=== PATIENT | female | born 1945 | race Caucasian/White ===

== ENCOUNTER → 2020-06-19 | Outpatient (CLI) | payer MEDICARE ==
[~2020-06-19] MED LIST: RT-ALBUTEROL SULF 2.5 MG/3 ML PRE-MIX VIAL INH ONE
--- NOTE | 2020-06-19 11:58 | Diagnostic Imaging Report ---
INDICATION: COPD. COMPARISON: None. FINDINGS: Frontal and lateral views of the chest demonstrate normal heart size and pulmonary vascularity. The lungs are clear. There are no signs of infiltrate, pleural effusions or pneumothoraces. The visualized osseous structures show no acute abnormalities. IMPRESSION: 1. No acute process. No signs of infiltrates, effusions or pneumothoraces. Dictated by: Dictated on workstation # [id number]
== END ==
LOC: RT 10:30
PROVIDERS: ATTEND Internal Medicine Critical Care Medicine
DX: J44.9 Chronic obstructive pulmonary disease, unspecified (principal)
CPT/HCPCS: 71046; 94060; 94726; 94729

== ENCOUNTER → 2020-08-01 | Outpatient (CLI) | payer MEDICARE ==
--- NOTE | 2020-08-01 11:02 | Diagnostic Imaging Report ---
INDICATION: 74-year-old postmenopausal female. COMPARISON: None. FINDINGS: AP Spine L1-L4: [BMD (g/cm2): 1.218] [T-Score: 0.1] [Z-Score: 1.7] [BMD Previous: na] [BMD % Change: na] LT Hip Neck: [BMD (g/cm2): 0.760] [T-Score: -2.0] [Z-Score: -0.2] LT Hip Total: [BMD (g/cm2):0.829] [T-Score:-1.4] [Z-Score: 0.2] [BMD Previous: na] [BMD % Change: na] RT Hip Neck: [BMD (g/cm2):na] [T-Score:na] [Z-Score:na] RT Hip Total: [BMD (g/cm2):na] [T-score:na] [Z-Score:na] [BMD Previous:na] [BMD % Change:na] World Health Organization criteria for BMD interpretation classify patients as Normal (T-score at or above -1.0), Osteopenic (T-score between -1.0 and -2.5) or Osteoporotic (T-score at or below -2.5). LIMITATIONS AND MODIFICATION: Right hip replacement. FRACTURE RISK (FRAX SCORE): The ten year probability of (%): Major Osteoporotic Fracture: [14.3] Hip Fracture: [3.9] IMPRESSION: 1. Osteopenia (Low bone mass). 2. Baseline examination. 3. See below National Osteoporosis Foundation guidelines on when to potentially initiate pharmacologic therapy. Based on the National Osteoporosis Foundation Guidelines, pharmacologic treatment should be initiated in any of the following, unless clinical conditions suggest otherwise: * Any patient with prior fragility fracture of the hip or vertebrae. A spine fracture indicates 5X risk for subsequent spine fracture and 2X risk for subsequent hip fracture. * Osteoporosis (T-score <-2.5). * Postmenopausal women and men age 50 and older with low bone mass/osteopenia (T-score between -1.0 and -2.5) by DXA and 10-year major osteoporotic fracture greater than 20% or a 10-year probability of hip fracture greater than 3%. These fracture risks are supplied above in the FRAX score, if applicable. * Clinician judgement and/or patient preferences may indicate treatment for people with 10-year fracture probabilities above or below these levels. Dictated by: Dictated on workstation # [id number]
== END ==
LOC: RAD 08:43
PROVIDERS: ATTEND Nurse Practitioner Family
DX: M85.80 Other specified disorders of bone density and structure, unspecified site (principal); Z78.0 Asymptomatic menopausal state; Z79.51 Long term (current) use of inhaled steroids
CPT/HCPCS: 77080

== ENCOUNTER → 2021-01-10 | Outpatient (CLI) | payer MEDICARE | LOC: RAD 11:00 | PROVIDERS: ATTEND Nurse Practitioner Family | DX: Z12.31 Encounter for screening mammogram for malignant neoplasm of breast (principal) | CPT/HCPCS: 77063; 77067 ==

== ENCOUNTER → 2021-01-24 | Outpatient (CLI) | payer MEDICARE, OTHER ==
--- NOTE | 2021-01-24 14:14 | Diagnostic Imaging Report ---
INDICATION: Right breast density. Correlation is made with the screening mammogram from 01/10/2021 and diagnostic mammogram from 01/24/2021. Sonographic interrogation of the upper and outer aspect right breast. There is an irregular area of hypoechogenicity approximately 4 cm from the nipple, 10:00 location corresponding to architectural distortion noted mammographically. This likely represents scar tissue. Patient does have a history of biopsy at this location. No definite abnormalities identified 6 cm from the nipple in the upper outer right breast to correspond to the mammographic density. This may have represented superimposed tissue. IMPRESSION: BI-RADS Category 3 There appears to be some scarring at the 10:00 location 4 cm from the nipple correlating with an area of architectural distortion mammographically. This area has been present for multiple years. No suspicious abnormality is seen 6 cm from the nipple in the upper outer right breast to account for the mammographic density. This may represent superimposed tissue. Even so, follow-up right mammogram and right breast ultrasound in 6 months is recommended to show continued stability. Dictated by: Dictated on workstation # [id number]
--- NOTE | 2021-01-24 15:43 | Diagnostic Imaging Report ---
Indication: Right breast density. Patient presents for additional views. Correlation is made with screening study from 01/10/2021. Unilateral right 2-D and 3-D diagnostic mammography was performed with CAD. This includes spot compression CC and MLO views as well as conventional 90 degree lateral views. No definite suspicious densities identified on the MLO view. There is some residual density superior and outer right breast on spot compression MLO and cc views. Further evaluation with ultrasound of this area is recommended. No suspicious microcalcifications are seen. IMPRESSION: BI-RADS 0 Residual density in the upper outer right breast approximately 6 cm from the nipple. Further evaluation with ultrasound of this area is recommended and will be performed today. ACR BI-RADS Category 0: Incomplete. (Needs additional imaging evaluation). Result letter will be mailed to the patient. Note: At least 10% of breast cancer is not imaged by mammography. Dictated by: Dictated on workstation # [id number]
== END ==
LOC: RAD 12:45
PROVIDERS: ATTEND Nurse Practitioner Family
DX: R92.2 Inconclusive mammogram (principal); Z98.890 Other specified postprocedural states
CPT/HCPCS: 76642; 77065; G0279

== ENCOUNTER → 2021-06-11 | Outpatient (CLI) | payer MEDICARE, OTHER ==
--- NOTE | 2021-06-11 12:55 | Diagnostic Imaging Report ---
INDICATION: Severe COPD. PA and lateral views of chest are obtained with comparison made study of 06/19/2020 FINDINGS: Heart size and pulmonary vascularity remain within normal limits. There is air trapping in the upper lobes. There is also focal asymmetric density in the apex of the right lung which could represent area of focal infiltrate or possible mass. No significant pleural or pericardial fluid is seen. IMPRESSION: Right apical density should be further assessed with either short-term CT follow-up or CT imaging of the chest to exclude possible mass. Dictated by: Dictated on workstation # [id number]
== END ==
LOC: RT 10:38
PROVIDERS: ATTEND Internal Medicine Critical Care Medicine
DX: J44.9 Chronic obstructive pulmonary disease, unspecified (principal); J98.4 Other disorders of lung
CPT/HCPCS: 71046; 94060; 94621; 94726; 94729

== ENCOUNTER → 2021-06-22 | Outpatient (CLI) | payer MEDICARE, OTHER ==
--- NOTE | 2021-06-22 14:53 | Diagnostic Imaging Report ---
PROCEDURE: CT chest without contrast. TECHNIQUE: Multiple contiguous axial images were obtained through the chest without the use of intravenous contrast. Auto Exposure Controls were utilized during the CT exam to meet ALARA standards for radiation dose reduction. INDICATION: Abnormal chest x-ray with question of right apical mass. COMPARISON: 06/11/2021. FINDINGS: There is increased density scattered in the apical region of the right lung. This does appear to be predominantly pleural based likely representing scarring. A discrete mass is not seen. The left lung apex is clear. There is noted some thickening along the superior margin of the major fissure as well. There is subpleural septal wall thickening noted bilaterally. There is rather severe obstructive lung disease with flattening of the diaphragm. The heart is not enlarged. There are no large cystic bullae. No evidence of bronchiectasis. The adrenal glands are not enlarged. No free air or free fluid. No pleural effusion or pericardial effusion. There is mild atherosclerotic change of the aorta without evidence of aneurysm. No blastic or lytic bony changes. No evidence of compression fracture. IMPRESSION: Obstructive interstitial lung disease. There is considerable thickening of the pleura in the right lung apex, which is asymmetrical. This is likely scarring in nature; would recommend the short-term follow-up, however, to confirm stability. Consider three-month repeat CT without contrast. Dictated by: Dictated on workstation # [id number]
== END ==
LOC: RAD 13:00
PROVIDERS: ATTEND Internal Medicine Critical Care Medicine
DX: R91.8 Other nonspecific abnormal finding of lung field (principal); J44.9 Chronic obstructive pulmonary disease, unspecified; Z87.891 Personal history of nicotine dependence
CPT/HCPCS: 71250

== ENCOUNTER → 2021-08-20 | Outpatient (CLI) | payer MEDICARE, OTHER ==
--- NOTE | 2021-08-20 15:57 | Diagnostic Imaging Report ---
INDICATION: Six-month followup right breast architectural distortion. Correlation is made with diagnostic mammogram earlier same day and prior right breast ultrasound 01/24/2021. Sonographic interrogation at the 10 o'clock location right breast, 4 cm from the nipple again demonstrates an area of hypoechogenicity, similar to prior study measuring 5 mm x 6 mm x 5 mm. This again most likely represents an area of scarring from prior biopsy. No new mass or fluid collection is seen. IMPRESSION: Stable area of hypoechogenicity at the 10 o'clock location right breast, 4 cm from the nipple when compared with 6 months earlier. Additional six-month followup mammogram and ultrasound is recommended to show continued stability. ACR BI-RADS Category 3: Probably benign findings. Result letter will be mailed to the patient. Note: At least 10% of breast cancer is not imaged by mammography. BI-RADS Category 3 Dictated by: Dictated on workstation # [id number]
--- NOTE | 2021-08-21 13:07 | Diagnostic Imaging Report ---
Indication: Six-month follow-up right breast architectural distortion. Correlation is made with prior mammograms 01/10/2021 02/23/2019. Unilateral right 2-D and 3-D diagnostic mammography was performed with CAD. CAD is utilized. The current study was also evaluated with a Computer Aided Detection (CAD) system. Right breast is heterogeneously dense, limiting the sensitivity of mammography. Area of architectural distortion in the upper outer right breast appears stable. No new mass or malignant-appearing microcalcifications are seen. Right axilla is unremarkable. IMPRESSION: BI-RADS 0 Stable right mammogram and stable area of architectural distortion. Even so, right breast ultrasound is recommended and will be performed today. ACR BI-RADS Category 0: Incomplete. (Needs additional imaging evaluation). Result letter will be mailed to the patient. Note: At least 10% of breast cancer is not imaged by mammography. Dictated by: Dictated on workstation # [id number]
== END ==
LOC: RAD 13:30
PROVIDERS: ATTEND Family Medicine
DX: R92.2 Inconclusive mammogram (principal)
CPT/HCPCS: 76642; 77065; G0279

== ENCOUNTER 2022-04-11 11:20 | Inpatient (IN) | payer MEDICARE, OTHER ==
[~2022-04-11] VITALS: Ht 167 cm; Wt 77.9 kg
[2022-04-14] MEDS ORDERED: guaiFENesin/CODEINE (ROBITUSSIN AC) 10ML UDC PO PRN (09:15)
[2022-04-14] MEDS ORDERED: ACETAMINOPHEN 325 MG TABLET PO PRN (09:15)
[2022-04-14] MEDS ORDERED: BISACODYL 10 MG SUPP (DULCOLAX) PR PRN (09:15)
[2022-04-14] MEDS ORDERED: CALCIUM CARBONATE 500 MG (TUMS) TAB.CHEW PO PRN (09:15)
[2022-04-14] MEDS ORDERED: ALPRAZolam 0.25 MG (XANAX) TAB PO PRN (09:15)
[2022-04-14] MEDS ORDERED: ONDANSETRON 4 MG (ZOFRAN) ORAL DISSOLVE TAB PO PRN (09:15)
[2022-04-14] MEDS ORDERED: LOPERAMIDE 2 MG (IMODIUM) TABLET PO PRN (09:15)
[2022-04-14] MEDS ORDERED: LACTULOSE SYRUP 10GM/15ML (ENULOSE) 30ML UDC PO PRN (09:15)
[2022-04-14] MEDS ORDERED: MELATONIN 3 MG TABLET PO PRN (09:15)
[2022-04-14] MEDS ORDERED: FLEET ENEMA ADULT 1 EA BTL PR PRN (09:15)
[2022-04-14] MEDS ORDERED: diphenhydrAMINE 25 MG TAB (BENADRYL) PO PRN (09:15)
[2022-04-14] MEDS ORDERED: DOCUSATE SODIUM 100 MG (COLACE) CAP PO PRN (09:15)
--- NOTE | 2022-04-14 13:03 | PM&R Post Admission Assessment ---
PM&R HP Date of Visit: Apr 14, 2022 Time of Visit: 13:15 History of Present Illness Chief complaint: COPD myopathy HPI: This is a 76-year-old female clinic patient of Dr. Alcala and pulmonology Dr. Lucas who presents from [facility] after a long stay following at [facility] 5-day hospital course but required higher level of care due to encephalopathy and severe pulmonary disease. I served as Dr. BARDALES's consult at [facility] so I am familiar with her case. She underwent a colonoscopy due to suspicion of colitis and it was a complication of a perforation and required a diverting colostomy. Currently her colostomy output is good. She does wear oxygen at home. She does use specialty inhalers. Her pain is much improved. She has been using a pure wick at [facility]. I reviewed her discharge meds. Multiple conversations with the hospitalist ensued in order for her to be transferred here today. To note I managed her acute issues following the perforation at [facility] for 5 days and she does not recall meeting me. Past Cjryfsh-Iwegdv-Cihzja Hx Past Med/Social Hx: Reviewed Nursing Past Med/Soc Hx, Reviewed and Corrections made Patient Social History Marrital Status: single Employed/Student: retired Alcohol Use: Regular Use Smoking Status: Former Smoker Past Medical History Surgeries: Abdominal Respiratory: COPD, Pneumonia, Pulmonary Fibrosis Cardiac: Chronic Edema/Swelling, High Cholesterol, Hypertension Gastrointestinal: Colitis, Gastroesophageal Reflux Musculoskeletal: Arthritis PM&R Allergy/Meds/Data Review Allergies Coded Allergies: acetaminophen (Unverified Allergy, Severe, Anaphylaxis, 06/19/20) furosemide (Unverified Allergy, Severe, 06/19/20) LETHAERGY Penicillins (Unverified Allergy, Intermediate, Itching, 06/19/20) Current Medications Current Medications Reviewed Review of Systems Constitutional: see HPI, malaise, weakness EENTM: no symptoms reported Respiratory: dyspnea on exertion, short of breath Cardiovascular: edema Gastrointestinal: abdominal pain, nausea Genitourinary: no symptoms reported Musculoskeletal: back pain, joint pain Skin: other (Thin skin) Psychiatric/Neurological: Anxiety, Depressed All Other Systems Reviewed Negative Unless Noted: Yes Physical Exam Physical Exam Vital Signs Capillary Refill : Height, Weight, BMI Height: '" Weight: lbs. oz. kg; BMI Method: General Appearance: No Apparent Distress, WD/WN, Chronically ill Eyes: Bilateral Eye Normal Inspection, Bilateral Eye PERRL HEENT: PERRL/EOMI, Normal ENT Inspection, Pharynx Normal Neck: Full Range of Motion, Normal Inspection, Non Tender, Supple, Carotid Bruit Respiratory: Chest Non Tender, Lungs Clear, Normal Breath Sounds, No Accessory Muscle Use, No Respiratory Distress, Decreased Breath Sounds Cardiovascular: Regular Rate, Rhythm, No Edema, No Gallop, No JVD, No Murmur, Normal Peripheral Pulses Gastrointestinal: Normal Bowel Sounds, No Organomegaly, No Pulsatile Mass, Non Tender, Soft, Other (Colostomy) Back: Normal Inspection, No CVA Tenderness, No Vertebral Tenderness Extremity: Normal Capillary Refill, Normal Inspection, Normal Range of Motion, Non Tender, No Calf Tenderness, No Pedal Edema Neurologic/Psychiatric: Alert, Oriented x3, Normal Mood/Affect, Motor Weakness (Generalized 3/5) Skin: Normal Color, Warm/Dry Lymphatic: No Adenopathy PM&R Medical Assessment & Plan REHAB/MEDICAL ASSESSMENT AND PLAN: REHAB IMPAIRMENT GROUP: COPD myopathy ETIOLOGIC DIAGNOSIS: COPD myopathy The comorbidities that impact the patients function and/or functional outcome by: Advanced age, severe COPD, anasarca REHAB PLAN: The patient is being admitted to our comprehensive inpatient rehabilitation facility and can tolerate the intensity of service consisting of at least: 180 minutes of therapy a day, 5 out of 7 days a week Rehab treatment will consist of: PT and OT will focus on regaining function with use of assistive devices in order to regain function stamina and ADLs in order to return home to live alone The patient/family has a good understanding of our discharge process and will benefit from an interdisciplinary inpatient rehabilitation program. The patient has potential to make improvement and is in need of at least two of the following multidisciplinary therapies including but not limited to physical, occupational, speech, and prosthetics and orthotics. Additionally the patient will need services from respiratory, nutritional services, wound care, psychology, etc. (Customize this to each patient). Given the patients complex condition and risk of further medical complications, rehabilitation services cannot be safely or effectively provided at a lower level of care such as a retirement facility. BARRIERS TO DISCHARGE: Severe COPD and weakness ESTIMATED LOS: 10 days DISPOSITION: Home with home health RELEVANT CHANGES SINCE PREADMISSION SCREENING: I have compared the patients medical and functional status at the time of the preadmission screening and there are: No changes PROGNOSIS: Good REHABILITATION GOALS: 1. PT and OT will focus on regaining function with use of assistive devices in order to regain function stamina and ADLs in order to return home to live alone All the above goals were reviewed with the patient and he/she is in agreement. By signing this document, I acknowledge that I have personally performed a full physical examination on this patient within 24 hours of admission to this inpatient rehabilitation facility and have determined the patient to be able to tolerate the above course of treatment at an intensive level for a reasonable pe riod of time. I will be completing a detailed individualized Plan of Care for this patient by day #4 of the patients stay based upon the Preadmission Screen, the Post-Admission Evaluation, and the therapy evaluations. Admission Dx/Comorbidities: (1) Respiratory failure ICD Codes: J96.90 - Respiratory failure, unspecified, unspecified whether with hypoxia or hypercapnia Assessment/Plan Assessment and Plan Assess & Plan/Chief Complaint Assessment: COPD myopathy Status post colon perforation during colonoscopy at [facility] received diverting colostomy Abdominal wound requiring wound VAC Encephalopathy Volume overload Diastolic CHF Severe COPD oxygen dependent Anasarca Protein malnutrition Plan: Continue diuresis Wound VAC PT and OT Pain control JERAMIE KENT DO Apr 14, 2022 13:03
--- OUTSIDE RECORDS SUMMARY | 2022-04-14 13:09 | XMS REPORT | CCD ---
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 Name Role Phone [facility] Unavailable CCM Unavailable Summary Purpose Interface Exchange Insurance Providers Payer name Policy type / Coverage type Covered republican ID Effective Begin Date Effective End Date WPS Medicare Part B Medicare Part B [id number] Unknown Unkno wn [employer] Medicare Part B [id number] Unknown Unknown Family history Mother Diagnosis Age At Onset Cancer Unknown Social History Social History Element Codes Description Effective Dates Marital status Unknown Single 04/21/2019 Number of children Unknown 3 04/21/2019 Employment Unknown Retired 04/21/[address]: 4688049 Former smoker 200904/21/[address]: 922271 Currently drinks alcohol 04/21 Frequency of drinks SNOMED CT: 675437959 1-4 drinks per week 5 04/21/2019 Allergies, Adverse Reactions, Alerts Substance Reaction Codes Entered Date Inactivated Date Status FUROSEMIDE Unknown 04/21/2019 No Inactive Date Active ACETAMINOPHEN Unknown 04/21/2019 No Inactive Date Activ e Penicillin rash, pruritis Unknown 04/21/2019 No Inactive Date Acti ve Problems Condition Codes Effective Dates Condition Status Hyperlipidemia Unknown 03/14/2022 Active Hypertension Unknown 03/14/2022 Active Elevated glucose ICD-10: R73.09 ICD-9: 790.29 03/14/2022 Active Essential (primary) hypertension ICD-10: I10 ICD-9: 401.9 03/14/2022 Active Mixed hyperlipidemia ICD-10: E78.2 ICD-9: 272.4 03/14/2022 Active Vitamin D deficiency ICD-10: E55.9 ICD-9: 268.9 03/14/2022 Active Dysuria ICD-10: R30.0 ICD-9: 788.1 06/16/2020 Active Depression screen ICD-10: Z13.31 ICD-9: V79.0 01/03/2022 Active Encounter for general adult medical examination with a bnormal findings ICD-10: Z00.01 ICD-9: V70.0 12/29/2020 Active 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) with screen room operator maria esther bronchitis ICD-10: J44.9 ICD-9: 491.20 04/22/2019 Active Dyspnea on exertion ICD-10: R06.09 ICD-9: 786.09 12/11/2021 Active Elevated TSH ICD-10: R79.89 ICD-9: 794.5 06/14/2021 Active Asymptomatic menopausal state ICD-10: Z78.0 06/12/2021 Ac tive Dyspnea on exertion ICD-10: R06.00 ICD-9: 786.09 12/07/2020 Active Osteopenia after menopause ICD-10: M85.80 ICD-9: 733.90 06/12/2021 Active Other fatigue ICD-10: R53.83 ICD-9: 780.79 12/07/2020 Active COPD exacerbation ICD-10: J44.1 ICD-9: 491.21 08/22/2020 Active Cough ICD-10: R05 ICD-9: 786.2 08/22/2020 Active Elevated blood pressure reading ICD-10: R03.0 ICD-9: 796.2 06/07/2020 Active Actinic keratosis ICD-10: L57.0 ICD-9: 702.0 08/30/2019 Active Venous insufficiency of both lower extremities ICD-10: I87.2 ICD-9: 459.81 08/30/2019 Active 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 ICD-9: 327.01 04/22/2019 Active Medications Medication Codes Instructions Start Date Stop Date Status Fill Instructions zolpidem ER 6.25 mg tablet,extended release,multiphase RxNor m: 400754 Take 1 Tablet(s) Oral at bed time 03/13/2022 07/10/2022 Active cefuroxime axetil 500 mg tablet RxNorm: 391260 1 Tablet(s) Oral two times a day 03/07/2022 03/07/2022 Inactive cefuroxime axetil 500 mg tablet RxNorm: 405910 Take 1 T ablet(s) Oral two times a day 03/07/2022 03/13/2022 Inactive Dulera 200 mcg-5 mcg/actuation HFA aerosol inhaler RxNorm: 1 754851 Inhale 2 Puff(s) Oral two times a day 01/22/2022 07/20/2022 Active zolpidem ER 6.25 mg tablet,extended release,multiphase RxNor m: 652771 Take 1 Tablet(s) Oral at bed time 01/10/2022 01/10/2022 Inactive azithromycin 250 mg tablet RxNorm: 737323 Take 1 Tablet (s) Oral as directed take two tabs on day #1 then 1 pill daily x 4 more days 01/08/2022 No Stop D ate Active prednisone 20 mg tablet RxNorm: 610102 Take 3 Tablet(s) Oral ev jose ramon day 01/08/2022 01/14/2022 Inactive Tudorza Pressair 400 mcg/actuation breath activated RxNorm: 5545330 Inhale 1 Puff(s) two times a day 11/21/2021 03/20/2022 Active zolpidem ER 6.25 mg tablet,extended release,multiphase RxNor m: 097906 Take 1 Tablet(s) Oral at bed time 11/14/2021 11/14/2021 Inactive Dulera 100 mcg-5 mcg/actuation HFA aerosol inhaler RxNorm: 1 030504 Inhale 1 Puff(s) Oral every day 10/14/2021 05/11/2022 Active fluticasone propionate 50 mcg/actuation nasal spray,suspensi on RxNorm: 1122950 instill one SPRAY IN EACH NOSTRIL EVERY DAY 10/14/2021 05/11/2022 Acti ve Dulera 200 mcg-5 mcg/actuation HFA aerosol inhaler RxNorm: 1 688557 Inhale 2 Puff(s) Oral two times a day 10/01/2021 10/01/2021 Inactive zolpidem ER 6.25 mg tablet,extended release,multiphase RxNor m: 025226 Take 1 Tablet(s) Oral at bed time 09/14/2021 09/14/2021 Inactive Tudorza Pressair 400 mcg/actuation breath activated RxNorm: 2205968 Inhale 1 Puff(s) two times a day 08/03/2021 08/03/2021 Inactive This pre scription was filled on 07/10/2021. Any refills authorized will be placed on file. cephalexin 500 mg tablet RxNorm: 376906 Take 1 Tablet(s) Oral t hree times a day 07/30/2021 08/05/2021 Inactive zolpidem ER 6.25 mg tablet,extended release,multiphase RxNor m: 549979 Take 1 Tablet(s) Oral at bed time 07/17/2021 07/17/2021 Inactive cephalexin 500 mg capsule RxNorm: 674453 1 Capsule(s) O ral three times a day with probiotics BID 06/20/2021 06/26/2021 Inactive hold doxycyc line while taking keflex Vitamin D3 125 mcg (5,000 unit) tablet RxNorm: 028778 1 Tablet(s) Oral every day 06/19/2021 No Stop Date Active zolpidem ER 6.25 mg tablet,extended release,multiphase RxNor m: 713771 Take 1 Tablet(s) Oral at bed time 05/21/2021 05/21/2021 Inactive Dulera 200 mcg-5 mcg/actuation HFA aerosol inhaler RxNorm: 1 169095 INHALE 2 PUFFS BY MOUTH TWO TIMES A DAY 05/02/2021 05/02/2021 Inactive T his prescription was filled on 12/02/2020. Any refills authorized will be placed on file. zolpidem ER 6.25 mg tablet,extended release,multiphase RxNor m: 782202 Take 1 Tablet(s) Oral at bed time 04/18/2021 04/18/2021 Inactive zolpidem ER 6.25 mg tablet,extended release,multiphase RxNor m: 124747 Take 1 Tablet(s) Oral at bed time 03/21/2021 03/21/2021 Inactive cephalexin 500 mg capsule RxNorm: 848424 1 Capsule(s) O ral three times a day with probiotics BID 03/13/2021 03/19/2021 Inactive hold doxycyc line while taking keflex zolpidem ER 6.25 mg tablet,extended release,multiphase RxNor m: 304887 Take 1 Tablet(s) Oral at bed time 02/19/2021 02/19/2021 Inactive prednisone 10 mg tablet RxNorm: 316292 Tablet(s) Oral 6 0mg x 1 then 50,40,30,20,10, 02/05/2021 02/05/2021 Inactive Zithromax 250 mg tablet RxNorm: 614818 1 Tablet(s) Oral as directed 2 tabs on day #1, then 1 tab daily x 4 more days 02/05/2021 02/14/2021 Inactive lizz Tudorza Pressair 400 mcg/actuation breath activated RxNorm: 2441032 Inhale 1 Puff(s) two times a day 01/31/2021 01/31/2021 Inactive This pre scription was filled on 01/08/2021. Any refills authorized will be placed on file. zolpidem ER 6.25 mg tablet,extended release,multiphase RxNor m: 838062 Take 1 Tablet(s) Oral at bed time 01/13/2021 01/13/2021 Inactive This prescription was filled on 12/21/2020. Any refills authorized will be placed on file. Dulera 200 mcg-5 mcg/actuation HFA aerosol inhaler RxNorm: 1 300452 INHALE 2 PUFFS BY MOUTH TWO TIMES A DAY 12/26/2020 12/26/2020 Inactive T his prescription was filled on 12/02/2020. Any refills authorized will be placed on file. zolpidem ER 6.25 mg tablet,extended release,multiphase RxNor m: 100955 Take 1 Tablet(s) Oral at bed time 10/23/2020 10/23/2020 Inactive Tudorza Pressair 400 mcg/actuation breath activated RxNorm: 7839998 INHALE 1 PUFF TWICE DAILY 09/27/2020 09/27/2020 Inactive [place] approved zolpidem ER 6.25 mg tablet,extended release,multiphase RxNor m: 622555 Take 1 Tablet(s) Oral at bed time 09/21/2020 09/21/2020 Inactive fluticasone propionate 50 mcg/actuation nasal spray,suspensi on RxNorm: 2286164 instill one SPRAY IN EACH NOSTRIL EVERY DAY 09/20/2020 09/20/2020 Inac tive This prescription was filled on 08/23/2020. Any refills authorized will be placed on file. zolpidem ER 6.25 mg tablet,extended release,multiphase RxNor m: 226859 Take 1 Tablet(s) Oral at bed time 08/24/2020 08/24/2020 Inactive albuterol sulfate 2.5 mg/3 mL (0.083 %) solution for n ebulization RxNorm: 224497 3 Milliliter(s) Inhalation four times a day as needed dyspne a 08/22/2020 No Stop Date Active prednisone 10 mg tablet RxNorm: 801923 Tablet(s) Oral 6 0mg x 1 then 50,40,30,20,10, 08/22/2020 02/04/2021 Inactive Kenalog 40 mg/mL suspension for injection RxNorm: 2639969 1 Milliliter(s) Injection 08/22/2020 08/22/2020 Inactive Zithromax 250 mg tablet RxNorm: 894609 1 Tablet(s) Oral as directed 08/22/2020 08/26/2020 Inactive zpack x 1 Fosamax 70 mg tablet RxNorm: 741614 1 Tablet(s) Oral once a week 08/13/2021 Inactive Fosamax 70 mg tablet RxNorm: 991391 1 Tablet(s) Oral once a week 08/17/2020 Inactive Zithromax 250 mg tablet RxNorm: 005088 1 Tablet(s) Oral as directed 08/14/2020 08/19/2020 Inactive zpack x 1 prednisone 20 mg tablet RxNorm: 303426 2 Tablet(s) Oral every day 0 08/14/2020 08/19/2020 Inactive prednisone 20 mg tablet RxNorm: 383101 2 Tablet(s) Oral every day 0 08/14/2020 08/13/2020 Inactive Zithromax 250 mg tablet RxNorm: 625297 1 Tablet(s) Oral as directed 08/14/2020 08/13/2020 Inactive zpack x 1 Dulera 200 mcg-5 mcg/actuation HFA aerosol inhaler RxNorm: 1 584338 INHALE 2 PUFFS BY MOUTH TWO TIMES A DAY 08/10/2020 08/10/2020 Inactive T his prescription was filled on 07/18/2020. Any refills authorized will be placed on file. Ambien CR 6.25 mg tablet,extended release RxNorm: 109796 TAKE ONE TABLET BY MOUTH DAILY AT BEDTIME 07/21/2020 07/21/2020 Inactive Ambien CR 6.25 mg tablet,extended release RxNorm: 702306 TAKE ONE TABLET BY MOUTH DAILY AT BEDTIME 06/26/2020 07/20/2020 Inactive doxycycline hyclate 20 mg tablet RxNorm: 910242 TAKE 1 TABLET(S) ORAL ONETIME A DAY 06/19/2020 09/17/2020 Inactive cephalexin 500 mg capsule RxNorm: 047883 1 Capsule(s) O ral three times a day with probiotics BID 06/16/2020 06/23/2020 Inactive hold doxycyc line while taking keflex Dulera 100 mcg-5 mcg/actuation HFA aerosol inhaler RxNorm: 1 192480 INHALE 1 PUFF(S) INHALATION EVERY DAY 05/25/2020 05/24/2020 Inactive Dulera 100 mcg-5 mcg/actuation HFA aerosol inhaler RxNorm: 1 149348 INHALE 1 PUFF(S) INHALATION EVERY DAY as needed rescue inhaler 05/25/20202020 Inactive doxycycline hyclate 20 mg tablet RxNorm: 512646 TAKE 1 TABLET(S) ORAL TWO TIMES A DAY 05/25/2020 06/18/2020 Inactive Tudorza Pressair 400 mcg/actuation breath activated RxNorm: 5418668 INHALE 1 PUFF TWICE DAILY 05/24/2020 05/24/2020 Inactive This prescripti on was filled on 05/01/2020. Any refills authorized will be placed on file. Dulera 200 mcg-5 mcg/actuation HFA aerosol inhaler RxNorm: 1 256426 INHALE 2 PUFFS BY MOUTH TWO TIMES A DAY 05/24/2020 08/09/2020 Inactive T his prescription was filled on 05/01/2020. Any refills authorized will be placed on file. Ambien CR 6.25 mg tablet,extended release RxNorm: 712023 TAKE ONE TABLET BY MOUTH DAILY AT BEDTIME 05/19/2020 06/17/2020 Inactive Ambien CR 6.25 mg tablet,extended release RxNorm: 984415 1 Tablet(s) Oral every night at bedtime 03/29/2020 05/18/2020 Inactive Dulera 200 mcg-5 mcg/actuation HFA aerosol inhaler RxNorm: 1 865891 INHALE 2 PUFFS BY MOUTH TWO TIMES A DAY 02/21/2020 05/20/2020 Inactive Tudorza Pressair 400 mcg/actuation breath activated RxNorm: 0268781 INHALE 1 PUFF TWICE DAILY 02/01/2020 05/23/2020 Inactive Ambien CR 6.25 mg tablet,extended release RxNorm: 471090 1 Tablet(s) Oral every night at bedtime 01/29/2020 03/27/2020 Inactive fluticasone propionate 50 mcg/actuation nasal spray,suspensi on RxNorm: 5093951 1 [place] Nasal every day 1 spray each nostril 12/24/2019 12/23/2019 Inact andrade replaces zetonna fluticasone propionate 50 mcg/actuation nasal spray,suspensi on RxNorm: 6681473 1 [place] Nasal every day 1 spray each nostril 12/24/2019 12/24/2019 Inact andrade replaces zetonna Ambien CR 6.25 mg tablet,extended release RxNorm: 014140 Tablet(s) Oral every night at bedtime 11/30/2019 01/28/2020 Inactive Zetonna 37 mcg/actuation nasal HFA inhaler RxNorm: 7059520 1 [place] Nasal every day 11/02/2019 12/23/2019 Inactive Dulera 200 mcg-5 mcg/actuation HFA aerosol inhaler RxNorm: 1 930274 2 Puff(s) Inhalation two times a day 11/02/2019 02/20/2020 Inactive Zetonna 37 mcg/actuation nasal HFA inhaler RxNorm: 1968561 1 [place] Nasal every day 11/02/2019 11/01/2019 Inactive Ambien CR 6.25 mg tablet,extended release RxNorm: 006471 Tablet(s) Oral every night at bedtime 10/01/2019 11/29/2019 Inactive Tudorza Pressair 400 mcg/actuation breath activated RxNorm: 8977195 INHALE ONE INHALATION PO BID 08/04/2019 12/01/2019 Inactive Ambien CR 6.25 mg tablet,extended release RxNorm: 833779 1 Tablet(s) Oral every night at bedtime 08/04/2019 09/30/2019 Inactive Ambien CR 6.25 mg tablet,extended release RxNorm: 647237 1 Tablet(s) Oral every night at bedtime 06/02/2019 07/31/2019 Inactive Tudorza Pressair 400 mcg/actuation breath activated RxNorm: 6354053 INHALE ONE INHALATION PO BID 06/01/2019 07/30/2019 Inactive doxycycline hyclate 20 mg tablet RxNorm: 285614 1 Table t(s) Oral two times a day 04/22/2019 04/16/2020 Inactive pt will call whe n she needs refills Ambien CR 6.25 mg tablet,extended release RxNorm: 568326 1 Tablet(s) Oral every night at bedtime 04/22/2019 04/20/2019 Inactive Tudorza Pressair 400 mcg/actuation breath activated RxNorm: 3159517 1 Inhalation two times a day 04/22/2019 04/22/2019 Inactive Ambien CR 6.25 mg tablet,extended release RxNorm: 670216 1 Tablet(s) Oral every night at bedtime 04/22/2019 05/19/2019 Inactive doxycycline hyclate 100 mg tablet RxNorm: 4602858 1 [place] et(s) Oral two times a day 04/22/2019 04/21/2019 Inactive Dulera 100 mcg-5 mcg/actuation HFA aerosol inhaler RxNorm: 1 539805 1 Puff(s) Inhalation every day 04/22/2019 11/18/2019 Inactive Vitamin C 500 mg tablet RxNorm: 228295 1 Tablet(s) Oral two adriana es a day 04/21/2019 No Stop Date Active Dulera 100 mcg-5 mcg/actuation HFA aerosol inhaler RxNorm: 1 182302 Inhalation as needed 04/21/2019 08/21/2020 Inactive Dulera 200 mcg-5 mcg/actuation HFA aerosol inhaler RxNorm: 1 173440 2 Inhalation two times a day 04/21/2019 11/01/2019 Inactive Tudorza Pressair 400 mcg/actuation breath activated RxNorm: 5923464 1 Inhalation two times a day 04/21/2019 04/21/2019 Inactive omega 3,6,9 combination no.7 oral RxNorm: oral 04/21/2019 Active Calcium 600 + D(3) oral RxNorm: 717043 oral 08/22/2020 Active Alive Once Daily Women 50 Plus oral RxNorm: oral 04/21/2019 Active Zetonna nasal RxNorm: 6580241 nasal 11/02/2019 11/02/2019 Inactive Medication Administered Medication Codes Instructions Start Date Status Kenalog 40 mg/mL suspension for injection RxNorm: 2889576 1Milli liter 08/22/2020 No longer Active Immunizations Vaccine Codes Dose Date Status Influenza CVX: 197 12/11/2021 Pneumococcal (Adult) CVX: 133 08/17/2021 SHINGARIX CVX: 121 08/17/2021 Covid-19 CVX: 207 05/12/2020 Covid-19 CVX: 207 04/10/2020 Influenza CVX: 197 12/16/2019 Pneumococcal CVX: 133 12/16/2019 Influenza CVX: 197 12/08/2018 Tetanus, Diptheria, Pertussis CVX: 09 03/10/2018 Results Observation Observation Code Item Item Code Result Date [facility] Location CULTURE, URINE M100 URINE CULTURE See Note 03/12/2022 Unknown Urinalysis Ord28 U-Color Yellow 03/07/2022 Unknown Urinalysis Ord28 U-Clarity Cloudy 03/07/2022 Unknown Urinalysis Ord28 U-Gluc Negative 03/07/2022 Unknown Urinalysis Ord28 U-Bili Negative 03/07/2022 Unknown Urinalysis Ord28 U-Ketone Negative 03/07/2022 Unknown Urinalysis Ord28 U-SG 1.015 03/07/2022 Unknown Urinalysis Ord28 U-Blood Negative 03/07/2022 Unknown Urinalysis Ord28 U-pH 7.0 03/07/2022 Unknown Urinalysis Ord28 U-Protein Negative 03/07/2022 Unknown Urinalysis Ord28 U-Urobilin 0.2 E.U./dL E.U./dL 03/07/20 22 Unknown Urinalysis Ord28 U-Nitrites Negative 03/07/2022 Unknown Urinalysis Ord28 U-Leuk Large 03/07/2022 Unknown Urinalysis Ord28 U-Bact 4+ 03/07/2022 Unknown Urinalysis Ord28 U-Squamous Epi None per/HPF 03/07/2022 Unknown Urinalysis Ord28 U-Crystal None per/HPF 03/07/2022 Unkno wn Urinalysis Ord28 U-Mucus None 03/07/2022 Unknown Urinalysis Ord28 U-Renal tubular epi None Unknown Urinalysis Ord28 U-RBC None per/HPF 03/07/2022 Unkno wn Urinalysis Ord28 U-Transitional epi None per/HPF 022 Unknown Urinalysis Ord28 U-WBC 75-100 per/HPF 03/07/2022 Unk nown Urinalysis Ord28 U-Cast None per/lpf 03/07/2022 Unkno wn Urinalysis Ord28 U-VOL VOLUME SUFFICIENT (10mL) Unknown Urinalysis Ord28 U-Com Culture to follow 03/07/2022 Unknown Urinalysis Ord28 U-Yeast NEGATIVE 03/07/2022 Unknown CULTURE, URINE M100 URINE CULTURE See Note 08/04/2021 Unknown CULTURE, URINE M100 URINE CULTURE See Note 06/24/2021 Unknown Free T4 [id number] FREE T4 0.75 ng/dL 06/14/2021 Unknown Cbc With Differential Ord2 WBC 9.67 K/ul 06/13/19 22 Unknown Cbc With Differential Ord2 RBC 5.23 M/ul 06/13/19 22 Unknown Cbc With Differential Ord2 HGB 16.4 g/dl 06/13/19 22 Unknown Cbc With Differential Ord2 HCT 51.3 % 06/13/19 22 Unknown Cbc With Differential Ord2 Neut% 71.1 % 06/13/19 22 Unknown Cbc With Differential Ord2 MCV 98.1 fl 06/13/19 22 Unknown Cbc With Differential Ord2 Lymph% 17.5 % 06/13/19 22 Unknown Cbc With Differential Ord2 MCH 31.4 pg 06/13/19 22 Unknown Cbc With Differential Ord2 [place]% 9.2 % 06/13/19 22 Unknown Cbc With Differential Ord2 MCHC 32.0 pg 06/13/19 22 Unknown Cbc With Differential Ord2 Eos% 1.8 % 06/13/19 22 Unknown Cbc With Differential Ord2 PLT 312 K/ul 06/13/19 22 Unknown Cbc With Differential Ord2 Baso% 0.4 % 06/13/19 22 Unknown Cbc With Differential Ord2 RDW 13.3 % 06/13/19 22 Unknown Cbc With Differential Ord2 Neut ABS# 6.88 K/ul 06/13/19 22 Unknown Cbc With Differential Ord2 Lymph ABS# 1.69 K/ul 022 Unknown Cbc With Differential Ord2 [place] ABS# 0.9 K/ul 06/13/19 22 Unknown Cbc With Differential Ord2 Eos ABS# 0.2 K/ul 06/13/19 22 Unknown Cbc With Differential Ord2 Baso ABS# 0.0 K/ul 06/13/19 22 Unknown Tsh Ord6 TSH (3rd IS) 5.79 uIU/mL 06/12/2021 Unkn own Vitamin D 25 Oh [id number] VITAMIN D, 25 HYDROXY 34.58 ng/mL 06/12/2021 Unknown Comp Metabolic Ljt736 NA 137 mEq/L 06/12/2021 Unkn own Comp Metabolic Udf214 K 4.0 mEq/L 06/12/2021 Unkn own Comp Metabolic Mmy643 CL 99 mEq/L 06/12/2021 Unkn own Comp Metabolic Itr425 CO2 28.0 mEq/L 06/12/2021 Unk nown Comp Metabolic Zfs506 ANION GAP 14 06/12/2021 Unkn own Comp Metabolic Rvq751 GLUCOSE 108 mg/dL 06/12/2021 Unkn own Comp Metabolic Vpm355 Creat 0.6 mg/dL 06/12/2021 Unkn own Comp Metabolic Fxn273 eGFR 107 ml/min/1.73m2 022 Unknown Comp Metabolic Oke006 BUN 5 mg/dL 06/12/2021 Unkn own Comp Metabolic Tjd146 B/C Ratio 8.6 Ratio 06/12/2021 Unkn own Comp Metabolic Zdj243 CALCIUM 9.0 mg/dL 06/12/2021 Unkn own Comp Metabolic Xoi342 ALK PHOS 112 U/L 06/12/2021 Unkn own Comp Metabolic Shx851 AST(SGOT) 28 U/L 06/12/2021 Unkn own Comp Metabolic Kfx469 ALT(SGPT) 23 U/L 06/12/2021 Unkn own Comp Metabolic Lpe156 BILI T 1.2 mg/dL 06/12/2021 Unkn own Comp Metabolic Mvt794 ALBUMIN 3.8 g/dL 06/12/2021 Unkn own Comp Metabolic Wna451 TPRO 6.4 g/dL 06/12/2021 Unkn own Comp Metabolic Gqs916 GLOB 2.6 g/dL 06/12/2021 Unkn own Comp Metabolic Qab123 A/G Ratio 1.5 Ratio 06/12/2021 Unkn own Comp Metabolic Fwf600 Osmo 272 mOsmo 06/12/2021 Unkn own Lipid Ord30 CHOL 207 mg/dL 06/12/2021 Unknown Lipid Ord30 HDL 60.0 mg/dl 06/12/2021 Unknown Lipid Ord30 TRIG 120 mg/dL 06/12/2021 Unknown Lipid Ord30 LDL 123 mg/dL 06/12/2021 Unknown Lipid Ord30 C/HDL 3.5 Ratio 06/12/2021 Unknown CULTURE, URINE M100 URINE CULTURE See Note 03/18/2021 Unknown CULTURE, URINE M100 URINE CULTURE See Note 06/19/2020 Unknown Comp Metabolic Jfh770 NA 136 mEq/L 06/07/2020 Unkn own Comp Metabolic Rdm302 K 4.1 mEq/L 06/07/2020 Unkn own Comp Metabolic Jhc600 CL 98 mEq/L 06/07/2020 Unkn own Comp Metabolic Jto663 CO2 27.0 mEq/L 06/07/2020 Unk nown Comp Metabolic Hdf009 ANION GAP 15 06/07/2020 Unkn own Comp Metabolic Mbo931 GLUCOSE 86 mg/dL 06/07/2020 Unkn own Comp Metabolic Ydp774 Creat 0.6 mg/dL 06/07/2020 Unkn own Comp Metabolic Sea638 eGFR 101 ml/min/1.73m2 021 Unknown Comp Metabolic Cgt448 BUN 6 mg/dL 06/07/2020 Unkn own Comp Metabolic Xcs883 B/C Ratio 9.8 Ratio 06/07/2020 Unkn own Comp Metabolic Dsk440 CALCIUM 8.9 mg/dL 06/07/2020 Unkn own Comp Metabolic Brq197 ALK PHOS 95 U/L 06/07/2020 Unkn own Comp Metabolic Xfj243 AST(SGOT) 54 U/L 06/07/2020 Unkn own Comp Metabolic Ttx437 ALT(SGPT) 48 U/L 06/07/2020 Unkn own Comp Metabolic Wrw358 BILI T 0.9 mg/dL 06/07/2020 Unkn own Comp Metabolic Bha060 ALBUMIN 3.8 g/dL 06/07/2020 Unkn own Comp Metabolic Itp197 TPRO 6.2 g/dL 06/07/2020 Unkn own Comp Metabolic Sks820 GLOB 2.4 g/dL 06/07/2020 Unkn own Comp Metabolic Job733 A/G Ratio 1.5 Ratio 06/07/2020 Unkn own Comp Metabolic Tty476 Osmo 269 mOsmo 06/07/2020 Unkn own Cbc With Differential Ord2 WBC 8.81 K/ul 06/08/19 21 Unknown Cbc With Differential Ord2 RBC 4.79 M/ul 06/08/19 21 Unknown Cbc With Differential Ord2 HGB 15.5 g/dl 06/08/19 21 Unknown Cbc With Differential Ord2 HCT 47.9 % 06/08/19 21 Unknown Cbc With Differential Ord2 Neut% 71.1 % 06/08/19 21 Unknown Cbc With Differential Ord2 MCV 100.0 fl 06/08/19 21 Unknown Cbc With Differential Ord2 Lymph% 17.3 % 06/08/19 21 Unknown Cbc With Differential Ord2 MCH 32.4 pg 06/08/19 21 Unknown Cbc With Differential Ord2 [place]% 10.0 % 06/08/19 21 Unknown Cbc With Differential Ord2 MCHC 32.4 pg 06/08/19 21 Unknown Cbc With Differential Ord2 Eos% 1.4 % 06/08/19 21 Unknown Cbc With Differential Ord2 Baso% 0.2 % 06/08/19 21 Unknown Cbc With Differential Ord2 PLT 294 K/ul 06/08/19 21 Unknown Cbc With Differential Ord2 RDW 13.8 % 06/08/19 21 Unknown Cbc With Differential Ord2 Neut ABS# 6.27 K/ul 06/08/19 21 Unknown Cbc With Differential Ord2 Lymph ABS# 1.52 K/ul 021 Unknown Cbc With Differential Ord2 [place] ABS# 0.9 K/ul 06/08/19 21 Unknown Cbc With Differential Ord2 Eos ABS# 0.1 K/ul 06/08/19 21 Unknown Cbc With Differential Ord2 Baso ABS# 0.0 K/ul 06/08/19 21 Unknown Tsh Ord6 TSH (3rd IS) 4.35 uIU/mL 06/07/2020 Unkn own Lipid Ord30 CHOL 218 mg/dL 06/07/2020 Unknown Lipid Ord30 HDL 78.0 mg/dl 06/07/2020 Unknown Lipid Ord30 TRIG 139 mg/dL 06/07/2020 Unknown Lipid Ord30 LDL 112 mg/dL 06/07/2020 Unknown Lipid Ord30 C/HDL 2.8 Ratio 06/07/2020 Unknown Procedures Procedure Codes Date PPPS, SUBSEQ VISIT CPT-4: G0439 01/03/2022 DEPRESSION SCREEN ANNUAL CPT-4: G0444 01/03/2022 URINALYSIS NONAUTO W/O SCOPE CPT-4: 88402 03/13/2021 PPPS, SUBSEQ VISIT CPT-4: G0439 12/29/2020 DEPRESSION SCREEN ANNUAL CPT-4: G0444 12/29/2020 TRIAMCINOLONE ACET INJ NOS 10 mg CPT-4: J3301 021 THER/PROPH/DIAG INJ SC/IM CPT-4: 93961 08/22/2020 URINALYSIS NONAUTO W/O SCOPE CPT-4: 04347 06/16/2020 DESTRUCT PREMALG LESION CPT-4: 09605 08/30/2019 Vital Signs Date Vital 01/03/2022 Blood Pressure 1: 122/64 Code: 8480-6 BMI: 25.5 Code: 95291-5 Heart Rate 1: 87 bpm Height: 5'6" Code: 8302-2 SpO2: 94% Temperature: 3 6.2 (C) / 97.2 (F) Weight: 158 lbs Code: 11932-4 12/11/2021 Blood Pressure 1: 130/70 Code: 8480-6 Heart Rate 1: 88 bpm Height: 5'6" Code: 8302-2 Respiratory Rate: 17 bpm SpO2: 82% Temperature: 35 .6 (C) / 96.0 (F) Weight: Code: 01049-1 06/12/2021 Blood Pressure 1: 130/76 Code: 8480-6 Heart Rate 1: 84 bpm Height: Code: 8302-2 Respiratory Rate: 17 bpm SpO2: 94% Temperature: 35 .7 (C) / 96.3 (F) Weight: 156 lbs Code: 47066-0 12/29/2020 Blood Pressure 1: 128/74 Code: 8480-6 BMI: 25.8 Code: 01031-0 Heart Rate 1: 92 bpm Height: 5'6" Code: 8302-2 SpO2: 90% Temperature: 3 6.0 (C) / 96.8 (F) Weight: 160 lbs Code: 38461-7 12/07/2020 Blood Pressure 1: 130/78 Code: 8480-6 BMI: 25.8 Code: 71271-1 Heart Rate 1: 88 bpm Height: 5'6" Code: 8302-2 Respiratory Rate: 18 bpm SpO2: 93% Temperature: 35.6 (C) / 96.1 (F) Weight: 160 lbs Code: 33324-6 08/22/2020 Blood Pressure 1: 138/80 Code: 8480-6 BMI: 25.3 Code: 23531-6 Heart Rate 1: 72 bpm Height: 5'6" Code: 8302-2 SpO2: 92% Temperature: 3 6.6 (C) / 97.8 (F) Weight: 157 lbs Code: 71798-8 06/07/2020 Blood Pressure 1: 144/86 Code: 8480-6 BMI: 26.0 Code: 07491-9 Heart Rate 1: 84 bpm Height: 5'6" Code: 8302-2 SpO2: 96% Temperature: 3 6.3 (C) / 97.3 (F) Weight: 161 lbs Code: 04408-6 08/30/2019 Blood Pressure 1: 168/98 Code: 8480-6 Bl ood Pressure 1: 148/74 Code: 8480-6 BMI: 26.0 Code: 18063-5 Heart Rate 1: 83 bpm Height: 5'6" Code: 8302-2 Respiratory Rate: 15 bpm SpO2: 88% Temperature: 36.8 (C) / 98.2 (F) We ight: 161 lbs Code: 50489-6 04/22/2019 Blood Pressure 1: 124/80 Code: 8480-6 BMI: 25.3 Code: 05901-9 Heart Rate 1: 71 bpm Height: 5'6" Code: 8302-2 SpO2: 91% Weight: 157 lb s Code: 10483-6 Functional Status No Functional Status data Reason For Visit Reason For Visit Effective Dates Notes Annual Medicare Wellness Exam 01/03/2022 shortness of breath 12/11/2021 shortness of breath 06/12/2021 Annual Medicare Wellness Exam 12/29/2020 shortness of breath 12/07/2020 fatigue 12/07/2020 cough 08/22/2020 dysuria 06/16/2020 edema 06/07/2020 edema 08/30/2019 chest tightness 04/22/2019 Encounters Encounter Performer Location Location Address Codes Date ([id number]) 65614 EST. PATIENT, LEVEL IV Diagnosis: Dyspnea on exertion[ICD10: R06.09] Diagnosis: 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) with chronic bronchitis[ICD10: J44.9] Diagnosis: Dysuria[ICD10: R30.0] Sunita Alcala MD, [facility] [address] [place] [address] CPT-4: 74479 12/11/2021 ([id number]) 97853 EST. PATIENT, LEVEL I Diagnosis: Dysuria[ICD10: R30.0] Sunita Alcala MD, [facility] [address] [place] [address] CPT-4: 18130 07/30/2021 ([id number]) 28676 EST. PATIENT, LEVEL I Diagnosis: Dysuria[ICD10: R30.0] Sunita Alcala MD, [facility] [address] [place] [address] CPT-4: 60990 06/20/2021 ([id number]) 23358 EST. 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] Diagnosis: Other fatigue[ICD10: R53.83] Diagnosis: Asymptomatic menopausal state[ICD10: Z78.0] Diagnosis: Osteopenia after menopause[ICD10: M85.80] Diagnosis: Dyspnea on exertion[ICD10: R06.00] Sunita eubanks MD, [facility] [address] [place] [address] CPT-4: 9921 4 06/12/2021 ([id number]) 40664 EST. 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] Diagnosis: Dyspnea on exertion[ICD10: R06.00] Diagnosis: Other fatigue[ICD10: R53.83] Sunita Alcala MD, [facility] [address] [place] [address] CPT-4: 63708 12/07 22170 EST. PATIENT, LEVEL III Diagnosis: COPD exacerbation[ICD10: J44.1] Diagnosis: Cough[ICD10: R05] Zaynab Alcala MD, [facility] [address] [place] [address] CPT-4: 90687 08/22/2020 ([id number]) 76264 EST. 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] Diagnosis: Elevated blood pressure reading[ICD10: R03.0] Sunita Alcala MD, [facility] [address] [place] [address] CPT-4: 9921 4 06/07/2020 ([id number]) 05757 EST. 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] Diagnosis: Venous insufficiency of both lower extremities[ICD10: I87.2] Diagnosis: Actinic keratosis[ICD10: L57.0] Sunita scott MD, [facility] [address] [place] [address] CPT-4: 9921 4 08/30/2019 ([id number]) OFFICE VISIT, NEW - LEVEL 4 Diagnosis: 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) with chronic bronchitis[ICD10: J44.9] Diagnosis: Insomnia due to medical condition[ICD10: G47.01] Sunita Alcala MD, [facility] [address] [place] [address] CPT-4: 9920 4 04/22/2019 Plan of Care Planned Activity Notes Codes Status Date Patient Education: Patient Medication Summary Completed 03/14/2022 Care Plan: Cbc With Differential Pending 03/14/2022 Care Plan: Comp Metabolic Pending Care Plan: Tsh Pending 03/14/2022 Care Plan: Lipid Pending 03/14/2022 Care Plan: %Hba1C LOINC : 48821-7 Pending 03/14/2022 Care Plan: Vitamin D 25 Oh Pending 03/14/2022 Patient Education: Patient Medication Summary Completed 03/07/2022 Patient Education: Patient Medication Summary Completed 01/08/2022 Visit Plan: Medicare Exam - today we dis cussed the patients past history, immunizations, preventative exams/evaluations - colonoscopy, fecal occult blood testing, routine labs for renal function, glucose, cholesterol, osteoporosis evaluations, cardiovascular testing and cancer screenings. We have also discussed mental health and the signs/symptoms of depression. The patient was advised of home safety evaluations and the need to make sure that as the aging process continues, we need to be aware of different ways to make the home a safer place to reside. The patient has also been counseled that exercise is nece ssary - and of utmost importance as we age to help decrease fall risk and to maintain independence in the home. Today we discussed the need for the patient to create paperwork for Advanced directives as well as for the patient to provide this office with a copy of her DOPA paperwork for health care surrogate. 01/03/2022 Appointment: Jennifer Dawkins WPtel: [phone] [facility] - Annual Wellness Visit 12/09 Patient Education: Patient Medication Summary Completed 01/03/2022 Visit Plan: Dysuria - check urine. 2+ le ukocytes with no blood and no nitrites - no antibiotics needed COPD - chronic problem for this patient. She is still not interested in wearing oxygen. She sees a sounding device operator in [place]. I have recommended that she makes sure she has follow up appointments with him. We have reviewed chronic treatment strategy, symptom control, and plans for acute exacerbations. No changes today to the current treatment plan as the patient is stable, monitor for acute changes. 12/11/2021 Appointment: Sunita Alcala WPtel: [phone] [facility] schedule wellness at checkout (15 min) M oderate 12/11/2021 Patient Education: Patient Medication Summary Completed 12/11/2021 Visit Plan: Dysuria- pt with positive ur inalysis - culture sent if appropriate. Antibiotic electronically prescribed to pt's pharmacy of choice. Pt to call if symptoms do not improve. 07/30/2021 Appointment: Nurse Visit 07/30/2021 Patient Education: Patient Medication Summary Completed 07/30/2021 Care Plan: Urine Culture Pending Visit Plan: 06/20/2021 Appointment: Nurse Visit 06/20/2021 Patient Education: Patient Medication Summary Completed 06/20/2021 Care Plan: Urine Culture Pending Patient Education: Patient Medication Summary Completed 06/14/2021 Visit Plan: Hypertension - well controll ed - continue with current medications, continue with no added salt diet. Pt has been encouraged to exercise daily. The pt has been advised to call the office if there are any acute concerns about change in blood pressure readings at home. COPD - chronic problem for this patient. She is still not interested in wearing oxygen. She sees a sounding device operator in [place]. I have recommended that she makes sure she has follow up appointments with him. We have reviewed chronic treatment strategy, symptom control, and plans for acute exacerbations. No changes today to the current treatment plan as the patient is stable, monitor for acute changes. Pt is in need to reschedule her colonoscope and EGD at [facility] with Dr. Rey. 06/12/2021 Appointment: Sunita Alcala WPtel: [address] [place], [place] [phone] (15 min) Moderate 06/12/2021 Patient Education: Patient Medication Summary Completed 06/12/2021 Appointment: Nurse Visit 03/13/2021 Patient Education: Patient Medication Summary Completed 03/13/2021 Care Plan: Urine Culture Pending 06/2021 Patient Education: Patient Medication Summary Completed 02/05/2021 Visit Plan: Medicare Exam - today we dis cussed the patients past history, immunizations, preventative exams/evaluations - colonoscopy, fecal occult blood testing, routine labs for renal function, glucose, cholesterol, osteoporosis evaluations, cardiovascular testing and cancer screenings. We have also discussed mental health and the signs/symptoms of depression. The patient was advised of home safety evaluations and the need to make sure that as the aging process continues, we need to be aware of different ways to make the home a safer place to reside. The patient has also been counseled that exercise is nece ssary - and of utmost importance as we age to help decrease fall risk and to maintain independence in the home. Today we discussed the need for the patient to create paperwork for Advanced directives as well as for the patient to provide this office with a copy of her DOPA paperwork for health care surrogate. 12/29/2020 Patient Education: Patient Medication Summary Completed 12/29/2020 Visit Plan: Hypertension - well controll ed - continue with current medications, continue with no added salt diet. Pt has been encouraged to exercise daily. The pt has been advised to call the office if there are any acute concerns about change in blood pressure readings at home. COPD - chronic problem for this patient. She is not interested in wearing oxygen. She sees a sounding device operator in [place]. I have recommended that she makes sure she has follow up appointments with him. We have reviewed chronic treatment strategy, symptom control, and plans for acute exacerbations. No changes today to the current treatment plan as the patient is stable, monitor for acute changes. Weakness and fatigue - pt to start exercise program with [employer] - I have recommended having her oxygen available, she states that she will instead sit down when feeling short of breath. Gas and bloating - take gas-ex three times a day for the next week and see if it helps with your gas in your stomach 12/07/2020 Appointment: Sun[facility]cal[facility]el[phone] [phone] (15 min) Moderate 12/07/2020 Patient Education: Patient Medication Summary Completed 12/07/2020 Visit Plan: COPD EXACERBATION - COPD is a chronic problem for this patient, however, the pt is experiencing an acute exacerbation of the COPD. Pt is to receive appropriate treatment as an out patient, but the pt is aware that if symptoms worsen or do not improve, to call [facility]THA for instructions, or go to the EMERGENCY ROOM if the symptoms are beyond acute control with rescue medications. We have reviewed chronic treatment strategy, symptom control, and plans for acute exacerbations. No changes today to the current treatment plan as the patient is stable, monitor for acute changes. 08/22/2020 Appointment: [id number] (30 min) Complex 08/22/2020 Patient Education: Patient Medication Summary Completed 08/22/2020 Appointment: Lab Draw 06/16/2020 Patient Education: Patient Medication Summary Completed 06/16/2020 Care Plan: Urine Culture Pending 11/2020 Visit Plan: COPD - chronic problem for t his patient. We have reviewed chronic treatment strategy, symptom control, and plans for acute exacerbations. No changes today to the current treatment plan as the patient is stable, monitor for acute changes. referral to Dr. Lucas - sounding device operator in [place] 06/07/2020 Patient Education: Patient Medication Summary Completed 06/07/2020 Appointment: Sun[facility]cala [facility]el[phone] [phone] (15 min) Moderate 02/14/2020 Visit Plan: Actinic Keratosis - lesion t reated with cryotherapy on skin lesion right posterior calf COPD - chronic problem for this patient. We have reviewed chronic treatment strategy, symptom control, and plans for acute exacerbations. No changes today to the current treatment plan as the patient is stable, monitor for acute changes. Pt reports that her sounding device operator is retiring and she would like to become established with a local sounding device operator - referral as follows: referral to Dr. Donovan - sounding device operator - needs appt in Nov/dec time frame - see if can get appt in [place] office - DX COPD Venous insufficiency - advised elevation of legs when seated and compression when legs are down or patient is going to travel. 08/30/2019 Appointment: Sunita Alcala WPtel: [address] [phone] (15 min) Moderate 08/30/2019 Patient Education: Patient Medication Summary Completed 08/30/2019 Appointment: Sunita Alcala WPtel[phone] [phone] (15 min) Moderate 05/26/2019 Visit Plan: COPD - chronic problem for t his patient. We have reviewed chronic treatment strategy, symptom control, and plans for acute exacerbations. No changes today to the current treatment plan as the patient is stable, monitor for acute changes. Insomnia - chronic - refill ambien for PRN use. 04/22/2019 Patient Education: Patient Medication Summary Completed 04/22/2019 Referral: [facility] Referral Initiated Referral: [facility] Referral Completed Instructions Comment Date cologuard . Medicare Exam - today we discussed the patients past history, immunizations, preventative exams/evaluations - colonoscopy, fecal occult blood testing, routine labs for renal function, glucose, cholesterol, osteoporosis evaluations, cardiovascular testing and cancer screenings. We have also discussed mental health and the signs/symptoms of depression. The patient was advised of home safety evaluations and the need to make sure that as the aging process continues, we need to be aware of different ways to make the home a safer place to reside. The patient has also been counseled that exercise is necessary - and of utmost importance as we age to help decrease fall risk and to maintain independence in the home. Today we discussed the need for the patient to create paperwork for Advanced directives as well as for the patient to provide this office with a copy of her DOPA paperwork for health care surrogate. 01/03/2022 wait two weeks after the Covid vaccine p rior to getting the flu shot . Dysuria - check urine. 2+ leukocytes w ith no blood and no nitrites - no antibiotics needed COPD - chronic problem for this patient. She is still not interested in wearing oxygen. She sees a sounding device operator in [place]. I have recommended that she makes sure she has follow up appointments with him. We have reviewed chronic treatment strategy, symptom control, and plans for acute exacerbations. No changes today to the current treatment plan as the patient is stable, monitor for acute changes. 12/11/2021 . Dysuria- pt with positive urinalysis - culture sent if appropriate. Antibiotic electronically prescribed to pt's pharmacy of choice. Pt to call if symptoms do not improve. 07/30/2021 Dr. Rey at [facility] - reschedule your colonoscope and egd. . Hypertension - well controlled - kenneth nue with current medications, continue with no added salt diet. Pt has been encouraged to exercise daily. The pt has been advised to call the office if there are any acute concerns about change in blood pressure readings at home. COPD - chronic problem for this patient. She is still not interested in wearing oxygen. She sees a sounding device operator in [place]. I have recommended that she makes sure she has follow up appointments with him. We have reviewed chronic treatment strategy, symptom control, and plans for acute exacerbations. No changes today to the current treatment plan as the patient is stable, monitor for acute changes. Pt is in need to reschedule her colonoscope and EGD at [facility] with Dr. Rey. 06/12/2021 MAMMOGRAM FASTING LABS BEFORE NEXT APPOINTMENT LET US KNOW WHEN WE CAN REFER FOR COLONOSCOPY . Medicare Exam - today we discussed the patients past history, immunizations, preventative exams/evaluations - colonoscopy, fecal occult blood testing, routine labs for renal function, glucose, cholesterol, osteoporosis evaluations, cardiovascular testing and cancer screenings. We have also discussed mental health and the signs/symptoms of depression. The patient was advised of home safety evaluations and the need to make sure that as the aging process continues, we need to be aware of different ways to make the home a safer place to reside. The patient has also been counseled that exercise is necessary - and of utmost importance as we age to help decrease fall risk and to maintain independence in the home. Today we discussed the need for the patient to create paperwork for Advanced directives as well as for the patient to provide this office with a copy of her DOPA paperwork for health care surrogate. 12/29/2020 take gas-ex three times a day for the ne xt week and see if it helps with your gas in your stomach . Hypertension - well controlled - kenneth nue with current medications, continue with no added salt diet. Pt has been encouraged to exercise daily. The pt has been advised to call the office if there are any acute concerns about change in blood pressure readings at home. COPD - chronic problem for this patient. She is not interested in wearing oxygen. She sees a sounding device operator in [place]. I have recommended that she makes sure she has follow up appointments with him. We have reviewed chronic treatment strategy, symptom control, and plans for acute exacerbations. No changes today to the current treatment plan as the patient is stable, monitor for acute changes. Weakness and fatigue - pt to start exercise program with [place] - I have recommended having her oxygen available, she states that she will instead sit down when feeling short of breath. Gas and bloating - take gas-ex three times a day for the next week and see if it helps with your gas in your stomach 12/07/2020 . COPD EXACERBATION - COPD is a chronic problem for this patient, however, the pt is experiencing an acute exacerbation of the COPD. Pt is to receive appropriate treatment as an out patient, but the pt is aware that if symptoms worsen or do not improve, to call [facility]TH[facility] for instructions, or go to the EMERGENCY ROOM if the symptoms are beyond acute control with rescue medications. We have reviewed chronic treatment strategy, symptom control, and plans for acute exacerbations. No changes today to the current treatment plan as the patient is stable, monitor for acute changes. 08/22/2020 . COPD - chronic problem for this patient. We have reviewed chronic treatment strategy, symptom control, and plans for acute exacerbations. No changes today to the current treatment plan as the patient is stable, monitor for acute changes. referral to Dr. Lucas - sounding device operator in [place] 06/07/2020 . Actinic Keratosis - lesion treated with cryotherapy on skin lesion right posterior calf COPD - chronic problem for this patient. We have reviewed chronic treatment strategy, symptom control, and plans for acute exacerbations. No changes today to the current treatment plan as the patient is stable, monitor for acute changes. Pt reports that her sounding device operator is retiring and she would like to become established with a local sounding device operator - referral as follows: referral to Dr. Donovan - sounding device operator - needs appt in Nov/dec time frame - see if can get appt in [place] office - DX COPD Venous insufficiency - advised elevation of legs when seated and compression when legs are down or patient is going to travel. 08/30/2019 . COPD - chronic problem for this patien t. We have reviewed chronic treatment strategy, symptom control, and plans for acute exacerbations. No changes today to the current treatment plan as the patient is stable, monitor for acute changes. Insomnia - chronic - refill ambien for PRN use. 04/22/2019 Medical Equipment No Medical Equipment data Health Concerns Section Health Concerns data not found Goals Section Goals data not found Interventions Section Interventions data not found Health Status Evaluations/Outcomes Section Health Status Evaluations/Outcomes data not found Advance Directives No Advance Directive data
--- OUTSIDE RECORDS SUMMARY | 2022-04-14 13:09 | XMS REPORT | CCD ---
Author Author Nicolasa Alcala Organization [facility] Address [address] [place] [address] Phone Care Team Providers Care Studio Operations Engineer In Charge Name Role Phone [facility] Unavailable CCM Unavailable Summary Purpose Interface Exchange Insurance Providers Payer name Policy type / Coverage type Covered democrat ID Effective Begin Date Effective End Date WPS Medicare Part B Medicare Part B [id number] Unknown Unkno wn [employer] Medicare Part B [id number] Unknown Unknown Family history Mother Diagnosis Age At Onset Cancer Unknown Social History Social History Element Codes Description Effective Dates Marital status Unknown Single 04/21/2019 Number of children Unknown 3 04/21/2019 Employment Unknown Retired 04/21/[address]: 6476343 Former smoker 200904/21/[address]: 474880 Currently drinks alcohol 04/21 Frequency of drinks SNOMED CT: 347932337 1-4 drinks per week 5 04/21/2019 Allergies, [...] Active 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 ICD-10: J44.9 ICD-9: 491.20 [...] Start Date Stop Date Status Fill Instructions Tudorza Pressair 400 mcg/actuation breath activated RxNorm: 6729945 Inhale 1 Puff(s) two times a day 03/18/2022 07/15/2022 Active zolpidem ER 6.25 mg tablet,extended release,multiphase RxNor m: 898801 Take 1 Tablet(s) Oral at bed time 03/13/2022 07/10/2022 Active cefuroxime axetil 500 mg tablet RxNorm: 367999 1 Tablet(s) Oral two times a day 03/07/2022 03/07/2022 Inactive cefuroxime axetil 500 mg tablet RxNorm: 291057 Take 1 T ablet(s) Oral two times a day 03/07/2022 03/13/2022 Inactive Dulera 200 mcg-5 mcg/actuation HFA aerosol inhaler RxNorm: 1 645746 Inhale 2 Puff(s) Oral two times a day 01/22/2022 07/20/2022 Active zolpidem ER 6.25 mg tablet,extended release,multiphase RxNor m: 376276 Take 1 Tablet(s) Oral at bed time 01/10/2022 01/10/2022 Inactive azithromycin 250 mg tablet RxNorm: 506569 Take 1 Tablet (s) Oral as directed take two tabs on day #1 then 1 pill daily x 4 more days 01/08/2022 No Stop D ate Active prednisone 20 mg tablet RxNorm: 466508 Take 3 Tablet(s) Oral ev jose ramon day 01/08/2022 01/14/2022 Inactive Tudorza Pressair 400 mcg/actuation breath activated RxNorm: 0932247 Inhale 1 Puff(s) two times a day 11/21/2021 11/21/2021 Inactive zolpidem ER 6.25 mg tablet,extended release,multiphase RxNor m: 826888 Take 1 Tablet(s) Oral at bed time 11/14/2021 11/14/2021 Inactive Dulera 100 mcg-5 mcg/actuation HFA aerosol inhaler RxNorm: 1 636027 Inhale 1 Puff(s) Oral every day 10/14/2021 05/11/2022 Active fluticasone propionate 50 mcg/actuation nasal spray,suspensi on RxNorm: 0073298 instill one SPRAY IN EACH NOSTRIL EVERY DAY 10/14/2021 05/11/2022 Acti ve Dulera 200 mcg-5 mcg/actuation HFA aerosol inhaler RxNorm: 1 566360 Inhale 2 Puff(s) Oral two times a day 10/01/2021 10/01/2021 Inactive zolpidem ER 6.25 mg tablet,extended release,multiphase RxNor m: 928920 Take 1 Tablet(s) Oral at bed time 09/14/2021 09/14/2021 Inactive Tudorza Pressair 400 mcg/actuation breath activated RxNorm: 5538961 Inhale 1 Puff(s) two times a day 08/03/2021 08/03/2021 Inactive This pre scription was filled on 07/10/2021. Any refills authorized will be placed on file. cephalexin 500 mg tablet RxNorm: 328610 Take 1 Tablet(s) Oral t hree times a day 07/30/2021 08/05/2021 Inactive zolpidem ER 6.25 mg tablet,extended release,multiphase RxNor m: 585759 Take 1 Tablet(s) Oral at bed time 07/17/2021 07/17/2021 Inactive cephalexin 500 mg capsule RxNorm: 015133 1 Capsule(s) O ral three times a day with probiotics BID 06/20/2021 06/26/2021 Inactive hold doxycyc line while taking keflex Vitamin D3 125 mcg (5,000 unit) tablet RxNorm: 727654 1 Tablet(s) Oral every day 06/19/2021 No Stop Date Active zolpidem ER 6.25 mg tablet,extended release,multiphase RxNor m: 609529 Take 1 Tablet(s) Oral at bed time 05/21/2021 05/21/2021 Inactive Dulera 200 mcg-5 mcg/actuation HFA aerosol inhaler RxNorm: 1 376128 INHALE 2 PUFFS BY MOUTH TWO TIMES A DAY 05/02/2021 05/02/2021 Inactive T his prescription was filled on 12/02/2020. Any refills authorized will be placed on file. zolpidem ER 6.25 mg tablet,extended release,multiphase RxNor m: 448875 Take 1 Tablet(s) Oral at bed time 04/18/2021 04/18/2021 Inactive zolpidem ER 6.25 mg tablet,extended release,multiphase RxNor m: 335113 Take 1 Tablet(s) Oral at bed time 03/21/2021 03/21/2021 Inactive cephalexin 500 mg capsule RxNorm: 793473 1 Capsule(s) O ral three times a day with probiotics BID 03/13/2021 03/19/2021 Inactive hold doxycyc line while taking keflex zolpidem ER 6.25 mg tablet,extended release,multiphase RxNor m: 384798 Take 1 Tablet(s) Oral at bed time 02/19/2021 02/19/2021 Inactive prednisone 10 mg tablet RxNorm: 925148 Tablet(s) Oral 6 0mg x 1 then 50,40,30,20,10, 02/05/2021 02/05/2021 Inactive Zithromax 250 mg tablet RxNorm: 860011 1 Tablet(s) Oral as directed 2 tabs on day #1, then 1 tab daily x 4 more days 02/05/2021 02/14/2021 Inactive lizz Tudorza Pressair 400 mcg/actuation breath activated RxNorm: 6554498 Inhale 1 Puff(s) two times a day 01/31/2021 01/31/2021 Inactive This pre scription was filled on 01/08/2021. Any refills authorized will be placed on file. zolpidem ER 6.25 mg tablet,extended release,multiphase RxNor m: 087346 Take 1 Tablet(s) Oral at bed time 01/13/2021 01/13/2021 Inactive This prescription was filled on 12/21/2020. Any refills authorized will be placed on file. Dulera 200 mcg-5 mcg/actuation HFA aerosol inhaler RxNorm: 1 596176 INHALE 2 PUFFS BY MOUTH TWO TIMES A DAY 12/26/2020 12/26/2020 Inactive T his prescription was filled on 12/02/2020. Any refills authorized will be placed on file. zolpidem ER 6.25 mg tablet,extended release,multiphase RxNor m: 834317 Take 1 Tablet(s) Oral at bed time 10/23/2020 10/23/2020 Inactive Tudorza Pressair 400 mcg/actuation breath activated RxNorm: 5282352 INHALE 1 PUFF TWICE DAILY 09/27/2020 09/27/2020 Inactive PA approved zolpidem ER 6.25 mg tablet,extended release,multiphase RxNor m: 058012 Take 1 Tablet(s) Oral at bed time 09/21/2020 09/21/2020 Inactive fluticasone propionate 50 mcg/actuation nasal spray,suspensi on RxNorm: 9991332 instill one SPRAY IN EACH NOSTRIL EVERY DAY 09/20/2020 09/20/2020 Inac tive This prescription was filled on 08/23/2020. Any refills authorized will be placed on file. zolpidem ER 6.25 mg tablet,extended release,multiphase RxNor m: 916106 Take 1 Tablet(s) Oral at bed time 08/24/2020 08/24/2020 Inactive albuterol sulfate 2.5 mg/3 mL (0.083 %) solution for n ebulization RxNorm: 009468 3 Milliliter(s) Inhalation four times a day as needed dyspne a 08/22/2020 No Stop Date Active prednisone 10 mg tablet RxNorm: 563277 Tablet(s) Oral 6 0mg x 1 then 50,40,30,20,10, 08/22/2020 02/04/2021 Inactive Kenalog 40 mg/mL suspension for injection RxNorm: 0601084 1 Milliliter(s) Injection 08/22/2020 08/22/2020 Inactive Zithromax 250 mg tablet RxNorm: 680010 1 Tablet(s) Oral as directed 08/22/2020 08/26/2020 Inactive zpack x 1 Fosamax 70 mg tablet RxNorm: 035643 1 Tablet(s) Oral once a week 08/13/2021 Inactive Fosamax 70 mg tablet RxNorm: 282161 1 Tablet(s) Oral once a week 08/17/2020 Inactive Zithromax 250 mg tablet RxNorm: 405070 1 Tablet(s) Oral as directed 08/14/2020 08/19/2020 Inactive zpack x 1 prednisone 20 mg tablet RxNorm: 740286 2 Tablet(s) Oral every day 0 08/14/2020 08/19/2020 Inactive prednisone 20 mg tablet RxNorm: 425425 2 Tablet(s) Oral every day 0 08/14/2020 08/13/2020 Inactive Zithromax 250 mg tablet RxNorm: 012365 1 Tablet(s) Oral as directed 08/14/2020 08/13/2020 Inactive zpack x 1 Dulera 200 mcg-5 mcg/actuation HFA aerosol inhaler RxNorm: 1 976221 INHALE 2 PUFFS BY MOUTH TWO TIMES A DAY 08/10/2020 08/10/2020 Inactive T his prescription was filled on 07/18/2020. Any refills authorized will be placed on file. Ambien CR 6.25 mg tablet,extended release RxNorm: 506988 TAKE ONE TABLET BY MOUTH DAILY AT BEDTIME 07/21/2020 07/21/2020 Inactive Ambien CR 6.25 mg tablet,extended release RxNorm: 898397 TAKE ONE TABLET BY MOUTH DAILY AT BEDTIME 06/26/2020 07/20/2020 Inactive doxycycline hyclate 20 mg tablet RxNorm: 780460 TAKE 1 TABLET(S) ORAL ONETIME A DAY 06/19/2020 09/17/2020 Inactive cephalexin 500 mg capsule RxNorm: 553377 1 Capsule(s) O ral three times a day with probiotics BID 06/16/2020 06/23/2020 Inactive hold doxycyc line while taking keflex Dulera 100 mcg-5 mcg/actuation HFA aerosol inhaler RxNorm: 1 321654 INHALE 1 PUFF(S) INHALATION EVERY DAY 05/25/2020 05/24/2020 Inactive Dulera 100 mcg-5 mcg/actuation HFA aerosol inhaler RxNorm: 1 591392 INHALE 1 PUFF(S) INHALATION EVERY DAY as needed rescue inhaler 05/25/20202020 Inactive doxycycline hyclate 20 mg tablet RxNorm: 718155 TAKE 1 TABLET(S) ORAL TWO TIMES A DAY 05/25/2020 06/18/2020 Inactive Tudorza Pressair 400 mcg/actuation breath activated RxNorm: 0324363 INHALE 1 PUFF TWICE DAILY 05/24/2020 05/24/2020 Inactive This prescripti on was filled on 05/01/2020. Any refills authorized will be placed on file. Dulera 200 mcg-5 mcg/actuation HFA aerosol inhaler RxNorm: 1 109537 INHALE 2 PUFFS BY MOUTH TWO TIMES A DAY 05/24/2020 08/09/2020 Inactive T his prescription was filled on 05/01/2020. Any refills authorized will be placed on file. Ambien CR 6.25 mg tablet,extended release RxNorm: 224012 TAKE ONE TABLET BY MOUTH DAILY AT BEDTIME 05/19/2020 06/17/2020 Inactive Ambien CR 6.25 mg tablet,extended release RxNorm: 104572 1 Tablet(s) Oral every night at bedtime 03/29/2020 05/18/2020 Inactive Dulera 200 mcg-5 mcg/actuation HFA aerosol inhaler RxNorm: 1 810500 INHALE 2 PUFFS BY MOUTH TWO TIMES A DAY 02/21/2020 05/20/2020 Inactive Tudorza Pressair 400 mcg/actuation breath activated RxNorm: 9350890 INHALE 1 PUFF TWICE DAILY 02/01/2020 05/23/2020 Inactive Ambien CR 6.25 mg tablet,extended release RxNorm: 541862 1 Tablet(s) Oral every night at bedtime 01/29/2020 03/27/2020 Inactive fluticasone propionate 50 mcg/actuation nasal spray,suspensi on RxNorm: 7144541 1 [place] Nasal every day 1 spray each nostril 12/24/2019 12/23/2019 Inact andrade replaces zetonna fluticasone propionate 50 mcg/actuation nasal spray,suspensi on RxNorm: 0067086 1 [place] Nasal every day 1 spray each nostril 12/24/2019 12/24/2019 Inact andrade replaces zetonna Ambien CR 6.25 mg tablet,extended release RxNorm: 474606 Tablet(s) Oral every night at bedtime 11/30/2019 01/28/2020 Inactive Zetonna 37 mcg/actuation nasal HFA inhaler RxNorm: 0854181 1 [place] Nasal every day 11/02/2019 12/23/2019 Inactive Dulera 200 mcg-5 mcg/actuation HFA aerosol inhaler RxNorm: 1 293734 2 Puff(s) Inhalation two times a day 11/02/2019 02/20/2020 Inactive Zetonna 37 mcg/actuation nasal HFA inhaler RxNorm: 1007131 1 [place] Nasal every day 11/02/2019 11/01/2019 Inactive Ambien CR 6.25 mg tablet,extended release RxNorm: 769338 Tablet(s) Oral every night at bedtime 10/01/2019 11/29/2019 Inactive Tudorza Pressair 400 mcg/actuation breath activated RxNorm: 8487193 INHALE ONE INHALATION PO BID 08/04/2019 12/01/2019 Inactive Ambien CR 6.25 mg tablet,extended release RxNorm: 577774 1 Tablet(s) Oral every night at bedtime 08/04/2019 09/30/2019 Inactive Ambien CR 6.25 mg tablet,extended release RxNorm: 687647 1 Tablet(s) Oral every night at bedtime 06/02/2019 07/31/2019 Inactive Tudorza Pressair 400 mcg/actuation breath activated RxNorm: 1648142 INHALE ONE INHALATION PO BID 06/01/2019 07/30/2019 Inactive doxycycline hyclate 20 mg tablet RxNorm: 296267 1 Table t(s) Oral two times a day 04/22/2019 04/16/2020 Inactive pt will call whe n she needs refills Ambien CR 6.25 mg tablet,extended release RxNorm: 557681 1 Tablet(s) Oral every night at bedtime 04/22/2019 04/20/2019 Inactive Tudorza Pressair 400 mcg/actuation breath activated RxNorm: 6087318 1 Inhalation two times a day 04/22/2019 04/22/2019 Inactive Ambien CR 6.25 mg tablet,extended release RxNorm: 616029 1 Tablet(s) Oral every night at bedtime 04/22/2019 05/19/2019 Inactive doxycycline hyclate 100 mg tablet RxNorm: 7378065 1 Tabl et(s) Oral two times a day 04/22/2019 04/21/2019 Inactive Dulera 100 mcg-5 mcg/actuation HFA aerosol inhaler RxNorm: 1 620454 1 Puff(s) Inhalation every day 04/22/2019 11/18/2019 Inactive Vitamin C 500 mg tablet RxNorm: 083627 1 Tablet(s) Oral two adriana es a day 04/21/2019 No Stop Date Active Dulera 100 mcg-5 mcg/actuation HFA aerosol inhaler RxNorm: 1 443171 Inhalation as needed 04/21/2019 08/21/2020 Inactive Dulera 200 mcg-5 mcg/actuation HFA aerosol inhaler RxNorm: 1 077107 2 Inhalation two times a day 04/21/2019 11/01/2019 Inactive Tudorza Pressair 400 mcg/actuation breath activated RxNorm: 4633846 1 Inhalation two times a day 04/21/2019 04/21/2019 Inactive omega 3,6,9 combination no.7 oral RxNorm: oral 04/21/2019 Active Calcium 600 + D(3) oral RxNorm: 312884 oral 08/22/2020 Active Alive Once Daily Women 50 Plus oral RxNorm: oral 04/21/2019 Active Zetonna nasal RxNorm: 9557558 nasal 11/02/2019 11/02/2019 Inactive Medication Administered Medication Codes Instructions Start Date Status Kenalog 40 mg/mL suspension for injection RxNorm: 7420671 1Milli liter 08/22/2020 No longer Active Immunizations Vaccine Codes Dose Date Status Influenza CVX: 197 12/11/2021 Pneumococcal (Adult) CVX: 133 08/17/2021 SHINGARIX CVX: 121 08/17/2021 Covid-19 CVX: 207 05/12/2020 Covid-19 CVX: 207 04/10/2020 Influenza CVX: 197 12/16/2019 Pneumococcal CVX: 133 12/16/2019 Influenza CVX: 197 12/08/2018 Tetanus, Diptheria, Pertussis CVX: 09 03/10/2018 Results Observation Observation Code Item Item Code Result Date S [facility] Location CULTURE, URINE M100 URINE CULTURE See [...] CULTURE See Note 06/24/2021 Unknown Free T4 Jep327 FREE T4 0.75 ng/dL 06/14/2021 Unknown Cbc [...] 06/13/19 22 Unknown Cbc With Differential Ord2 Baxter% 9.2 % 06/13/19 22 Unknown Cbc With [...] K/ul 022 Unknown Cbc With Differential Ord2 Baxter ABS# 0.9 K/ul 06/13/19 22 Unknown Cbc With Differential Ord2 Eos ABS# 0.2 K/ul 06/13/19 22 Unknown Cbc With Differential Ord2 Baso ABS# 0.0 K/ul 06/13/19 22 Unknown Tsh Ord6 TSH (3rd IS) 5.79 uIU/mL 06/12/2021 Unkn own Vitamin D 25 Oh Kpf9706 VITAMIN D, 25 HYDROXY 34.58 ng/mL 06/12/2021 Unknown Comp Metabolic Axz798 NA 137 mEq/L 06/12/2021 Unkn own Comp Metabolic Oqm490 K 4.0 mEq/L 06/12/2021 Unkn own Comp Metabolic Znd462 CL 99 mEq/L 06/12/2021 Unkn own Comp Metabolic Rcg937 CO2 28.0 mEq/L 06/12/2021 Unk nown Comp Metabolic Irg487 ANION GAP 14 06/12/2021 Unkn own Comp Metabolic Muy684 GLUCOSE 108 mg/dL 06/12/2021 Unkn own Comp Metabolic Qjv066 Creat 0.6 mg/dL 06/12/2021 Unkn own Comp Metabolic Jtf506 eGFR 107 ml/min/1.73m2 022 Unknown Comp Metabolic Mut093 BUN 5 mg/dL 06/12/2021 Unkn own Comp Metabolic Ztx451 B/C Ratio 8.6 Ratio 06/12/2021 Unkn own Comp Metabolic Ztj818 CALCIUM 9.0 mg/dL 06/12/2021 Unkn own Comp Metabolic Wwx231 ALK PHOS 112 U/L 06/12/2021 Unkn own Comp Metabolic Kiy924 AST(SGOT) 28 U/L 06/12/2021 Unkn own Comp Metabolic Bwj502 ALT(SGPT) 23 U/L 06/12/2021 Unkn own Comp Metabolic Ivu875 BILI T 1.2 mg/dL 06/12/2021 Unkn own Comp Metabolic Fvk624 ALBUMIN 3.8 g/dL 06/12/2021 Unkn own Comp Metabolic Aqi444 TPRO 6.4 g/dL 06/12/2021 Unkn own Comp Metabolic Tlm952 GLOB 2.6 g/dL 06/12/2021 Unkn own Comp Metabolic Qay860 A/G Ratio 1.5 Ratio 06/12/2021 Unkn own Comp Metabolic Eeb196 Osmo 272 mOsmo 06/12/2021 Unkn own Lipid Ord30 CHOL 207 mg/dL 06/12/2021 Unknown Lipid Ord30 HDL 60.0 mg/dl 06/12/2021 Unknown Lipid Ord30 TRIG 120 mg/dL 06/12/2021 Unknown Lipid Ord30 LDL 123 mg/dL 06/12/2021 Unknown Lipid Ord30 C/HDL 3.5 Ratio 06/12/2021 Unknown CULTURE, URINE M100 URINE CULTURE See Note 03/18/2021 Unknown CULTURE, URINE M100 URINE CULTURE See Note 06/19/2020 Unknown Comp Metabolic Nzf998 NA 136 mEq/L 06/07/2020 Unkn own Comp Metabolic Agn236 K 4.1 mEq/L 06/07/2020 Unkn own Comp Metabolic Orf959 CL 98 mEq/L 06/07/2020 Unkn own Comp Metabolic Mva743 CO2 27.0 mEq/L 06/07/2020 Unk nown Comp Metabolic Exp456 ANION GAP 15 06/07/2020 Unkn own Comp Metabolic Thl802 GLUCOSE 86 mg/dL 06/07/2020 Unkn own Comp Metabolic Aqm606 Creat 0.6 mg/dL 06/07/2020 Unkn own Comp Metabolic Gst204 eGFR 101 ml/min/1.73m2 021 Unknown Comp Metabolic Tvt286 BUN 6 mg/dL 06/07/2020 Unkn own Comp Metabolic Owb468 B/C Ratio 9.8 Ratio 06/07/2020 Unkn own Comp Metabolic Ppj550 CALCIUM 8.9 mg/dL 06/07/2020 Unkn own Comp Metabolic Fvp170 ALK PHOS 95 U/L 06/07/2020 Unkn own Comp Metabolic Udw893 AST(SGOT) 54 U/L 06/07/2020 Unkn own Comp Metabolic Nkv667 ALT(SGPT) 48 U/L 06/07/2020 Unkn own Comp Metabolic Pdd742 BILI T 0.9 mg/dL 06/07/2020 Unkn own Comp Metabolic Ssc064 ALBUMIN 3.8 g/dL 06/07/2020 Unkn own Comp Metabolic Rxh987 TPRO 6.2 g/dL 06/07/2020 Unkn own Comp Metabolic Mim209 GLOB 2.4 g/dL 06/07/2020 Unkn own Comp Metabolic Ivf924 A/G Ratio 1.5 Ratio 06/07/2020 Unkn own Comp Metabolic Inj354 Osmo 269 mOsmo 06/07/2020 Unkn own Cbc [...] 06/08/19 21 Unknown Cbc With Differential Ord2 Baxter% 10.0 % 06/08/19 21 Unknown Cbc With [...] K/ul 021 Unknown Cbc With Differential Ord2 Baxter ABS# 0.9 K/ul 06/08/19 21 Unknown Cbc [...] G0444 01/03/2022 URINALYSIS NONAUTO W/O SCOPE CPT-4: 13208 03/13/2021 PPPS, SUBSEQ VISIT CPT-4: G0439 12/29/2020 DEPRESSION SCREEN ANNUAL CPT-4: G0444 12/29/2020 TRIAMCINOLONE ACET INJ NOS 10 mg CPT-4: J3301 021 THER/PROPH/DIAG INJ SC/IM CPT-4: 63295 08/22/2020 URINALYSIS NONAUTO W/O SCOPE CPT-4: 90030 06/16/2020 DESTRUCT PREMALG LESION CPT-4: 26576 08/30/2019 Vital Signs Date Vital 01/03/2022 Blood Pressure 1: 122/64 Code: 8480-6 BMI: 25.5 Code: 72209-7 Heart Rate 1: 87 bpm Height: 5'6" Code: 8302-2 SpO2: 94% Temperature: 3 6.2 (C) / 97.2 (F) Weight: 158 lbs Code: 69131-9 12/11/2021 Blood Pressure 1: 130/70 Code: 8480-6 Heart Rate 1: 88 bpm Height: 5'6" Code: 8302-2 Respiratory Rate: 17 bpm SpO2: 82% Temperature: 35 .6 (C) / 96.0 (F) Weight: Code: 17858-4 06/12/2021 Blood Pressure 1: 130/76 Code: 8480-6 Heart Rate 1: 84 bpm Height: Code: 8302-2 Respiratory Rate: 17 bpm SpO2: 94% Temperature: 35 .7 (C) / 96.3 (F) Weight: 156 lbs Code: 40665-5 12/29/2020 Blood Pressure 1: 128/74 Code: 8480-6 BMI: 25.8 Code: 96982-3 Heart Rate 1: 92 bpm Height: 5'6" Code: 8302-2 SpO2: 90% Temperature: 3 6.0 (C) / 96.8 (F) Weight: 160 lbs Code: 90170-4 12/07/2020 Blood Pressure 1: 130/78 Code: 8480-6 BMI: 25.8 Code: 18739-6 Heart Rate 1: 88 bpm Height: 5'6" Code: 8302-2 Respiratory Rate: 18 bpm SpO2: 93% Temperature: 35.6 (C) / 96.1 (F) Weight: 160 lbs Code: 18031-6 08/22/2020 Blood Pressure 1: 138/80 Code: 8480-6 BMI: 25.3 Code: 34725-4 Heart Rate 1: 72 bpm Height: 5'6" Code: 8302-2 SpO2: 92% Temperature: 3 6.6 (C) / 97.8 (F) Weight: 157 lbs Code: 41830-4 06/07/2020 Blood Pressure 1: 144/86 Code: 8480-6 BMI: 26.0 Code: 77754-8 Heart Rate 1: 84 bpm Height: 5'6" Code: 8302-2 SpO2: 96% Temperature: 3 6.3 (C) / 97.3 (F) Weight: 161 lbs Code: 98553-9 08/30/2019 Blood Pressure 1: 168/98 Code: 8480-6 Bl ood Pressure 1: 148/74 Code: 8480-6 BMI: 26.0 Code: 28769-9 Heart Rate 1: 83 bpm Height: 5'6" Code: 8302-2 Respiratory Rate: 15 bpm SpO2: 88% Temperature: 36.8 (C) / 98.2 (F) We ight: 161 lbs Code: 35483-1 04/22/2019 Blood Pressure 1: 124/80 Code: 8480-6 BMI: 25.3 Code: 67518-7 Heart Rate 1: 71 bpm Height: 5'6" Code: 8302-2 SpO2: 91% Weight: 157 lb s Code: 43455-7 Functional Status No Functional Status data Reason For Visit Reason For Visit Effective Dates Notes Annual Medicare Wellness Exam 01/03/2022 shortness of breath 12/11/2021 shortness of breath 06/12/2021 Annual Medicare Wellness Exam 12/29/2020 shortness of breath 12/07/2020 fatigue 12/07/2020 cough 08/22/2020 dysuria 06/16/2020 edema 06/07/2020 edema 08/30/2019 chest tightness 04/22/2019 Encounters Encounter Performer Location Location Address Codes ([id number]) [id number] EST. 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 PATIENT, LEVEL I Diagnosis: Dysuria[ICD10: R30.0] Sunita Alcala MD, [facility] [address] [place] [address] CPT-4: 80773 07/30/2021 ([id number]) 28500 EST. PATIENT, LEVEL I Diagnosis: Dysuria[ICD10: R30.0] Sunita Alcala MD, [facility] [address] [place] [address] CPT-4: 73905 06/20/2021 ([id number]) 26612 EST. 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 PATIENT, LEVEL III Diagnosis: COPD exacerbation[ICD10: J44.1] Diagnosis: Cough[ICD10: R05] Zaynab Alcala MD, [facility] [address] [place] [address] CPT-4: 65899 08/22/2020 ([id number]) 94775 EST. 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 01/03/2022 Appointment: Jennifer Dawkins WPtel: [facility] [place] [phone] [facility] - Annual Wellness Visit 12/09 Patient Education: Patient Medication Summary Completed 01/03/2022 Visit Plan: Dysuria - check urine. 2+ le ukocytes with no blood and no nitrites - no antibiotics needed COPD - chronic problem for this patient. She is still not interested in wearing oxygen. She sees a inventory planner in [place]. I have recommended that she makes sure she has follow up appointments with him. We have reviewed chronic treatment strategy, symptom control, and plans for acute exacerbations. No changes today to the current treatment plan as the patient is stable, monitor for acute changes. 12/11/2021 Appointment: Sunita Alcala WPtel: [facility] [place] will schedule wellness at checkout (15 min) M [...] interested in wearing oxygen. She sees a inventory planner in [place]. I have recommended that she makes sure she has follow up appointments with him. We have reviewed chronic treatment strategy, symptom control, and plans for acute exacerbations. No changes today to the current treatment plan as the patient is stable, monitor for acute changes. Pt is in need to reschedule her colonoscope and EGD at [place] with Dr. Rey. 06/12/2021 Appointment: Sunita [place] WPtel: [address] [place], [place] [id number] (15 min) Moderate 06/12/2021 Patient Education: Patient [...] interested in wearing oxygen. She sees a inventory planner in [place]. I have recommended that she makes sure she has follow up appointments with him. We have reviewed chronic treatment strategy, symptom control, and plans for acute exacerbations. No changes today to the current treatment plan as the patient is stable, monitor for acute changes. Weakness and fatigue - pt to start exercise program with Román - I have recommended having her oxygen available, she states that she will instead sit down when feeling short of breath. Gas and bloating - take gas-ex three times a day for the next week and see if it helps with your gas in your stomach 12/07/2020 Appointment: Sunita [place] [phone] (15 min) Moderate 12/07/2020 Patient Education: Patient [...] monitor for acute changes. 08/22/2020 App[facility]ment: [phone] [id number] [place] (30 min) Complex 08/22/2020 Patient Education: Patient [...] acute changes. referral to Dr. Lucas - inventory planner in [place] 06/07/2020 Patient Education: Patient Medication Summary Completed 06/07/2020 Appointment: Sunita [place] [facility]Ptel[facility] [phone] [phone] [place] (15 min) Moderate 02/14/2020 Visit Plan: Actinic Keratosis - lesion t reated with cryotherapy on skin lesion right posterior calf COPD - chronic problem for this patient. We have reviewed chronic treatment strategy, symptom control, and plans for acute exacerbations. No changes today to the current treatment plan as the patient is stable, monitor for acute changes. Pt reports that her inventory planner is retiring and she would like to become established with a local inventory planner - referral as follows: referral to Dr. Donovan - inventory planner - needs appt in Nov/dec time frame - see if can get appt in [place] office - DX COPD Venous insufficiency - advised elevation of legs when seated and compression when legs are down or patient is going to travel. 08/30/2019 Appointment: Sunita [place] WPtel: [phone] [phone] [place] (15 min) Moderate 08/30/2019 Patient Education: Patient Medication Summary Completed 08/30/2019 Appointment: Sunita [place] WPtel: [phone] [phone] [place] (15 min) Moderate 05/26/2019 Visit Plan: COPD - chronic problem for t his patient. We have reviewed chronic treatment strategy, symptom control, and plans for acute exacerbations. No changes today to the current treatment plan as the patient is stable, monitor for acute changes. Insomnia - chronic - refill ambien for PRN use. 04/22/2019 Patient Education: Patient Medication Summary Completed 04/22/2019 Referral: [facility] Referral Initiated Referral: [facility] Referral Completed Instructions Comment Date cologuard . [...] interested in wearing oxygen. She sees a inventory planner in [place]. I have recommended that she makes sure [...] do not improve. 07/30/2021 Dr. Rey at [place] - reschedule your colonoscope and egd. . [...] interested in wearing oxygen. She sees a inventory planner in [place]. I have recommended that she makes sure she has follow up appointments with him. We have reviewed chronic treatment strategy, symptom control, and plans for acute exacerbations. No changes today to the current treatment plan as the patient is stable, monitor for acute changes. Pt is in need to reschedule her colonoscope and EGD at [place] with Dr. Rey. 06/12/2021 [facility] [...] interested in wearing oxygen. She sees a inventory planner in [place]. I have recommended that she makes sure [...] acute changes. referral to Dr. Lucas - inventory planner in [place] 06/07/2020 . Actinic Keratosis - lesion treated with cryotherapy on skin lesion right posterior calf COPD - chronic problem for this patient. We have reviewed chronic treatment strategy, symptom control, and plans for acute exacerbations. No changes today to the current treatment plan as the patient is stable, monitor for acute changes. Pt reports that her inventory planner is retiring and she would like to become established with a local inventory planner - referral as follows: referral to Dr. Donovan - inventory planner - needs appt in Nov/dec time frame - see if can get appt in [place] office - DX COPD Venous insufficiency - [...]
--- OUTSIDE RECORDS SUMMARY | 2022-04-14 13:09 | XMS REPORT | CCD ---
Author Author Nicolasa Alcala Organization [facility] Address [address] [place] [address] Phone Care Team Providers Care Clam Sorter Name Role Phone [facility] Unavailable CCM Unavailable Summary Purpose Interface Exchange Insurance Providers Payer name Policy type / Coverage type Covered libertarian ID Effective Begin Date Effective End Date WPS Medicare Part B Medicare Part B [id number] Unknown Unkno wn [employer] Medicare Part B [id number] Unknown Unknown Family history Mother Diagnosis Age At Onset Cancer Unknown Social History Social History Element Codes Description Effective Dates Marital status Unknown Single 04/21/2019 Number of children Unknown 3 04/21/2019 Employment Unknown Retired 04/21/[address]: 0628466 Former smoker 200904/21/[address]: 704979 Currently drinks alcohol 04/21 Frequency of drinks SNOMED CT: 139453932 1-4 drinks per week 5 04/21/2019 Allergies, [...] Active 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) with 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 maria 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 bronchitis ICD-10: J44.9 ICD-9: 491.20 [...] ER 6.25 mg tablet,extended release,multiphase RxNor m: 448041 Take 1 Tablet(s) Oral at bed time 03/13/2022 07/10/2022 Active cefuroxime axetil 500 mg tablet RxNorm: 569827 1 Tablet(s) Oral two times a day 03/07/2022 03/07/2022 Inactive cefuroxime axetil 500 mg tablet RxNorm: 100141 Take 1 T ablet(s) Oral two times a day 03/07/2022 03/13/2022 Inactive Dulera 200 mcg-5 mcg/actuation HFA aerosol inhaler RxNorm: 1 851767 Inhale 2 Puff(s) Oral two times a day 01/22/2022 07/20/2022 Active zolpidem ER 6.25 mg tablet,extended release,multiphase RxNor m: 078699 Take 1 Tablet(s) Oral at bed time 01/10/2022 01/10/2022 Inactive azithromycin 250 mg tablet RxNorm: 688994 Take 1 Tablet (s) Oral as directed take two tabs on day #1 then 1 pill daily x 4 more days 01/08/2022 No Stop D ate Active prednisone 20 mg tablet RxNorm: 070682 Take 3 Tablet(s) Oral ev jose ramon day 01/08/2022 01/14/2022 Inactive Tudorza Pressair 400 mcg/actuation breath activated RxNorm: 5904638 Inhale 1 Puff(s) two times a day 11/21/2021 03/20/2022 Active zolpidem ER 6.25 mg tablet,extended release,multiphase RxNor m: 966597 Take 1 Tablet(s) Oral at bed time 11/14/2021 11/14/2021 Inactive Dulera 100 mcg-5 mcg/actuation HFA aerosol inhaler RxNorm: 1 954628 Inhale 1 Puff(s) Oral every day 10/14/2021 05/11/2022 Active fluticasone propionate 50 mcg/actuation nasal spray,suspensi on RxNorm: 2811070 instill one SPRAY IN EACH NOSTRIL EVERY DAY 10/14/2021 05/11/2022 Acti ve Dulera 200 mcg-5 mcg/actuation HFA aerosol inhaler RxNorm: 1 902673 Inhale 2 Puff(s) Oral two times a day 10/01/2021 10/01/2021 Inactive zolpidem ER 6.25 mg tablet,extended release,multiphase RxNor m: 820313 Take 1 Tablet(s) Oral at bed time 09/14/2021 09/14/2021 Inactive Tudorza Pressair 400 mcg/actuation breath activated RxNorm: 7297399 Inhale 1 Puff(s) two times a day 08/03/2021 08/03/2021 Inactive This pre scription was filled on 07/10/2021. Any refills authorized will be placed on file. cephalexin 500 mg tablet RxNorm: 231345 Take 1 Tablet(s) Oral t hree times a day 07/30/2021 08/05/2021 Inactive zolpidem ER 6.25 mg tablet,extended release,multiphase RxNor m: 694774 Take 1 Tablet(s) Oral at bed time 07/17/2021 07/17/2021 Inactive cephalexin 500 mg capsule RxNorm: 079281 1 Capsule(s) O ral three times a day with probiotics BID 06/20/2021 06/26/2021 Inactive hold doxycyc line while taking keflex Vitamin D3 125 mcg (5,000 unit) tablet RxNorm: 421939 1 Tablet(s) Oral every day 06/19/2021 No Stop Date Active zolpidem ER 6.25 mg tablet,extended release,multiphase RxNor m: 242033 Take 1 Tablet(s) Oral at bed time 05/21/2021 05/21/2021 Inactive Dulera 200 mcg-5 mcg/actuation HFA aerosol inhaler RxNorm: 1 553278 INHALE 2 PUFFS BY MOUTH TWO TIMES A DAY 05/02/2021 05/02/2021 Inactive T his prescription was filled on 12/02/2020. Any refills authorized will be placed on file. zolpidem ER 6.25 mg tablet,extended release,multiphase RxNor m: 788591 Take 1 Tablet(s) Oral at bed time 04/18/2021 04/18/2021 Inactive zolpidem ER 6.25 mg tablet,extended release,multiphase RxNor m: 796346 Take 1 Tablet(s) Oral at bed time 03/21/2021 03/21/2021 Inactive cephalexin 500 mg capsule RxNorm: 859605 1 Capsule(s) O ral three times a day with probiotics BID 03/13/2021 03/19/2021 Inactive hold doxycyc line while taking keflex zolpidem ER 6.25 mg tablet,extended release,multiphase RxNor m: 387474 Take 1 Tablet(s) Oral at bed time 02/19/2021 02/19/2021 Inactive prednisone 10 mg tablet RxNorm: 862969 Tablet(s) Oral 6 0mg x 1 then 50,40,30,20,10, 02/05/2021 02/05/2021 Inactive Zithromax 250 mg tablet RxNorm: 797727 1 Tablet(s) Oral as directed 2 tabs on day #1, then 1 tab daily x 4 more days 02/05/2021 02/14/2021 Inactive lizz Tudorza Pressair 400 mcg/actuation breath activated RxNorm: 0590329 Inhale 1 Puff(s) two times a day 01/31/2021 01/31/2021 Inactive This pre scription was filled on 01/08/2021. Any refills authorized will be placed on file. zolpidem ER 6.25 mg tablet,extended release,multiphase RxNor m: 142267 Take 1 Tablet(s) Oral at bed time 01/13/2021 01/13/2021 Inactive This prescription was filled on 12/21/2020. Any refills authorized will be placed on file. Dulera 200 mcg-5 mcg/actuation HFA aerosol inhaler RxNorm: 1 862204 INHALE 2 PUFFS BY MOUTH TWO TIMES A DAY 12/26/2020 12/26/2020 Inactive T his prescription was filled on 12/02/2020. Any refills authorized will be placed on file. zolpidem ER 6.25 mg tablet,extended release,multiphase RxNor m: 090166 Take 1 Tablet(s) Oral at bed time 10/23/2020 10/23/2020 Inactive Tudorza Pressair 400 mcg/actuation breath activated RxNorm: 4579648 INHALE 1 PUFF TWICE DAILY 09/27/2020 09/27/2020 Inactive [place] approved zolpidem ER 6.25 mg tablet,extended release,multiphase RxNor m: 151931 Take 1 Tablet(s) Oral at bed time 09/21/2020 09/21/2020 Inactive fluticasone propionate 50 mcg/actuation nasal spray,suspensi on RxNorm: 4476333 instill one SPRAY IN EACH NOSTRIL EVERY DAY 09/20/2020 09/20/2020 Inac tive This prescription was filled on 08/23/2020. Any refills authorized will be placed on file. zolpidem ER 6.25 mg tablet,extended release,multiphase RxNor m: 607809 Take 1 Tablet(s) Oral at bed time 08/24/2020 08/24/2020 Inactive albuterol sulfate 2.5 mg/3 mL (0.083 %) solution for n ebulization RxNorm: 221453 3 Milliliter(s) Inhalation four times a day as needed dyspne a 08/22/2020 No Stop Date Active prednisone 10 mg tablet RxNorm: 399156 Tablet(s) Oral 6 0mg x 1 then 50,40,30,20,10, 08/22/2020 02/04/2021 Inactive Kenalog 40 mg/mL suspension for injection RxNorm: 6780264 1 Milliliter(s) Injection 08/22/2020 08/22/2020 Inactive Zithromax 250 mg tablet RxNorm: 401780 1 Tablet(s) Oral as directed 08/22/2020 08/26/2020 Inactive zpack x 1 Fosamax 70 mg tablet RxNorm: 466704 1 Tablet(s) Oral once a week 08/13/2021 Inactive Fosamax 70 mg tablet RxNorm: 520690 1 Tablet(s) Oral once a week 08/17/2020 Inactive Zithromax 250 mg tablet RxNorm: 342358 1 Tablet(s) Oral as directed 08/14/2020 08/19/2020 Inactive zpack x 1 prednisone 20 mg tablet RxNorm: 220352 2 Tablet(s) Oral every day 0 08/14/2020 08/19/2020 Inactive prednisone 20 mg tablet RxNorm: 445787 2 Tablet(s) Oral every day 0 08/14/2020 08/13/2020 Inactive Zithromax 250 mg tablet RxNorm: 702521 1 Tablet(s) Oral as directed 08/14/2020 08/13/2020 Inactive zpack x 1 Dulera 200 mcg-5 mcg/actuation HFA aerosol inhaler RxNorm: 1 068720 INHALE 2 PUFFS BY MOUTH TWO TIMES A DAY 08/10/2020 08/10/2020 Inactive T his prescription was filled on 07/18/2020. Any refills authorized will be placed on file. Ambien CR 6.25 mg tablet,extended release RxNorm: 658535 TAKE ONE TABLET BY MOUTH DAILY AT BEDTIME 07/21/2020 07/21/2020 Inactive Ambien CR 6.25 mg tablet,extended release RxNorm: 058450 TAKE ONE TABLET BY MOUTH DAILY AT BEDTIME 06/26/2020 07/20/2020 Inactive doxycycline hyclate 20 mg tablet RxNorm: 445315 TAKE 1 TABLET(S) ORAL ONETIME A DAY 06/19/2020 09/17/2020 Inactive cephalexin 500 mg capsule RxNorm: 386785 1 Capsule(s) O ral three times a day with probiotics BID 06/16/2020 06/23/2020 Inactive hold doxycyc line while taking keflex Dulera 100 mcg-5 mcg/actuation HFA aerosol inhaler RxNorm: 1 562570 INHALE 1 PUFF(S) INHALATION EVERY DAY 05/25/2020 05/24/2020 Inactive Dulera 100 mcg-5 mcg/actuation HFA aerosol inhaler RxNorm: 1 207362 INHALE 1 PUFF(S) INHALATION EVERY DAY as needed rescue inhaler 05/25/20202020 Inactive doxycycline hyclate 20 mg tablet RxNorm: 223268 TAKE 1 TABLET(S) ORAL TWO TIMES A DAY 05/25/2020 06/18/2020 Inactive Tudorza Pressair 400 mcg/actuation breath activated RxNorm: 0043308 INHALE 1 PUFF TWICE DAILY 05/24/2020 05/24/2020 Inactive This prescripti on was filled on 05/01/2020. Any refills authorized will be placed on file. Dulera 200 mcg-5 mcg/actuation HFA aerosol inhaler RxNorm: 1 328784 INHALE 2 PUFFS BY MOUTH TWO TIMES A DAY 05/24/2020 08/09/2020 Inactive T his prescription was filled on 05/01/2020. Any refills authorized will be placed on file. Ambien CR 6.25 mg tablet,extended release RxNorm: 043971 TAKE ONE TABLET BY MOUTH DAILY AT BEDTIME 05/19/2020 06/17/2020 Inactive Ambien CR 6.25 mg tablet,extended release RxNorm: 410597 1 Tablet(s) Oral every night at bedtime 03/29/2020 05/18/2020 Inactive Dulera 200 mcg-5 mcg/actuation HFA aerosol inhaler RxNorm: 1 848374 INHALE 2 PUFFS BY MOUTH TWO TIMES A DAY 02/21/2020 05/20/2020 Inactive Tudorza Pressair 400 mcg/actuation breath activated RxNorm: 6843089 INHALE 1 PUFF TWICE DAILY 02/01/2020 05/23/2020 Inactive Ambien CR 6.25 mg tablet,extended release RxNorm: 368916 1 Tablet(s) Oral every night at bedtime 01/29/2020 03/27/2020 Inactive fluticasone propionate 50 mcg/actuation nasal spray,suspensi on RxNorm: 6631035 1 [employer] Nasal every day 1 spray each nostril 12/24/2019 12/23/2019 Inact andrade replaces zetonna fluticasone propionate 50 mcg/actuation nasal spray,suspensi on RxNorm: 0393839 1 [employer] Nasal every day 1 spray each nostril 12/24/2019 12/24/2019 Inact andrade replaces zetonna Ambien CR 6.25 mg tablet,extended release RxNorm: 522339 Tablet(s) Oral every night at bedtime 11/30/2019 01/28/2020 Inactive Zetonna 37 mcg/actuation nasal HFA inhaler RxNorm: 6718955 1 [employer] Nasal every day 11/02/2019 12/23/2019 Inactive Dulera 200 mcg-5 mcg/actuation HFA aerosol inhaler RxNorm: 1 524412 2 Puff(s) Inhalation two times a day 11/02/2019 02/20/2020 Inactive Zetonna 37 mcg/actuation nasal HFA inhaler RxNorm: 8659042 1 [employer] Nasal every day 11/02/2019 11/01/2019 Inactive Ambien CR 6.25 mg tablet,extended release RxNorm: 384407 Tablet(s) Oral every night at bedtime 10/01/2019 11/29/2019 Inactive Tudorza Pressair 400 mcg/actuation breath activated RxNorm: 4323773 INHALE ONE INHALATION PO BID 08/04/2019 12/01/2019 Inactive Ambien CR 6.25 mg tablet,extended release RxNorm: 690014 1 Tablet(s) Oral every night at bedtime 08/04/2019 09/30/2019 Inactive Ambien CR 6.25 mg tablet,extended release RxNorm: 547347 1 Tablet(s) Oral every night at bedtime 06/02/2019 07/31/2019 Inactive Tudorza Pressair 400 mcg/actuation breath activated RxNorm: 0983483 INHALE ONE INHALATION PO BID 06/01/2019 07/30/2019 Inactive doxycycline hyclate 20 mg tablet RxNorm: 370183 1 Table t(s) Oral two times a day 04/22/2019 04/16/2020 Inactive pt will call whe n she needs refills Ambien CR 6.25 mg tablet,extended release RxNorm: 428654 1 Tablet(s) Oral every night at bedtime 04/22/2019 04/20/2019 Inactive Tudorza Pressair 400 mcg/actuation breath activated RxNorm: 0718405 1 Inhalation two times a day 04/22/2019 04/22/2019 Inactive Ambien CR 6.25 mg tablet,extended release RxNorm: 695331 1 Tablet(s) Oral every night at bedtime 04/22/2019 05/19/2019 Inactive doxycycline hyclate 100 mg tablet RxNorm: 9976703 1 Tabl et(s) Oral two times a day 04/22/2019 04/21/2019 Inactive Dulera 100 mcg-5 mcg/actuation HFA aerosol inhaler RxNorm: 1 932458 1 Puff(s) Inhalation every day 04/22/2019 11/18/2019 Inactive Vitamin C 500 mg tablet RxNorm: 533583 1 Tablet(s) Oral two adriana es a day 04/21/2019 No Stop Date Active Dulera 100 mcg-5 mcg/actuation HFA aerosol inhaler RxNorm: 1 060776 Inhalation as needed 04/21/2019 08/21/2020 Inactive Dulera 200 mcg-5 mcg/actuation HFA aerosol inhaler RxNorm: 1 219510 2 Inhalation two times a day 04/21/2019 11/01/2019 Inactive Tudorza Pressair 400 mcg/actuation breath activated RxNorm: 9054338 1 Inhalation two times a day 04/21/2019 04/21/2019 Inactive omega 3,6,9 combination no.7 oral RxNorm: oral 04/21/2019 Active Calcium 600 + D(3) oral RxNorm: 667569 oral 08/22/2020 Active Alive Once Daily Women 50 Plus oral RxNorm: oral 04/21/2019 Active Zetonna nasal RxNorm: 4990734 nasal 11/02/2019 11/02/2019 Inactive Medication Administered Medication Codes Instructions Start Date Status Kenalog 40 mg/mL suspension for injection RxNorm: 2139565 1Milli liter 08/22/2020 No longer Active Immunizations Vaccine Codes Dose Date Status Influenza CVX: 197 12/11/2021 Pneumococcal (Adult) CVX: 133 08/17/2021 SHINGARIX CVX: 121 08/17/2021 Covid-19 CVX: 207 05/12/2020 Covid-19 CVX: 207 04/10/2020 Influenza CVX: 197 12/16/2019 Pneumococcal CVX: 133 12/16/2019 Influenza CVX: 197 12/08/2018 Tetanus, Diptheria, Pertussis CVX: 09 03/10/2018 Results Observation Observation Code Item Item Code Result Date S [facility] Location CULTURE, URINE M100 URINE CULTURE See [...] CULTURE See Note 06/24/2021 Unknown Free T4 Stn767 FREE T4 0.75 ng/dL 06/14/2021 Unknown Cbc [...] 06/13/19 22 Unknown Cbc With Differential Ord2 Dane% 9.2 % 06/13/19 22 Unknown Cbc With [...] K/ul 022 Unknown Cbc With Differential Ord2 Dane ABS# 0.9 K/ul 06/13/19 22 Unknown Cbc With Differential Ord2 Eos ABS# 0.2 K/ul 06/13/19 22 Unknown Cbc With Differential Ord2 Baso ABS# 0.0 K/ul 06/13/19 22 Unknown Tsh Ord6 TSH (3rd IS) 5.79 uIU/mL 06/12/2021 Unkn own Vitamin D 25 Oh Ite4104 VITAMIN D, 25 HYDROXY 34.58 ng/mL 06/12/2021 Unknown Comp Metabolic Ocq117 NA 137 mEq/L 06/12/2021 Unkn own Comp Metabolic Lae781 K 4.0 mEq/L 06/12/2021 Unkn own Comp Metabolic Xxc015 CL 99 mEq/L 06/12/2021 Unkn own Comp Metabolic Wqz394 CO2 28.0 mEq/L 06/12/2021 Unk nown Comp Metabolic Ebg924 ANION GAP 14 06/12/2021 Unkn own Comp Metabolic Vnv187 GLUCOSE 108 mg/dL 06/12/2021 Unkn own Comp Metabolic Ote043 Creat 0.6 mg/dL 06/12/2021 Unkn own Comp Metabolic Rvv739 eGFR 107 ml/min/1.73m2 022 Unknown Comp Metabolic Yvj742 BUN 5 mg/dL 06/12/2021 Unkn own Comp Metabolic Hju766 B/C Ratio 8.6 Ratio 06/12/2021 Unkn own Comp Metabolic Abj468 CALCIUM 9.0 mg/dL 06/12/2021 Unkn own Comp Metabolic Xoj855 ALK PHOS 112 U/L 06/12/2021 Unkn own Comp Metabolic Dqz361 AST(SGOT) 28 U/L 06/12/2021 Unkn own Comp Metabolic Acx740 ALT(SGPT) 23 U/L 06/12/2021 Unkn own Comp Metabolic Jan323 BILI T 1.2 mg/dL 06/12/2021 Unkn own Comp Metabolic Psa222 ALBUMIN 3.8 g/dL 06/12/2021 Unkn own Comp Metabolic Jfj600 TPRO 6.4 g/dL 06/12/2021 Unkn own Comp Metabolic Kpn311 GLOB 2.6 g/dL 06/12/2021 Unkn own Comp Metabolic Tyk988 A/G Ratio 1.5 Ratio 06/12/2021 Unkn own Comp Metabolic Nqo688 Osmo 272 mOsmo 06/12/2021 Unkn own Lipid Ord30 CHOL 207 mg/dL 06/12/2021 Unknown Lipid Ord30 HDL 60.0 mg/dl 06/12/2021 Unknown Lipid Ord30 TRIG 120 mg/dL 06/12/2021 Unknown Lipid Ord30 LDL 123 mg/dL 06/12/2021 Unknown Lipid Ord30 C/HDL 3.5 Ratio 06/12/2021 Unknown CULTURE, URINE M100 URINE CULTURE See Note 03/18/2021 Unknown CULTURE, URINE M100 URINE CULTURE See Note 06/19/2020 Unknown Comp Metabolic Zgi381 NA 136 mEq/L 06/07/2020 Unkn own Comp Metabolic Nmq160 K 4.1 mEq/L 06/07/2020 Unkn own Comp Metabolic Dhz666 CL 98 mEq/L 06/07/2020 Unkn own Comp Metabolic Pmk776 CO2 27.0 mEq/L 06/07/2020 Unk nown Comp Metabolic Coh977 ANION GAP 15 06/07/2020 Unkn own Comp Metabolic Vud609 GLUCOSE 86 mg/dL 06/07/2020 Unkn own Comp Metabolic Aar383 Creat 0.6 mg/dL 06/07/2020 Unkn own Comp Metabolic Mgs847 eGFR 101 ml/min/1.73m2 021 Unknown Comp Metabolic Yot930 BUN 6 mg/dL 06/07/2020 Unkn own Comp Metabolic Dvd888 B/C Ratio 9.8 Ratio 06/07/2020 Unkn own Comp Metabolic Fok869 CALCIUM 8.9 mg/dL 06/07/2020 Unkn own Comp Metabolic Gzo865 ALK PHOS 95 U/L 06/07/2020 Unkn own Comp Metabolic Ywu322 AST(SGOT) 54 U/L 06/07/2020 Unkn own Comp Metabolic Lzr966 ALT(SGPT) 48 U/L 06/07/2020 Unkn own Comp Metabolic Gta592 BILI T 0.9 mg/dL 06/07/2020 Unkn own Comp Metabolic Xmb298 ALBUMIN 3.8 g/dL 06/07/2020 Unkn own Comp Metabolic Mgy988 TPRO 6.2 g/dL 06/07/2020 Unkn own Comp Metabolic Fll819 GLOB 2.4 g/dL 06/07/2020 Unkn own Comp Metabolic Lii263 A/G Ratio 1.5 Ratio 06/07/2020 Unkn own Comp Metabolic Bic659 Osmo 269 mOsmo 06/07/2020 Unkn own Cbc [...] 06/08/19 21 Unknown Cbc With Differential Ord2 Dane% 10.0 % 06/08/19 21 Unknown Cbc With [...] K/ul 021 Unknown Cbc With Differential Ord2 Dane ABS# 0.9 K/ul 06/08/19 21 Unknown Cbc [...] G0444 01/03/2022 URINALYSIS NONAUTO W/O SCOPE CPT-4: 15554 03/13/2021 PPPS, SUBSEQ VISIT CPT-4: G0439 12/29/2020 DEPRESSION SCREEN ANNUAL CPT-4: G0444 12/29/2020 TRIAMCINOLONE ACET INJ NOS 10 mg CPT-4: J3301 021 THER/PROPH/DIAG INJ SC/IM CPT-4: 42255 08/22/2020 URINALYSIS NONAUTO W/O SCOPE CPT-4: 64843 06/16/2020 DESTRUCT PREMALG LESION CPT-4: 85832 08/30/2019 Vital Signs Date Vital 01/03/2022 Blood Pressure 1: 122/64 Code: 8480-6 BMI: 25.5 Code: 64512-8 Heart Rate 1: 87 bpm Height: 5'6" Code: 8302-2 SpO2: 94% Temperature: 3 6.2 (C) / 97.2 (F) Weight: 158 lbs Code: 57963-9 12/11/2021 Blood Pressure 1: 130/70 Code: 8480-6 Heart Rate 1: 88 bpm Height: 5'6" Code: 8302-2 Respiratory Rate: 17 bpm SpO2: 82% Temperature: 35 .6 (C) / 96.0 (F) Weight: Code: 77014-3 06/12/2021 Blood Pressure 1: 130/76 Code: 8480-6 Heart Rate 1: 84 bpm Height: Code: 8302-2 Respiratory Rate: 17 bpm SpO2: 94% Temperature: 35 .7 (C) / 96.3 (F) Weight: 156 lbs Code: 57434-9 12/29/2020 Blood Pressure 1: 128/74 Code: 8480-6 BMI: 25.8 Code: 52812-3 Heart Rate 1: 92 bpm Height: 5'6" Code: 8302-2 SpO2: 90% Temperature: 3 6.0 (C) / 96.8 (F) Weight: 160 lbs Code: 07366-8 12/07/2020 Blood Pressure 1: 130/78 Code: 8480-6 BMI: 25.8 Code: 91032-4 Heart Rate 1: 88 bpm Height: 5'6" Code: 8302-2 Respiratory Rate: 18 bpm SpO2: 93% Temperature: 35.6 (C) / 96.1 (F) Weight: 160 lbs Code: 83550-9 08/22/2020 Blood Pressure 1: 138/80 Code: 8480-6 BMI: 25.3 Code: 96954-5 Heart Rate 1: 72 bpm Height: 5'6" Code: 8302-2 SpO2: 92% Temperature: 3 6.6 (C) / 97.8 (F) Weight: 157 lbs Code: 51187-6 06/07/2020 Blood Pressure 1: 144/86 Code: 8480-6 BMI: 26.0 Code: 15718-3 Heart Rate 1: 84 bpm Height: 5'6" Code: 8302-2 SpO2: 96% Temperature: 3 6.3 (C) / 97.3 (F) Weight: 161 lbs Code: 78732-7 08/30/2019 Blood Pressure 1: 168/98 Code: 8480-6 Bl ood Pressure 1: 148/74 Code: 8480-6 BMI: 26.0 Code: 68209-9 Heart Rate 1: 83 bpm Height: 5'6" Code: 8302-2 Respiratory Rate: 15 bpm SpO2: 88% Temperature: 36.8 (C) / 98.2 (F) We ight: 161 lbs Code: 93899-9 04/22/2019 Blood Pressure 1: 124/80 Code: 8480-6 BMI: 25.3 Code: 92518-7 Heart Rate 1: 71 bpm Height: 5'6" Code: 8302-2 SpO2: 91% Weight: 157 lb s Code: 65877-5 Functional Status No Functional Status data Reason For Visit Reason For Visit Effective Dates Notes Annual Medicare Wellness Exam 01/03/2022 shortness of breath 12/11/2021 shortness of breath 06/12/2021 Annual Medicare Wellness Exam 12/29/2020 shortness of breath 12/07/2020 fatigue 12/07/2020 cough 08/22/2020 dysuria 06/16/2020 edema 06/07/2020 edema 08/30/2019 chest tightness 04/22/2019 Encounters Encounter Performer Location Location Address Codes Date ([id number]) [id number] EST. 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 PATIENT, LEVEL I Diagnosis: Dysuria[ICD10: R30.0] Sunita Alcala MD, [facility] [address] [place] [address] CPT-4: 59090 07/30/2021 ([id number]) 00549 EST. PATIENT, LEVEL I Diagnosis: Dysuria[ICD10: R30.0] Sunita Alcala MD, [facility] [address] [place] [address] CPT-4: 30598 06/20/2021 ([id number]) 27873 EST. 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 [address] [place] [address] CPT-4: 84461 12/07 16447 EST. PATIENT, LEVEL III Diagnosis: COPD exacerbation[ICD10: J44.1] Diagnosis: Cough[ICD10: R05] Zaynab Alcala MD, [facility] [address] [place] [address] CPT-4: 57621 08/22/2020 ([id number]) 63640 EST. 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] Diagnosis: Elevated blood pressure reading[ICD10: R03.0] Sunita Alcala MD, [facility] [address] [place] [address] CPT-4: 9921 4 06/07/2020 ([id number]) 22994 EST. 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 01/03/2022 Appointment: Jennifer Dawkins WPtel: [phone] [facility] - Annual Wellness Visit 12/09 Patient Education: Patient Medication Summary Completed 01/03/2022 Visit Plan: Dysuria - check urine. 2+ le ukocytes with no blood and no nitrites - no antibiotics needed COPD - chronic problem for this patient. She is still not interested in wearing oxygen. She sees a merchandise presentation manager in [place]. I have recommended that she makes sure she has follow up appointments with him. We have reviewed chronic treatment strategy, symptom control, and plans for acute exacerbations. No changes today to the current treatment plan as the patient is stable, monitor for acute changes. 12/11/2021 Appointment: Sunita Alcala WPtel: [phone] [facility] schedule wellness at checkout (15 min) M [...] interested in wearing oxygen. She sees a merchandise presentation manager in [place]. I have recommended that she makes sure she has follow up appointments with him. We have reviewed chronic treatment strategy, symptom control, and plans for acute exacerbations. No changes today to the current treatment plan as the patient is stable, monitor for acute changes. Pt is in need to reschedule her colonoscope and EGD at [place] with Dr. Rey. 06/12/2021 Appointment: Sunita Alcala WPtel: [address] [place], [place] [phone] (15 min) Moderate 06/12/2021 Patient Education: Patient [...] interested in wearing oxygen. She sees a merchandise presentation manager in [place]. I have recommended that she makes sure [...] your stomach 12/07/2020 Appointment: [facility]cal[phone] [phone] (15 min) Moderate 12/07/2020 Patient Education: Patient [...] changes. 08/22/2020 Appointment[facility]ab [id number] (30 min) Complex 08/22/2020 Patient Education: Patient [...] acute changes. referral to Dr. Lucas - merchandise presentation manager in [place] 06/07/2020 Patient Education: Patient Medication Summary Completed 06/07/2020 Appointment: Sunita Alcala [facility]Ptel[facility] [phone] [phone] (15 min) Moderate 02/14/2020 Visit Plan: Actinic Keratosis - lesion t reated with cryotherapy on skin lesion right posterior calf COPD - chronic problem for this patient. We have reviewed chronic treatment strategy, symptom control, and plans for acute exacerbations. No changes today to the current treatment plan as the patient is stable, monitor for acute changes. 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 Donovan - merchandise presentation manager - needs appt in Nov/dec time frame - see if can get appt in [place] office - DX COPD Venous insufficiency - advised elevation of legs when seated and compression when legs are down or patient is going to travel. 08/30/2019 Appointment: Sunita Alcala WPtel: [phone] [id number] (15 min) Moderate 08/30/2019 Patient Education: Patient Medication Summary Completed 08/30/2019 Appointment: Sunita Alcala [facility]el[facility] [phone] [id number] (15 min) Moderate 05/26/2019 Visit Plan: COPD - chronic problem for t his patient. We have reviewed chronic treatment strategy, symptom control, and plans for acute exacerbations. No changes today to the current treatment plan as the patient is stable, monitor for acute changes. Insomnia - chronic - refill ambien for PRN use. 04/22/2019 Patient Education: Patient Medication Summary Completed 04/22/2019 Referral: [facility] Referral Initiated Referral: [facility] Referral Completed Instructions Comment Date [...] interested in wearing oxygen. She sees a merchandise presentation manager in [place]. I have recommended that she makes sure [...] do not improve. 07/30/2021 Dr. Rey at [facility] - reschedule your colonoscope and egd. . [...] interested in wearing oxygen. She sees a merchandise presentation manager in [place]. I have recommended that she makes sure she has follow up appointments with him. We have reviewed chronic treatment strategy, symptom control, and plans for acute exacerbations. No changes today to the current treatment plan as the patient is stable, monitor for acute changes. Pt is in need to reschedule her colonoscope and EGD at [facility] with Dr. Rey. 06/12/2021 [facility] [...] interested in wearing oxygen. She sees a merchandise presentation manager in [place]. I have recommended that she makes sure [...] acute changes. referral to Dr. Lucas - merchandise presentation manager in [place] 06/07/2020 . Actinic Keratosis - lesion treated with cryotherapy on skin lesion right posterior calf COPD - chronic problem for this patient. We have reviewed chronic treatment strategy, symptom control, and plans for acute exacerbations. No changes today to the current treatment plan as the patient is stable, monitor for acute changes. 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 Donovan - merchandise presentation manager - needs appt in Nov/dec time frame - see if can get appt in [place] office - DX COPD Venous insufficiency - [...]
--- OUTSIDE RECORDS SUMMARY | 2022-04-14 13:09 | XMS REPORT | CCD ---
Author Author Nicolasa Alcala Organization [facility] Address [address] [place] [address] Phone Care Team Providers Care Creative Resource Manager Name Role Phone [facility] Unavailable CCM Unavailable Summary Purpose Interface Exchange Insurance Providers Payer name Policy type / Coverage type Covered green party ID Effective Begin Date Effective End Date WPS Medicare Part B Medicare Part B [id number] Unknown Unkno wn [employer] Medicare Part B [id number] Unknown Unknown Family history Mother Diagnosis Age At Onset Cancer Unknown Social History Social History Element Codes Description Effective Dates Marital status Unknown Single 04/21/2019 Number of children Unknown 3 04/21/2019 Employment Unknown Retired 04/21/[address]: 3875722 Former smoker 200904/21/[address]: 061815 Currently drinks alcohol 04/21 Frequency of drinks SNOMED CT: 485421412 1-4 drinks per week 5 04/21/2019 Allergies, Adverse Reactions, Alerts Substance Reaction Codes Entered Date Inactivated Date Status FUROSEMIDE Unknown 04/21/2019 No Inactive Date Active ACETAMINOPHEN Unknown 04/21/2019 No Inactive Date Activ e Penicillin rash, pruritis Unknown 04/21/2019 No Inactive Date Acti ve Problems Condition Codes Effective Dates Condition Status Elevated TSH ICD-10: R79.89 ICD-9: 794.5 06/14/2021 Active Hyperlipidemia Unknown 03/14/2022 Active Hypertension Unknown 03/14/2022 [...] Active 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) with 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 bronchitis ICD-10: J44.9 ICD-9: 491.20 04/22/2019 Active Dyspnea on exertion ICD-10: R06.09 ICD-9: 786.09 12/11/2021 Active Asymptomatic menopausal state ICD-10: Z78.0 06/12/2021 [...] Start Date Stop Date Status Fill Instructions Incruse Ellipta 62.5 mcg/actuation powder for inhalation RxN orm: 9031319 Inhale 1 Puff(s) Inhalation every day 03/21/2022 04/19/2022 Active Tudorza Pressair 400 mcg/actuation breath activated RxNorm: 0063999 Inhale 1 Puff(s) two times a day 03/18/2022 03/20/2022 Inactive zolpidem ER 6.25 mg tablet,extended release,multiphase RxNor m: 972144 Take 1 Tablet(s) Oral at bed time 03/13/2022 07/10/2022 Active cefuroxime axetil 500 mg tablet RxNorm: 229373 1 Tablet(s) Oral two times a day 03/07/2022 03/07/2022 Inactive cefuroxime axetil 500 mg tablet RxNorm: 449843 Take 1 T ablet(s) Oral two times a day 03/07/2022 03/13/2022 Inactive Dulera 200 mcg-5 mcg/actuation HFA aerosol inhaler RxNorm: 1 251517 Inhale 2 Puff(s) Oral two times a day 01/22/2022 07/20/2022 Active zolpidem ER 6.25 mg tablet,extended release,multiphase RxNor m: 462002 Take 1 Tablet(s) Oral at bed time 01/10/2022 01/10/2022 Inactive azithromycin 250 mg tablet RxNorm: 450796 Take 1 Tablet (s) Oral as directed take two tabs on day #1 then 1 pill daily x 4 more days 01/08/2022 No Stop D ate Active prednisone 20 mg tablet RxNorm: 096993 Take 3 Tablet(s) Oral ev jose ramon01/08/2022 01/14/2022 Inactive Tudorza Pressair 400 mcg/actuation breath activated RxNorm: 7933255 Inhale 1 Puff(s) two times a day 11/21/2021 11/21/2021 Inactive zolpidem ER 6.25 mg tablet,extended release,multiphase RxNor m: 451320 Take 1 Tablet(s) Oral at bed time 11/14/2021 11/14/2021 Inactive Dulera 100 mcg-5 mcg/actuation HFA aerosol inhaler RxNorm: 1 089899 Inhale 1 Puff(s) Oral every day 10/14/2021 05/11/2022 Active fluticasone propionate 50 mcg/actuation nasal spray,suspensi on RxNorm: 5264950 instill one SPRAY IN EACH NOSTRIL EVERY DAY 10/14/2021 05/11/2022 Acti ve Dulera 200 mcg-5 mcg/actuation HFA aerosol inhaler RxNorm: 1 188715 Inhale 2 Puff(s) Oral two times a day 10/01/2021 10/01/2021 Inactive zolpidem ER 6.25 mg tablet,extended release,multiphase RxNor m: 139051 Take 1 Tablet(s) Oral at bed time 09/14/2021 09/14/2021 Inactive Tudorza Pressair 400 mcg/actuation breath activated RxNorm: 1533876 Inhale 1 Puff(s) two times a day 08/03/2021 08/03/2021 Inactive This pre scription was filled on 07/10/2021. Any refills authorized will be placed on file. cephalexin 500 mg tablet RxNorm: 904449 Take 1 Tablet(s) Oral t hree times a day 07/30/2021 08/05/2021 Inactive zolpidem ER 6.25 mg tablet,extended release,multiphase RxNor m: 427844 Take 1 Tablet(s) Oral at bed time 07/17/2021 07/17/2021 Inactive cephalexin 500 mg capsule RxNorm: 629065 1 Capsule(s) O ral three times a day with probiotics BID 06/20/2021 06/26/2021 Inactive hold doxycyc line while taking keflex Vitamin D3 125 mcg (5,000 unit) tablet RxNorm: 217311 1 Tablet(s) Oral every day 06/19/2021 No Stop Date Active zolpidem ER 6.25 mg tablet,extended release,multiphase RxNor m: 256043 Take 1 Tablet(s) Oral at bed time 05/21/2021 05/21/2021 Inactive Dulera 200 mcg-5 mcg/actuation HFA aerosol inhaler RxNorm: 1 448321 INHALE 2 PUFFS BY MOUTH TWO TIMES A DAY 05/02/2021 05/02/2021 Inactive T his prescription was filled on 12/02/2020. Any refills authorized will be placed on file. zolpidem ER 6.25 mg tablet,extended release,multiphase RxNor m: 516879 Take 1 Tablet(s) Oral at bed time 04/18/2021 04/18/2021 Inactive zolpidem ER 6.25 mg tablet,extended release,multiphase RxNor m: 267162 Take 1 Tablet(s) Oral at bed time 03/21/2021 03/21/2021 Inactive cephalexin 500 mg capsule RxNorm: 296521 1 Capsule(s) O ral three times a day with probiotics BID 03/13/2021 03/19/2021 Inactive hold doxycyc line while taking keflex zolpidem ER 6.25 mg tablet,extended release,multiphase RxNor m: 500314 Take 1 Tablet(s) Oral at bed time 02/19/2021 02/19/2021 Inactive prednisone 10 mg tablet RxNorm: 375088 Tablet(s) Oral 6 0mg x 1 then 50,40,30,20,10, 02/05/2021 02/05/2021 Inactive Zithromax 250 mg tablet RxNorm: 665732 1 Tablet(s) Oral as directed 2 tabs on day #1, then 1 tab daily x 4 more days 02/05/2021 02/14/2021 Inactive lizz Tudorza Pressair 400 mcg/actuation breath activated RxNorm: 9107618 Inhale 1 Puff(s) two times a day 01/31/2021 01/31/2021 Inactive This pre scription was filled on 01/08/2021. Any refills authorized will be placed on file. zolpidem ER 6.25 mg tablet,extended release,multiphase RxNor m: 030404 Take 1 Tablet(s) Oral at bed time 01/13/2021 01/13/2021 Inactive This prescription was filled on 12/21/2020. Any refills authorized will be placed on file. Dulera 200 mcg-5 mcg/actuation HFA aerosol inhaler RxNorm: 1 707773 INHALE 2 PUFFS BY MOUTH TWO TIMES A DAY 12/26/2020 12/26/2020 Inactive T his prescription was filled on 12/02/2020. Any refills authorized will be placed on file. zolpidem ER 6.25 mg tablet,extended release,multiphase RxNor m: 017403 Take 1 Tablet(s) Oral at bed time 10/23/2020 10/23/2020 Inactive Tudorza Pressair 400 mcg/actuation breath activated RxNorm: 7662983 INHALE 1 PUFF TWICE DAILY 09/27/2020 09/27/2020 Inactive [place] approved zolpidem ER 6.25 mg tablet,extended release,multiphase RxNor m: 314315 Take 1 Tablet(s) Oral at bed time 09/21/2020 09/21/2020 Inactive fluticasone propionate 50 mcg/actuation nasal spray,suspensi on RxNorm: 4146333 instill one SPRAY IN EACH NOSTRIL EVERY DAY 09/20/2020 09/20/2020 Inac tive This prescription was filled on 08/23/2020. Any refills authorized will be placed on file. zolpidem ER 6.25 mg tablet,extended release,multiphase RxNor m: 195342 Take 1 Tablet(s) Oral at bed time 08/24/2020 08/24/2020 Inactive albuterol sulfate 2.5 mg/3 mL (0.083 %) solution for n ebulization RxNorm: 388346 3 Milliliter(s) Inhalation four times a day as needed dyspne a 08/22/2020 No Stop Date Active prednisone 10 mg tablet RxNorm: 040129 Tablet(s) Oral 6 0mg x 1 then 50,40,30,20,10, 08/22/2020 02/04/2021 Inactive Kenalog 40 mg/mL suspension for injection RxNorm: 0959139 1 Milliliter(s) Injection 08/22/2020 08/22/2020 Inactive Zithromax 250 mg tablet RxNorm: 996650 1 Tablet(s) Oral as directed 08/22/2020 08/26/2020 Inactive zpack x 1 Fosamax 70 mg tablet RxNorm: 389328 1 Tablet(s) Oral once a week 08/13/2021 Inactive Fosamax 70 mg tablet RxNorm: 140079 1 Tablet(s) Oral once a week 08/17/2020 Inactive Zithromax 250 mg tablet RxNorm: 379932 1 Tablet(s) Oral as directed 08/14/2020 08/19/2020 Inactive zpack x 1 prednisone 20 mg tablet RxNorm: 347022 2 Tablet(s) Oral every day 0 08/14/2020 08/19/2020 Inactive prednisone 20 mg tablet RxNorm: 679859 2 Tablet(s) Oral every day 0 08/14/2020 08/13/2020 Inactive Zithromax 250 mg tablet RxNorm: 170287 1 Tablet(s) Oral as directed 08/14/2020 08/13/2020 Inactive zpack x 1 Dulera 200 mcg-5 mcg/actuation HFA aerosol inhaler RxNorm: 1 417167 INHALE 2 PUFFS BY MOUTH TWO TIMES A DAY 08/10/2020 08/10/2020 Inactive T his prescription was filled on 07/18/2020. Any refills authorized will be placed on file. Ambien CR 6.25 mg tablet,extended release RxNorm: 031350 TAKE ONE TABLET BY MOUTH DAILY AT BEDTIME 07/21/2020 07/21/2020 Inactive Ambien CR 6.25 mg tablet,extended release RxNorm: 190949 TAKE ONE TABLET BY MOUTH DAILY AT BEDTIME 06/26/2020 07/20/2020 Inactive doxycycline hyclate 20 mg tablet RxNorm: 447773 TAKE 1 TABLET(S) ORAL ONETIME A DAY 06/19/2020 09/17/2020 Inactive cephalexin 500 mg capsule RxNorm: 295698 1 Capsule(s) O ral three times a day with probiotics BID 06/16/2020 06/23/2020 Inactive hold doxycyc line while taking keflex Dulera 100 mcg-5 mcg/actuation HFA aerosol inhaler RxNorm: 1 539010 INHALE 1 PUFF(S) INHALATION EVERY DAY 05/25/2020 05/24/2020 Inactive Dulera 100 mcg-5 mcg/actuation HFA aerosol inhaler RxNorm: 1 776167 INHALE 1 PUFF(S) INHALATION EVERY DAY as needed rescue inhaler 05/25/20202020 Inactive doxycycline hyclate 20 mg tablet RxNorm: 827635 TAKE 1 TABLET(S) ORAL TWO TIMES A DAY 05/25/2020 06/18/2020 Inactive Tudorza Pressair 400 mcg/actuation breath activated RxNorm: 4148781 INHALE 1 PUFF TWICE DAILY 05/24/2020 05/24/2020 Inactive This prescripti on was filled on 05/01/2020. Any refills authorized will be placed on file. Dulera 200 mcg-5 mcg/actuation HFA aerosol inhaler RxNorm: 1 516448 INHALE 2 PUFFS BY MOUTH TWO TIMES A DAY 05/24/2020 08/09/2020 Inactive T his prescription was filled on 05/01/2020. Any refills authorized will be placed on file. Ambien CR 6.25 mg tablet,extended release RxNorm: 196074 TAKE ONE TABLET BY MOUTH DAILY AT BEDTIME 05/19/2020 06/17/2020 Inactive Ambien CR 6.25 mg tablet,extended release RxNorm: 088886 1 Tablet(s) Oral every night at bedtime 03/29/2020 05/18/2020 Inactive Dulera 200 mcg-5 mcg/actuation HFA aerosol inhaler RxNorm: 1 126251 INHALE 2 PUFFS BY MOUTH TWO TIMES A DAY 02/21/2020 05/20/2020 Inactive Tudorza Pressair 400 mcg/actuation breath activated RxNorm: 4302245 INHALE 1 PUFF TWICE DAILY 02/01/2020 05/23/2020 Inactive Ambien CR 6.25 mg tablet,extended release RxNorm: 323559 1 Tablet(s) Oral every night at bedtime 01/29/2020 03/27/2020 Inactive fluticasone propionate 50 mcg/actuation nasal spray,suspensi on RxNorm: 0851935 1 [place] Nasal every day 1 spray each nostril 12/24/2019 12/23/2019 Inact andrade replaces zetonna fluticasone propionate 50 mcg/actuation nasal spray,suspensi on RxNorm: 8874242 1 [place] Nasal every day 1 spray each nostril 12/24/2019 12/24/2019 Inact andrade replaces zetonna Ambien CR 6.25 mg tablet,extended release RxNorm: 378356 Tablet(s) Oral every night at bedtime 11/30/2019 01/28/2020 Inactive Zetonna 37 mcg/actuation nasal HFA inhaler RxNorm: 4496159 1 [place] Nasal every day 11/02/2019 12/23/2019 Inactive Dulera 200 mcg-5 mcg/actuation HFA aerosol inhaler RxNorm: 1 768956 2 Puff(s) Inhalation two times a day 11/02/2019 02/20/2020 Inactive Zetonna 37 mcg/actuation nasal HFA inhaler RxNorm: 0655376 1 [place] Nasal every day 11/02/2019 11/01/2019 Inactive Ambien CR 6.25 mg tablet,extended release RxNorm: 725971 Tablet(s) Oral every night at bedtime 10/01/2019 11/29/2019 Inactive Tudorza Pressair 400 mcg/actuation breath activated RxNorm: 0647004 INHALE ONE INHALATION PO BID 08/04/2019 12/01/2019 Inactive Ambien CR 6.25 mg tablet,extended release RxNorm: 001702 1 Tablet(s) Oral every night at bedtime 08/04/2019 09/30/2019 Inactive Ambien CR 6.25 mg tablet,extended release RxNorm: 122346 1 Tablet(s) Oral every night at bedtime 06/02/2019 07/31/2019 Inactive Tudorza Pressair 400 mcg/actuation breath activated RxNorm: 1846807 INHALE ONE INHALATION PO BID 06/01/2019 07/30/2019 Inactive doxycycline hyclate 20 mg tablet RxNorm: 822948 1 Table t(s) Oral two times a day 04/22/2019 04/16/2020 Inactive pt will call whe n she needs refills Ambien CR 6.25 mg tablet,extended release RxNorm: 650508 1 Tablet(s) Oral every night at bedtime 04/22/2019 04/20/2019 Inactive Tudorza Pressair 400 mcg/actuation breath activated RxNorm: 9484389 1 Inhalation two times a day 04/22/2019 04/22/2019 Inactive Ambien CR 6.25 mg tablet,extended release RxNorm: 498693 1 Tablet(s) Oral every night at bedtime 04/22/2019 05/19/2019 Inactive doxycycline hyclate 100 mg tablet RxNorm: 9859195 1 [place] et(s) Oral two times a day 04/22/2019 04/21/2019 Inactive Dulera 100 mcg-5 mcg/actuation HFA aerosol inhaler RxNorm: 1 362950 1 Puff(s) Inhalation every day 04/22/2019 11/18/2019 Inactive Vitamin C 500 mg tablet RxNorm: 477018 1 Tablet(s) Oral two adriana es a day 04/21/2019 No Stop Date Active Dulera 100 mcg-5 mcg/actuation HFA aerosol inhaler RxNorm: 1 725129 Inhalation as needed 04/21/2019 08/21/2020 Inactive Dulera 200 mcg-5 mcg/actuation HFA aerosol inhaler RxNorm: 1 354932 2 Inhalation two times a day 04/21/2019 11/01/2019 Inactive Tudorza Pressair 400 mcg/actuation breath activated RxNorm: 3009900 1 Inhalation two times a day 04/21/2019 04/21/2019 Inactive omega 3,6,9 combination no.7 oral RxNorm: oral 04/21/2019 Active Calcium 600 + D(3) oral RxNorm: 438246 oral 08/22/2020 Active Alive Once Daily Women 50 Plus oral RxNorm: oral 04/21/2019 Active Zetonna nasal RxNorm: 0603442 nasal 11/02/2019 11/02/2019 Inactive Medication Administered Medication Codes Instructions Start Date Status Kenalog 40 mg/mL suspension for injection RxNorm: 7827464 1Milli liter 08/22/2020 No longer Active Immunizations Vaccine Codes Dose Date Status Influenza CVX: 197 12/11/2021 Pneumococcal (Adult) CVX: 133 08/17/2021 SHINGARIX CVX: 121 08/17/2021 Covid-19 CVX: 207 05/12/2020 Covid-19 CVX: 207 04/10/2020 Influenza CVX: 197 12/16/2019 Pneumococcal CVX: 133 12/16/2019 Influenza CVX: 197 12/08/2018 Tetanus, Diptheria, Pertussis CVX: 09 03/10/2018 Results Observation Observation Code Item Item Code Result Date [facility] Location Vitamin D 25 Oh [id number] VITAMIN D, 25 HYDROXY 62.67 ng/mL 03/19/2022 Unknown Cbc With Differential Ord2 WBC 8.80 K/ul 03/19/19 23 Unknown Cbc With Differential Ord2 RBC 5.09 M/ul 03/19/19 23 Unknown Cbc With Differential Ord2 HGB 16.4 g/dl 03/19/19 23 Unknown Cbc With Differential Ord2 HCT 50.9 % 03/19/19 23 Unknown Cbc With Differential Ord2 Neut% 68.8 % 03/19/19 23 Unknown Cbc With Differential Ord2 MCV 100.0 fl 03/19/19 23 Unknown Cbc With Differential Ord2 Lymph% 20.5 % 03/19/19 23 Unknown Cbc With Differential Ord2 MCH 32.2 pg 03/19/19 23 Unknown Cbc With Differential Ord2 [place]% 8.4 % 03/19/19 23 Unknown Cbc With Differential Ord2 MCHC 32.2 pg 03/19/19 23 Unknown Cbc With Differential Ord2 Eos% 1.7 % 03/19/19 23 Unknown Cbc With Differential Ord2 PLT 310 K/ul 03/19/19 23 Unknown Cbc With Differential Ord2 Baso% 0.6 % 03/19/19 23 Unknown Cbc With Differential Ord2 RDW 14.1 % 03/19/19 23 Unknown Cbc With Differential Ord2 Neut ABS# 6.06 K/ul 03/19/19 23 Unknown Cbc With Differential Ord2 Lymph ABS# 1.80 K/ul 023 Unknown Cbc With Differential Ord2 [place] ABS# 0.7 K/ul 03/19/19 23 Unknown Cbc With Differential Ord2 Eos ABS# 0.2 K/ul 03/19/19 23 Unknown Cbc With Differential Ord2 Baso ABS# 0.1 K/ul 03/19/19 23 Unknown Comp Metabolic Uzs786 NA 139 mEq/L 03/19/2022 Unkn own Comp Metabolic Ivg148 K 4.2 mEq/L 03/19/2022 Unkn own Comp Metabolic Rpj056 CL 101 mEq/L 03/19/2022 Unkn own Comp Metabolic Trm601 CO2 27.0 mEq/L 03/19/2022 Unk nown Comp Metabolic Zas280 ANION GAP 15 03/19/2022 Unkn own Comp Metabolic Mkc935 GLUCOSE 86 mg/dL 03/19/2022 Unkn own Comp Metabolic Nqw221 Creat 0.5 mg/dL 03/19/2022 Unkn own Comp Metabolic Fec925 eGFR 127 ml/min/1.73m2 023 Unknown Comp Metabolic Klb879 BUN 6 mg/dL 03/19/2022 Unkn own Comp Metabolic Dsu018 B/C Ratio 12.0 Ratio 03/19/2022 Unk nown Comp Metabolic Luh303 CALCIUM 9.2 mg/dL 03/19/2022 Unkn own Comp Metabolic Ctn921 ALK PHOS 100 U/L 03/19/2022 Unkn own Comp Metabolic Vnw498 AST(SGOT) 21 U/L 03/19/2022 Unkn own Comp Metabolic Mqx834 ALT(SGPT) 17 U/L 03/19/2022 Unkn own Comp Metabolic Pcw292 BILI T 0.9 mg/dL 03/19/2022 Unkn own Comp Metabolic Zxk571 ALBUMIN 4.0 g/dL 03/19/2022 Unkn own Comp Metabolic Awj578 TPRO 6.8 g/dL 03/19/2022 Unkn own Comp Metabolic Ljp874 GLOB 2.8 g/dL 03/19/2022 Unkn own Comp Metabolic Dlv784 A/G Ratio 1.4 Ratio 03/19/2022 Unkn own Comp Metabolic Usp427 Osmo 274 mOsmo 03/19/2022 Unkn own Lipid Ord30 CHOL 225 mg/dL 03/19/2022 Unknown Lipid Ord30 HDL 68.0 mg/dl 03/19/2022 Unknown Lipid Ord30 TRIG 136 mg/dL 03/19/2022 Unknown Lipid Ord30 LDL 130 mg/dL 03/19/2022 Unknown Lipid Ord30 C/HDL 3.3 Ratio 03/19/2022 Unknown Tsh Ord6 TSH (3rd IS) 14.54 uIU/mL 03/19/2022 Unk nown %Hba1C Hfg469 % HbA1c 61603-0 5.3 % 03/19/2022 Unknown %Hba1C Pbs627 Gluc Ave 105 mg/dL 03/19/2022 Unknown CULTURE, URINE M100 URINE CULTURE See [...] CULTURE See Note 06/24/2021 Unknown Free T4 Idw434 FREE T4 0.75 ng/dL 06/14/2021 Unknown Cbc [...] 06/13/19 22 Unknown Cbc With Differential Ord2 [place]% 9.2 % 06/13/19 22 Unknown Cbc With [...] K/ul 022 Unknown Cbc With Differential Ord2 [place] ABS# 0.9 K/ul 06/13/19 22 Unknown Cbc With Differential Ord2 Eos ABS# 0.2 K/ul 06/13/19 22 Unknown Cbc With Differential Ord2 Baso ABS# 0.0 K/ul 06/13/19 22 Unknown Vitamin D 25 Oh Xma0012 VITAMIN D, 25 HYDROXY 34.58 ng/mL 06/12/2021 Unknown Comp Metabolic Qab636 NA 137 mEq/L 06/12/2021 Unkn own Comp Metabolic Uvd222 K 4.0 mEq/L 06/12/2021 Unkn own Comp Metabolic Huq617 CL 99 mEq/L 06/12/2021 Unkn own Comp Metabolic Ani250 CO2 28.0 mEq/L 06/12/2021 Unk nown Comp Metabolic Qqc084 ANION GAP 14 06/12/2021 Unkn own Comp Metabolic Wxp055 GLUCOSE 108 mg/dL 06/12/2021 Unkn own Comp Metabolic Wva808 Creat 0.6 mg/dL 06/12/2021 Unkn own Comp Metabolic Yhr407 eGFR 107 ml/min/1.73m2 022 Unknown Comp Metabolic Hnn147 BUN 5 mg/dL 06/12/2021 Unkn own Comp Metabolic Qqi597 B/C Ratio 8.6 Ratio 06/12/2021 Unkn own Comp Metabolic Lbf227 CALCIUM 9.0 mg/dL 06/12/2021 Unkn own Comp Metabolic Osg592 ALK PHOS 112 U/L 06/12/2021 Unkn own Comp Metabolic Efy258 AST(SGOT) 28 U/L 06/12/2021 Unkn own Comp Metabolic Dqd717 ALT(SGPT) 23 U/L 06/12/2021 Unkn own Comp Metabolic Ujx737 BILI T 1.2 mg/dL 06/12/2021 Unkn own Comp Metabolic Cfi515 ALBUMIN 3.8 g/dL 06/12/2021 Unkn own Comp Metabolic Ucy427 TPRO 6.4 g/dL 06/12/2021 Unkn own Comp Metabolic Svq448 GLOB 2.6 g/dL 06/12/2021 Unkn own Comp Metabolic Hph411 A/G Ratio 1.5 Ratio 06/12/2021 Unkn own Comp Metabolic Pgd097 Osmo 272 mOsmo 06/12/2021 Unkn own Lipid Ord30 CHOL 207 mg/dL 06/12/2021 Unknown Lipid Ord30 HDL 60.0 mg/dl 06/12/2021 Unknown Lipid Ord30 TRIG 120 mg/dL 06/12/2021 Unknown Lipid Ord30 LDL 123 mg/dL 06/12/2021 Unknown Lipid Ord30 C/HDL 3.5 Ratio 06/12/2021 Unknown Tsh Ord6 TSH (3rd IS) 5.79 uIU/mL 06/12/2021 Unkn own CULTURE, URINE M100 URINE CULTURE See Note 03/18/2021 Unknown CULTURE, URINE M100 URINE CULTURE See Note 06/19/2020 Unknown Comp Metabolic Plo476 NA 136 mEq/L 06/07/2020 Unkn own Comp Metabolic Dlf777 K 4.1 mEq/L 06/07/2020 Unkn own Comp Metabolic Jri891 CL 98 mEq/L 06/07/2020 Unkn own Comp Metabolic Cub839 CO2 27.0 mEq/L 06/07/2020 Unk nown Comp Metabolic Yst643 ANION GAP 15 06/07/2020 Unkn own Comp Metabolic Jzl934 GLUCOSE 86 mg/dL 06/07/2020 Unkn own Comp Metabolic Nxe944 Creat 0.6 mg/dL 06/07/2020 Unkn own Comp Metabolic Ibp053 eGFR 101 ml/min/1.73m2 021 Unknown Comp Metabolic Kby341 BUN 6 mg/dL 06/07/2020 Unkn own Comp Metabolic Rzg246 B/C Ratio 9.8 Ratio 06/07/2020 Unkn own Comp Metabolic Eic502 CALCIUM 8.9 mg/dL 06/07/2020 Unkn own Comp Metabolic Bvn522 ALK PHOS 95 U/L 06/07/2020 Unkn own Comp Metabolic Ucb614 AST(SGOT) 54 U/L 06/07/2020 Unkn own Comp Metabolic Nmu829 ALT(SGPT) 48 U/L 06/07/2020 Unkn own Comp Metabolic Mvm841 BILI T 0.9 mg/dL 06/07/2020 Unkn own Comp Metabolic Uai786 ALBUMIN 3.8 g/dL 06/07/2020 Unkn own Comp Metabolic Cdk061 TPRO 6.2 g/dL 06/07/2020 Unkn own Comp Metabolic Qld168 GLOB 2.4 g/dL 06/07/2020 Unkn own Comp Metabolic Jzv298 A/G Ratio 1.5 Ratio 06/07/2020 Unkn own Comp Metabolic Dlz482 Osmo 269 mOsmo 06/07/2020 Unkn own Cbc [...] 06/08/19 21 Unknown Cbc With Differential Ord2 [place]% 10.0 % 06/08/19 21 Unknown Cbc With [...] K/ul 021 Unknown Cbc With Differential Ord2 [place] ABS# 0.9 K/ul 06/08/19 21 Unknown Cbc [...] G0444 01/03/2022 URINALYSIS NONAUTO W/O SCOPE CPT-4: 19576 03/13/2021 PPPS, SUBSEQ VISIT CPT-4: G0439 12/29/2020 DEPRESSION SCREEN ANNUAL CPT-4: G0444 12/29/2020 TRIAMCINOLONE ACET INJ NOS 10 mg CPT-4: J3301 021 THER/PROPH/DIAG INJ SC/IM CPT-4: 80674 08/22/2020 URINALYSIS NONAUTO W/O SCOPE CPT-4: 58672 06/16/2020 DESTRUCT PREMALG LESION CPT-4: 44937 08/30/2019 Vital Signs Date Vital 01/03/2022 Blood Pressure 1: 122/64 Code: 8480-6 BMI: 25.5 Code: 83394-4 Heart Rate 1: 87 bpm Height: 5'6" Code: 8302-2 SpO2: 94% Temperature: 3 6.2 (C) / 97.2 (F) Weight: 158 lbs Code: 47200-1 12/11/2021 Blood Pressure 1: 130/70 Code: 8480-6 Heart Rate 1: 88 bpm Height: 5'6" Code: 8302-2 Respiratory Rate: 17 bpm SpO2: 82% Temperature: 35 .6 (C) / 96.0 (F) Weight: Code: 02398-4 06/12/2021 Blood Pressure 1: 130/76 Code: 8480-6 Heart Rate 1: 84 bpm Height: Code: 8302-2 Respiratory Rate: 17 bpm SpO2: 94% Temperature: 35 .7 (C) / 96.3 (F) Weight: 156 lbs Code: 27515-6 12/29/2020 Blood Pressure 1: 128/74 Code: 8480-6 BMI: 25.8 Code: 92831-5 Heart Rate 1: 92 bpm Height: 5'6" Code: 8302-2 SpO2: 90% Temperature: 3 6.0 (C) / 96.8 (F) Weight: 160 lbs Code: 97907-9 12/07/2020 Blood Pressure 1: 130/78 Code: 8480-6 BMI: 25.8 Code: 30909-8 Heart Rate 1: 88 bpm Height: 5'6" Code: 8302-2 Respiratory Rate: 18 bpm SpO2: 93% Temperature: 35.6 (C) / 96.1 (F) Weight: 160 lbs Code: 78532-4 08/22/2020 Blood Pressure 1: 138/80 Code: 8480-6 BMI: 25.3 Code: 03963-3 Heart Rate 1: 72 bpm Height: 5'6" Code: 8302-2 SpO2: 92% Temperature: 3 6.6 (C) / 97.8 (F) Weight: 157 lbs Code: 64441-4 06/07/2020 Blood Pressure 1: 144/86 Code: 8480-6 BMI: 26.0 Code: 82731-6 Heart Rate 1: 84 bpm Height: 5'6" Code: 8302-2 SpO2: 96% Temperature: 3 6.3 (C) / 97.3 (F) Weight: 161 lbs Code: 92889-2 08/30/2019 Blood Pressure 1: 168/98 Code: 8480-6 Bl ood Pressure 1: 148/74 Code: 8480-6 BMI: 26.0 Code: 73577-3 Heart Rate 1: 83 bpm Height: 5'6" Code: 8302-2 Respiratory Rate: 15 bpm SpO2: 88% Temperature: 36.8 (C) / 98.2 (F) We ight: 161 lbs Code: 24436-3 04/22/2019 Blood Pressure 1: 124/80 Code: 8480-6 BMI: 25.3 Code: 96945-9 Heart Rate 1: 71 bpm Height: 5'6" Code: 8302-2 SpO2: 91% Weight: 157 lb s Code: 89596-0 Functional Status No Functional Status data Reason For Visit Reason For Visit Effective Dates Notes Annual Medicare Wellness Exam 01/03/2022 shortness of breath 12/11/2021 shortness of breath 06/12/2021 Annual Medicare Wellness Exam 12/29/2020 shortness of breath 12/07/2020 fatigue 12/07/2020 cough 08/22/2020 dysuria 06/16/2020 edema 06/07/2020 edema 08/30/2019 chest tightness 04/22/2019 Encounters Encounter Performer Location Location Address Codes Date ([id number]) [id number] EST. 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 PATIENT, LEVEL I Diagnosis: Dysuria[ICD10: R30.0] Sunita Alcala MD, [facility] [address] [place] [address] CPT-4: 84448 07/30/2021 ([id number]) 00300 EST. PATIENT, LEVEL I Diagnosis: Dysuria[ICD10: R30.0] Sunita Alcala MD, [facility] [address] [place] [address] CPT-4: 08394 06/20/2021 ([id number]) [id number] EST. 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] Diagnosis: Other fatigue[ICD10: R53.83] Diagnosis: Asymptomatic menopausal state[ICD10: Z78.0] Diagnosis: Osteopenia after menopause[ICD10: M85.80] Diagnosis: Dyspnea on exertion[ICD10: R06.00] Sunita eubanks MD, [facility] [address] [place] [address] CPT-4: 9921 4 06/12/2021 ([id number]) [id number] EST. 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 PATIENT, LEVEL III Diagnosis: COPD exacerbation[ICD10: J44.1] Diagnosis: Cough[ICD10: R05] Zaynab Alcala MD, [facility] [address] [place] [address] CPT-4: 84630 08/22/2020 ([id number]) [id number] EST. 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] Diagnosis: Elevated blood pressure reading[ICD10: R03.0] Sunita Alcala MD, [facility] [address] [place] [address] CPT-4: 9921 4 06/07/2020 ([id number]) 39774 EST. 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] Diagnosis: Venous insufficiency of both lower extremities[ICD10: I87.2] Diagnosis: Actinic keratosis[ICD10: L57.0] Sunita scott MD, [facility] [address] [place] [address] CPT-4: 9921 4 08/30/2019 ([id number]) OFFICE VISIT, NEW - LEVEL 4 Diagnosis: 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) with chronic bronchitis[ICD10: J44.9] Diagnosis: Insomnia due to medical condition[ICD10: G47.01] Sunita Alcala MD, [facility] [address] [place] [address] CPT-4: 9920 4 04/22/2019 Plan of Care Planned Activity Notes Codes Status Date Patient Education: Patient Medication Summary Completed 03/25/2022 Care Plan: Free T4 Pending Patient Education: Patient Medication Summary Completed 03/14/2022 Patient Education: Patient Medication Summary Completed [...] care surrogate. 01/03/2022 Appointment: Jennifer Dawkins WPtel: [phone] [phone] [facility] - Annual Wellness Visit 12/09 Patient Education: Patient Medication Summary Completed 01/03/2022 Visit Plan: Dysuria - check urine. 2+ le ukocytes with no blood and no nitrites - no antibiotics needed COPD - chronic problem for this patient. She is still not interested in wearing oxygen. She sees a digital publishing specialist in [place]. I have recommended that she makes sure she has follow up appointments with him. We have reviewed chronic treatment strategy, symptom control, and plans for acute exacerbations. No changes today to the current treatment plan as the patient is stable, monitor for acute changes. 12/11/2021 Appointment: [phone] [facility] schedule wellness at checkout (15 min) [...] interested in wearing oxygen. She sees a digital publishing specialist in [place]. I have recommended that she makes sure she has follow up appointments with him. We have reviewed chronic treatment strategy, symptom control, and plans for acute exacerbations. No changes today to the current treatment plan as the patient is stable, monitor for acute changes. Pt is in need to reschedule her colonoscope and EGD at [place] with Dr. Rey. 06/12/2021 Appointment: Sunita Alcala WPtel: [address] [place], [place] [phone] (15 min) Moderate 06/12/2021 Patient Education: Patient [...] interested in wearing oxygen. She sees a digital publishing specialist in [place]. I have recommended that she makes sure [...] your stomach 12/07/2020 Appointment: [phone] [phone] (15 min) Moderate 12/07/2020 Patient Education: Patient [...] acute changes. 08/22/2020 Appointment: [facility] Agu[phone] (30 min) Complex 08/22/2020 Patient Education: Patient [...] acute changes. referral to Dr. Lucas - digital publishing specialist in [place] 06/07/2020 Patient Education: Patient Medication Summary Completed 06/07/2020 Appointment: Sunita Alcala WPtel: [facility] [place] [address] (15 min) Moderate 02/14/2020 Visit Plan: Actinic Keratosis - lesion t reated with cryotherapy on skin lesion right posterior calf COPD - chronic problem for this patient. We have reviewed chronic treatment strategy, symptom control, and plans for acute exacerbations. No changes today to the current treatment plan as the patient is stable, monitor for acute changes. Pt reports that her digital publishing specialist is retiring and she would like to become established with a local digital publishing specialist - referral as follows: referral to Dr. Donovan - digital publishing specialist - needs appt in Nov/dec time frame - see if can get appt in [place] office - DX COPD Venous insufficiency - advised elevation of legs when seated and compression when legs are down or patient is going to travel. 08/30/2019 Appointment: Sunita Alcala WPtel: [address] [place], [place] [id number] [place] [address] (15 min) Moderate 08/30/2019 Patient Education: Patient Medication Summary Completed 08/30/2019 Appointment: Sunita Alcala WPtel: [address] [place], [place] [id number] [place] [address] (15 min) Moderate 05/26/2019 Visit Plan: COPD - chronic problem for t his patient. We have reviewed chronic treatment strategy, symptom control, and plans for acute exacerbations. No changes today to the current treatment plan as the patient is stable, monitor for acute changes. Insomnia - chronic - refill ambien for PRN use. 04/22/2019 Patient Education: Patient Medication Summary Completed 04/22/2019 Referral: [facility] Referral Initiated Referral: [facility] Referral Completed Instructions Comment Date cologuard . [...] interested in wearing oxygen. She sees a digital publishing specialist in [place]. I have recommended that she makes sure [...] do not improve. 07/30/2021 Dr. Rey at [place] - reschedule your colonoscope and egd. . [...] interested in wearing oxygen. She sees a digital publishing specialist in [place]. I have recommended that she makes sure she has follow up appointments with him. We have reviewed chronic treatment strategy, symptom control, and plans for acute exacerbations. No changes today to the current treatment plan as the patient is stable, monitor for acute changes. Pt is in need to reschedule her colonoscope and EGD at [place] with Dr. Rey. 06/12/2021 [facility] [...] interested in wearing oxygen. She sees a digital publishing specialist in [place]. I have recommended that she makes sure she has follow up appointments with him. We have reviewed chronic treatment strategy, symptom control, and plans for acute exacerbations. No changes today to the current treatment plan as the patient is stable, monitor for acute changes. Weakness and fatigue - pt to start exercise program with [employer] - I have recommended having her oxygen [...] acute changes. referral to Dr. Lucas - digital publishing specialist in [place] 06/07/2020 . Actinic Keratosis - lesion treated with cryotherapy on skin lesion right posterior calf COPD - chronic problem for this patient. We have reviewed chronic treatment strategy, symptom control, and plans for acute exacerbations. No changes today to the current treatment plan as the patient is stable, monitor for acute changes. Pt reports that her digital publishing specialist is retiring and she would like to become established with a local digital publishing specialist - referral as follows: referral to Dr. Donovan - digital publishing specialist - needs appt in Nov/dec time frame - see if can get appt in [place] office - DX COPD Venous insufficiency - [...]
--- OUTSIDE RECORDS SUMMARY | 2022-04-14 13:09 | XMS REPORT | CCD ---
Author Author Nicolasa Alcala Organization [facility] Address [address] [place] [address] Phone Care Team Providers Care Senior C Developer Name Role Phone [facility] Unavailable CCM Unavailable Summary Purpose Interface Exchange Insurance Providers Payer name Policy type / Coverage type Covered green party ID Effective Begin Date Effective End Date WPS Medicare Part B Medicare Part B [id number] Unknown Unkno wn [employer] Medicare Part B [id number] Unknown Unknown Family history Mother Diagnosis Age At Onset Cancer Unknown Social History Social History Element Codes Description Effective Dates Marital status Unknown Single 04/21/2019 Number of children Unknown 3 04/21/2019 Employment Unknown Retired 04/21/[address]: 3464760 Former smoker 200904/21/[address]: 307911 Currently drinks alcohol 04/21 Frequency of drinks SNOMED CT: 928741495 1-4 drinks per week 5 04/21/2019 Allergies, Adverse Reactions, Alerts Substance Reaction Codes Entered Date Inactivated Date Status FUROSEMIDE Unknown 04/21/2019 No Inactive Date Active ACETAMINOPHEN Unknown 04/21/2019 No Inactive Date Activ e Penicillin rash, pruritis Unknown 04/21/2019 No Inactive Date Acti ve Problems Condition Codes Effective Dates Condition Status Dysuria ICD-10: R30.0 ICD-9: 788.1 06/16/2020 Active Depression screen ICD-10: Z13.31 ICD-9: V79.0 01/03/2022 Active Encounter for general adult medical examination with a bnormal findings ICD-10: Z00.01 ICD-9: V70.0 12/29/2020 Active 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) with breakfast supervisor maria 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 bronchitis ICD-10: J44.9 ICD-9: 491.20 [...] Start Date Stop Date Status Fill Instructions cefuroxime axetil 500 mg tablet RxNorm: 626940 Take 1 T ablet(s) Oral two times a day 03/07/2022 03/13/2022 Active cefuroxime axetil 500 mg tablet RxNorm: 760119 1 Tablet(s) Oral two times a day 03/07/2022 03/07/2022 Inactive Dulera 200 mcg-5 mcg/actuation HFA aerosol inhaler RxNorm: 1 678467 Inhale 2 Puff(s) Oral two times a day 01/22/2022 07/20/2022 Active zolpidem ER 6.25 mg tablet,extended release,multiphase RxNor m: 213806 Take 1 Tablet(s) Oral at bed time 01/10/2022 03/10/2022 Inactive azithromycin 250 mg tablet RxNorm: 739539 Take 1 Tablet (s) Oral as directed take two tabs on day #1 then 1 pill daily x 4 more days 01/08/2022 No Stop D ate Active prednisone 20 mg tablet RxNorm: 935215 Take 3 Tablet(s) Oral ev jose ramon day 01/08/2022 01/14/2022 Inactive Tudorza Pressair 400 mcg/actuation breath activated RxNorm: 5174070 Inhale 1 Puff(s) two times a day 11/21/2021 03/20/2022 Active zolpidem ER 6.25 mg tablet,extended release,multiphase RxNor m: 210374 Take 1 Tablet(s) Oral at bed time 11/14/2021 11/14/2021 Inactive Dulera 100 mcg-5 mcg/actuation HFA aerosol inhaler RxNorm: 1 792929 Inhale 1 Puff(s) Oral every day 10/14/2021 05/11/2022 Active fluticasone propionate 50 mcg/actuation nasal spray,suspensi on RxNorm: 6966938 instill one SPRAY IN EACH NOSTRIL EVERY DAY 10/14/2021 05/11/2022 Acti ve Dulera 200 mcg-5 mcg/actuation HFA aerosol inhaler RxNorm: 1 433376 Inhale 2 Puff(s) Oral two times a day 10/01/2021 10/01/2021 Inactive zolpidem ER 6.25 mg tablet,extended release,multiphase RxNor m: 285661 Take 1 Tablet(s) Oral at bed time 09/14/2021 09/14/2021 Inactive Tudorza Pressair 400 mcg/actuation breath activated RxNorm: 8418070 Inhale 1 Puff(s) two times a day 08/03/2021 08/03/2021 Inactive This pre scription was filled on 07/10/2021. Any refills authorized will be placed on file. cephalexin 500 mg tablet RxNorm: 103801 Take 1 Tablet(s) Oral t hree times a day 07/30/2021 08/05/2021 Inactive zolpidem ER 6.25 mg tablet,extended release,multiphase RxNor m: 029828 Take 1 Tablet(s) Oral at bed time 07/17/2021 07/17/2021 Inactive cephalexin 500 mg capsule RxNorm: 060793 1 Capsule(s) O ral three times a day with probiotics BID 06/20/2021 06/26/2021 Inactive hold doxycyc line while taking keflex Vitamin D3 125 mcg (5,000 unit) tablet RxNorm: 913231 1 Tablet(s) Oral every day 06/19/2021 No Stop Date Active zolpidem ER 6.25 mg tablet,extended release,multiphase RxNor m: 447293 Take 1 Tablet(s) Oral at bed time 05/21/2021 05/21/2021 Inactive Dulera 200 mcg-5 mcg/actuation HFA aerosol inhaler RxNorm: 1 402547 INHALE 2 PUFFS BY MOUTH TWO TIMES A DAY 05/02/2021 05/02/2021 Inactive T his prescription was filled on 12/02/2020. Any refills authorized will be placed on file. zolpidem ER 6.25 mg tablet,extended release,multiphase RxNor m: 948867 Take 1 Tablet(s) Oral at bed time 04/18/2021 04/18/2021 Inactive zolpidem ER 6.25 mg tablet,extended release,multiphase RxNor m: 184222 Take 1 Tablet(s) Oral at bed time 03/21/2021 03/21/2021 Inactive cephalexin 500 mg capsule RxNorm: 687788 1 Capsule(s) O ral three times a day with probiotics BID 03/13/2021 03/19/2021 Inactive hold doxycyc line while taking keflex zolpidem ER 6.25 mg tablet,extended release,multiphase RxNor m: 888872 Take 1 Tablet(s) Oral at bed time 02/19/2021 02/19/2021 Inactive prednisone 10 mg tablet RxNorm: 245910 Tablet(s) Oral 6 0mg x 1 then 50,40,30,20,10, 02/05/2021 02/05/2021 Inactive Zithromax 250 mg tablet RxNorm: 597337 1 Tablet(s) Oral as directed 2 tabs on day #1, then 1 tab daily x 4 more days 02/05/2021 02/14/2021 Inactive lizz Solorio Pressair 400 mcg/actuation breath activated RxNorm: 7157363 Inhale 1 Puff(s) two times a day 01/31/2021 01/31/2021 Inactive This pre scription was filled on 01/08/2021. Any refills authorized will be placed on file. zolpidem ER 6.25 mg tablet,extended release,multiphase RxNor m: 049834 Take 1 Tablet(s) Oral at bed time 01/13/2021 01/13/2021 Inactive This prescription was filled on 12/21/2020. Any refills authorized will be placed on file. Dulera 200 mcg-5 mcg/actuation HFA aerosol inhaler RxNorm: 1 419034 INHALE 2 PUFFS BY MOUTH TWO TIMES A DAY 12/26/2020 12/26/2020 Inactive T his prescription was filled on 12/02/2020. Any refills authorized will be placed on file. zolpidem ER 6.25 mg tablet,extended release,multiphase RxNor m: 196503 Take 1 Tablet(s) Oral at bed time 10/23/2020 10/23/2020 Inactive Tudorza Pressair 400 mcg/actuation breath activated RxNorm: 0482960 INHALE 1 PUFF TWICE DAILY 09/27/2020 09/27/2020 Inactive PA approved zolpidem ER 6.25 mg tablet,extended release,multiphase RxNor m: 475044 Take 1 Tablet(s) Oral at bed time 09/21/2020 09/21/2020 Inactive fluticasone propionate 50 mcg/actuation nasal spray,suspensi on RxNorm: 4282043 instill one SPRAY IN EACH NOSTRIL EVERY DAY 09/20/2020 09/20/2020 Inac tive This prescription was filled on 08/23/2020. Any refills authorized will be placed on file. zolpidem ER 6.25 mg tablet,extended release,multiphase RxNor m: 469211 Take 1 Tablet(s) Oral at bed time 08/24/2020 08/24/2020 Inactive albuterol sulfate 2.5 mg/3 mL (0.083 %) solution for n ebulization RxNorm: 831736 3 Milliliter(s) Inhalation four times a day as needed dyspne a 08/22/2020 No Stop Date Active prednisone 10 mg tablet RxNorm: 532084 Tablet(s) Oral 6 0mg x 1 then 50,40,30,20,10, 08/22/2020 02/04/2021 Inactive Kenalog 40 mg/mL suspension for injection RxNorm: 3089156 1 Milliliter(s) Injection 08/22/2020 08/22/2020 Inactive Zithromax 250 mg tablet RxNorm: 577925 1 Tablet(s) Oral as directed 08/22/2020 08/26/2020 Inactive zpack x 1 Fosamax 70 mg tablet RxNorm: 655810 1 Tablet(s) Oral once a week 08/13/2021 Inactive Fosamax 70 mg tablet RxNorm: 066646 1 Tablet(s) Oral once a week 08/17/2020 Inactive Zithromax 250 mg tablet RxNorm: 825097 1 Tablet(s) Oral as directed 08/14/2020 08/19/2020 Inactive zpack x 1 prednisone 20 mg tablet RxNorm: 086964 2 Tablet(s) Oral every day 0 08/14/2020 08/19/2020 Inactive prednisone 20 mg tablet RxNorm: 008979 2 Tablet(s) Oral every day 0 08/14/2020 08/13/2020 Inactive Zithromax 250 mg tablet RxNorm: 341087 1 Tablet(s) Oral as directed 08/14/2020 08/13/2020 Inactive zpack x 1 Dulera 200 mcg-5 mcg/actuation HFA aerosol inhaler RxNorm: 1 948411 INHALE 2 PUFFS BY MOUTH TWO TIMES A DAY 08/10/2020 08/10/2020 Inactive T his prescription was filled on 07/18/2020. Any refills authorized will be placed on file. Ambien CR 6.25 mg tablet,extended release RxNorm: 597959 TAKE ONE TABLET BY MOUTH DAILY AT BEDTIME 07/21/2020 07/21/2020 Inactive Ambien CR 6.25 mg tablet,extended release RxNorm: 977078 TAKE ONE TABLET BY MOUTH DAILY AT BEDTIME 06/26/2020 07/20/2020 Inactive doxycycline hyclate 20 mg tablet RxNorm: 862056 TAKE 1 TABLET(S) ORAL ONETIME A DAY 06/19/2020 09/17/2020 Inactive cephalexin 500 mg capsule RxNorm: 504001 1 Capsule(s) O ral three times a day with probiotics BID 06/16/2020 06/23/2020 Inactive hold doxycyc line while taking keflex Dulera 100 mcg-5 mcg/actuation HFA aerosol inhaler RxNorm: 1 423173 INHALE 1 PUFF(S) INHALATION EVERY DAY 05/25/2020 05/24/2020 Inactive Dulera 100 mcg-5 mcg/actuation HFA aerosol inhaler RxNorm: 1 886496 INHALE 1 PUFF(S) INHALATION EVERY DAY as needed rescue inhaler 05/25/20202020 Inactive doxycycline hyclate 20 mg tablet RxNorm: 102034 TAKE 1 TABLET(S) ORAL TWO TIMES A DAY 05/25/2020 06/18/2020 Inactive Tudorza Pressair 400 mcg/actuation breath activated RxNorm: 4114262 INHALE 1 PUFF TWICE DAILY 05/24/2020 05/24/2020 Inactive This prescripti on was filled on 05/01/2020. Any refills authorized will be placed on file. Dulera 200 mcg-5 mcg/actuation HFA aerosol inhaler RxNorm: 1 528423 INHALE 2 PUFFS BY MOUTH TWO TIMES A DAY 05/24/2020 08/09/2020 Inactive T his prescription was filled on 05/01/2020. Any refills authorized will be placed on file. Ambien CR 6.25 mg tablet,extended release RxNorm: 389021 TAKE ONE TABLET BY MOUTH DAILY AT BEDTIME 05/19/2020 06/17/2020 Inactive Ambien CR 6.25 mg tablet,extended release RxNorm: 915978 1 Tablet(s) Oral every night at bedtime 03/29/2020 05/18/2020 Inactive Dulera 200 mcg-5 mcg/actuation HFA aerosol inhaler RxNorm: 1 842204 INHALE 2 PUFFS BY MOUTH TWO TIMES A DAY 02/21/2020 05/20/2020 Inactive Tudorza Pressair 400 mcg/actuation breath activated RxNorm: 3779353 INHALE 1 PUFF TWICE DAILY 02/01/2020 05/23/2020 Inactive Ambien CR 6.25 mg tablet,extended release RxNorm: 024474 1 Tablet(s) Oral every night at bedtime 01/29/2020 03/27/2020 Inactive fluticasone propionate 50 mcg/actuation nasal spray,suspensi on RxNorm: 8902734 1 [place] Nasal every day 1 spray each nostril 12/24/2019 12/23/2019 Inact andrade replaces zetonna fluticasone propionate 50 mcg/actuation nasal spray,suspensi on RxNorm: 6793700 1 [place] Nasal every day 1 spray each nostril 12/24/2019 12/24/2019 Inact andrade replaces zetonna Ambien CR 6.25 mg tablet,extended release RxNorm: 572528 Tablet(s) Oral every night at bedtime 11/30/2019 01/28/2020 Inactive Zetonna 37 mcg/actuation nasal HFA inhaler RxNorm: 4390925 1 [place] Nasal every day 11/02/2019 12/23/2019 Inactive Dulera 200 mcg-5 mcg/actuation HFA aerosol inhaler RxNorm: 1 248093 2 Puff(s) Inhalation two times a day 11/02/2019 02/20/2020 Inactive Zetonna 37 mcg/actuation nasal HFA inhaler RxNorm: 9034791 1 [place] Nasal every day 11/02/2019 11/01/2019 Inactive Ambien CR 6.25 mg tablet,extended release RxNorm: 844858 Tablet(s) Oral every night at bedtime 10/01/2019 11/29/2019 Inactive Tudorza Pressair 400 mcg/actuation breath activated RxNorm: 1082516 INHALE ONE INHALATION PO BID 08/04/2019 12/01/2019 Inactive Ambien CR 6.25 mg tablet,extended release RxNorm: 952916 1 Tablet(s) Oral every night at bedtime 08/04/2019 09/30/2019 Inactive Ambien CR 6.25 mg tablet,extended release RxNorm: 257145 1 Tablet(s) Oral every night at bedtime 06/02/2019 07/31/2019 Inactive Tudorza Pressair 400 mcg/actuation breath activated RxNorm: 7005201 INHALE ONE INHALATION PO BID 06/01/2019 07/30/2019 Inactive doxycycline hyclate 20 mg tablet RxNorm: 292739 1 Table t(s) Oral two times a day 04/22/2019 04/16/2020 Inactive pt will call whe n she needs refills Ambien CR 6.25 mg tablet,extended release RxNorm: 611079 1 Tablet(s) Oral every night at bedtime 04/22/2019 04/20/2019 Inactive Tudorza Pressair 400 mcg/actuation breath activated RxNorm: 9056379 1 Inhalation two times a day 04/22/2019 04/22/2019 Inactive Ambien CR 6.25 mg tablet,extended release RxNorm: 406005 1 Tablet(s) Oral every night at bedtime 04/22/2019 05/19/2019 Inactive doxycycline hyclate 100 mg tablet RxNorm: 9501687 1 Tabl et(s) Oral two times a day 04/22/2019 04/21/2019 Inactive Dulera 100 mcg-5 mcg/actuation HFA aerosol inhaler RxNorm: 1 529654 1 Puff(s) Inhalation every day 04/22/2019 11/18/2019 Inactive Vitamin C 500 mg tablet RxNorm: 223040 1 Tablet(s) Oral two adriana es a day 04/21/2019 No Stop Date Active Dulera 100 mcg-5 mcg/actuation HFA aerosol inhaler RxNorm: 1 866321 Inhalation as needed 04/21/2019 08/21/2020 Inactive Dulera 200 mcg-5 mcg/actuation HFA aerosol inhaler RxNorm: 1 177060 2 Inhalation two times a day 04/21/2019 11/01/2019 Inactive Tudorza Pressair 400 mcg/actuation breath activated RxNorm: 3491340 1 Inhalation two times a day 04/21/2019 04/21/2019 Inactive omega 3,6,9 combination no.7 oral RxNorm: oral 04/21/2019 Active Calcium 600 + D(3) oral RxNorm: 359759 oral 08/22/2020 Active Alive Once Daily Women 50 Plus oral RxNorm: oral 04/21/2019 Active Zetonna nasal RxNorm: 7957110 nasal 11/02/2019 11/02/2019 Inactive Medication Administered Medication Codes Instructions Start Date Status Kenalog 40 mg/mL suspension for injection RxNorm: 6604661 1Milli liter 08/22/2020 No longer Active Immunizations Vaccine Codes Dose Date Status Influenza CVX: 197 12/11/2021 Pneumococcal (Adult) CVX: 133 08/17/2021 SHINGARIX CVX: 121 08/17/2021 Covid-19 CVX: 207 05/12/2020 Covid-19 CVX: 207 04/10/2020 Influenza CVX: 197 12/16/2019 Pneumococcal CVX: 133 12/16/2019 Influenza CVX: 197 12/08/2018 Tetanus, Diptheria, Pertussis CVX: 09 03/10/2018 Results Observation Observation Code Item Item Code Result Date S ervice Location CULTURE, URINE M100 URINE CULTURE See [...] CULTURE See Note 06/24/2021 Unknown Free T4 Dxj711 FREE T4 0.75 ng/dL 06/14/2021 Unknown Cbc [...] 06/13/19 22 Unknown Cbc With Differential Ord2 [place]% 9.2 % 06/13/19 22 Unknown Cbc With [...] K/ul 022 Unknown Cbc With Differential Ord2 [place] ABS# 0.9 K/ul 06/13/19 22 Unknown Cbc With Differential Ord2 Eos ABS# 0.2 K/ul 06/13/19 22 Unknown Cbc With Differential Ord2 Baso ABS# 0.0 K/ul 06/13/19 22 Unknown Tsh Ord6 TSH (3rd IS) 5.79 uIU/mL 06/12/2021 Unkn own Vitamin D 25 Oh [id number] VITAMIN D, 25 HYDROXY 34.58 ng/mL 06/12/2021 Unknown Comp Metabolic Svr120 NA 137 mEq/L 06/12/2021 Unkn own Comp Metabolic Zdq519 K 4.0 mEq/L 06/12/2021 Unkn own Comp Metabolic Dgc910 CL 99 mEq/L 06/12/2021 Unkn own Comp Metabolic Hob352 CO2 28.0 mEq/L 06/12/2021 Unk nown Comp Metabolic Arj435 ANION GAP 14 06/12/2021 Unkn own Comp Metabolic Aeg491 GLUCOSE 108 mg/dL 06/12/2021 Unkn own Comp Metabolic Asx880 Creat 0.6 mg/dL 06/12/2021 Unkn own Comp Metabolic Kcz475 eGFR 107 ml/min/1.73m2 022 Unknown Comp Metabolic Dbm211 BUN 5 mg/dL 06/12/2021 Unkn own Comp Metabolic Nmm742 B/C Ratio 8.6 Ratio 06/12/2021 Unkn own Comp Metabolic Xkb692 CALCIUM 9.0 mg/dL 06/12/2021 Unkn own Comp Metabolic Yzy243 ALK PHOS 112 U/L 06/12/2021 Unkn own Comp Metabolic Ejh752 AST(SGOT) 28 U/L 06/12/2021 Unkn own Comp Metabolic Vtv314 ALT(SGPT) 23 U/L 06/12/2021 Unkn own Comp Metabolic Cbx217 BILI T 1.2 mg/dL 06/12/2021 Unkn own Comp Metabolic Zhk291 ALBUMIN 3.8 g/dL 06/12/2021 Unkn own Comp Metabolic Krc004 TPRO 6.4 g/dL 06/12/2021 Unkn own Comp Metabolic Ctf673 GLOB 2.6 g/dL 06/12/2021 Unkn own Comp Metabolic Uwl226 A/G Ratio 1.5 Ratio 06/12/2021 Unkn own Comp Metabolic Ugy078 Osmo 272 mOsmo 06/12/2021 Unkn own Lipid Ord30 CHOL 207 mg/dL 06/12/2021 Unknown Lipid Ord30 HDL 60.0 mg/dl 06/12/2021 Unknown Lipid Ord30 TRIG 120 mg/dL 06/12/2021 Unknown Lipid Ord30 LDL 123 mg/dL 06/12/2021 Unknown Lipid Ord30 C/HDL 3.5 Ratio 06/12/2021 Unknown CULTURE, URINE M100 URINE CULTURE See Note 03/18/2021 Unknown CULTURE, URINE M100 URINE CULTURE See Note 06/19/2020 Unknown Comp Metabolic Oxe150 NA 136 mEq/L 06/07/2020 Unkn own Comp Metabolic Aee844 K 4.1 mEq/L 06/07/2020 Unkn own Comp Metabolic Miw671 CL 98 mEq/L 06/07/2020 Unkn own Comp Metabolic Izc709 CO2 27.0 mEq/L 06/07/2020 Unk nown Comp Metabolic Bds628 ANION GAP 15 06/07/2020 Unkn own Comp Metabolic Wpp668 GLUCOSE 86 mg/dL 06/07/2020 Unkn own Comp Metabolic Wsb661 Creat 0.6 mg/dL 06/07/2020 Unkn own Comp Metabolic Yfq468 eGFR 101 ml/min/1.73m2 021 Unknown Comp Metabolic Odf660 BUN 6 mg/dL 06/07/2020 Unkn own Comp Metabolic Ods718 B/C Ratio 9.8 Ratio 06/07/2020 Unkn own Comp Metabolic Vul124 CALCIUM 8.9 mg/dL 06/07/2020 Unkn own Comp Metabolic Atb812 ALK PHOS 95 U/L 06/07/2020 Unkn own Comp Metabolic Cdd819 AST(SGOT) 54 U/L 06/07/2020 Unkn own Comp Metabolic Aop037 ALT(SGPT) 48 U/L 06/07/2020 Unkn own Comp Metabolic Xiw986 BILI T 0.9 mg/dL 06/07/2020 Unkn own Comp Metabolic Hkb312 ALBUMIN 3.8 g/dL 06/07/2020 Unkn own Comp Metabolic Qaw469 TPRO 6.2 g/dL 06/07/2020 Unkn own Comp Metabolic Ybs927 GLOB 2.4 g/dL 06/07/2020 Unkn own Comp Metabolic Ngu397 A/G Ratio 1.5 Ratio 06/07/2020 Unkn own Comp Metabolic Uhp026 Osmo 269 mOsmo 06/07/2020 Unkn own Cbc [...] 06/08/19 21 Unknown Cbc With Differential Ord2 [place]% 10.0 % 06/08/19 21 Unknown Cbc With [...] K/ul 021 Unknown Cbc With Differential Ord2 [place] ABS# 0.9 K/ul 06/08/19 21 Unknown Cbc [...] G0444 01/03/2022 URINALYSIS NONAUTO W/O SCOPE CPT-4: 75576 03/13/2021 PPPS, SUBSEQ VISIT CPT-4: G0439 12/29/2020 DEPRESSION SCREEN ANNUAL CPT-4: G0444 12/29/2020 TRIAMCINOLONE ACET INJ NOS 10 mg CPT-4: J3301 021 THER/PROPH/DIAG INJ SC/IM CPT-4: 37671 08/22/2020 URINALYSIS NONAUTO W/O SCOPE CPT-4: 27338 06/16/2020 DESTRUCT PREMALG LESION CPT-4: 18531 08/30/2019 Vital Signs Date Vital 01/03/2022 Blood Pressure 1: 122/64 Code: 8480-6 BMI: 25.5 Code: 12239-1 Heart Rate 1: 87 bpm Height: 5'6" Code: 8302-2 SpO2: 94% Temperature: 3 6.2 (C) / 97.2 (F) Weight: 158 lbs Code: 52376-3 12/11/2021 Blood Pressure 1: 130/70 Code: 8480-6 Heart Rate 1: 88 bpm Height: 5'6" Code: 8302-2 Respiratory Rate: 17 bpm SpO2: 82% Temperature: 35 .6 (C) / 96.0 (F) Weight: Code: 12207-3 06/12/2021 Blood Pressure 1: 130/76 Code: 8480-6 Heart Rate 1: 84 bpm Height: Code: 8302-2 Respiratory Rate: 17 bpm SpO2: 94% Temperature: 35 .7 (C) / 96.3 (F) Weight: 156 lbs Code: 89391-6 12/29/2020 Blood Pressure 1: 128/74 Code: 8480-6 BMI: 25.8 Code: 73714-7 Heart Rate 1: 92 bpm Height: 5'6" Code: 8302-2 SpO2: 90% Temperature: 3 6.0 (C) / 96.8 (F) Weight: 160 lbs Code: 60143-8 12/07/2020 Blood Pressure 1: 130/78 Code: 8480-6 BMI: 25.8 Code: 19430-4 Heart Rate 1: 88 bpm Height: 5'6" Code: 8302-2 Respiratory Rate: 18 bpm SpO2: 93% Temperature: 35.6 (C) / 96.1 (F) Weight: 160 lbs Code: 51250-5 08/22/2020 Blood Pressure 1: 138/80 Code: 8480-6 BMI: 25.3 Code: 47208-5 Heart Rate 1: 72 bpm Height: 5'6" Code: 8302-2 SpO2: 92% Temperature: 3 6.6 (C) / 97.8 (F) Weight: 157 lbs Code: 65234-7 06/07/2020 Blood Pressure 1: 144/86 Code: 8480-6 BMI: 26.0 Code: 60793-4 Heart Rate 1: 84 bpm Height: 5'6" Code: 8302-2 SpO2: 96% Temperature: 3 6.3 (C) / 97.3 (F) Weight: 161 lbs Code: 40500-6 08/30/2019 Blood Pressure 1: 168/98 Code: 8480-6 Bl ood Pressure 1: 148/74 Code: 8480-6 BMI: 26.0 Code: 33537-6 Heart Rate 1: 83 bpm Height: 5'6" Code: 8302-2 Respiratory Rate: 15 bpm SpO2: 88% Temperature: 36.8 (C) / 98.2 (F) We ight: 161 lbs Code: 89794-3 04/22/2019 Blood Pressure 1: 124/80 Code: 8480-6 BMI: 25.3 Code: 55939-6 Heart Rate 1: 71 bpm Height: 5'6" Code: 8302-2 SpO2: 91% Weight: 157 lb s Code: 30608-8 Functional Status No Functional Status data Reason For Visit Reason For Visit Effective Dates Notes Annual Medicare Wellness Exam 01/03/2022 shortness of breath 12/11/2021 shortness of breath 06/12/2021 Annual Medicare Wellness Exam 12/29/2020 shortness of breath 12/07/2020 fatigue 12/07/2020 cough 08/22/2020 dysuria 06/16/2020 edema 06/07/2020 edema 08/30/2019 chest tightness 04/22/2019 Encounters Encounter Performer Location Location Address Codes Date ([id number]) 23713 EST. 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 PATIENT, LEVEL I Diagnosis: Dysuria[ICD10: R30.0] Sunita Alcala MD, [facility] [address] [place] [address] CPT-4: 76982 07/30/2021 ([id number]) 55164 EST. PATIENT, LEVEL I Diagnosis: Dysuria[ICD10: R30.0] Sunita Alcala MD, [facility] [address] [place] [address] CPT-4: 55996 06/20/2021 ([id number]) 89675 EST. 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 PATIENT, LEVEL III Diagnosis: COPD exacerbation[ICD10: J44.1] Diagnosis: Cough[ICD10: R05] Zaynab Alcala MD, [facility] [address] [place] [address] CPT-4: 23777 08/22/2020 ([id number]) 44720 EST. 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 01/03/2022 Appointment: Jennifer Dawkins WPtel: [address] [place], [place] [phone] [facility] - Annual Wellness Visit 12/09 Patient Education: Patient Medication Summary Completed 01/03/2022 Visit Plan: Dysuria - check urine. 2+ le ukocytes with no blood and no nitrites - no antibiotics needed COPD - chronic problem for this patient. She is still not interested in wearing oxygen. She sees a aircraft life support fitter in [place]. I have recommended that she makes sure she has follow up appointments with him. We have reviewed chronic treatment strategy, symptom control, and plans for acute exacerbations. No changes today to the current treatment plan as the patient is stable, monitor for acute changes. 12/11/2021 Appointment: Sunita Alcala WPtel: [facility] [place] will schedule wellness at checkout (15 min) [...] interested in wearing oxygen. She sees a aircraft life support fitter in [place]. I have recommended that she makes sure she has follow up appointments with him. We have reviewed chronic treatment strategy, symptom control, and plans for acute exacerbations. No changes today to the current treatment plan as the patient is stable, monitor for acute changes. Pt is in need to reschedule her colonoscope and EGD at [place] with Dr. Rey. 06/12/2021 Appointment: Cam Alcalay WPtel: [phone] [facility] [place] [id number] [place] (15 min) Moderate 06/12/2021 Patient Education: Patient [...] interested in wearing oxygen. She sees a aircraft life support fitter in [place]. I have recommended that she makes sure [...] your stomach 12/07/2020 Appointment: Sunita Alcala WPtel: [phone] [facility] [id number] (15 min) Moderate 12/07/2020 Patient Education: Patient [...] acute changes. 08/22/2020 Appointment: Zaynab Aguillon [facility]el[id number] (30 min) Complex 08/22/2020 Patient Education: Patient [...] acute changes. referral to Dr. Lucas - aircraft life support fitter in [place] 06/07/2020 Patient Education: Patient Medication Summary Completed 06/07/2020 Appointment: Sunita Alcala WPtel: [phone] [facility] [phone] [place] (15 min) Moderate 02/14/2020 Visit Plan: Actinic Keratosis - lesion t reated with cryotherapy on skin lesion right posterior calf COPD - chronic problem for this patient. We have reviewed chronic treatment strategy, symptom control, and plans for acute exacerbations. No changes today to the current treatment plan as the patient is stable, monitor for acute changes. 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 Zadi - aircraft life support fitter - needs appt in Nov/dec time frame - see if can get appt in [place] office - DX COPD Venous insufficiency - advised elevation of legs when seated and compression when legs are down or patient is going to travel. 08/30/2019 Appointment: Sunita Alcala WPtel: [phone] [phone] [place] (15 min) Moderate 08/30/2019 Patient Education: Patient Medication Summary Completed 08/30/2019 Appointment: Sunita Alcala WPtel: [phone] [facility] [phone] [place] (15 min) Moderate 05/26/2019 Visit Plan: COPD - chronic problem for t his patient. We have reviewed chronic treatment strategy, symptom control, and plans for acute exacerbations. No changes today to the current treatment plan as the patient is stable, monitor for acute changes. Insomnia - chronic - refill ambien for PRN use. 04/22/2019 Patient Education: Patient Medication Summary Completed 04/22/2019 Referral: [facility] Referral Initiated Referral: [facility] Referral Completed Instructions Comment Date cologuard [...] interested in wearing oxygen. She sees a aircraft life support fitter in [place]. I have recommended that she makes sure [...] do not improve. 07/30/2021 Dr. Rey at [facility] - reschedule your colonoscope and egd. . [...] interested in wearing oxygen. She sees a aircraft life support fitter in [place]. I have recommended that she makes sure she has follow up appointments with him. We have reviewed chronic treatment strategy, symptom control, and plans for acute exacerbations. No changes today to the current treatment plan as the patient is stable, monitor for acute changes. Pt is in need to reschedule her colonoscope and EGD at [facility] with Dr. Rey. 06/12/2021 [facility] [...] interested in wearing oxygen. She sees a aircraft life support fitter in [place]. I have recommended that she makes sure [...] acute changes. referral to Dr. Lucas - aircraft life support fitter in [place] 06/07/2020 . Actinic Keratosis - lesion treated with cryotherapy on skin lesion right posterior calf COPD - chronic problem for this patient. We have reviewed chronic treatment strategy, symptom control, and plans for acute exacerbations. No changes today to the current treatment plan as the patient is stable, monitor for acute changes. 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 Donovan - aircraft life support fitter - needs appt in Nov/dec time frame - see if can get appt in [place] office - DX COPD Venous insufficiency - advised elevation of legs when seated and compression when legs are down or patient is going to travel. 08/30/2019 . COPD - chronic problem for this gisela t. We have reviewed chronic treatment strategy, [...]
--- OUTSIDE RECORDS SUMMARY | 2022-04-14 13:09 | XMS REPORT | CCD ---
Author Author Nicolasa Alcala Organization [facility] Address [address] [place] [address] Phone Care Team Providers Care Pulp Beater Name Role Phone [facility] Unavailable CCM Unavailable Summary Purpose Interface Exchange Insurance Providers Payer name Policy type / Coverage type Covered green party ID Effective Begin Date Effective End Date WPS Medicare Part B Medicare Part B [id number] Unknown Unkno wn [employer] Medicare Part B [id number] Unknown Unknown Family history Mother Diagnosis Age At Onset Cancer Unknown Social History Social History Element Codes Description Effective Dates Marital status Unknown Single 04/21/2019 Number of children Unknown 3 04/21/2019 Employment Unknown Retired 04/21/[address]: 5196999 Former smoker 200904/21/[address]: 552861 Currently drinks alcohol 04/21 Frequency of drinks SNOMED CT: 178131318 1-4 drinks per week 5 04/21/2019 Allergies, [...] Active 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) with rattan worker maria esther bronchitis ICD-10: J44.9 ICD-9: [...] ER 6.25 mg tablet,extended release,multiphase RxNor m: 932623 Take 1 Tablet(s) Oral at bed time 03/13/2022 07/10/2022 Active cefuroxime axetil 500 mg tablet RxNorm: 271051 Take 1 T ablet(s) Oral two times a day 03/07/2022 03/13/2022 Inactive cefuroxime axetil 500 mg tablet RxNorm: 915129 1 Tablet(s) Oral two times a day 03/07/2022 03/07/2022 Inactive Dulera 200 mcg-5 mcg/actuation HFA aerosol inhaler RxNorm: 1 441215 Inhale 2 Puff(s) Oral two times a day 01/22/2022 07/20/2022 Active zolpidem ER 6.25 mg tablet,extended release,multiphase RxNor m: 553599 Take 1 Tablet(s) Oral at bed time 01/10/2022 01/10/2022 Inactive azithromycin 250 mg tablet RxNorm: 312157 Take 1 Tablet (s) Oral as directed take two tabs on day #1 then 1 pill daily x 4 more days 01/08/2022 No Stop D ate Active prednisone 20 mg tablet RxNorm: 157425 Take 3 Tablet(s) Oral ev jose ramon day 01/08/2022 01/14/2022 Inactive Tudorza Pressair 400 mcg/actuation breath activated RxNorm: 7525774 Inhale 1 Puff(s) two times a day 11/21/2021 03/20/2022 Active zolpidem ER 6.25 mg tablet,extended release,multiphase RxNor m: 236619 Take 1 Tablet(s) Oral at bed time 11/14/2021 11/14/2021 Inactive Dulera 100 mcg-5 mcg/actuation HFA aerosol inhaler RxNorm: 1 648153 Inhale 1 Puff(s) Oral every day 10/14/2021 05/11/2022 Active fluticasone propionate 50 mcg/actuation nasal spray,suspensi on RxNorm: 9196340 instill one SPRAY IN EACH NOSTRIL EVERY DAY 10/14/2021 05/11/2022 Acti ve Dulera 200 mcg-5 mcg/actuation HFA aerosol inhaler RxNorm: 1 493024 Inhale 2 Puff(s) Oral two times a day 10/01/2021 10/01/2021 Inactive zolpidem ER 6.25 mg tablet,extended release,multiphase RxNor m: 874158 Take 1 Tablet(s) Oral at bed time 09/14/2021 09/14/2021 Inactive Tudorza Pressair 400 mcg/actuation breath activated RxNorm: 7217448 Inhale 1 Puff(s) two times a day 08/03/2021 08/03/2021 Inactive This pre scription was filled on 07/10/2021. Any refills authorized will be placed on file. cephalexin 500 mg tablet RxNorm: 124165 Take 1 Tablet(s) Oral t hree times a day 07/30/2021 08/05/2021 Inactive zolpidem ER 6.25 mg tablet,extended release,multiphase RxNor m: 934609 Take 1 Tablet(s) Oral at bed time 07/17/2021 07/17/2021 Inactive cephalexin 500 mg capsule RxNorm: 352226 1 Capsule(s) O ral three times a day with probiotics BID 06/20/2021 06/26/2021 Inactive hold doxycyc line while taking keflex Vitamin D3 125 mcg (5,000 unit) tablet RxNorm: 231905 1 Tablet(s) Oral every day 06/19/2021 No Stop Date Active zolpidem ER 6.25 mg tablet,extended release,multiphase RxNor m: 879578 Take 1 Tablet(s) Oral at bed time 05/21/2021 05/21/2021 Inactive Dulera 200 mcg-5 mcg/actuation HFA aerosol inhaler RxNorm: 1 653703 INHALE 2 PUFFS BY MOUTH TWO TIMES A DAY 05/02/2021 05/02/2021 Inactive T his prescription was filled on 12/02/2020. Any refills authorized will be placed on file. zolpidem ER 6.25 mg tablet,extended release,multiphase RxNor m: 455392 Take 1 Tablet(s) Oral at bed time 04/18/2021 04/18/2021 Inactive zolpidem ER 6.25 mg tablet,extended release,multiphase RxNor m: 986250 Take 1 Tablet(s) Oral at bed time 03/21/2021 03/21/2021 Inactive cephalexin 500 mg capsule RxNorm: 436468 1 Capsule(s) O ral three times a day with probiotics BID 03/13/2021 03/19/2021 Inactive hold doxycyc line while taking keflex zolpidem ER 6.25 mg tablet,extended release,multiphase RxNor m: 442762 Take 1 Tablet(s) Oral at bed time 02/19/2021 02/19/2021 Inactive prednisone 10 mg tablet RxNorm: 885432 Tablet(s) Oral 6 0mg x 1 then 50,40,30,20,10, 02/05/2021 02/05/2021 Inactive Zithromax 250 mg tablet RxNorm: 165823 1 Tablet(s) Oral as directed 2 tabs on day #1, then 1 tab daily x 4 more days 02/05/2021 02/14/2021 Inactive lizz Tudorza Pressair 400 mcg/actuation breath activated RxNorm: 6619441 Inhale 1 Puff(s) two times a day 01/31/2021 01/31/2021 Inactive This pre scription was filled on 01/08/2021. Any refills authorized will be placed on file. zolpidem ER 6.25 mg tablet,extended release,multiphase RxNor m: 976123 Take 1 Tablet(s) Oral at bed time 01/13/2021 01/13/2021 Inactive This prescription was filled on 12/21/2020. Any refills authorized will be placed on file. Dulera 200 mcg-5 mcg/actuation HFA aerosol inhaler RxNorm: 1 865351 INHALE 2 PUFFS BY MOUTH TWO TIMES A DAY 12/26/2020 12/26/2020 Inactive T his prescription was filled on 12/02/2020. Any refills authorized will be placed on file. zolpidem ER 6.25 mg tablet,extended release,multiphase RxNor m: 402228 Take 1 Tablet(s) Oral at bed time 10/23/2020 10/23/2020 Inactive Tudorza Pressair 400 mcg/actuation breath activated RxNorm: 5943511 INHALE 1 PUFF TWICE DAILY 09/27/2020 09/27/2020 Inactive [place] approved zolpidem ER 6.25 mg tablet,extended release,multiphase RxNor m: 299996 Take 1 Tablet(s) Oral at bed time 09/21/2020 09/21/2020 Inactive fluticasone propionate 50 mcg/actuation nasal spray,suspensi on RxNorm: 7735696 instill one SPRAY IN EACH NOSTRIL EVERY DAY 09/20/2020 09/20/2020 Inac tive This prescription was filled on 08/23/2020. Any refills authorized will be placed on file. zolpidem ER 6.25 mg tablet,extended release,multiphase RxNor m: 250051 Take 1 Tablet(s) Oral at bed time 08/24/2020 08/24/2020 Inactive albuterol sulfate 2.5 mg/3 mL (0.083 %) solution for n ebulization RxNorm: 982191 3 Milliliter(s) Inhalation four times a day as needed dyspne a 08/22/2020 No Stop Date Active prednisone 10 mg tablet RxNorm: 753256 Tablet(s) Oral 6 0mg x 1 then 50,40,30,20,10, 08/22/2020 02/04/2021 Inactive Kenalog 40 mg/mL suspension for injection RxNorm: 3568692 1 Milliliter(s) Injection 08/22/2020 08/22/2020 Inactive Zithromax 250 mg tablet RxNorm: 359627 1 Tablet(s) Oral as directed 08/22/2020 08/26/2020 Inactive zpack x 1 Fosamax 70 mg tablet RxNorm: 755885 1 Tablet(s) Oral once a week 08/13/2021 Inactive Fosamax 70 mg tablet RxNorm: 847549 1 Tablet(s) Oral once a week 08/17/2020 Inactive Zithromax 250 mg tablet RxNorm: 164294 1 Tablet(s) Oral as directed 08/14/2020 08/19/2020 Inactive zpack x 1 prednisone 20 mg tablet RxNorm: 235689 2 Tablet(s) Oral every day 0 08/14/2020 08/19/2020 Inactive prednisone 20 mg tablet RxNorm: 260668 2 Tablet(s) Oral every day 0 08/14/2020 08/13/2020 Inactive Zithromax 250 mg tablet RxNorm: 308034 1 Tablet(s) Oral as directed 08/14/2020 08/13/2020 Inactive zpack x 1 Dulera 200 mcg-5 mcg/actuation HFA aerosol inhaler RxNorm: 1 207328 INHALE 2 PUFFS BY MOUTH TWO TIMES A DAY 08/10/2020 08/10/2020 Inactive T his prescription was filled on 07/18/2020. Any refills authorized will be placed on file. Ambien CR 6.25 mg tablet,extended release RxNorm: 676352 TAKE ONE TABLET BY MOUTH DAILY AT BEDTIME 07/21/2020 07/21/2020 Inactive Ambien CR 6.25 mg tablet,extended release RxNorm: 645977 TAKE ONE TABLET BY MOUTH DAILY AT BEDTIME 06/26/2020 07/20/2020 Inactive doxycycline hyclate 20 mg tablet RxNorm: 455614 TAKE 1 TABLET(S) ORAL ONETIME A DAY 06/19/2020 09/17/2020 Inactive cephalexin 500 mg capsule RxNorm: 937498 1 Capsule(s) O ral three times a day with probiotics BID 06/16/2020 06/23/2020 Inactive hold doxycyc line while taking keflex Dulera 100 mcg-5 mcg/actuation HFA aerosol inhaler RxNorm: 1 587891 INHALE 1 PUFF(S) INHALATION EVERY DAY 05/25/2020 05/24/2020 Inactive Dulera 100 mcg-5 mcg/actuation HFA aerosol inhaler RxNorm: 1 296283 INHALE 1 PUFF(S) INHALATION EVERY DAY as needed rescue inhaler 05/25/20202020 Inactive doxycycline hyclate 20 mg tablet RxNorm: 402564 TAKE 1 TABLET(S) ORAL TWO TIMES A DAY 05/25/2020 06/18/2020 Inactive Tudorza Pressair 400 mcg/actuation breath activated RxNorm: 0730810 INHALE 1 PUFF TWICE DAILY 05/24/2020 05/24/2020 Inactive This prescripti on was filled on 05/01/2020. Any refills authorized will be placed on file. Dulera 200 mcg-5 mcg/actuation HFA aerosol inhaler RxNorm: 1 364302 INHALE 2 PUFFS BY MOUTH TWO TIMES A DAY 05/24/2020 08/09/2020 Inactive T his prescription was filled on 05/01/2020. Any refills authorized will be placed on file. Ambien CR 6.25 mg tablet,extended release RxNorm: 501560 TAKE ONE TABLET BY MOUTH DAILY AT BEDTIME 05/19/2020 06/17/2020 Inactive Ambien CR 6.25 mg tablet,extended release RxNorm: 773132 1 Tablet(s) Oral every night at bedtime 03/29/2020 05/18/2020 Inactive Dulera 200 mcg-5 mcg/actuation HFA aerosol inhaler RxNorm: 1 416461 INHALE 2 PUFFS BY MOUTH TWO TIMES A DAY 02/21/2020 05/20/2020 Inactive Tudorza Pressair 400 mcg/actuation breath activated RxNorm: 5429543 INHALE 1 PUFF TWICE DAILY 02/01/2020 05/23/2020 Inactive Ambien CR 6.25 mg tablet,extended release RxNorm: 252182 1 Tablet(s) Oral every night at bedtime 01/29/2020 03/27/2020 Inactive fluticasone propionate 50 mcg/actuation nasal spray,suspensi on RxNorm: 1692575 1 [place] Nasal every day 1 spray each nostril 12/24/2019 12/23/2019 Inact andrade replaces zetonna fluticasone propionate 50 mcg/actuation nasal spray,suspensi on RxNorm: 2453137 1 [place] Nasal every day 1 spray each nostril 12/24/2019 12/24/2019 Inact andrade replaces zetonna Ambien CR 6.25 mg tablet,extended release RxNorm: 311128 Tablet(s) Oral every night at bedtime 11/30/2019 01/28/2020 Inactive Zetonna 37 mcg/actuation nasal HFA inhaler RxNorm: 9237878 1 [place] Nasal every day 11/02/2019 12/23/2019 Inactive Dulera 200 mcg-5 mcg/actuation HFA aerosol inhaler RxNorm: 1 871442 2 Puff(s) Inhalation two times a day 11/02/2019 02/20/2020 Inactive Zetonna 37 mcg/actuation nasal HFA inhaler RxNorm: 5791013 1 [place] Nasal every day 11/02/2019 11/01/2019 Inactive Ambien CR 6.25 mg tablet,extended release RxNorm: 820654 Tablet(s) Oral every night at bedtime 10/01/2019 11/29/2019 Inactive Tudorza Pressair 400 mcg/actuation breath activated RxNorm: 3412994 INHALE ONE INHALATION PO BID 08/04/2019 12/01/2019 Inactive Ambien CR 6.25 mg tablet,extended release RxNorm: 997926 1 Tablet(s) Oral every night at bedtime 08/04/2019 09/30/2019 Inactive Ambien CR 6.25 mg tablet,extended release RxNorm: 807778 1 Tablet(s) Oral every night at bedtime 06/02/2019 07/31/2019 Inactive Tudorza Pressair 400 mcg/actuation breath activated RxNorm: 9188326 INHALE ONE INHALATION PO BID 06/01/2019 07/30/2019 Inactive doxycycline hyclate 20 mg tablet RxNorm: 848460 1 Table t(s) Oral two times a day 04/22/2019 04/16/2020 Inactive pt will call whe n she needs refills Ambien CR 6.25 mg tablet,extended release RxNorm: 197587 1 Tablet(s) Oral every night at bedtime 04/22/2019 04/20/2019 Inactive Tudorza Pressair 400 mcg/actuation breath activated RxNorm: 9120929 1 Inhalation two times a day 04/22/2019 04/22/2019 Inactive Ambien CR 6.25 mg tablet,extended release RxNorm: 933680 1 Tablet(s) Oral every night at bedtime 04/22/2019 05/19/2019 Inactive doxycycline hyclate 100 mg tablet RxNorm: 6714297 1 Tabl et(s) Oral two times a day 04/22/2019 04/21/2019 Inactive Dulera 100 mcg-5 mcg/actuation HFA aerosol inhaler RxNorm: 1 093601 1 Puff(s) Inhalation every day 04/22/2019 11/18/2019 Inactive Vitamin C 500 mg tablet RxNorm: 799162 1 Tablet(s) Oral two adriana es a day 04/21/2019 No Stop Date Active Dulera 100 mcg-5 mcg/actuation HFA aerosol inhaler RxNorm: 1 813914 Inhalation as needed 04/21/2019 08/21/2020 Inactive Dulera 200 mcg-5 mcg/actuation HFA aerosol inhaler RxNorm: 1 814172 2 Inhalation two times a day 04/21/2019 11/01/2019 Inactive Tudorza Pressair 400 mcg/actuation breath activated RxNorm: 3669175 1 Inhalation two times a day 04/21/2019 04/21/2019 Inactive omega 3,6,9 combination no.7 oral RxNorm: oral 04/21/2019 Active Calcium 600 + D(3) oral RxNorm: 540172 oral 08/22/2020 Active Alive Once Daily Women 50 Plus oral RxNorm: oral 04/21/2019 Active Zetonna nasal RxNorm: 6250529 nasal 11/02/2019 11/02/2019 Inactive Medication Administered Medication Codes Instructions Start Date Status Kenalog 40 mg/mL suspension for injection RxNorm: 4275632 1Milli liter 08/22/2020 No longer Active Immunizations Vaccine Codes Dose Date Status Influenza CVX: 197 12/11/2021 Pneumococcal (Adult) CVX: 133 08/17/2021 SHINGARIX CVX: 121 08/17/2021 Covid-19 CVX: 207 05/12/2020 Covid-19 CVX: 207 04/10/2020 Influenza CVX: 197 12/16/2019 Pneumococcal CVX: 133 12/16/2019 Influenza CVX: 197 12/08/2018 Tetanus, Diptheria, Pertussis CVX: 09 03/10/2018 Results Observation Observation Code Item Item Code Result Date S vice Location CULTURE, URINE M100 URINE CULTURE See [...] Unknown Urinalysis Ord28 U-Renal tubular epi None 2 Unknown Urinalysis Ord28 U-RBC None per/HPF 03/07/2022 [...] CULTURE See Note 06/24/2021 Unknown Free T4 Snc395 FREE T4 0.75 ng/dL 06/14/2021 Unknown Cbc [...] 06/13/19 22 Unknown Cbc With Differential Ord2 [place]% 9.2 % 06/13/19 22 Unknown Cbc With [...] K/ul 022 Unknown Cbc With Differential Ord2 [place] ABS# 0.9 K/ul 06/13/19 22 Unknown Cbc With Differential Ord2 Eos ABS# 0.2 K/ul 06/13/19 22 Unknown Cbc With Differential Ord2 Baso ABS# 0.0 K/ul 06/13/19 22 Unknown Tsh Ord6 TSH (3rd IS) 5.79 uIU/mL 06/12/2021 Unkn own Vitamin D 25 Oh Qat9153 VITAMIN D, 25 HYDROXY 34.58 ng/mL 06/12/2021 Unknown Comp Metabolic Qrn169 NA 137 mEq/L 06/12/2021 Unkn own Comp Metabolic Avz345 K 4.0 mEq/L 06/12/2021 Unkn own Comp Metabolic Lfh099 CL 99 mEq/L 06/12/2021 Unkn own Comp Metabolic Wax364 CO2 28.0 mEq/L 06/12/2021 Unk nown Comp Metabolic Efi669 ANION GAP 14 06/12/2021 Unkn own Comp Metabolic Ibf411 GLUCOSE 108 mg/dL 06/12/2021 Unkn own Comp Metabolic Ojx747 Creat 0.6 mg/dL 06/12/2021 Unkn own Comp Metabolic Vqa389 eGFR 107 ml/min/1.73m2 022 Unknown Comp Metabolic Tyx382 BUN 5 mg/dL 06/12/2021 Unkn own Comp Metabolic Sby887 B/C Ratio 8.6 Ratio 06/12/2021 Unkn own Comp Metabolic Dfh380 CALCIUM 9.0 mg/dL 06/12/2021 Unkn own Comp Metabolic Kav684 ALK PHOS 112 U/L 06/12/2021 Unkn own Comp Metabolic Tan782 AST(SGOT) 28 U/L 06/12/2021 Unkn own Comp Metabolic Qaw344 ALT(SGPT) 23 U/L 06/12/2021 Unkn own Comp Metabolic Qgd921 BILI T 1.2 mg/dL 06/12/2021 Unkn own Comp Metabolic Ibg881 ALBUMIN 3.8 g/dL 06/12/2021 Unkn own Comp Metabolic Kat717 TPRO 6.4 g/dL 06/12/2021 Unkn own Comp Metabolic Utq109 GLOB 2.6 g/dL 06/12/2021 Unkn own Comp Metabolic Hyd586 A/G Ratio 1.5 Ratio 06/12/2021 Unkn own Comp Metabolic Myv349 Osmo 272 mOsmo 06/12/2021 Unkn own Lipid Ord30 CHOL 207 mg/dL 06/12/2021 Unknown Lipid Ord30 HDL 60.0 mg/dl 06/12/2021 Unknown Lipid Ord30 TRIG 120 mg/dL 06/12/2021 Unknown Lipid Ord30 LDL 123 mg/dL 06/12/2021 Unknown Lipid Ord30 C/HDL 3.5 Ratio 06/12/2021 Unknown CULTURE, URINE M100 URINE CULTURE See Note 03/18/2021 Unknown CULTURE, URINE M100 URINE CULTURE See Note 06/19/2020 Unknown Comp Metabolic Mdi752 NA 136 mEq/L 06/07/2020 Unkn own Comp Metabolic Kjc818 K 4.1 mEq/L 06/07/2020 Unkn own Comp Metabolic Gdi145 CL 98 mEq/L 06/07/2020 Unkn own Comp Metabolic Pyj485 CO2 27.0 mEq/L 06/07/2020 Unk nown Comp Metabolic Utw407 ANION GAP 15 06/07/2020 Unkn own Comp Metabolic Uct390 GLUCOSE 86 mg/dL 06/07/2020 Unkn own Comp Metabolic Khf105 Creat 0.6 mg/dL 06/07/2020 Unkn own Comp Metabolic Hxw690 eGFR 101 ml/min/1.73m2 021 Unknown Comp Metabolic Yso119 BUN 6 mg/dL 06/07/2020 Unkn own Comp Metabolic Sbj168 B/C Ratio 9.8 Ratio 06/07/2020 Unkn own Comp Metabolic Hes223 CALCIUM 8.9 mg/dL 06/07/2020 Unkn own Comp Metabolic Bct663 ALK PHOS 95 U/L 06/07/2020 Unkn own Comp Metabolic Fxc368 AST(SGOT) 54 U/L 06/07/2020 Unkn own Comp Metabolic Gnz530 ALT(SGPT) 48 U/L 06/07/2020 Unkn own Comp Metabolic Dhk170 BILI T 0.9 mg/dL 06/07/2020 Unkn own Comp Metabolic Odm749 ALBUMIN 3.8 g/dL 06/07/2020 Unkn own Comp Metabolic Jgd803 TPRO 6.2 g/dL 06/07/2020 Unkn own Comp Metabolic Syf421 GLOB 2.4 g/dL 06/07/2020 Unkn own Comp Metabolic Ynn616 A/G Ratio 1.5 Ratio 06/07/2020 Unkn own Comp Metabolic Oav194 Osmo 269 mOsmo 06/07/2020 Unkn own Cbc [...] 06/08/19 21 Unknown Cbc With Differential Ord2 [place]% 10.0 % 06/08/19 21 Unknown Cbc With [...] K/ul 021 Unknown Cbc With Differential Ord2 [place] ABS# 0.9 K/ul 06/08/19 21 Unknown Cbc [...] G0444 01/03/2022 URINALYSIS NONAUTO W/O SCOPE CPT-4: 03163 03/13/2021 PPPS, SUBSEQ VISIT CPT-4: G0439 12/29/2020 DEPRESSION SCREEN ANNUAL CPT-4: G0444 12/29/2020 TRIAMCINOLONE ACET INJ NOS 10 mg CPT-4: J3301 021 THER/PROPH/DIAG INJ SC/IM CPT-4: 28484 08/22/2020 URINALYSIS NONAUTO W/O SCOPE CPT-4: 08754 06/16/2020 DESTRUCT PREMALG LESION CPT-4: 13237 08/30/2019 Vital Signs Date Vital 01/03/2022 Blood Pressure 1: 122/64 Code: 8480-6 BMI: 25.5 Code: 52091-5 Heart Rate 1: 87 bpm Height: 5'6" Code: 8302-2 SpO2: 94% Temperature: 3 6.2 (C) / 97.2 (F) Weight: 158 lbs Code: 09206-0 12/11/2021 Blood Pressure 1: 130/70 Code: 8480-6 Heart Rate 1: 88 bpm Height: 5'6" Code: 8302-2 Respiratory Rate: 17 bpm SpO2: 82% Temperature: 35 .6 (C) / 96.0 (F) Weight: Code: 25105-1 06/12/2021 Blood Pressure 1: 130/76 Code: 8480-6 Heart Rate 1: 84 bpm Height: Code: 8302-2 Respiratory Rate: 17 bpm SpO2: 94% Temperature: 35 .7 (C) / 96.3 (F) Weight: 156 lbs Code: 84185-7 12/29/2020 Blood Pressure 1: 128/74 Code: 8480-6 BMI: 25.8 Code: 51527-6 Heart Rate 1: 92 bpm Height: 5'6" Code: 8302-2 SpO2: 90% Temperature: 3 6.0 (C) / 96.8 (F) Weight: 160 lbs Code: 51779-7 12/07/2020 Blood Pressure 1: 130/78 Code: 8480-6 BMI: 25.8 Code: 52336-4 Heart Rate 1: 88 bpm Height: 5'6" Code: 8302-2 Respiratory Rate: 18 bpm SpO2: 93% Temperature: 35.6 (C) / 96.1 (F) Weight: 160 lbs Code: 63960-7 08/22/2020 Blood Pressure 1: 138/80 Code: 8480-6 BMI: 25.3 Code: 30030-7 Heart Rate 1: 72 bpm Height: 5'6" Code: 8302-2 SpO2: 92% Temperature: 3 6.6 (C) / 97.8 (F) Weight: 157 lbs Code: 68531-8 06/07/2020 Blood Pressure 1: 144/86 Code: 8480-6 BMI: 26.0 Code: 65153-3 Heart Rate 1: 84 bpm Height: 5'6" Code: 8302-2 SpO2: 96% Temperature: 3 6.3 (C) / 97.3 (F) Weight: 161 lbs Code: 55225-5 08/30/2019 Blood Pressure 1: 168/98 Code: 8480-6 Bl ood Pressure 1: 148/74 Code: 8480-6 BMI: 26.0 Code: 01715-0 Heart Rate 1: 83 bpm Height: 5'6" Code: 8302-2 Respiratory Rate: 15 bpm SpO2: 88% Temperature: 36.8 (C) / 98.2 (F) We ight: 161 lbs Code: 59831-8 04/22/2019 Blood Pressure 1: 124/80 Code: 8480-6 BMI: 25.3 Code: 71935-1 Heart Rate 1: 71 bpm Height: 5'6" Code: 8302-2 SpO2: 91% Weight: 157 lb s Code: 19640-2 Functional Status No Functional Status data Reason For Visit Reason For Visit Effective Dates Notes Annual Medicare Wellness Exam 01/03/2022 shortness of breath 12/11/2021 shortness of breath 06/12/2021 Annual Medicare Wellness Exam 12/29/2020 shortness of breath 12/07/2020 fatigue 12/07/2020 cough 08/22/2020 dysuria 06/16/2020 edema 06/07/2020 edema 08/30/2019 chest tightness 04/22/2019 Encounters Encounter Performer Location Location Address Codes Date ([id number]) 28208 EST. 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 PATIENT, LEVEL I Diagnosis: Dysuria[ICD10: R30.0] Sunita Alcala MD, [facility] [address] [place] [address] CPT-4: 99319 07/30/2021 ([id number]) 90840 EST. PATIENT, LEVEL I Diagnosis: Dysuria[ICD10: R30.0] Sunita Alcala MD, [facility] [address] [place] [address] CPT-4: 85101 06/20/2021 ([id number]) 49046 EST. 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 PATIENT, LEVEL III Diagnosis: COPD exacerbation[ICD10: J44.1] Diagnosis: Cough[ICD10: R05] Zaynab Alcala MD, [facility] [address] [place] [address] CPT-4: 89330 08/22/2020 ([id number]) 43263 EST. 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 01/03/2022 Appointment: DawkinsJesúsie [facility] [phone] [phone] [facility] - Annual Wellness Visit 12/09 Patient Education: Patient Medication Summary Completed 01/03/2022 Visit Plan: Dysuria - check urine. 2+ le ukocytes with no blood and no nitrites - no antibiotics needed COPD - chronic problem for this patient. She is still not interested in wearing oxygen. She sees a graining machine operator in [place]. I have recommended that she makes sure she has follow up appointments with him. We have reviewed chronic treatment strategy, symptom control, and plans for acute exacerbations. No changes today to the current treatment plan as the patient is stable, monitor for acute changes. 12/11/2021 Appointment: [facility] [phone] [phone] will schedule wellness at checkout (15 min) [...] interested in wearing oxygen. She sees a graining machine operator in [place]. I have recommended that she makes sure she has follow up appointments with him. We have reviewed chronic treatment strategy, symptom control, and plans for acute exacerbations. No changes today to the current treatment plan as the patient is stable, monitor for acute changes. Pt is in need to reschedule her colonoscope and EGD at [place] with Dr. Rey. 06/12/2021 Appointment: [facility]cal[facility]el[facility] [phone] [phone] [place] (15 min) Moderate 06/12/2021 Patient Education: [...] interested in wearing oxygen. She sees a graining machine operator in [place]. I have recommended that she makes sure [...] stomach 12/07/2020 Appointment: Sunita Alcala WPtel: [phone] [phone] (15 min) Moderate 12/07/2020 Patient Education: Patient [...] changes. 08/22/2020 Appointment: Zaynab Aguillon [facility]el[facility] [phone] [facility] [place] (30 min) Complex 08/22/2020 Patient [...] acute changes. referral to Dr. Lucas - graining machine operator in [place] 06/07/2020 Patient Education: Patient Medication Summary Completed 06/07/2020 Appointment: [facility] [phone] [phone] [place] (15 min) Moderate 02/14/2020 Visit Plan: Actinic Keratosis - lesion t reated with cryotherapy on skin lesion right posterior calf COPD - chronic problem for this patient. We have reviewed chronic treatment strategy, symptom control, and plans for acute exacerbations. No changes today to the current treatment plan as the patient is stable, monitor for acute changes. 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 Donovan - graining machine operator - needs appt in Nov/dec time frame - see if can get appt in [place] office - DX COPD Venous insufficiency - advised elevation of legs when seated and compression when legs are down or patient is going to travel. 08/30/2019 Appointment: Sun[facility] Alcala [facility] [phone] [phone] (15 min) Moderate 08/30/2019 Patient Education: Patient Medication Summary Completed 08/30/2019 Appointment: [facility] Alcal[facility] [phone] [phone] (15 min) Moderate 05/26/2019 Visit Plan: COPD - chronic problem for t his patient. We have reviewed chronic treatment strategy, symptom control, and plans for acute exacerbations. No changes today to the current treatment plan as the patient is stable, monitor for acute changes. Insomnia - chronic - refill ambien for PRN use. 04/22/2019 Patient Education: Patient Medication Summary Completed 04/22/2019 Referral: [facility] Referral Initiated Referral: [facility] Referral Completed Instructions Comment Date cologuard . [...] interested in wearing oxygen. She sees a graining machine operator in [place]. I have recommended that she makes sure [...] do not improve. 07/30/2021 Dr. Rey at [facility] - reschedule your colonoscope and egd. . [...] interested in wearing oxygen. She sees a graining machine operator in [place]. I have recommended that she makes sure she has follow up appointments with him. We have reviewed chronic treatment strategy, symptom control, and plans for acute exacerbations. No changes today to the current treatment plan as the patient is stable, monitor for acute changes. Pt is in need to reschedule her colonoscope and EGD at [facility] with Dr. Rey. 06/12/2021 [facility] [...] interested in wearing oxygen. She sees a graining machine operator in [place]. I have recommended that she makes sure [...] acute changes. referral to Dr. Lucas - graining machine operator in [place] 06/07/2020 . Actinic Keratosis - lesion treated with cryotherapy on skin lesion right posterior calf COPD - chronic problem for this patient. We have reviewed chronic treatment strategy, symptom control, and plans for acute exacerbations. No changes today to the current treatment plan as the patient is stable, monitor for acute changes. 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 Donovan - graining machine operator - needs appt in Nov/dec time frame - see if can get appt in [place] office - DX COPD Venous insufficiency - [...]
--- OUTSIDE RECORDS SUMMARY | 2022-04-14 13:10 | XMS REPORT | CCD ---
Author Author Nicolasa Alcala Organization [facility] Address [address] [place] [address] Phone Care Team Providers Care Licensing Coordinator Name Role Phone [facility] Unavailable CCM Unavailable Summary Purpose Interface Exchange Insurance Providers Payer name Policy type / Coverage type Covered alliance party ID Effective Begin Date Effective End Date WPS Medicare Part B Medicare Part B [id number] Unknown Unkno wn [employer] Medicare Part B [id number] Unknown Unknown Family history Mother Diagnosis Age At Onset Cancer Unknown Social History Social History Element Codes Description Effective Dates Marital status Unknown Single 04/21/2019 Number of children Unknown 3 04/21/2019 Employment Unknown Retired 04/21/[address]: 7426790 Former smoker 200904/21/[address]: 886900 Currently drinks alcohol 04/21 Frequency of drinks SNOMED CT: 006865107 1-4 drinks per week 5 04/21/2019 Allergies, [...] Active 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) with shot tube machine tender maria esther bronchitis ICD-10: J44.9 ICD-9: 491.20 [...] Start Date Stop Date Status Fill Instructions Dulera 200 mcg-5 mcg/actuation HFA aerosol inhaler RxNorm: 1 404137 Inhale 2 Puff(s) Oral two times a day 01/22/2022 07/20/2022 Active zolpidem ER 6.25 mg tablet,extended release,multiphase RxNor m: 901774 Take 1 Tablet(s) Oral at bed time 01/10/2022 03/10/2022 Active azithromycin 250 mg tablet RxNorm: 906243 Take 1 Tablet (s) Oral as directed take two tabs on day #1 then 1 pill daily x 4 more days 01/08/2022 No Stop D ate Active prednisone 20 mg tablet RxNorm: 564249 Take 3 Tablet(s) Oral ev jose ramon day 01/08/2022 01/14/2022 Inactive Tudorza Pressair 400 mcg/actuation breath activated RxNorm: 3387981 Inhale 1 Puff(s) two times a day 11/21/2021 03/20/2022 Active zolpidem ER 6.25 mg tablet,extended release,multiphase RxNor m: 499569 Take 1 Tablet(s) Oral at bed time 11/14/2021 11/14/2021 Inactive Dulera 100 mcg-5 mcg/actuation HFA aerosol inhaler RxNorm: 1 896174 Inhale 1 Puff(s) Oral every day 10/14/2021 05/11/2022 Active fluticasone propionate 50 mcg/actuation nasal spray,suspensi on RxNorm: 3611933 instill one SPRAY IN EACH NOSTRIL EVERY DAY 10/14/2021 05/11/2022 Acti ve Dulera 200 mcg-5 mcg/actuation HFA aerosol inhaler RxNorm: 1 079404 Inhale 2 Puff(s) Oral two times a day 10/01/2021 10/01/2021 Inactive zolpidem ER 6.25 mg tablet,extended release,multiphase RxNor m: 267386 Take 1 Tablet(s) Oral at bed time 09/14/2021 09/14/2021 Inactive Tudorza Pressair 400 mcg/actuation breath activated RxNorm: 3596404 Inhale 1 Puff(s) two times a day 08/03/2021 08/03/2021 Inactive This pre scription was filled on 07/10/2021. Any refills authorized will be placed on file. cephalexin 500 mg tablet RxNorm: 558194 Take 1 Tablet(s) Oral t hree times a day 07/30/2021 08/05/2021 Inactive zolpidem ER 6.25 mg tablet,extended release,multiphase RxNor m: 166885 Take 1 Tablet(s) Oral at bed time 07/17/2021 07/17/2021 Inactive cephalexin 500 mg capsule RxNorm: 693801 1 Capsule(s) O ral three times a day with probiotics BID 06/20/2021 06/26/2021 Inactive hold doxycyc line while taking keflex Vitamin D3 125 mcg (5,000 unit) tablet RxNorm: 882269 1 Tablet(s) Oral every day 06/19/2021 No Stop Date Active zolpidem ER 6.25 mg tablet,extended release,multiphase RxNor m: 432379 Take 1 Tablet(s) Oral at bed time 05/21/2021 05/21/2021 Inactive Dulera 200 mcg-5 mcg/actuation HFA aerosol inhaler RxNorm: 1 530071 INHALE 2 PUFFS BY MOUTH TWO TIMES A DAY 05/02/2021 05/02/2021 Inactive T his prescription was filled on 12/02/2020. Any refills authorized will be placed on file. zolpidem ER 6.25 mg tablet,extended release,multiphase RxNor m: 223004 Take 1 Tablet(s) Oral at bed time 04/18/2021 04/18/2021 Inactive zolpidem ER 6.25 mg tablet,extended release,multiphase RxNor m: 762344 Take 1 Tablet(s) Oral at bed time 03/21/2021 03/21/2021 Inactive cephalexin 500 mg capsule RxNorm: 445186 1 Capsule(s) O ral three times a day with probiotics BID 03/13/2021 03/19/2021 Inactive hold doxycyc line while taking keflex zolpidem ER 6.25 mg tablet,extended release,multiphase RxNor m: 060144 Take 1 Tablet(s) Oral at bed time 02/19/2021 02/19/2021 Inactive prednisone 10 mg tablet RxNorm: 172460 Tablet(s) Oral 6 0mg x 1 then 50,40,30,20,10, 02/05/2021 02/05/2021 Inactive Zithromax 250 mg tablet RxNorm: 351606 1 Tablet(s) Oral as directed 2 tabs on day #1, then 1 tab daily x 4 more days 02/05/2021 02/14/2021 Inactive zpack Tudorza Pressair 400 mcg/actuation breath activated RxNorm: 8113637 Inhale 1 Puff(s) two times a day 01/31/2021 01/31/2021 Inactive This pre scription was filled on 01/08/2021. Any refills authorized will be placed on file. zolpidem ER 6.25 mg tablet,extended release,multiphase RxNor m: 618527 Take 1 Tablet(s) Oral at bed time 01/13/2021 01/13/2021 Inactive This prescription was filled on 12/21/2020. Any refills authorized will be placed on file. Dulera 200 mcg-5 mcg/actuation HFA aerosol inhaler RxNorm: 1 902466 INHALE 2 PUFFS BY MOUTH TWO TIMES A DAY 12/26/2020 12/26/2020 Inactive T his prescription was filled on 12/02/2020. Any refills authorized will be placed on file. zolpidem ER 6.25 mg tablet,extended release,multiphase RxNor m: 893415 Take 1 Tablet(s) Oral at bed time 10/23/2020 10/23/2020 Inactive Tudorza Pressair 400 mcg/actuation breath activated RxNorm: 3890790 INHALE 1 PUFF TWICE DAILY 09/27/2020 09/27/2020 Inactive PA approved zolpidem ER 6.25 mg tablet,extended release,multiphase RxNor m: 616601 Take 1 Tablet(s) Oral at bed time 09/21/2020 09/21/2020 Inactive fluticasone propionate 50 mcg/actuation nasal spray,suspensi on RxNorm: 6656964 instill one SPRAY IN EACH NOSTRIL EVERY DAY 09/20/2020 09/20/2020 Inac tive This prescription was filled on 08/23/2020. Any refills authorized will be placed on file. zolpidem ER 6.25 mg tablet,extended release,multiphase RxNor m: 292412 Take 1 Tablet(s) Oral at bed time 08/24/2020 08/24/2020 Inactive albuterol sulfate 2.5 mg/3 mL (0.083 %) solution for n ebulization RxNorm: 186633 3 Milliliter(s) Inhalation four times a day as needed dyspne a 08/22/2020 No Stop Date Active prednisone 10 mg tablet RxNorm: 582092 Tablet(s) Oral 6 0mg x 1 then 50,40,30,20,10, 08/22/2020 02/04/2021 Inactive Kenalog 40 mg/mL suspension for injection RxNorm: 5563624 1 Milliliter(s) Injection 08/22/2020 08/22/2020 Inactive Zithromax 250 mg tablet RxNorm: 547958 1 Tablet(s) Oral as directed 08/22/2020 08/26/2020 Inactive zpack x 1 Fosamax 70 mg tablet RxNorm: 785996 1 Tablet(s) Oral once a week 08/13/2021 Inactive Fosamax 70 mg tablet RxNorm: 372424 1 Tablet(s) Oral once a week 08/17/2020 Inactive Zithromax 250 mg tablet RxNorm: 310653 1 Tablet(s) Oral as directed 08/14/2020 08/19/2020 Inactive zpack x 1 prednisone 20 mg tablet RxNorm: 276090 2 Tablet(s) Oral every day 0 08/14/2020 08/19/2020 Inactive prednisone 20 mg tablet RxNorm: 786216 2 Tablet(s) Oral every day 0 08/14/2020 08/13/2020 Inactive Zithromax 250 mg tablet RxNorm: 468326 1 Tablet(s) Oral as directed 08/14/2020 08/13/2020 Inactive zpack x 1 Dulera 200 mcg-5 mcg/actuation HFA aerosol inhaler RxNorm: 1 048383 INHALE 2 PUFFS BY MOUTH TWO TIMES A DAY 08/10/2020 08/10/2020 Inactive T his prescription was filled on 07/18/2020. Any refills authorized will be placed on file. Ambien CR 6.25 mg tablet,extended release RxNorm: 124483 TAKE ONE TABLET BY MOUTH DAILY AT BEDTIME 07/21/2020 07/21/2020 Inactive Ambien CR 6.25 mg tablet,extended release RxNorm: 311054 TAKE ONE TABLET BY MOUTH DAILY AT BEDTIME 06/26/2020 07/20/2020 Inactive doxycycline hyclate 20 mg tablet RxNorm: 044172 TAKE 1 TABLET(S) ORAL ONETIME A DAY 06/19/2020 09/17/2020 Inactive cephalexin 500 mg capsule RxNorm: 437205 1 Capsule(s) O ral three times a day with probiotics BID 06/16/2020 06/23/2020 Inactive hold doxycyc line while taking keflex Dulera 100 mcg-5 mcg/actuation HFA aerosol inhaler RxNorm: 1 443506 INHALE 1 PUFF(S) INHALATION EVERY DAY 05/25/2020 05/24/2020 Inactive Dulera 100 mcg-5 mcg/actuation HFA aerosol inhaler RxNorm: 1 941799 INHALE 1 PUFF(S) INHALATION EVERY DAY as needed rescue inhaler 05/25/20202020 Inactive doxycycline hyclate 20 mg tablet RxNorm: 362094 TAKE 1 TABLET(S) ORAL TWO TIMES A DAY 05/25/2020 06/18/2020 Inactive Tudorza Pressair 400 mcg/actuation breath activated RxNorm: 0649408 INHALE 1 PUFF TWICE DAILY 05/24/2020 05/24/2020 Inactive This prescripti on was filled on 05/01/2020. Any refills authorized will be placed on file. Dulera 200 mcg-5 mcg/actuation HFA aerosol inhaler RxNorm: 1 762214 INHALE 2 PUFFS BY MOUTH TWO TIMES A DAY 05/24/2020 08/09/2020 Inactive T his prescription was filled on 05/01/2020. Any refills authorized will be placed on file. Ambien CR 6.25 mg tablet,extended release RxNorm: 469645 TAKE ONE TABLET BY MOUTH DAILY AT BEDTIME 05/19/2020 06/17/2020 Inactive Ambien CR 6.25 mg tablet,extended release RxNorm: 669204 1 Tablet(s) Oral every night at bedtime 03/29/2020 05/18/2020 Inactive Dulera 200 mcg-5 mcg/actuation HFA aerosol inhaler RxNorm: 1 222074 INHALE 2 PUFFS BY MOUTH TWO TIMES A DAY 02/21/2020 05/20/2020 Inactive Tudorza Pressair 400 mcg/actuation breath activated RxNorm: 5194710 INHALE 1 PUFF TWICE DAILY 02/01/2020 05/23/2020 Inactive Ambien CR 6.25 mg tablet,extended release RxNorm: 343721 1 Tablet(s) Oral every night at bedtime 01/29/2020 03/27/2020 Inactive fluticasone propionate 50 mcg/actuation nasal spray,suspensi on RxNorm: 4208197 1 [place] Nasal every day 1 spray each nostril 12/24/2019 12/23/2019 Inact andrade replaces zetonna fluticasone propionate 50 mcg/actuation nasal spray,suspensi on RxNorm: 5790721 1 [place] Nasal every day 1 spray each nostril 12/24/2019 12/24/2019 Inact andrade replaces zetonna Ambien CR 6.25 mg tablet,extended release RxNorm: 130378 Tablet(s) Oral every night at bedtime 11/30/2019 01/28/2020 Inactive Zetonna 37 mcg/actuation nasal HFA inhaler RxNorm: 4013224 1 [place] Nasal every day 11/02/2019 12/23/2019 Inactive Dulera 200 mcg-5 mcg/actuation HFA aerosol inhaler RxNorm: 1 232881 2 Puff(s) Inhalation two times a day 11/02/2019 02/20/2020 Inactive Zetonna 37 mcg/actuation nasal HFA inhaler RxNorm: 7710378 1 [place] Nasal every day 11/02/2019 11/01/2019 Inactive Ambien CR 6.25 mg tablet,extended release RxNorm: 552559 Tablet(s) Oral every night at bedtime 10/01/2019 11/29/2019 Inactive Tudorza Pressair 400 mcg/actuation breath activated RxNorm: 9674194 INHALE ONE INHALATION PO BID 08/04/2019 12/01/2019 Inactive Ambien CR 6.25 mg tablet,extended release RxNorm: 709079 1 Tablet(s) Oral every night at bedtime 08/04/2019 09/30/2019 Inactive Ambien CR 6.25 mg tablet,extended release RxNorm: 968184 1 Tablet(s) Oral every night at bedtime 06/02/2019 07/31/2019 Inactive Tudorza Pressair 400 mcg/actuation breath activated RxNorm: 7208126 INHALE ONE INHALATION PO BID 06/01/2019 07/30/2019 Inactive doxycycline hyclate 20 mg tablet RxNorm: 154193 1 Table t(s) Oral two times a day 04/22/2019 04/16/2020 Inactive pt will call whe n she needs refills Ambien CR 6.25 mg tablet,extended release RxNorm: 362075 1 Tablet(s) Oral every night at bedtime 04/22/2019 04/20/2019 Inactive Tudorza Pressair 400 mcg/actuation breath activated RxNorm: 3157284 1 Inhalation two times a day 04/22/2019 04/22/2019 Inactive Ambien CR 6.25 mg tablet,extended release RxNorm: 613596 1 Tablet(s) Oral every night at bedtime 04/22/2019 05/19/2019 Inactive doxycycline hyclate 100 mg tablet RxNorm: 2139135 1 Tabl et(s) Oral two times a day 04/22/2019 04/21/2019 Inactive Dulera 100 mcg-5 mcg/actuation HFA aerosol inhaler RxNorm: 1 104082 1 Puff(s) Inhalation every day 04/22/2019 11/18/2019 Inactive Vitamin C 500 mg tablet RxNorm: 584853 1 Tablet(s) Oral two adriana es a day 04/21/2019 No Stop Date Active Dulera 100 mcg-5 mcg/actuation HFA aerosol inhaler RxNorm: 1 830460 Inhalation as needed 04/21/2019 08/21/2020 Inactive Dulera 200 mcg-5 mcg/actuation HFA aerosol inhaler RxNorm: 1 962061 2 Inhalation two times a day 04/21/2019 11/01/2019 Inactive Tudorza Pressair 400 mcg/actuation breath activated RxNorm: 5386815 1 Inhalation two times a day 04/21/2019 04/21/2019 Inactive omega 3,6,9 combination no.7 oral RxNorm: oral 04/21/2019 Active Calcium 600 + D(3) oral RxNorm: 484649 oral 08/22/2020 Active Alive Once Daily Women 50 Plus oral RxNorm: oral 04/21/2019 Active Zetonna nasal RxNorm: 6060663 nasal 11/02/2019 11/02/2019 Inactive Medication Administered Medication Codes Instructions Start Date Status Kenalog 40 mg/mL suspension for injection RxNorm: 8682109 1Milli liter 08/22/2020 No longer Active Immunizations [...] CULTURE See Note 06/24/2021 Unknown Free T4 Pmz328 FREE T4 0.75 ng/dL 06/14/2021 Unknown Cbc [...] 06/13/19 22 Unknown Cbc With Differential Ord2 Webb% 9.2 % 06/13/19 22 Unknown Cbc With [...] K/ul 022 Unknown Cbc With Differential Ord2 Webb ABS# 0.9 K/ul 06/13/19 22 Unknown Cbc With Differential Ord2 Eos ABS# 0.2 K/ul 06/13/19 22 Unknown Cbc With Differential Ord2 Baso ABS# 0.0 K/ul 06/13/19 22 Unknown Tsh Ord6 TSH (3rd IS) 5.79 uIU/mL 06/12/2021 Unkn own Vitamin D 25 Oh Fet8077 VITAMIN D, 25 HYDROXY 34.58 ng/mL 06/12/2021 Unknown Comp Metabolic Bay798 NA 137 mEq/L 06/12/2021 Unkn own Comp Metabolic Dkq700 K 4.0 mEq/L 06/12/2021 Unkn own Comp Metabolic Eay241 CL 99 mEq/L 06/12/2021 Unkn own Comp Metabolic Wwj091 CO2 28.0 mEq/L 06/12/2021 Unk nown Comp Metabolic Sev658 ANION GAP 14 06/12/2021 Unkn own Comp Metabolic Ngn196 GLUCOSE 108 mg/dL 06/12/2021 Unkn own Comp Metabolic Yqm864 Creat 0.6 mg/dL 06/12/2021 Unkn own Comp Metabolic Cbi324 eGFR 107 ml/min/1.73m2 022 Unknown Comp Metabolic Jyn337 BUN 5 mg/dL 06/12/2021 Unkn own Comp Metabolic Kzu231 B/C Ratio 8.6 Ratio 06/12/2021 Unkn own Comp Metabolic Zhj379 CALCIUM 9.0 mg/dL 06/12/2021 Unkn own Comp Metabolic Uif047 ALK PHOS 112 U/L 06/12/2021 Unkn own Comp Metabolic Rai295 AST(SGOT) 28 U/L 06/12/2021 Unkn own Comp Metabolic Dte420 ALT(SGPT) 23 U/L 06/12/2021 Unkn own Comp Metabolic Ypf027 BILI T 1.2 mg/dL 06/12/2021 Unkn own Comp Metabolic Vtl742 ALBUMIN 3.8 g/dL 06/12/2021 Unkn own Comp Metabolic Ruc579 TPRO 6.4 g/dL 06/12/2021 Unkn own Comp Metabolic Vpr695 GLOB 2.6 g/dL 06/12/2021 Unkn own Comp Metabolic Efg190 A/G Ratio 1.5 Ratio 06/12/2021 Unkn own Comp Metabolic Uwq764 Osmo 272 mOsmo 06/12/2021 Unkn own Lipid Ord30 CHOL 207 mg/dL 06/12/2021 Unknown Lipid Ord30 HDL 60.0 mg/dl 06/12/2021 Unknown Lipid Ord30 TRIG 120 mg/dL 06/12/2021 Unknown Lipid Ord30 LDL 123 mg/dL 06/12/2021 Unknown Lipid Ord30 C/HDL 3.5 Ratio 06/12/2021 Unknown CULTURE, URINE M100 URINE CULTURE See Note 03/18/2021 Unknown CULTURE, URINE M100 URINE CULTURE See Note 06/19/2020 Unknown Comp Metabolic Xvw081 NA 136 mEq/L 06/07/2020 Unkn own Comp Metabolic Iuc632 K 4.1 mEq/L 06/07/2020 Unkn own Comp Metabolic Bbt011 CL 98 mEq/L 06/07/2020 Unkn own Comp Metabolic Atl620 CO2 27.0 mEq/L 06/07/2020 Unk nown Comp Metabolic Rxv304 ANION GAP 15 06/07/2020 Unkn own Comp Metabolic Qmo871 GLUCOSE 86 mg/dL 06/07/2020 Unkn own Comp Metabolic Hho656 Creat 0.6 mg/dL 06/07/2020 Unkn own Comp Metabolic Qod890 eGFR 101 ml/min/1.73m2 021 Unknown Comp Metabolic Rkb288 BUN 6 mg/dL 06/07/2020 Unkn own Comp Metabolic Nle400 B/C Ratio 9.8 Ratio 06/07/2020 Unkn own Comp Metabolic Wib546 CALCIUM 8.9 mg/dL 06/07/2020 Unkn own Comp Metabolic Dnm984 ALK PHOS 95 U/L 06/07/2020 Unkn own Comp Metabolic Gup412 AST(SGOT) 54 U/L 06/07/2020 Unkn own Comp Metabolic Vrs725 ALT(SGPT) 48 U/L 06/07/2020 Unkn own Comp Metabolic Izd085 BILI T 0.9 mg/dL 06/07/2020 Unkn own Comp Metabolic Cpv241 ALBUMIN 3.8 g/dL 06/07/2020 Unkn own Comp Metabolic Pox466 TPRO 6.2 g/dL 06/07/2020 Unkn own Comp Metabolic Byb444 GLOB 2.4 g/dL 06/07/2020 Unkn own Comp Metabolic Mvf724 A/G Ratio 1.5 Ratio 06/07/2020 Unkn own Comp Metabolic Mwv402 Osmo 269 mOsmo 06/07/2020 Unkn own Cbc [...] 06/08/19 21 Unknown Cbc With Differential Ord2 Webb% 10.0 % 06/08/19 21 Unknown Cbc With [...] K/ul 021 Unknown Cbc With Differential Ord2 Webb ABS# 0.9 K/ul 06/08/19 21 Unknown Cbc [...] G0444 01/03/2022 URINALYSIS NONAUTO W/O SCOPE CPT-4: 65818 03/13/2021 PPPS, SUBSEQ VISIT CPT-4: G0439 12/29/2020 DEPRESSION SCREEN ANNUAL CPT-4: G0444 12/29/2020 TRIAMCINOLONE ACET INJ NOS 10 mg CPT-4: J3301 021 THER/PROPH/DIAG INJ SC/IM CPT-4: 62764 08/22/2020 URINALYSIS NONAUTO W/O SCOPE CPT-4: 83320 06/16/2020 DESTRUCT PREMALG LESION CPT-4: 10252 08/30/2019 Vital Signs Date Vital 01/03/2022 Blood Pressure 1: 122/64 Code: 8480-6 BMI: 25.5 Code: 14808-4 Heart Rate 1: 87 bpm Height: 5'6" Code: 8302-2 SpO2: 94% Temperature: 3 6.2 (C) / 97.2 (F) Weight: 158 lbs Code: 69368-5 12/11/2021 Blood Pressure 1: 130/70 Code: 8480-6 Heart Rate 1: 88 bpm Height: 5'6" Code: 8302-2 Respiratory Rate: 17 bpm SpO2: 82% Temperature: 35 .6 (C) / 96.0 (F) Weight: Code: 94587-3 06/12/2021 Blood Pressure 1: 130/76 Code: 8480-6 Heart Rate 1: 84 bpm Height: Code: 8302-2 Respiratory Rate: 17 bpm SpO2: 94% Temperature: 35 .7 (C) / 96.3 (F) Weight: 156 lbs Code: 64606-4 12/29/2020 Blood Pressure 1: 128/74 Code: 8480-6 BMI: 25.8 Code: 19149-0 Heart Rate 1: 92 bpm Height: 5'6" Code: 8302-2 SpO2: 90% Temperature: 3 6.0 (C) / 96.8 (F) Weight: 160 lbs Code: 41474-6 12/07/2020 Blood Pressure 1: 130/78 Code: 8480-6 BMI: 25.8 Code: 16681-4 Heart Rate 1: 88 bpm Height: 5'6" Code: 8302-2 Respiratory Rate: 18 bpm SpO2: 93% Temperature: 35.6 (C) / 96.1 (F) Weight: 160 lbs Code: 23619-6 08/22/2020 Blood Pressure 1: 138/80 Code: 8480-6 BMI: 25.3 Code: 64222-9 Heart Rate 1: 72 bpm Height: 5'6" Code: 8302-2 SpO2: 92% Temperature: 3 6.6 (C) / 97.8 (F) Weight: 157 lbs Code: 64688-8 06/07/2020 Blood Pressure 1: 144/86 Code: 8480-6 BMI: 26.0 Code: 04395-8 Heart Rate 1: 84 bpm Height: 5'6" Code: 8302-2 SpO2: 96% Temperature: 3 6.3 (C) / 97.3 (F) Weight: 161 lbs Code: 58910-0 08/30/2019 Blood Pressure 1: 168/98 Code: 8480-6 Bl ood Pressure 1: 148/74 Code: 8480-6 BMI: 26.0 Code: 60793-7 Heart Rate 1: 83 bpm Height: 5'6" Code: 8302-2 Respiratory Rate: 15 bpm SpO2: 88% Temperature: 36.8 (C) / 98.2 (F) We ight: 161 lbs Code: 41124-3 04/22/2019 Blood Pressure 1: 124/80 Code: 8480-6 BMI: 25.3 Code: 11974-4 Heart Rate 1: 71 bpm Height: 5'6" Code: 8302-2 SpO2: 91% Weight: 157 lb s Code: 18052-3 Functional Status No Functional Status data Reason For Visit Reason For Visit Effective Dates Notes Annual Medicare Wellness Exam 01/03/2022 shortness of breath 12/11/2021 shortness of breath 06/12/2021 Annual Medicare Wellness Exam 12/29/2020 shortness of breath 12/07/2020 fatigue 12/07/2020 cough 08/22/2020 dysuria 06/16/2020 edema 06/07/2020 edema 08/30/2019 chest tightness 04/22/2019 Encounters Encounter Performer Location Location Address Codes Date 214 EST. 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 PATIENT, LEVEL I Diagnosis: Dysuria[ICD10: R30.0] [facility] [address] [place] [address] CPT-4: 72083 07/30/2021 ([id number]) 09428 EST. PATIENT, LEVEL I Diagnosis: Dysuria[ICD10: R30.0] Sunita Alcala MD, [facility] [address] [place] [address] CPT-4: 13146 06/20/2021 ([id number]) 16521 EST. 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 PATIENT, LEVEL III Diagnosis: COPD exacerbation[ICD10: J44.1] Diagnosis: Cough[ICD10: R05] Zaynab Alcala MD, [facility] [address] [place] [address] CPT-4: 07653 08/22/2020 ([id number]) 04575 EST. 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 01/03/2022 [facility] [phone] [phone] [facility] - Annual Wellness Visit 12/09 Patient Education: Patient Medication Summary Completed 01/03/2022 Visit Plan: Dysuria - check urine. 2+ le ukocytes with no blood and no nitrites - no antibiotics needed COPD - chronic problem for this patient. She is still not interested in wearing oxygen. She sees a copy center operator in [place]. I have recommended that she makes sure she has follow up appointments with him. We have reviewed chronic treatment strategy, symptom control, and plans for acute exacerbations. No changes today to the current treatment plan as the patient is stable, monitor for acute changes. 12/11/2021 Appointment: Sunita Alcala WPtel: [phone] [phone] [place] will schedule wellness at checkout (15 [...] interested in wearing oxygen. She sees a copy center operator in [place]. I have recommended that she makes sure she has follow up appointments with him. We have reviewed chronic treatment strategy, symptom control, and plans for acute exacerbations. No changes today to the current treatment plan as the patient is stable, monitor for acute changes. Pt is in need to reschedule her colonoscope and EGD at [facility] with Dr. Rey. 06/12/2021 Appointment: [facility] [phone] [phone] [place] (15 min) Moderate 06/12/2021 Patient [...] interested in wearing oxygen. She sees a copy center operator in [place]. I have recommended that she makes sure she has follow up appointments with him. We have reviewed chronic treatment strategy, symptom control, and plans for acute exacerbations. No changes today to the current treatment plan as the patient is stable, monitor for acute changes. Weakness and fatigue - pt to start exercise program with [facility] - I have recommended having her oxygen available, she states that she will instead sit down when feeling short of breath. Gas and bloating - take gas-ex three times a day for the next week and see if it helps with your gas in your stomach 12/07/2020 Appointment: [facility] [phone] [phone] (15 min) Moderate 12/07/2020 Patient Education: [...] acute changes. 08/22/2020 Appointment: [facility] Aguillon [facility] [phone] [phone] (30 min) Complex 08/22/2020 Patient Education: Patient [...] acute changes. referral to Dr. Lucas - copy center operator in [place] 06/07/2020 Patient Education: Patient Medication Summary Completed 06/07/2020 Appointment: Sunita Alcala [facility]el: [phone] [phone] (15 min) Moderate 02/14/2020 Visit Plan: Actinic Keratosis - lesion t reated with cryotherapy on skin lesion right posterior calf COPD - chronic problem for this patient. We have reviewed chronic treatment strategy, symptom control, and plans for acute exacerbations. No changes today to the current treatment plan as the patient is stable, monitor for acute changes. Pt reports that her copy center operator is retiring and she would like to become established with a local copy center operator - referral as follows: referral to Dr. Donovan - copy center operator - needs appt in Nov/dec time frame - see if can get appt in [place] office - DX COPD Venous insufficiency - advised elevation of legs when seated and compression when legs are down or patient is going to travel. 08/30/2019 Appointment: Sunita Alcala [facility]Ptel[facility] [phone] [phone] (15 min) Moderate 08/30/2019 Patient Education: Patient Medication Summary Completed 08/30/2019 Appointment: Sun[facility] Alcala [facility]el[facility] [phone] [phone] (15 min) Moderate 05/26/2019 Visit Plan: COPD - chronic problem for t his patient. We have reviewed chronic treatment strategy, symptom control, and plans for acute exacerbations. No changes today to the current treatment plan as the patient is stable, monitor for acute changes. Insomnia - chronic - refill ambien for PRN use. 04/22/2019 Patient Education: Patient Medication Summary Completed 04/22/2019 Referral: [facility] Referral Initiated Referral: [facility] Referral Completed Instructions Comment Date [...] interested in wearing oxygen. She sees a copy center operator in [place]. I have recommended that she makes sure [...] do not improve. 07/30/2021 Dr. Rey at [facility] - reschedule your colonoscope and egd. . [...] interested in wearing oxygen. She sees a copy center operator in [place]. I have recommended that she makes sure she has follow up appointments with him. We have reviewed chronic treatment strategy, symptom control, and plans for acute exacerbations. No changes today to the current treatment plan as the patient is stable, monitor for acute changes. Pt is in need to reschedule her colonoscope and EGD at [facility] with Dr. Rey. 06/12/2021 [facility] [...] interested in wearing oxygen. She sees a copy center operator in [place]. I have recommended that she makes sure [...] acute changes. referral to Dr. Lucas - copy center operator in [place] 06/07/2020 . Actinic Keratosis - lesion treated with cryotherapy on skin lesion right posterior calf COPD - chronic problem for this patient. We have reviewed chronic treatment strategy, symptom control, and plans for acute exacerbations. No changes today to the current treatment plan as the patient is stable, monitor for acute changes. Pt reports that her copy center operator is retiring and she would like to become established with a local copy center operator - referral as follows: referral to Dr. Donovan - copy center operator - needs appt in Nov/dec time frame - see if can get appt in [place] office - DX COPD Venous insufficiency - [...]
--- OUTSIDE RECORDS SUMMARY | 2022-04-14 13:10 | XMS REPORT | CCD ---
Author Author Nicolasa Alcala Organization [facility] Address [address] [place] [address] Phone Care Team Providers Care Brass Finisher Name Role Phone [facility] Unavailable CCM Unavailable Summary Purpose Interface Exchange Insurance Providers Payer name Policy type / Coverage type Covered republican ID Effective Begin Date Effective End Date WPS Medicare Part B Medicare Part B [id number] Unknown Unkno wn [employer] Medicare Part B [id number] Unknown Unknown Family history Mother Diagnosis Age At Onset Cancer Unknown Social History Social History Element Codes Description Effective Dates Marital status Unknown Single 04/21/2019 Number of children Unknown 3 04/21/2019 Employment Unknown Retired 04/21/[address]: 0021587 Former smoker 200904/21/[address]: 579232 Currently drinks alcohol 04/21 Frequency of drinks SNOMED CT: 183718707 1-4 drinks per week 5 04/21/2019 Allergies, [...] Active 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) with tree faller maria esther bronchitis ICD-10: J44.9 ICD-9: 491.20 [...] Instructions cefuroxime axetil 500 mg tablet RxNorm: 580132 1 Tablet(s) Oral two times a day 03/07/2022 03/07/2022 Inactive cefuroxime axetil 500 mg tablet RxNorm: 882726 Take 1 T ablet(s) Oral two times a day 03/07/2022 03/13/2022 Active Dulera 200 mcg-5 mcg/actuation HFA aerosol inhaler RxNorm: 1 209403 Inhale 2 Puff(s) Oral two times a day 01/22/2022 07/20/2022 Active zolpidem ER 6.25 mg tablet,extended release,multiphase RxNor m: 736822 Take 1 Tablet(s) Oral at bed time 01/10/2022 03/10/2022 Active azithromycin 250 mg tablet RxNorm: 682470 Take 1 Tablet (s) Oral as directed take two tabs on day #1 then 1 pill daily x 4 more days 01/08/2022 No Stop D ate Active prednisone 20 mg tablet RxNorm: 929230 Take 3 Tablet(s) Oral ev jose ramon day 01/08/2022 01/14/2022 Inactive Tudorza Pressair 400 mcg/actuation breath activated RxNorm: 2637918 Inhale 1 Puff(s) two times a day 11/21/2021 03/20/2022 Active zolpidem ER 6.25 mg tablet,extended release,multiphase RxNor m: 081623 Take 1 Tablet(s) Oral at bed time 11/14/2021 11/14/2021 Inactive Dulera 100 mcg-5 mcg/actuation HFA aerosol inhaler RxNorm: 1 848758 Inhale 1 Puff(s) Oral every day 10/14/2021 05/11/2022 Active fluticasone propionate 50 mcg/actuation nasal spray,suspensi on RxNorm: 2859172 instill one SPRAY IN EACH NOSTRIL EVERY DAY 10/14/2021 05/11/2022 Acti ve Dulera 200 mcg-5 mcg/actuation HFA aerosol inhaler RxNorm: 1 827803 Inhale 2 Puff(s) Oral two times a day 10/01/2021 10/01/2021 Inactive zolpidem ER 6.25 mg tablet,extended release,multiphase RxNor m: 688079 Take 1 Tablet(s) Oral at bed time 09/14/2021 09/14/2021 Inactive Tudorza Pressair 400 mcg/actuation breath activated RxNorm: 6430735 Inhale 1 Puff(s) two times a day 08/03/2021 08/03/2021 Inactive This pre scription was filled on 07/10/2021. Any refills authorized will be placed on file. cephalexin 500 mg tablet RxNorm: 117657 Take 1 Tablet(s) Oral t hree times a day 07/30/2021 08/05/2021 Inactive zolpidem ER 6.25 mg tablet,extended release,multiphase RxNor m: 991271 Take 1 Tablet(s) Oral at bed time 07/17/2021 07/17/2021 Inactive cephalexin 500 mg capsule RxNorm: 255240 1 Capsule(s) O ral three times a day with probiotics BID 06/20/2021 06/26/2021 Inactive hold doxycyc line while taking keflex Vitamin D3 125 mcg (5,000 unit) tablet RxNorm: 628619 1 Tablet(s) Oral every day 06/19/2021 No Stop Date Active zolpidem ER 6.25 mg tablet,extended release,multiphase RxNor m: 748303 Take 1 Tablet(s) Oral at bed time 05/21/2021 05/21/2021 Inactive Dulera 200 mcg-5 mcg/actuation HFA aerosol inhaler RxNorm: 1 695597 INHALE 2 PUFFS BY MOUTH TWO TIMES A DAY 05/02/2021 05/02/2021 Inactive T his prescription was filled on 12/02/2020. Any refills authorized will be placed on file. zolpidem ER 6.25 mg tablet,extended release,multiphase RxNor m: 897769 Take 1 Tablet(s) Oral at bed time 04/18/2021 04/18/2021 Inactive zolpidem ER 6.25 mg tablet,extended release,multiphase RxNor m: 236990 Take 1 Tablet(s) Oral at bed time 03/21/2021 03/21/2021 Inactive cephalexin 500 mg capsule RxNorm: 956618 1 Capsule(s) O ral three times a day with probiotics BID 03/13/2021 03/19/2021 Inactive hold doxycyc line while taking keflex zolpidem ER 6.25 mg tablet,extended release,multiphase RxNor m: 620069 Take 1 Tablet(s) Oral at bed time 02/19/2021 02/19/2021 Inactive prednisone 10 mg tablet RxNorm: 220542 Tablet(s) Oral 6 0mg x 1 then 50,40,30,20,10, 02/05/2021 02/05/2021 Inactive Zithromax 250 mg tablet RxNorm: 826701 1 Tablet(s) Oral as directed 2 tabs on day #1, then 1 tab daily x 4 more days 02/05/2021 02/14/2021 Inactive lizz Solorio Pressair 400 mcg/actuation breath activated RxNorm: 1412974 Inhale 1 Puff(s) two times a day 01/31/2021 01/31/2021 Inactive This pre scription was filled on 01/08/2021. Any refills authorized will be placed on file. zolpidem ER 6.25 mg tablet,extended release,multiphase RxNor m: 616418 Take 1 Tablet(s) Oral at bed time 01/13/2021 01/13/2021 Inactive This prescription was filled on 12/21/2020. Any refills authorized will be placed on file. Dulera 200 mcg-5 mcg/actuation HFA aerosol inhaler RxNorm: 1 714468 INHALE 2 PUFFS BY MOUTH TWO TIMES A DAY 12/26/2020 12/26/2020 Inactive T his prescription was filled on 12/02/2020. Any refills authorized will be placed on file. zolpidem ER 6.25 mg tablet,extended release,multiphase RxNor m: 435073 Take 1 Tablet(s) Oral at bed time 10/23/2020 10/23/2020 Inactive Tudorza Pressair 400 mcg/actuation breath activated RxNorm: 7444797 INHALE 1 PUFF TWICE DAILY 09/27/2020 09/27/2020 Inactive PA approved zolpidem ER 6.25 mg tablet,extended release,multiphase RxNor m: 937375 Take 1 Tablet(s) Oral at bed time 09/21/2020 09/21/2020 Inactive fluticasone propionate 50 mcg/actuation nasal spray,suspensi on RxNorm: 9521120 instill one SPRAY IN EACH NOSTRIL EVERY DAY 09/20/2020 09/20/2020 Inac tive This prescription was filled on 08/23/2020. Any refills authorized will be placed on file. zolpidem ER 6.25 mg tablet,extended release,multiphase RxNor m: 126531 Take 1 Tablet(s) Oral at bed time 08/24/2020 08/24/2020 Inactive albuterol sulfate 2.5 mg/3 mL (0.083 %) solution for n ebulization RxNorm: 788787 3 Milliliter(s) Inhalation four times a day as needed dyspne a 08/22/2020 No Stop Date Active prednisone 10 mg tablet RxNorm: 102645 Tablet(s) Oral 6 0mg x 1 then 50,40,30,20,10, 08/22/2020 02/04/2021 Inactive Kenalog 40 mg/mL suspension for injection RxNorm: 5042557 1 Milliliter(s) Injection 08/22/2020 08/22/2020 Inactive Zithromax 250 mg tablet RxNorm: 574635 1 Tablet(s) Oral as directed 08/22/2020 08/26/2020 Inactive zpack x 1 Fosamax 70 mg tablet RxNorm: 580867 1 Tablet(s) Oral once a week 08/13/2021 Inactive Fosamax 70 mg tablet RxNorm: 124964 1 Tablet(s) Oral once a week 08/17/2020 Inactive Zithromax 250 mg tablet RxNorm: 751003 1 Tablet(s) Oral as directed 08/14/2020 08/19/2020 Inactive zpack x 1 prednisone 20 mg tablet RxNorm: 247109 2 Tablet(s) Oral every day 0 08/14/2020 08/19/2020 Inactive prednisone 20 mg tablet RxNorm: 109393 2 Tablet(s) Oral every day 0 08/14/2020 08/13/2020 Inactive Zithromax 250 mg tablet RxNorm: 536438 1 Tablet(s) Oral as directed 08/14/2020 08/13/2020 Inactive zpack x 1 Dulera 200 mcg-5 mcg/actuation HFA aerosol inhaler RxNorm: 1 325194 INHALE 2 PUFFS BY MOUTH TWO TIMES A DAY 08/10/2020 08/10/2020 Inactive T his prescription was filled on 07/18/2020. Any refills authorized will be placed on file. Ambien CR 6.25 mg tablet,extended release RxNorm: 739867 TAKE ONE TABLET BY MOUTH DAILY AT BEDTIME 07/21/2020 07/21/2020 Inactive Ambien CR 6.25 mg tablet,extended release RxNorm: 815811 TAKE ONE TABLET BY MOUTH DAILY AT BEDTIME 06/26/2020 07/20/2020 Inactive doxycycline hyclate 20 mg tablet RxNorm: 643015 TAKE 1 TABLET(S) ORAL ONETIME A DAY 06/19/2020 09/17/2020 Inactive cephalexin 500 mg capsule RxNorm: 074864 1 Capsule(s) O ral three times a day with probiotics BID 06/16/2020 06/23/2020 Inactive hold doxycyc line while taking keflex Dulera 100 mcg-5 mcg/actuation HFA aerosol inhaler RxNorm: 1 140618 INHALE 1 PUFF(S) INHALATION EVERY DAY 05/25/2020 05/24/2020 Inactive Dulera 100 mcg-5 mcg/actuation HFA aerosol inhaler RxNorm: 1 839712 INHALE 1 PUFF(S) INHALATION EVERY DAY as needed rescue inhaler 05/25/20202020 Inactive doxycycline hyclate 20 mg tablet RxNorm: 066968 TAKE 1 TABLET(S) ORAL TWO TIMES A DAY 05/25/2020 06/18/2020 Inactive Tudorza Pressair 400 mcg/actuation breath activated RxNorm: 3795527 INHALE 1 PUFF TWICE DAILY 05/24/2020 05/24/2020 Inactive This prescripti on was filled on 05/01/2020. Any refills authorized will be placed on file. Dulera 200 mcg-5 mcg/actuation HFA aerosol inhaler RxNorm: 1 863892 INHALE 2 PUFFS BY MOUTH TWO TIMES A DAY 05/24/2020 08/09/2020 Inactive T his prescription was filled on 05/01/2020. Any refills authorized will be placed on file. Ambien CR 6.25 mg tablet,extended release RxNorm: 839925 TAKE ONE TABLET BY MOUTH DAILY AT BEDTIME 05/19/2020 06/17/2020 Inactive Ambien CR 6.25 mg tablet,extended release RxNorm: 928071 1 Tablet(s) Oral every night at bedtime 03/29/2020 05/18/2020 Inactive Dulera 200 mcg-5 mcg/actuation HFA aerosol inhaler RxNorm: 1 456482 INHALE 2 PUFFS BY MOUTH TWO TIMES A DAY 02/21/2020 05/20/2020 Inactive Tudorza Pressair 400 mcg/actuation breath activated RxNorm: 3526179 INHALE 1 PUFF TWICE DAILY 02/01/2020 05/23/2020 Inactive Ambien CR 6.25 mg tablet,extended release RxNorm: 045446 1 Tablet(s) Oral every night at bedtime 01/29/2020 03/27/2020 Inactive fluticasone propionate 50 mcg/actuation nasal spray,suspensi on RxNorm: 4947258 1 [place] Nasal every day 1 spray each nostril 12/24/2019 12/23/2019 Inact andrade replaces zetonna fluticasone propionate 50 mcg/actuation nasal spray,suspensi on RxNorm: 3588653 1 [place] Nasal every day 1 spray each nostril 12/24/2019 12/24/2019 Inact andrade replaces zetonna Ambien CR 6.25 mg tablet,extended release RxNorm: 231577 Tablet(s) Oral every night at bedtime 11/30/2019 01/28/2020 Inactive Zetonna 37 mcg/actuation nasal HFA inhaler RxNorm: 5892393 1 [place] Nasal every day 11/02/2019 12/23/2019 Inactive Dulera 200 mcg-5 mcg/actuation HFA aerosol inhaler RxNorm: 1 026388 2 Puff(s) Inhalation two times a day 11/02/2019 02/20/2020 Inactive Zetonna 37 mcg/actuation nasal HFA inhaler RxNorm: 9888755 1 [place] Nasal every day 11/02/2019 11/01/2019 Inactive Ambien CR 6.25 mg tablet,extended release RxNorm: 764857 Tablet(s) Oral every night at bedtime 10/01/2019 11/29/2019 Inactive Tudorza Pressair 400 mcg/actuation breath activated RxNorm: 1550983 INHALE ONE INHALATION PO BID 08/04/2019 12/01/2019 Inactive Ambien CR 6.25 mg tablet,extended release RxNorm: 613369 1 Tablet(s) Oral every night at bedtime 08/04/2019 09/30/2019 Inactive Ambien CR 6.25 mg tablet,extended release RxNorm: 151393 1 Tablet(s) Oral every night at bedtime 06/02/2019 07/31/2019 Inactive Tudorza Pressair 400 mcg/actuation breath activated RxNorm: 4894155 INHALE ONE INHALATION PO BID 06/01/2019 07/30/2019 Inactive doxycycline hyclate 20 mg tablet RxNorm: 735669 1 Table t(s) Oral two times a day 04/22/2019 04/16/2020 Inactive pt will call whe n she needs refills Ambien CR 6.25 mg tablet,extended release RxNorm: 135542 1 Tablet(s) Oral every night at bedtime 04/22/2019 04/20/2019 Inactive Tudorza Pressair 400 mcg/actuation breath activated RxNorm: 0970005 1 Inhalation two times a day 04/22/2019 04/22/2019 Inactive Ambien CR 6.25 mg tablet,extended release RxNorm: 593543 1 Tablet(s) Oral every night at bedtime 04/22/2019 05/19/2019 Inactive doxycycline hyclate 100 mg tablet RxNorm: 5865118 1 Tabl et(s) Oral two times a day 04/22/2019 04/21/2019 Inactive Dulera 100 mcg-5 mcg/actuation HFA aerosol inhaler RxNorm: 1 542762 1 Puff(s) Inhalation every day 04/22/2019 11/18/2019 Inactive Vitamin C 500 mg tablet RxNorm: 678030 1 Tablet(s) Oral two adriana es a day 04/21/2019 No Stop Date Active Dulera 100 mcg-5 mcg/actuation HFA aerosol inhaler RxNorm: 1 559255 Inhalation as needed 04/21/2019 08/21/2020 Inactive Dulera 200 mcg-5 mcg/actuation HFA aerosol inhaler RxNorm: 1 214549 2 Inhalation two times a day 04/21/2019 11/01/2019 Inactive Tudorza Pressair 400 mcg/actuation breath activated RxNorm: 2003933 1 Inhalation two times a day 04/21/2019 04/21/2019 Inactive omega 3,6,9 combination no.7 oral RxNorm: oral 04/21/2019 Active Calcium 600 + D(3) oral RxNorm: 050109 oral 08/22/2020 Active Alive Once Daily Women 50 Plus oral RxNorm: oral 04/21/2019 Active Zetonna nasal RxNorm: 3329282 nasal 11/02/2019 11/02/2019 Inactive Medication Administered Medication Codes Instructions Start Date Status Kenalog 40 mg/mL suspension for injection RxNorm: 2958408 1Milli liter 08/22/2020 No longer Active Immunizations Vaccine Codes Dose Date Status Influenza CVX: 197 12/11/2021 Pneumococcal (Adult) CVX: 133 08/17/2021 SHINGARIX CVX: 121 08/17/2021 Covid-19 CVX: 207 05/12/2020 Covid-19 CVX: 207 04/10/2020 Influenza CVX: 197 12/16/2019 Pneumococcal CVX: 133 12/16/2019 Influenza CVX: 197 12/08/2018 Tetanus, Diptheria, Pertussis CVX: 09 03/10/2018 Results Observation Observation Code Item Item Code Result Date S ervice Location Urinalysis Ord28 U-Color Yellow 03/07/2022 Unknown Urinalysis [...] CULTURE See Note 06/24/2021 Unknown Free T4 Sze503 FREE T4 0.75 ng/dL 06/14/2021 Unknown Cbc [...] 06/13/19 22 Unknown Cbc With Differential Ord2 [place]% 9.2 % 06/13/19 22 Unknown Cbc With [...] K/ul 022 Unknown Cbc With Differential Ord2 [place] ABS# 0.9 K/ul 06/13/19 22 Unknown Cbc With Differential Ord2 Eos ABS# 0.2 K/ul 06/13/19 22 Unknown Cbc With Differential Ord2 Baso ABS# 0.0 K/ul 06/13/19 22 Unknown Tsh Ord6 TSH (3rd IS) 5.79 uIU/mL 06/12/2021 Unkn own Vitamin D 25 Oh Zof7152 VITAMIN D, 25 HYDROXY 34.58 ng/mL 06/12/2021 Unknown Comp Metabolic Xdi212 NA 137 mEq/L 06/12/2021 Unkn own Comp Metabolic Zkb748 K 4.0 mEq/L 06/12/2021 Unkn own Comp Metabolic Cfj243 CL 99 mEq/L 06/12/2021 Unkn own Comp Metabolic Gkc259 CO2 28.0 mEq/L 06/12/2021 Unk nown Comp Metabolic Une685 ANION GAP 14 06/12/2021 Unkn own Comp Metabolic Lga323 GLUCOSE 108 mg/dL 06/12/2021 Unkn own Comp Metabolic Nuy168 Creat 0.6 mg/dL 06/12/2021 Unkn own Comp Metabolic Qzr416 eGFR 107 ml/min/1.73m2 022 Unknown Comp Metabolic Hza176 BUN 5 mg/dL 06/12/2021 Unkn own Comp Metabolic Zgf860 B/C Ratio 8.6 Ratio 06/12/2021 Unkn own Comp Metabolic Oeg411 CALCIUM 9.0 mg/dL 06/12/2021 Unkn own Comp Metabolic Axe584 ALK PHOS 112 U/L 06/12/2021 Unkn own Comp Metabolic Spx060 AST(SGOT) 28 U/L 06/12/2021 Unkn own Comp Metabolic Yoq871 ALT(SGPT) 23 U/L 06/12/2021 Unkn own Comp Metabolic Nvy651 BILI T 1.2 mg/dL 06/12/2021 Unkn own Comp Metabolic Rsj782 ALBUMIN 3.8 g/dL 06/12/2021 Unkn own Comp Metabolic Pkh024 TPRO 6.4 g/dL 06/12/2021 Unkn own Comp Metabolic Egu570 GLOB 2.6 g/dL 06/12/2021 Unkn own Comp Metabolic Ydb616 A/G Ratio 1.5 Ratio 06/12/2021 Unkn own Comp Metabolic Tyz925 Osmo 272 mOsmo 06/12/2021 Unkn own Lipid Ord30 CHOL 207 mg/dL 06/12/2021 Unknown Lipid Ord30 HDL 60.0 mg/dl 06/12/2021 Unknown Lipid Ord30 TRIG 120 mg/dL 06/12/2021 Unknown Lipid Ord30 LDL 123 mg/dL 06/12/2021 Unknown Lipid Ord30 C/HDL 3.5 Ratio 06/12/2021 Unknown CULTURE, URINE M100 URINE CULTURE See Note 03/18/2021 Unknown CULTURE, URINE M100 URINE CULTURE See Note 06/19/2020 Unknown Comp Metabolic Nyq856 NA 136 mEq/L 06/07/2020 Unkn own Comp Metabolic Nob675 K 4.1 mEq/L 06/07/2020 Unkn own Comp Metabolic Cih520 CL 98 mEq/L 06/07/2020 Unkn own Comp Metabolic Vsa173 CO2 27.0 mEq/L 06/07/2020 Unk nown Comp Metabolic Esu315 ANION GAP 15 06/07/2020 Unkn own Comp Metabolic Tsg554 GLUCOSE 86 mg/dL 06/07/2020 Unkn own Comp Metabolic Kip173 Creat 0.6 mg/dL 06/07/2020 Unkn own Comp Metabolic Nqz032 eGFR 101 ml/min/1.73m2 021 Unknown Comp Metabolic Qxe723 BUN 6 mg/dL 06/07/2020 Unkn own Comp Metabolic Fya369 B/C Ratio 9.8 Ratio 06/07/2020 Unkn own Comp Metabolic Cvx881 CALCIUM 8.9 mg/dL 06/07/2020 Unkn own Comp Metabolic Ohq328 ALK PHOS 95 U/L 06/07/2020 Unkn own Comp Metabolic Tmk188 AST(SGOT) 54 U/L 06/07/2020 Unkn own Comp Metabolic Vsz067 ALT(SGPT) 48 U/L 06/07/2020 Unkn own Comp Metabolic Iwg059 BILI T 0.9 mg/dL 06/07/2020 Unkn own Comp Metabolic Wnn092 ALBUMIN 3.8 g/dL 06/07/2020 Unkn own Comp Metabolic Pmy409 TPRO 6.2 g/dL 06/07/2020 Unkn own Comp Metabolic Dnu097 GLOB 2.4 g/dL 06/07/2020 Unkn own Comp Metabolic Nvs395 A/G Ratio 1.5 Ratio 06/07/2020 Unkn own Comp Metabolic Srj381 Osmo 269 mOsmo 06/07/2020 Unkn own Cbc [...] 06/08/19 21 Unknown Cbc With Differential Ord2 [place]% 10.0 % 06/08/19 21 Unknown Cbc With [...] K/ul 021 Unknown Cbc With Differential Ord2 [place] ABS# 0.9 K/ul 06/08/19 21 Unknown Cbc [...] G0444 01/03/2022 URINALYSIS NONAUTO W/O SCOPE CPT-4: 51196 03/13/2021 PPPS, SUBSEQ VISIT CPT-4: G0439 12/29/2020 DEPRESSION SCREEN ANNUAL CPT-4: G0444 12/29/2020 TRIAMCINOLONE ACET INJ NOS 10 mg CPT-4: J3301 021 THER/PROPH/DIAG INJ SC/IM CPT-4: 88141 08/22/2020 URINALYSIS NONAUTO W/O SCOPE CPT-4: 21944 06/16/2020 DESTRUCT PREMALG LESION CPT-4: 37445 08/30/2019 Vital Signs Date Vital 01/03/2022 Blood Pressure 1: 122/64 Code: 8480-6 BMI: 25.5 Code: 97426-9 Heart Rate 1: 87 bpm Height: 5'6" Code: 8302-2 SpO2: 94% Temperature: 3 6.2 (C) / 97.2 (F) Weight: 158 lbs Code: 37742-6 12/11/2021 Blood Pressure 1: 130/70 Code: 8480-6 Heart Rate 1: 88 bpm Height: 5'6" Code: 8302-2 Respiratory Rate: 17 bpm SpO2: 82% Temperature: 35 .6 (C) / 96.0 (F) Weight: Code: 17911-8 06/12/2021 Blood Pressure 1: 130/76 Code: 8480-6 Heart Rate 1: 84 bpm Height: Code: 8302-2 Respiratory Rate: 17 bpm SpO2: 94% Temperature: 35 .7 (C) / 96.3 (F) Weight: 156 lbs Code: 30118-4 12/29/2020 Blood Pressure 1: 128/74 Code: 8480-6 BMI: 25.8 Code: 93431-4 Heart Rate 1: 92 bpm Height: 5'6" Code: 8302-2 SpO2: 90% Temperature: 3 6.0 (C) / 96.8 (F) Weight: 160 lbs Code: 71410-3 12/07/2020 Blood Pressure 1: 130/78 Code: 8480-6 BMI: 25.8 Code: 36842-9 Heart Rate 1: 88 bpm Height: 5'6" Code: 8302-2 Respiratory Rate: 18 bpm SpO2: 93% Temperature: 35.6 (C) / 96.1 (F) Weight: 160 lbs Code: 95655-1 08/22/2020 Blood Pressure 1: 138/80 Code: 8480-6 BMI: 25.3 Code: 43342-9 Heart Rate 1: 72 bpm Height: 5'6" Code: 8302-2 SpO2: 92% Temperature: 3 6.6 (C) / 97.8 (F) Weight: 157 lbs Code: 74612-6 06/07/2020 Blood Pressure 1: 144/86 Code: 8480-6 BMI: 26.0 Code: 07826-4 Heart Rate 1: 84 bpm Height: 5'6" Code: 8302-2 SpO2: 96% Temperature: 3 6.3 (C) / 97.3 (F) Weight: 161 lbs Code: 26229-5 08/30/2019 Blood Pressure 1: 168/98 Code: 8480-6 Bl ood Pressure 1: 148/74 Code: 8480-6 BMI: 26.0 Code: 65885-7 Heart Rate 1: 83 bpm Height: 5'6" Code: 8302-2 Respiratory Rate: 15 bpm SpO2: 88% Temperature: 36.8 (C) / 98.2 (F) We ight: 161 lbs Code: 05120-0 04/22/2019 Blood Pressure 1: 124/80 Code: 8480-6 BMI: 25.3 Code: 85800-9 Heart Rate 1: 71 bpm Height: 5'6" Code: 8302-2 SpO2: 91% Weight: 157 lb s Code: 75407-0 Functional Status No Functional Status data Reason For Visit Reason For Visit Effective Dates Notes Annual Medicare Wellness Exam 01/03/2022 shortness of breath 12/11/2021 shortness of breath 06/12/2021 Annual Medicare Wellness Exam 12/29/2020 shortness of breath 12/07/2020 fatigue 12/07/2020 cough 08/22/2020 dysuria 06/16/2020 edema 06/07/2020 edema 08/30/2019 chest tightness 04/22/2019 Encounters Encounter Performer Location Location Address Codes Date ([id number]) [id number] EST. 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 PATIENT, LEVEL I Diagnosis: Dysuria[ICD10: R30.0] Sunita Alcala MD, [facility] [address] [place] [address] CPT-4: 74678 07/30/2021 ([id number]) 52992 EST. PATIENT, LEVEL I Diagnosis: Dysuria[ICD10: R30.0] Sunita Alcala MD, [facility] [address] [place] [address] CPT-4: 49206 06/20/2021 ([id number]) 21630 EST. 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 PATIENT, LEVEL III Diagnosis: COPD exacerbation[ICD10: J44.1] Diagnosis: Cough[ICD10: R05] Zaynab Alcala MD, [facility] [address] [place] [address] CPT-4: 60301 08/22/2020 ([id number]) 10960 EST. 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 01/03/2022 Appointment: Jennifer Dawkins WPtel: [phone] [facility] - Annual Wellness Visit 12/09 Patient Education: Patient Medication Summary Completed 01/03/2022 Visit Plan: Dysuria - check urine. 2+ le ukocytes with no blood and no nitrites - no antibiotics needed COPD - chronic problem for this patient. She is still not interested in wearing oxygen. She sees a cigar packer and shader in [place]. I have recommended that she makes sure she has follow up appointments with him. We have reviewed chronic treatment strategy, symptom control, and plans for acute exacerbations. No changes today to the current treatment plan as the patient is stable, monitor for acute changes. 12/11/2021 Appointment: [facility] [phone] [phone] will schedule wellness at checkout (15 [...] interested in wearing oxygen. She sees a cigar packer and shader in [place]. I have recommended that she makes sure she has follow up appointments with him. We have reviewed chronic treatment strategy, symptom control, and plans for acute exacerbations. No changes today to the current treatment plan as the patient is stable, monitor for acute changes. Pt is in need to reschedule her colonoscope and EGD at [place] with Dr. Rey. 06/12/2021 Appointment: [facility] [phone] [phone] [place] (15 min) Moderate 06/12/2021 Patient [...] interested in wearing oxygen. She sees a cigar packer and shader in [place]. I have recommended that she makes sure [...] stomach 12/07/2020 App[facility]ment: [facility] [phone] [phone] (15 min) Moderate 12/07/2020 Patient Education: [...] acute changes. 08/22/2020 App[facility]ment[facility] [phone] [facility] (30 min) Complex 08/22/2020 Patient Education: [...] acute changes. referral to Dr. Lucas - cigar packer and shader in [place] 06/07/2020 Patient Education: Patient Medication Summary Completed 06/07/2020 App[facility]ment: [facility] [phone] [phone] (15 min) Moderate 02/14/2020 Visit Plan: [facility] Keratosis - lesion t reated with cryotherapy on skin lesion right posterior calf COPD - chronic problem for this patient. We have reviewed chronic treatment strategy, symptom control, and plans for acute exacerbations. No changes today to the current treatment plan as the patient is stable, monitor for acute changes. 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 Donovan - cigar packer and shader - needs appt in Nov/dec time frame - see if can get appt in [place] - DX COPD Venous insufficiency - advised elevation of legs when seated and compression when legs are down or patient is going to travel. 08/30/2019 [phone] [phone] (15 min) Moderate 08/30/2019 Patient Education: Patient Medication Summary Completed 08/30/2019 App[facility]ment: [phone] [phone] [place] (15 min) Moderate 05/26/2019 Visit Plan: COPD - chronic problem for t his patient. We have reviewed chronic treatment strategy, symptom control, and plans for acute exacerbations. No changes today to the current treatment plan as the patient is stable, monitor for acute changes. Insomnia - chronic - refill ambien for PRN use. 04/22/2019 Patient Education: Patient Medication Summary Completed 04/22/2019 Referral: [facility] Referral Initiated Referral: [facility] Referral Completed Instructions Comment Date cologuard . [...] interested in wearing oxygen. She sees a cigar packer and shader in [place]. I have recommended that she makes sure [...] do not improve. 07/30/2021 Dr. Rey at [place] - reschedule your colonoscope and egd. . [...] interested in wearing oxygen. She sees a cigar packer and shader in [place]. I have recommended that she makes sure she has follow up appointments with him. We have reviewed chronic treatment strategy, symptom control, and plans for acute exacerbations. No changes today to the current treatment plan as the patient is stable, monitor for acute changes. Pt is in need to reschedule her colonoscope and EGD at [place] with Dr. Rey. 06/12/2021 [facility] [...] interested in wearing oxygen. She sees a cigar packer and shader in [place]. I have recommended that she makes sure [...] acute changes. referral to Dr. Lucas - cigar packer and shader in [place] 06/07/2020 . Actinic Keratosis - lesion treated with cryotherapy on skin lesion right posterior calf COPD - chronic problem for this patient. We have reviewed chronic treatment strategy, symptom control, and plans for acute exacerbations. No changes today to the current treatment plan as the patient is stable, monitor for acute changes. 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 Donovan - cigar packer and shader - needs appt in Nov/dec time frame - see if can get appt in [place] - DX COPD Venous insufficiency - [...]
[2022-04-14 13:30] VITALS: BP 127/67
[2022-04-14] MEDS ORDERED: PATIENT MAY USE OWN MEDS, ALL MC SCH (15:45)
[2022-04-14] MEDS ORDERED: RT-ALBUTEROL/IPRATROPIUM 3 ML (DUONEB) VIAL INH PRN (16:00)
[2022-04-14] MEDS: ENOXAPARIN 40 MG/0.4 ML (LOVENOX) SYR SC SCH (16:59)
[2022-04-14 19:41] VITALS: BP 111/67
[2022-04-14] MEDS: IBUPROFEN TABLET 200 MG TAB PO PRN (20:11)
[2022-04-14] MEDS: SENNA W/DOCUSATE (SENOKOT S) TABLET PO SCH (20:11)
[2022-04-14] MEDS: DOCUSATE SODIUM 100 MG (COLACE) CAP PO SCH (20:11)
[2022-04-14] MEDS: polyethylene glycoL POWDER 17 GM (MIRALAX) PACK PO SCH (20:12)
[2022-04-14] MEDS: RT--FLUTICASONE/SALMETEROL 113-14 (AIRDUO RespiCLICK) IH SCH (20:27)
[2022-04-15] MEDS: IBUPROFEN TABLET 200 MG TAB PO PRN ×3 (02:17→20:38)
--- NOTE | 2022-04-15 05:14 | PM&R Progress Note ---
Subjective HPI/CC On Admission Date Seen by Provider: Apr 15, 2022 Time Seen by Provider: 08:30 Subjective/Events-last exam 04/15/2022: Doing very well No pain reported Output colostomy good Lungs clear Working with therapy Labs reviewed Review of Systems General: Fatigue, Malaise Pulmonary: Dyspnea Cardiovascular: Edema Objective Exam Vital Signs Vital Signs Date Time Temp Pulse Resp B/P (MAP) Pulse Ox O2 Delivery O2 Flow Rate FiO2 04/15/22 20:58 94 Nasal Cannula 4.00 04/15/22 19:34 36.6 83 16 120/73 (89) Capillary Refill : General Appearance: No Apparent Distress, WD/WN, Chronically ill HEENT: PERRL/EOMI, Normal ENT Inspection, Pharynx Normal Neck: Full Range of Motion, Normal Inspection, Non Tender, Supple, Carotid Bruit Respiratory: Chest Non Tender, Lungs Clear, Normal Breath Sounds, No Accessory Muscle Use, No Respiratory Distress, Decreased Breath Sounds Cardiovascular: Regular Rate, Rhythm, No Edema, No Gallop, No JVD, No Murmur, Normal Peripheral Pulses Gastrointestinal: Normal Bowel Sounds, No Organomegaly, No Pulsatile Mass, Non Tender, Soft, Other (Colostomy) Back: Normal Inspection, No CVA Tenderness, No Vertebral Tenderness Extremity: Normal Capillary Refill, Normal Inspection, Normal Range of Motion, Non Tender, No Calf Tenderness, No Pedal Edema Neurologic/Psychiatric: Alert, Oriented x3, Normal Mood/Affect, Motor Weakness (Generalized 3/5) Skin: Normal Color, Warm/Dry Lymphatic: No Adenopathy Results/Procedures Lab Laboratory Tests 04/15/22 05:00 Patient resulted labs reviewed. FIM Transfers Therapy Code Descriptions/Definitions Functional [place] Measure: 0=Not Assessed/NA 4=Minimal Assistance 1=Total Assistance 5=Supervision or Setup 2=Maximal Assistance 6=Modified [place] 3=Moderate Assistance 7=Complete IndependenceSCALE: Activities may be completed with or without assistive devices. 0-Qksmyedevk-ykqferq completes the activity by him/herself with no assistance from a helper. 5-Set-up or Clean-up Assistance-helper sets up or cleans up; patient completes activity. [place] assists only prior to or following the activity. 4-Supervision or Touching Assistance-helper provides verbal cues and/or touching/steadying and/or contact guard assistance as patient completes activity. Assistance may be provided throughout the activity or intermittently. 3-Partial/Moderate Assistance-helper does LESS THAN HALF the effort. [place] lifts, holds or supports trunk or limbs, but provides less than half the effort. 2-Substantial/Maximal Assistance-helper does MORE THAN HALF the effort. [place] lifts or holds trunk or limbs and provides more than half the effort. 0-Kojzlrzzk-rzwzbw does ALL the effort. Patient does none of the effort to complete the activity. Or, the assistance of 2 or more helpers is required for the patient to complete the activity. If activity was not attempted, code reason: 7-Patient Refused. 9-Not Applicable-not attempted and the patient did not perform the activity before the current illness, exacerbation or injury. 10-Not Attempted due to Environmental Limitations-(lack of equipment, weather restraints, etc.). 88-Not Attempted due to Medical Conditions or Safety Concerns. Assessment/Plan Assessment and Plan Assess & Plan/Chief Complaint Assessment: Debility following colon perforation during colonoscopy at [facility] received emergent diverting colostomy per Dr Hunt Recent hospital acquired PNA Abdominal wound requiring wound VAC Encephalopathy Volume overload Diastolic CHF Severe COPD oxygen dependent Anasarca Protein malnutrition Plan: Continue diuresis Wound VAC PT and OT Pain control 04/15/2022: Replace potassium Wound vac management (1) Respiratory failure JERAMIE KENT DO Apr 15, 2022 05:14
[2022-04-15 05:29] LABS: BASOPHILS % (AUTO) 0 % (0-10); EOSINOPHILS # (AUTO) 0.4 10^3/uL (0.0-0.3); EOSINOPHILS % (AUTO) 5 % (0-10); HEMATOCRIT 30 % (35-52); HEMOGLOBIN 9.6 g/dL (11.5-16.0); LYMPHOCYTES # (AUTO) 1.2 10^3/uL (1.0-4.0); LYMPHOCYTES % (AUTO) 16 % (12-44); MEAN CORPUSCULAR HEMOGLOBIN 31 pg (25-34); MEAN CORPUSCULAR HGB CONC 32 g/dL (32-36); MEAN CORPUSCULAR VOLUME 96 fL (80-99); MEAN PLATELET VOLUME 10.3 fL (9.0-12.2); MONOCYTES # (AUTO) 1.2 10^3/uL (0.0-1.0); MONOCYTES % (AUTO) 16 % (0-12); NEUTROPHILS # (AUTO) 4.8 10^3/uL (1.8-7.8); NEUTROPHILS % (AUTO) 63 % (42-75); PLATELET COUNT 413 10^3/uL (130-400); WHITE BLOOD COUNT 7.7 10^3/uL (4.3-11.0)
[2022-04-15 06:01] LABS: ALBUMIN 2.3 GM/DL (3.2-4.5); BILIRUBIN,TOTAL 0.7 MG/DL (0.1-1.0); CALCIUM 8.2 MG/DL (8.5-10.1); CREATININE SERUM 0.55 MG/DL (0.60-1.30); POTASSIUM 3.5 MMOL/L (3.6-5.0); TOTAL PROTEIN 5.3 GM/DL (6.4-8.2)
[2022-04-15] MEDS: RT--FLUTICASONE/SALMETEROL 113-14 (AIRDUO RespiCLICK) IH SCH ×2 (07:16→20:58)
[2022-04-15] MEDS: UMECLIDINIUM BROMIDE (INCRUSE ELLIPTA) 7'S IH SCH (07:16)
[2022-04-15 07:28] VITALS: BP 130/80
[2022-04-15] MEDS: KCL 10 MEQ TAB (MICRO K) PO SCH ×2 (07:58→17:20)
[2022-04-15] MEDS: polyethylene glycoL POWDER 17 GM (MIRALAX) PACK PO SCH ×2 (08:00→19:30)
[2022-04-15] MEDS: DOCUSATE SODIUM 100 MG (COLACE) CAP PO SCH ×2 (08:00→20:37)
[2022-04-15] MEDS: BUMETANIDE 1 MG (BUMEX) TAB PO SCH (08:00)
[2022-04-15] MEDS: SENNA W/DOCUSATE (SENOKOT S) TABLET PO SCH ×2 (08:00→20:39)
[2022-04-15] MEDS ORDERED: TIOTROPIUM BROMIDE (SPIRIVA) 5'S INHALER IH SCH (08:00)
--- NOTE | 2022-04-15 08:53 | Physical Therapy Evaluation ---
PT Evaluation-General Medical Diagnosis Admission Date Apr 14, 2022 at 12:58 Medical Diagnosis: COPD myopathy Onset Date: Apr 14, 2022 Therapy Diagnosis Therapy Diagnosis: impaired mobility, strength, endurance Precautions Precautions/Isolations: Standard Precautions Referral Physician: Johanne Rizzo DO Reason for Referral: Evaluation/Treatment Medical History Additional Medical History Past Medical History Surgeries: Abdominal Respiratory: COPD, Pneumonia, Pulmonary Fibrosis Cardiac: Chronic Edema/Swelling, High Cholesterol, Hypertension Gastrointestinal: Colitis, Gastroesophageal Reflux Musculoskeletal: Arthritis Current History colonoscopy due to suspicion of colitis and it was a complication of a perforation and required a diverting colostomy Reviewed History: Yes Social History Home: Single Level Current Living Status: Alone Entry Into Home: Stairs With Railing PT Steps Into Home: 2 Prior Prior Level of Function SCALE: Activities may be completed with or without assistive devices. 1-Hzzsskjikp-bcciuga completes the activity by him/herself with no assistance from a helper. 5-Set-up or Clean-up Assistance-helper sets up or cleans up; patient completes activity. [place] assists only prior to or following the activity. 4-Supervision or Touching Assistance-helper provides verbal cues and/or touching/steadying and/or contact guard assistance as patient completes activity. Assistance may be provided throughout the activity or intermittently. 3-Partial/Moderate Assistance-helper does LESS THAN HALF the effort. [place] lifts, holds or supports trunk or limbs, but provides less than half the effort. 2-Substantial/Maximal Assistance-helper does MORE THAN HALF the effort. [place] lifts or holds trunk or limbs and provides more than half the effort. 3-Lfwicufnp-odhjbf does ALL the effort. Patient does none of the effort to complete the activity. Or, the assistance of 2 or more helpers is required for the patient to complete the activity. If activity was not attempted, code reason: 7-Patient Refused. 9-Not Applicable-not attempted and the patient did not perform the activity before the current illness, exacerbation or injury. 10-Not Attempted due to Environmental Limitations-(lack of equipment, weather restraints, etc.). 88-Not Attempted due to Medical Conditions or Safety Concerns. Bed Mobility: 6 Transfers (B,C,W/C): 6 Gait: 6 Stairs: 6 Indoor Mobility (Ambulation): Independent Stairs: Independent PT Evaluation-Current Subjective Patient in bed pre tx, agrees to PT, states she has very little pain at rest. Pain Section J - Health Conditions 1. Rarely or not at all 2. Occasionally 3. Frequently 4. Almost constantly 8. Unable to answer Pain Effect on Sleep: 1 Pain Interference with Therapy: 1 Pain Interference w/Day-to-Day: 1 Pt/Family Goals to be independent at home Objective Patient Orientation: Person, Place, Situation Attachments: Colostomy/Ileostomy, Oxygen ROM/Strength ROM Lower Extremities WNL Strength Lower Extremities LLE (hip flexion 3+/5, knee flexion 4-/5, knee extension 4-/5, dorsiflexion 4- /5), RLE (hip flexion 3+/5, knee flexion 4-/5, knee extension 4-/5, dorsiflexion 4-/5) Sensory Vision: Functional Hearing: Functional Sensation Right Lower Extremit: Impaired Sensation Left Lower Extremity: Impaired Sensation Lower Extremities decreased light touch sensation in feet. Transfers Roll Left & Right (QC): 6 Sit to Lying (QC): 6 Lying to Sitting/Side of Bed(Q: 6 Sit to Stand (QC): 3 Chair/Iix-nk-Rwxzo Xfer(QC): 4 Toilet Transfer (QC): 4 Car Transfer (QC): 4 Patient performed rolling and supine <-> sit with independence, sit <-> stand min assist (from lower surfaces), transfers and car transfer CGA. Patient needs occasional cues for hand placement and positioning. Patient needed to use the restroom, her colostomy burst open, nurse aide helped clean and change. Patient was dressed too. Gait Does the Patient Walk?: Yes Mode of Locomotion: Walk Anticipated Mode of Locomotion: Walk Walk 10 feet (QC): 4 Walk 50 ft with 2 Turns(QC): 4 Walk 150 ft (QC): 88 Walking 10ft/uneven surface-QC: 4 Distance: 120', 60'x2 Gait Assistive Device: FWW Comments/Gait Description Patient can ambulate 120' with a rolling walker with CGA (including 50' with at least 2 turns of 90 degrees and 10' over an uneven surface), gait is slow but steady, needs occasional standing rest breaks, fatigues easily Wheelchair Training Wheel 50 ft with 2 turns (QC): 9 Wheel 150 ft (QC): 9 Stairs #of Steps: 1 1 Step (curb) (QC): 4 4 Steps (QC): 88 12 Steps (QC): 88 Walking Assistive Device: Walker Patient can go up and down 1 step using a rolling walker with CGA, cues for safety. Balance Sitting Static: Normal Sitting Dynamic: Normal Standing Static: Good Standing Dynamic: Good Picking up an Object (QC): 4 (CGA using a sign out clerk) Treatment NuStep level 4 for 10 min. Assessment/Needs Patient in bed post tx with nurse call, phone, tray, all needs met. Patient has impaired mobility, strength, endurance. She needs min assist to stand from lower surfaces. Rehab Potential: Fair PT Short Term Goals Short Term Goals Time Frame: Apr 22, 2022 Sit to stand: 4 Chair/onk-dy-oywqh transfer: 4 Walk 10 feet: 4 Walk 50 feet with two turns: 4 Walk 150 feet: 4 all SBA PT Fci Goals Fci Goals PT Fci Goals Time Frame: Apr 29, 2022 Roll Left to Right (QC): 6 Sit to Lying (QC): 6 Lying-Sitting on Side/Bed(QC): 6 Sit to Stand (QC): 6 Chair/Zjt-tr-Ntvvn Xfer(QC): 6 Toilet/Commode Transfer (QC): 6 Car Transfer (QC): 6 Does the Patient Walk: Yes Walk 10 feet (QC): 6 Walk 10ft-Uneven Surface(QC): 6 Walk 50ft with 2 Turns (QC): 6 Walk 150 ft (QC): 6 Wheel 50 feet with 2 turns (QC: 9 Wheel 150 feet: 9 1 Step (curb) (QC): 4 (SBA) 4 Steps (QC): 4 (SBA) 12 Steps (QC): 88 Picking up an Object (QC): 6 PT Plan Problem List Problem List: Activity Tolerance, Functional Strength, Safety, Balance, Gait, Transfer, Bed Mobility, ROM Treatment/Plan Treatment Plan: Continue Plan of Care Treatment Plan: Bed Mobility, Education, Functional Activity Vi, Functional Strength, Group Therapy, Gait, Safety, Therapeutic Exercise, Transfers Treatment Duration: Apr 29, 2022 Frequency: At least 5 of 7 days/Wk (IRF) Estimated Hrs Per Day: 1.5 hours per day Patient and/or Family Agrees t: Yes Safety Risks/Education Patient Education: Gait Training, Transfer Techniques, Steps, Correct Positioning, Safety Issues Teaching Recipient: Patient Teaching Methods: Demonstration, Discussion Response to Teaching: Reinforcement Needed Discharge Recommendations Plan Patient will perform bed mobility and transfer training, balance and endurance training, functional strengthening, stair training, gait training, and education, to improve functional mobility and independence at home. Therapy Discharge Recommendati: Home & Family, Post Acute PT Time Time In: 0800 Time Out: 0900 DATE: Apr 15, 2022 Total Billed Treatment Time: 60 Total Billed Treatment 1 visit EX 10' EVM 15' FA 35' JEFF BRIDGES PT Apr 15, 2022 08:53
[2022-04-15] MEDS ORDERED: HYPOCHLOROUS ACID/NaCl (VASHE) 250 ML IR PRN (09:45)
--- NOTE | 2022-04-15 10:01 | Occupational Therapy Eval ---
OT Evaluation-General/PLF Medical Diagnosis Admission Date Apr 14, 2022 at 12:58 Medical Diagnosis: COPD myopathy Onset Date: Apr 14, 2022 Therapy Diagnosis Therapy Diagnosis: decreased ADL status Precautions Precautions/Isolations: Standard Precautions Referral Physician: Johanne Rizzo DO Referral Reason: Evaluation/Treatment Medical History Additional Medical History COPD, Chronic HRF, HTN Current History s/p Colon resection and ileostomy. Transferred to [facility] 04/14/22 Social History Home: Single Level Current Living Status: Alone Entry Into Home: Stairs With Railing Steps Into Home: 2 ADL-Prior Level of Function SCALE: Activities may be completed with or without assistive devices. 9-Bhlgupteel-xscxuym completes the activity by him/herself with no assistance from a helper. 5-Set-up or Clean-up Assistance-helper sets up or cleans up; patient completes activity. [place] assists only prior to or following the activity. 4-Supervision or Touching Assistance-helper provides verbal cues and/or touc justine/steadying and/or contact guard assistance as patient completes activity. Assistance may be provided throughout the activity or intermittently. 3-Partial/Moderate Assistance-helper does LESS THAN HALF the effort. [place] lifts, holds or supports trunk or limbs, but provides less than half the effort. 2-Substantial/Maximal Assistance-helper does MORE THAN HALF the effort. [place] lifts or holds trunk or limbs and provides more than half the effort. 9-Qvbfjjjbk-gpjxkd does ALL the effort. Patient does none of the effort to complete the activity. Or, the assistance of 2 or more helpers is required for the patient to complete the activity. If activity was not attempted, code reason: 7-Patient Refused. 9-Not Applicable-not attempted and the patient did not perform the activity before the current illness, exacerbation or injury. 10-Not Attempted due to Environmental Limitations-(lack of equipment, weather restraints, etc.). 88-Not Attempted due to Medical Conditions or Safety Concerns. ADL PLOF Comments Pt reports IND with ADLS and functional mobility at PLOF, no AD. Self Care: Independent Functional Cognition: Independent DME/Equipment: Bath Chair, Shower OT Current Status Subjective Pt agreeable to OT Tx with encouragement. Pt required encouragement throughout tx to attempt tasks herself. Mental Status/Objective Patient Orientation: Person, Place, Time, Situation Attachments: Oxygen (4L NC) Current Glasses/Contacts: No Hearing Aids: No Dentures/Partials: No Hand Dominance: Right Upper Extremity ROM WFL Upper Extremity Coordination WFL Upper Extremity Sensation WFL Upper Extremity Strength grossly 3+/5 ADL-Treatment Eating (QC): 6 Oral Hygiene (QC): 4 (SBA) Shower/Bathe Self (QC): 4 (SBA sponge bath) Upper Body Dressing (QC): 5 Lower Body Dressing (QC): 4 (SBA) On/Off Footwear (QC): 4 (SBA) Toileting Hygiene (QC): 3 (Min A with emptying ostomy, with VCs. SBA urination only.) Other Treatments Pt in bed, required encouragement to participate in tx out of bed. Pt declined full shower due to fatigue, agreeable to sponge bath. Pt sat EOB to complete sponge bath and dressing, encouragement to attempt tasks herself. Pt requests AE, she did not use any at home prior to hospitalization. OT encouraged pt to attempt without equipment and pt able to complete LE dressing and footwear with SBA, no AE. Pt used FWW to transfer into bathroom and onto toilet, SBA. Pt able to urinate with SBA, min A with emptying ostomy bag. Min A sit to stand from toilet. OT placed BSC to increase pt's independence with standing from toilet. Pt stood at sink for hand hygiene and oral care, SBA. Pt returned to EOB, SBA, then supine, IND. Pt able to pull self up in bed with encouragement and instruction of UE placement. Post tx, pt in bed, call light in reach and all needs met. Education OT Patient Education: Correct positioning, Energy conservation, Modified ADL techniques, Progress toward Goal/Update tx plan, Purpose of tx/functional activities, Rehab process Teaching Recipient: Patient Teaching Methods: Discussion Response to Teaching: Verbalize Understanding BIMS CAM BIMS Expression of Ideas and Wants: Without Difficulty Understanding Verbal Content: Understands Brief Interview/Mental Status: Yes IRF NATHAN BIMS: IRF NATHAN BIMS Response (Comments) Value Repitition of Three Words Three 3 Recalls Socks Yes, No Cue Required 2 Recalls Blue Yes, No Cue Required 2 Recalls Bed Yes, No Cue Required 2 Year Correct 3 Month Accurate Within 5 Days 2 Day Correct 1 Total [address] Mental [address] No CAM Mental Status Change/Baseline: 0 Inattention: 0 Disorganized thinkin Altered level of consciousness: 0 OT Short Term Goals Short Term Goals Time Frame: Apr 24, 2022 Toileting hygiene: 5 Shower/bathe self: 5 Lower body dressin Putting on/taking off footwear: 5 OT Elastic Yarn Twister Helper Goals Fci Goals Time Frame: May 10, 2022 Eating (QC): 6 Oral Hygiene (QC): 6 Toileting Hygiene (QC): 6 Shower/Bathe Self (QC): 6 Upper Body Dressing (QC): 6 Lower Body Dressing (QC): 6 On/Off Footwear (QC): 6 Additional Goals: 1-Demonstrate ADL Tasks, 2-Verbalize Understanding, 3- ImproveStrength/Vi 1=Demonstrate adherence to instructed precautions during ADL tasks. 2=Patient will verbalize/demonstrate understanding of assistive devices/modifications for ADL. 3=Patient will improve strength/tolerance for activity to enable patient to perform ADL's. OT Education/Plan Problem List/Assessment Assessment: Decreased Activ Tolerance, Decreased UE Strength, Impaired Funct Balance, Impaired I ADL's, Impaired Self-Care Skills Discharge Recommendations Plan/Recommendations: Continue POC Treatment Plan/Plan of Care Patient would benefit from OT for education, treatment and training to promote independence in ADL's, mobility, safety and/or upper extremity function for ADL's. Plan of Care: ADL Retraining, Functional Mobility, Group Exercise/Act as Ind, UE Funct Exercise/Act Treatment Duration: May 10, 2022 Frequency: At least 5 of 7 days/Wk (IRF) Estimated Hrs Per Day: 1.5 hours per day Agreement: Yes Rehab Potential: Fair Time Start Time: 09:00 Stop Time: 10:00 DATE: Apr 15, 2022 Total Time Billed (hr/min): 60 Billed Treatment Time 1, EVL (10'), ADL 3 (50') EMERSON SPRAGUE OT Apr 15, 2022 10:01
--- NOTE | 2022-04-15 12:02 | ST Cognitive Linguistic Eval ---
Speech Evaluation-General Medical Diagnosis COPD Myopathy Onset Date: Apr 14, 2022 Therapy Diagnosis Therapy Diagnosis: Intact (Baseline) Cognition Precautions Precautions: Fall Precautions/Isolations: Fall Prevention, Standard Precautions Referral Referring Physician: Dr. Rizzo Reason for Referral: Evaluation/Treatment Medical History Reviewed History: Yes Social History Current Living Status: Alone Speech PLF-Current Status Prior Level of Function The patient denied concerns or difficulties with her cognitive, language, speech, or swallowing skills. Subjective The patient was lying in bed, awake and alert, upon entrance to her room by the clinician. The patient greeted the clinician appropriately and was agreeable to participation in the cognitive linguistic assessment. Language Eval: Auditory Comprehends Simple Yes/No Ques: Functional Indent/Objects Multiple [place]: Functional Follows 1-Step Commands: Functional Follows Complex Directions: Functional Follows General Conversations: Functional Language Eval: Verbal Language Completes Spontaneous Greeting: Functional Produces Auto, Serial Info: Functional Word Finding: Functional Requests Basic Needs: Functional States Basic Personal Info: Functional Expresses Complex Ideas: Functional Language Evaluation: Reading Follows Simple Written Direct: Functional Language Evaluation: Writing Writes to Simple Dictation: Functional Cognitive Patient Orientation The patient was independently oriented to self, location, month, day of the week, date and year. Objective Cognitive Domain Attention: WNL Memory: WNL Problem Solving: Functional Executive Functions: WNL Visuospatial Skills: WNL Composite Severity Rating: WNL Clock Drawing Severity Rating: WNL Objective Formal/Standardized Tests [facility] Mental Status Exam (UMS) Results The patient demonstrated +28/30 on the SLUMS correlating to cognitive linguistic skills within normal limits. Oral Motor/Speech Production The patient does not display dysarthria or apraxia of speech. The patient is 100% intelligible in known and unknown contexts. Impression The patient demonstrated intact (and baseline) cognitive linguistic skills. Speech-Plan Treatment Plan Speech Therapy Treatment Plan: Discontinue ST Treatment Duration: Apr 15, 2022 Frequency: 1 time per week Estimated Hrs Per Day: .25 hour per day Rehab Potential: Fair Safety Risks/Education Teaching Recipient: Patient Teaching Methods: Discussion Response to Teaching: Verbalize Understanding Education Topics Provided: Results, Recommendations, Plan of Care Time Speech Therapy Time In: 10:18 Speech Therapy Time Out: 10:38 DATE: Apr 15, 2022 Total Billed Time: 20 Billed Treatment Time 1, CHRISTIN MICHEL [facility]IZ[facility] ST Apr 15, 2022 12:02
--- NOTE | 2022-04-15 12:27 | Diagnostic Imaging Report ---
INDICATION: PICC line placement. FINDINGS: Heart size is normal. There is some scarring or atelectasis in lung bases. There is no pleural effusion or pneumothorax. Mediastinum is unremarkable. The right upper extremity PICC line has its tip in the superior vena cava. IMPRESSION: Scarring or atelectasis in lung bases bilaterally. The right upper extremity PICC line has its tip in the superior vena cava. Dictated by: Dictated on workstation # [id number]
--- NOTE | 2022-04-15 13:28 | Occupational Ther Daily Note ---
OT Current Status-Daily Note Subjective Pt in bed, agreeable to OT tx. Wound care present post tx to assess pt's abdominal wound. ADL-Treatment Therapy Code Descriptions/Definitions Functional [place] Measure: 0=Not Assessed/NA 4=Minimal Assistance 1=Total Assistance 5=Supervision or Setup 2=Maximal Assistance 6=Modified [place] 3=Moderate Assistance 7=Complete IndependenceSCALE: Activities may be completed with or without assistive devices. 4-Gxxgsthoiu-klverva completes the activity by him/herself with no assistance from a helper. 5-Set-up or Clean-up Assistance-helper sets up or cleans up; patient completes activity. [place] assists only prior to or following the activity. 4-Supervision or Touching Assistance-helper provides verbal cues and/or touching/steadying and/or contact guard assistance as patient completes activity. Assistance may be provided throughout the activity or intermittently. 3-Partial/Moderate Assistance-helper does LESS THAN HALF the effort. [place] lifts, holds or supports trunk or limbs, but provides less than half the effort. 2-Substantial/Maximal Assistance-helper does MORE THAN HALF the effort. [place] lifts or holds trunk or limbs and provides more than half the effort. 4-Dptxujxwv-nwrttm does ALL the effort. Patient does none of the effort to complete the activity. Or, the assistance of 2 or more helpers is required for the patient to complete the activity. If activity was not attempted, code reason: 7-Patient Refused. 9-Not Applicable-not attempted and the patient did not perform the activity before the current illness, exacerbation or injury. 10-Not Attempted due to Environmental Limitations-(lack of equipment, weather restraints, etc.). 88-Not Attempted due to Medical Conditions or Safety Concerns. Other Treatment Pt in bed, agreeable to OT tx. Pt had questions regarding toilet riser for disc harge due to difficulty with standing from standard toilet height. OT educated pt on various types of toilet risers and benefits. Pt decided to purchase toilet riser with handles. Pt able to navigate [place] to find toilet riser she wants, and purchased item. Wound care present to assess pt's abdominal wound. OT assisted pt with positioning. Post tx, pt in bed, call light in reach and all needs met. Wound care present. Education OT Patient Education: Correct positioning, Energy conservation, Modified ADL techniques, Progress toward Goal/Update tx plan, Purpose of tx/functional activities, Rehab process Teaching Recipient: Patient Teaching Methods: Discussion Response to Teaching: Verbalize Understanding OT Short Term Goals Short Term Goals Time Frame: Apr 24, 2022 Toileting hygiene: 5 Shower/bathe self: 5 Lower body dressin Putting on/taking off footwear: 5 OT [place] Assessor Goals Assisted Goals Time Frame: May 10, 2022 Acute change in mental status: 0 Inattention: 0 Disorganized thinkin Altered level of consciousness: 0 Eating (QC): 6 Oral Hygiene (QC): 6 Toileting Hygiene (QC): 6 Shower/Bathe Self (QC): 6 Upper Body Dressing (QC): 6 Lower Body Dressing (QC): 6 On/Off Footwear (QC): 6 Additional Goals: 1-Demonstrate ADL Tasks, 2-Verbalize Understanding, 3- ImproveStrength/Vi 1=Demonstrate adherence to instructed precautions during ADL tasks. 2=Patient will verbalize/demonstrate understanding of assistive devices/modifications for ADL. 3=Patient will improve strength/tolerance for activity to enable patient to perform ADL's. OT Education/Plan Problem List/Assessment Assessment: Decreased Activ Tolerance, Decreased UE Strength, Impaired Funct Balance, Impaired I ADL's, Impaired Self-Care Skills Discharge Recommendations Plan/Recommendations: Continue POC Treatment Plan/Plan of Care Patient would benefit from OT for education, treatment and training to promote independence in ADL's, mobility, safety and/or upper extremity function for ADL's. Plan of Care: ADL Retraining, Functional Mobility, Group Exercise/Act as Ind, UE Funct Exercise/Act Treatment Duration: May 10, 2022 Frequency: At least 5 of 7 days/Wk (IRF) Estimated Hrs Per Day: 1.5 hours per day Agreement: Yes Rehab Potential: Fair Time Start Time: 12:50 Stop Time: 13:10 DATE: Apr 15, 2022 Total Time Billed (hr/min): 20 Billed Treatment Time 1, ADL EMERSON SPRAGUE OT Apr 15, 2022 13:28
--- NOTE | 2022-04-15 13:37 | Wound Care Assessment ---
Wound Care Assessment Date Seen by Provider: Apr 15, 2022 Time Seen by Provider: 13:31 Chief Complaint Surgical dehiscence HPI This pleasant 76 year old patient presents to ARU following recent colonic perforation with diverting colostomy. She was transferred from [place] with wound vac previously in place. She does have anemia (uncertain of chronicity or etiology) and PEM which will complicate her wound healing progress. She is tolerating her PT well and plans to d/c home upon leaving. If so, plan will be for home health and continuation of wound vac as outpatient. Surgery has been consulted and I do plan to touch base with them. Nicolasa has visible sutures in her wound bed with exposed fascia and muscle. We will cover the area with adaptic and white foam. She has undermining to the right lateral margin (ostomy side) with a tunnel at 9 o'clock measuring 5cm in depth. The tunnel is quite narrow and we will attempt to dart white foam to the area. This tunnel tracks under fat and atop her abdominal wall. It is difficult for me to assess if it reaches her ostomy. I do not note ostomy/fecal output in wound bed with probing of tunnel and her wound bed looks clean and without significant drainage currently. I will reach out to surgery (Dr. Hunt has been consulted) for his input. The rest of the wound margin is reassuring. Nicolasa is an extremely poor historian. Per her son, her initial surgery (ostomy) was 03-25-22. I do not know the timing of her wound dehiscence. Anemia of unknown etiology, PEM, debility, COPD, diastolic CHF with anasarca, diverting colostomy Smoking Status: Former Smoker Alcohol Use: Regular Use Review of Systems General: Fatigue Neurological: Weakness Exam Vital Signs Date Time Temp Pulse Resp B/P (MAP) Pulse Ox O2 Delivery O2 Flow Rate FiO2 04/15/22 09:19 Nasal Cannula 4.00 04/15/22 07:28 36.1 89 16 130/80 (97) 90 Capillary Refill : General Appearance: no apparent distress, obese HEENT: other (hearing wnl) Neck: full range of motion Cardiovascular: other (Anasarca) Respiratory: no respiratory distress, no accessory muscle use Neurologic/Psychiatric: alert, normal mood/affect, oriented x 3 (poor historian) Skin: normal color, warm/dry Skin Problem Location: other (midline abdomen) Wound assessment: The epithelialization is none. There is a tunnel at 9 o'clock of 5cm depth, there is undermining from 7 to 10. Drainage is medium and serous. Granulation is none. Necrotic is small and slough. The margins show epibole. There is exposed fascia and muscle with surgical sutures. Results Laboratory Tests 04/15/22 05:00: White Blood Count 7.7, Red Blood Count 3.09L, Hemoglobin 9.6L, Hematocrit 30L, Mean Corpuscular Volume 96, Mean Corpuscular Hemoglobin 31, Mean Corpuscular Hemoglobin Concent 32, Red Cell Distribution Width 13.3, Platelet Count 413H, Mean Platelet Volume 10.3, Immature Granulocyte % (Auto) 0, Neutrophils (%) (Auto) 63, Lymphocytes (%) (Auto) 16, Monocytes (%) (Auto) 16H, Eosinophils (%) (Auto) 5, Basophils (%) (Auto) 0, Neutrophils # (Auto) 4.8, Lymphocytes # (Auto) 1.2, Monocytes # (Auto) 1.2H, Eosinophils # (Auto) 0.4H, Basophils # (Auto) 0.0, Immature Granulocyte # (Auto) 0.0, Sodium Level 134L, Potassium Level 3.5L, Chloride Level 97L, Carbon Dioxide Level 28, Anion Gap 9, Blood Urea Nitrogen 8, Creatinine 0.55L, Estimat Glomerular Filtration Rate 94, BUN/Creatinine Ratio 15, Glucose Level 78, Calcium Level 8.2L, Corrected Calcium 9.6, Total Bilirubin 0.7, Aspartate Amino Transf (AST/SGOT) 19, Alanine Aminotransferase (ALT/SGPT) 16, Alkaline Phosphatase 101, Total Protein 5.3L, Albumin 2.3L Assessment/Plan/Dx Assessment: 1. Surgical Dehiscence 2. PEM 3. Generalized weakness 4. Anemia of unknown etiology 5. Diverting colostomy status Plan: 1. Will discuss with Dr. Hunt. Plan for wound vac with white foam and adaptic. Suction at 125. Will currently plan to change MWF (plan to monitor closely for signs of ostomy output in vac). Upon d/c home will plan for home wound vac therapy with home health and follow up in our office 2. Protein supplementation 3. Agree with rehab 4. defer to primary team 5. defer to surgical team JEFFREY ENGLISH MD Apr 15, 2022 13:37
[2022-04-15] MEDS ORDERED: CATHETER FLUSH 10 ML SYR IVP PRN (14:00)
[2022-04-15] MEDS: CATHETER FLUSH 10 ML SYR IVP SCH ×2 (14:50→22:03)
--- NOTE | 2022-04-15 14:50 | Physical Therapy Daily Note ---
PT Daily Note-Current Subjective Patient in bed pre tx, agrees to PT, has unrated abdominal pain, agrees to exercises in bed due to her abdominal pain, patient just got her wound vac placed. Pain Section J - Health Conditions 1. Rarely or not at all 2. Occasionally 3. Frequently 4. Almost constantly 8. Unable to answer Pain Effect on Sleep: 1 Pain Interference with Therapy: 1 Pain Interference w/Day-to-Day: 1 Appearance Patient in bed post tx with nurse call, phone, tray, all needs met. Mental Status Patient Orientation: Person, Place, Situation wound vac Transfers SCALE: Activities may be completed with or without assistive devices. 8-Gotrccyzlb-pjysaye completes the activity by him/herself with no assistance from a helper. 5-Set-up or Clean-up Assistance-helper sets up or cleans up; patient completes activity. [place] assists only prior to or following the activity. 4-Supervision or Touching Assistance-helper provides verbal cues and/or touching/steadying and/or contact guard assistance as patient completes activity. Assistance may be provided throughout the activity or intermittently. 3-Partial/Moderate Assistance-helper does LESS THAN HALF the effort. [place] lift s, holds or supports trunk or limbs, but provides less than half the effort. 2-Substantial/Maximal Assistance-helper does MORE THAN HALF the effort. [place] lifts or holds trunk or limbs and provides more than half the effort. 5-Txbwngdzr-xcaaqi does ALL the effort. Patient does none of the effort to complete the activity. Or, the assistance of 2 or more helpers is required for the patient to complete the activity. If activity was not attempted, code reason: 7-Patient Refused. 9-Not Applicable-not attempted and the patient did not perform the activity before the current illness, exacerbation or injury. 10-Not Attempted due to Environmental Limitations-(lack of equipment, weather restraints, etc.). 88-Not Attempted due to Medical Conditions or Safety Concerns. Exercises Supine Ex: Ankle pumps, Quad Set, Glut sets, Heel Slides, Short Arc Quads, Hip abd/add (with ball and RTB) Supine Reps: 20 Treatments LE exercise Assessment Current Status: Poor Progress patient needed encouragement to participate. PT Short Term Goals Short Term Goals Time Frame: Apr 22, 2022 Sit to stand: 4 Chair/wlg-yk-snzsg transfer: 4 Walk 10 feet: 4 Walk 50 feet with two turns: 4 Walk 150 feet: 4 PT Machine Marker Goals Group Home Goals PT Group Home Goals Time Frame: Apr 29, 2022 Roll Left & Right (QC): 6 Sit to Lying (QC): 6 Lying-Sitting on Side/Bed(QC): 6 Sit to Stand (QC): 6 Chair/Rjd-fm-Nrigy Xfer(QC): 6 Toilet Transfer (QC): 6 Car Transfer (QC): 6 Does the Patient Walk: Yes Walk 10 feet (QC): 6 Walk 50ft with 2 Turns (QC): 6 Walk 150 ft (QC): 6 Walking 10ft on Uneven Surface: 6 1 Step (curb) (QC): 4 (SBA) 4 Steps (QC): 4 (SBA) 12 Steps (QC): 88 Picking up an Object (QC): 6 Wheel 50 feet with 2 turns (QC: 9 Wheel 150 feet: 9 PT Plan Problem List Problem List: Activity Tolerance, Functional Strength, Safety, Balance, Gait, Transfer, Bed Mobility, ROM Treatment/Plan Treatment Plan: Continue Plan of Care Treatment Plan: Bed Mobility, Education, Functional Activity Vi, Functional Strength, Group Therapy, Gait, Safety, Therapeutic Exercise, Transfers Treatment Duration: Apr 29, 2022 Frequency: At least 5 of 7 days/Wk (IRF) Estimated Hrs Per Day: 1.5 hours per day Patient and/or Family Agrees t: Yes Safety Risks/Education Patient Education: Correct Positioning, Safety Issues Teaching Recipient: Patient Teaching Methods: Demonstration, Discussion Response to Teaching: Reinforcement Needed Time Time In: 1430 Time Out: 1450 DATE: Apr 15, 2022 Total Billed Treatment Time: 20 Total Billed Treatment 1 visit EX 20' JEFF BRIDGES PT Apr 15, 2022 14:49
[2022-04-15] MEDS: ENOXAPARIN 40 MG/0.4 ML (LOVENOX) SYR SC SCH (17:21)
[2022-04-15 19:34] VITALS: BP 120/73
--- NOTE | 2022-04-15 20:36 | CONSULTATION REPORT ---
DATE OF SERVICE: 04/15/2022 HISTORY OF PRESENT ILLNESS: The patient is a 76-year-old female known to us. She initially was scheduled for a screening colonoscopy; however, she did not mention that she did have a history of colonic strictures, as well as a history of collagenous colitis. She just stated that she had had previous polyps before. She states that all of her previous medical care was done in [place], [place]. We had done a colonoscopy at [facility] and there was significant inflammation identified. Also on the withdrawal of the colonoscope, a perforation was identified. Initially, a diagnostic laparoscopy was performed and it appeared that the perforation was at the rectosigmoid junction. We then proceeded with an open low anterior colorectal resection and primary anastomosis. However, due to her tissue integrity, which was very friable and weak, we also proceeded to place a diverting loop ileostomy. The patient also does have a host of other medical problems including COPD, diastolic dysfunction, history of encephalopathy as well as a possible alcohol abuse. She developed agitation and dementia type of symptoms and was transferred to [facility]. She was readmitted for rehabilitation here at [facility]. PAST MEDICAL HISTORY: COPD, hypertension, hypercholesterolemia, diastolic dysfunction, history of collagenous colitis and colon polyps. PAST SURGICAL HISTORY: Exploratory laparotomy, low anterior colorectal resection and diverting loop ileostomy. ALLERGIES: PENICILLIN, ACETAMINOPHEN, FUROSEMIDE. MEDICATIONS: Albuterol breathing treatments every 4 hours p.r.n., alprazolam 0.25 mg q.8 hours p.r.n., bumetanide 1 mg daily, diltiazem 180 mg daily, Colace 100 mg daily, enoxaparin 40 mg daily, fluticasone/salmeterol 113/14 b.i.d., [ ] 10 mL q. 4 hours p.r.n., loperamide 2 mg daily, potassium 10 mEq daily, tramadol 50 mg q.6 hours p.r.n., zolpidem 5 mg each day at bedtime. SOCIAL HISTORY: Negative smoker, positive alcohol on a daily basis. FAMILY HISTORY: Noncontributory. PHYSICAL EXAMINATION: VITAL SIGNS: Temperature 36.6, blood pressure 120/73, pulse 83, respirations 16, pulse ox 94% on 4 liters nasal cannula. REVIEW OF SYSTEMS: A well-nourished female, currently in no acute distress. She is not experiencing any shortness of breath or difficulty breathing. No chest pain, palpitations, diaphoresis. No nausea, vomiting. He is tolerating a regular diet and does have a functioning loop ileostomy. She did have wound dehiscence and wound VAC was placed at [facility]; however, unsure if this was continued at [facility] and was again replaced here at [facility]. No known fever, chills, no recent inadvertent weight loss. All other review of systems negative. PHYSICAL EXAMINATION: CHEST: Decreased breath sounds and scattered wheezes bilaterally. HEART: Regular, no murmurs. EXTREMITIES: No lower extremity edema. Negative Homans sign. HEENT: No scleral icterus. No cervical lymphadenopathy. GASTROINTESTINAL: Abdomen is soft, nontender, nondistended, with a wound VAC intact. SKIN: Warm and dry. LABORATORY DATA: WBC 7.7, hemoglobin 9.6, hematocrit 30, platelets 413, BUN 8, creatinine 0.55. ASSESSMENT AND PLAN: A 76-year-old female with a history of collagenous colitis as well as possibly Crohn's disease, status post colonoscopy and perforation requiring a low anterior colorectal resection and loop ileostomy, who developed worsening COPD as well as nocturnal agitation as well as dementia and was transferred to [facility]. She also developed a wound dehiscence and will need to continue to have a wound VAC to promote granulation tissue. We will continue to monitor her progress. Job ID: [id number] DocumentID: [id number] Dictated Date: 04/15/2022 19:59:30 Inspector Motor Vehicles Date: 04/15/2022 20:35:00 Dictated By: ASHER BARDALES MD
--- NOTE | 2022-04-16 05:45 | PM&R Progress Note ---
Subjective HPI/CC On Admission Date Seen by Provider: Apr 16, 2022 Time Seen by Provider: 09:00 Subjective/Events-last exam 04/16/2022: Doing very well. BM+ Using Purewick and she will obtain one to have at home so no need to wean Pain controlled Breathing well Dulera will be clarified with Dr Lucas. 04/15/2022: Doing very well No pain reported Output colostomy good Lungs clear Working with therapy Labs reviewed Review of Systems General: Fatigue, Malaise Pulmonary: Dyspnea Objective Exam Vital Signs Vital Signs Date Time Temp Pulse Resp B/P (MAP) Pulse Ox O2 Delivery O2 Flow Rate FiO2 04/16/22 20:00 36.4 78 18 129/63 (85) 95 Nasal Cannula 4.00 Capillary Refill : General Appearance: No Apparent Distress, WD/WN, Chronically ill HEENT: PERRL/EOMI, Normal ENT Inspection, Pharynx Normal Neck: Full Range of Motion, Normal Inspection, Non Tender, Supple, Carotid Bruit Respiratory: Chest Non Tender, Lungs Clear, Normal Breath Sounds, No Accessory Muscle Use, No Respiratory Distress, Decreased Breath Sounds Cardiovascular: Regular Rate, Rhythm, No Edema, No Gallop, No JVD, No Murmur, Normal Peripheral Pulses Gastrointestinal: Normal Bowel Sounds, No Organomegaly, No Pulsatile Mass, Non Tender, Soft, Other (Colostomy) Back: Normal Inspection, No CVA Tenderness, No Vertebral Tenderness Extremity: Normal Capillary Refill, Normal Inspection, Normal Range of Motion, Non Tender, No Calf Tenderness, No Pedal Edema Neurologic/Psychiatric: Alert, Oriented x3, Normal Mood/Affect, Motor Weakness (Generalized 3/5) Skin: Normal Color, Warm/Dry Lymphatic: No Adenopathy Results/Procedures Lab Patient resulted labs reviewed. FIM Transfers Therapy Code Descriptions/Definitions Functional [place] Measure: 0=Not Assessed/NA 4=Minimal Assistance 1=Total Assistance 5=Supervision or Setup 2=Maximal Assistance 6=Modified [place] 3=Moderate Assistance 7=Complete IndependenceSCALE: Activities may be completed with or without assistive devices. 9-Ykcdwufjog-hrdxvph completes the activity by him/herself with no assistance from a helper. 5-Set-up or Clean-up Assistance-helper sets up or cleans up; patient completes activity. [place] assists only prior to or following the activity. 4-Supervision or Touching Assistance-helper provides verbal cues and/or touching/steadying and/or contact guard assistance as patient completes activity. Assistance may be provided throughout the activity or intermittently. 3-Partial/Moderate Assistance-helper does LESS THAN HALF the effort. [place] lifts, holds or supports trunk or limbs, but provides less than half the effort. 2-Substantial/Maximal Assistance-helper does MORE THAN HALF the effort. [place] lifts or holds trunk or limbs and provides more than half the effort. 4-Qsdemtsdm-wuyznk does ALL the effort. Patient does none of the effort to complete the activity. Or, the assistance of 2 or more helpers is required for the patient to complete the activity. If activity was not attempted, code reason: 7-Patient Refused. 9-Not Applicable-not attempted and the patient did not perform the activity before the current illness, exacerbation or injury. 10-Not Attempted due to Environmental Limitations-(lack of equipment, weather restraints, etc.). 88-Not Attempted due to Medical Conditions or Safety Concerns. Roll Left to Right (QC): 6 Sit to Lying (QC): 6 Sit to Stand (QC): 3 Chair/Dhn-lw-Azste Xfer(QC): 4 Car Transfer (QC): 4 Gait Training Does the Patient Walk?: Yes Walk 10 feet (QC): 4 Walk 50 ft with 2 Turns(QC): 4 Walk 150 ft (QC): 88 Walking 10ft/uneven surface-QC: 4 Gait Assistive Device: FWW Wheelchair Training Wheel 50 ft with 2 turns (QC): 9 Wheel 150 ft (QC): 9 Stair Training #of Steps: 1 1 Step (curb) (QC): 4 4 Steps (QC): 88 12 Steps (QC): 88 Balance Picking up an Object (QC): 4 (CGA using a drapery operator) ADL-Treatment Eating (QC): 6 Oral Hygiene (QC): 4 (SBA) Shower/Bathe Self (QC): 4 (SBA sponge bath) Upper Body Dressing (QC): 5 Lower Body Dressing (QC): 4 (SBA) On/Off Footwear (QC): 4 (SBA) Toileting Hygiene (QC): 3 (Min A with emptying ostomy, with VCs. SBA urination only.) Assessment/Plan Assessment and Plan Assess & Plan/Chief Complaint Assessment: Debility following colon perforation during colonoscopy at [facility] received emergent diverting colostomy per Dr Hunt Recent hospital acquired PNA Abdominal wound requiring wound VAC Encephalopathy Volume overload Diastolic CHF Severe COPD oxygen dependent Anasarca Protein malnutrition Plan: Continue diuresis Wound VAC PT and OT Pain control 04/15/2022: Replace potassium Wound vac management 04/16/2022: Wound vac Monitor closely (1) Respiratory failure JERAMIE KENT DO Apr 16, 2022 05:45
--- NOTE | 2022-04-16 05:45 | Individualized Plan of Care ---
Individualized Plan of Care Rehab Nursing IPOC Order Admission Date Apr 14, 2022 at 12:58 Current Orders Orders Admission Order(Inpt,Obs,Sdc) (04/14/22 09:06) Vital Signs: Per Unit Policy ( 08,16,00 (04/14/22 09:06) Tevin Monroy (04/14/22 09:06) Sequential Compression Device (04/14/22 09:06) Cigarette Lighter Repairer-Inpt Rehab Con (04/14/22 09:06) Rehab Nursing Orders-Ipoc (04/14/22 09:06) Physical Therapy Rehab Orders (04/14/22 09:06) Occupational Therapy Rehab Ord (04/14/22 09:06) Speech Therapy Rehab Orders (04/14/22 09:06) Cbc With Automated Diff (04/15/22 06:00) Comprehensive Metabolic Panel (04/15/22 06:00) Precautions (Aru) (04/14/22 09:06) Rehab-Intensity Of Therapy (04/14/22 09:06) Initiate Admission Nursing Pro .admission (04/14/22 09:06) Alprazolam Tablet (Xanax Tablet) (04/14/22 09:15) Calcium Carbonate Chew Tablet (Antacid C (04/14/22 09:15) Diphenhydramine Tablet (Benadryl Tablet) (04/14/22 09:15) Docusate Sodium Capsule (Colace Capsule) (04/14/22 21:00) Docusate Sodium Capsule (Colace Capsule) (04/14/22 09:15) Bisacodyl Suppository (Dulcolax Supposit (04/14/22 09:15) Lactulose Oral Solution (Enulose Oral So (04/14/22 09:15) Na Phos/Na Biphos Enema (Fleet Enema Geoff (04/14/22 09:15) Guaifenesin/Codeine Syrup (Robitussin Ac (04/14/22 09:15) Loperamide Tablet (Imodium Tablet) (04/14/22 09:15) Melatonin Tablet (Melatonin Tablet) (04/14/22 09:15) Polyethylene Glycol Powder Pkt (Miralax (04/14/22 21:00) Ondansetron Oral Dissolve Tab (Zofran (04/14/22 09:15) Senna S Tablet (Senokot S Tablet) (04/14/22 21:00) Acetaminophen Tablet/Caplet (Tylenol T (04/14/22 09:15) Ibuprofen Tablet (Motrin Tablet) (04/14/22 09:15) Fluid Restriction (04/14/22 12:57) Consult Wound Care Physician (04/15/22 08:00) Admission Arrival Bed Request (04/14/22 12:57) Admission Arrival Bed Request (04/14/22 13:09) General/Regular (04/14/22 Lunch) Code/Resuscitation (04/14/22 13:52) Bumetanide Tablet (Bumex Tablet) (04/15/22 09:00) Diltiazem Cd 24 Hr Capsule (Cardizem Cd (04/15/22 09:00) Tramadol Tablet (Ultram Tablet) (04/14/22 15:45) Zolpidem Tablet (Ambien Tablet) (04/14/22 15:45) Tiotropium Inhaler (Spiriva Inhaler) (04/15/22 08:00) Mdi Treatment (04/14/22 15:45) Patient May Use Own Meds, All (Patient M (04/14/22 15:45) Enoxaparin Injection (Lovenox Injection) (04/14/22 15:45) Albuterol/Ipra Inhalation Soln (Duoneb I (04/14/22 16:00) Svn Small Volume Nebulizer (04/14/22 15:48) Umeclidinium [place] Inhaler (Incruse El (04/15/22 08:00) Fluticasone/Salmeterol 113-14 (Airduo Re (04/14/22 21:00) Consult General Surgery (04/14/22 20:47) Potassium Chloride (Tablet) (Klor Con Ta (04/15/22 08:00) Hypochlorous Acid/Sod Chloride (Vashe Wo (04/15/22 09:45) Chest 1 View, Ap/Pa Only (04/15/22 11:10) Patient Visit (04/15/22 ) Speech Sound Lang Comp (04/15/22 ) Treat. Speech/Lang/Voice (04/15/22 ) Wound V.A.C Application Ord/In UD (04/15/22 13:01) Wound V.A.C Nursing Assessment 06,18 (04/15/22 13:01) Wound V.A.C Q4hr Inspection-St Q4HR (04/15/22 13:01) High Protein (04/15/22 Lunch) Sodium Chloride Flush (Catheter Flush Sy (04/15/22 14:00) Sodium Chloride Flush (Catheter Flush Sy (04/15/22 14:00) Patient Visit (04/15/22 ) Pt Eval Moderate Complexity (04/15/22 ) Exercise Therap, Ea 15 Min (04/15/22 ) Functional Activities, Ea 15 (04/15/22 ) Patient Visit (04/15/22 ) Exercise Therap, Ea 15 Min (04/15/22 ) Patient Visit (04/16/22 ) Functional Activities, Ea 15 (04/16/22 ) Exercise Therap, Ea 15 Min (04/16/22 ) Gait Training, Ea 15 Min (04/16/22 ) Ensure Plus Variety (04/16/22 14:23) Patient May Use Own Med,Single (Patient (04/16/22 15:45) Non-Formulary Medication (Non-Formulary (04/16/22 15:45) Patient's Own Med(Rx Use Only) (Patient' (04/16/22 21:00) Rehab Nursing Orders: Ongoing Assess. of Cognitive Status, Ongoing Assess. of Function Status, Bladder Management, Bladder Scan, Bladder Training, Bowel Management, Bowel Training, Disease Management & Educaiton, DVT Prophylaxis, Fall Prevention, Fluid/Electrolyte/Nutrition Mgmt, Infection Prevention, Medication Management & Education, Management of Risks & Complications, Nutrition Management, Pain Management, Patient/Family Support, Safety Management Intensity of Therapy to be met Patient to be seen: Min.3h per day/5 of 7d PT IPOC Problem List: Activity Tolerance, Functional Strength, Safety, Balance, Gait, Transfer, Bed Mobility, ROM Treatment Plan: Continue Plan of Care Bed Mobility, Education, Functional Activity Vi, Functional Strength, Group Therapy, Gait, Safety, Therapeutic Exercise, Transfers Treatment Duration: Apr 29, 2022 Frequency: At least 5 of 7 days/Wk (IRF) Estimated Hrs Per Day: 1.5 hours per day OT IPOC Problems: Decreased Activ Tolerance, Decreased UE Strength, Impaired Funct Balance, Impaired I ADL's, Impaired Self-Care Skills OT Treatment, Training and Edu: Yes Plan of Care: ADL Retraining, Functional Mobility, Group Exercise/Act as Ind, UE Funct Exercise/Act Treatment Duration: May 10, 2022 Frequency: At least 5 of 7 days/Wk (IRF) Estimated Hrs Per Day: 1.[address] IPOC Speech Therapy Treatment Plan: Discontinue ST Treatment Duration: Apr 15, 2022 Frequency: 1 time per week Estimated Hrs Per Day: .25 hour per day Cigarette Lighter Repairer/Case Mgmt Cigarette Lighter Repairer/Case Managemen: Discharge Planning Dietitian/Book Binder Dietitian/Book Binder to monitor nutritional status and make changes and/or recommendations as needed and work with speech pathology on dietary upgrades as the occur. Physician IPOC Medical Issues being managed closely and that require the 24 hour availability of a physician: Recent catastrophic decompensation with diverting colostomy with post op PNA and volume overload with wound vac management will require close monitoring from physician to prevent collapse Medical Issues: Bowel/Bladder Function, DVT Prophylaxis, Falls Precautions, Fluid/Electrolyte/Nutrition Balance, Infection Protection, Pain Management, Wound Care Brief Synthesis of Preadmission Screen, Post-Admission Evaluation, and Therapy Evaluations: PT OT will focus on regaining function with AD and increase stamina with ambulation along with supportive care with wound vac in order to regain function to return home Medical Prognosis: Good Anticipated Length of Stay: 7 days JERAMIE KENT DO Apr 16, 2022 05:45
[2022-04-16] MEDS: CATHETER FLUSH 10 ML SYR IVP SCH ×3 (06:31→21:10)
[2022-04-16] MEDS: UMECLIDINIUM BROMIDE (INCRUSE ELLIPTA) 7'S IH SCH (07:24)
[2022-04-16] MEDS: RT--FLUTICASONE/SALMETEROL 113-14 (AIRDUO RespiCLICK) IH SCH (07:24)
[2022-04-16 07:32] VITALS: BP 131/76
[2022-04-16] MEDS: KCL 10 MEQ TAB (MICRO K) PO SCH ×2 (08:12→17:41)
[2022-04-16] MEDS: IBUPROFEN TABLET 200 MG TAB PO PRN ×2 (08:12→18:52)
[2022-04-16] MEDS: DOCUSATE SODIUM 100 MG (COLACE) CAP PO SCH (08:12)
[2022-04-16] MEDS: BUMETANIDE 1 MG (BUMEX) TAB PO SCH (08:12)
--- NOTE | 2022-04-16 09:35 | Occupational Ther Daily Note ---
OT Current Status-Daily Note Subjective Pt in ARU common area post PT Tx, agreeable to OT Tx. Pt required some encouragement throughout tx to continue, as pt kept requesting to go rest. OT educated pt on ARU process/expectations, she verbalized understanding. Mental Status/Objective Patient Orientation: Person, Normal For Age ADL-Treatment Therapy Code Descriptions/Definitions Functional [place] Measure: 0=Not Assessed/NA 4=Minimal Assistance 1=Total Assistance 5=Supervision or Setup 2=Maximal Assistance 6=Modified [place] 3=Moderate Assistance 7=Complete IndependenceSCALE: Activities may be completed with or without assistive devices. 6-Myashqqpec-yymbkkj completes the activity by him/herself with no assistance from a helper. 5-Set-up or Clean-up Assistance-helper sets up or cleans up; patient completes activity. [place] assists only prior to or following the activity. 4-Supervision or Touching Assistance-helper provides verbal cues and/or yadira irish/steadying and/or contact guard assistance as patient completes activity. Assistance may be provided throughout the activity or intermittently. 3-Partial/Moderate Assistance-helper does LESS THAN HALF the effort. [place] lifts, holds or supports trunk or limbs, but provides less than half the effort. 2-Substantial/Maximal Assistance-helper does MORE THAN HALF the effort. [place] lifts or holds trunk or limbs and provides more than half the effort. 2-Ctxiueumz-obyyyd does ALL the effort. Patient does none of the effort to complete the activity. Or, the assistance of 2 or more helpers is required for the patient to complete the activity. If activity was not attempted, code reason: 7-Patient Refused. 9-Not Applicable-not attempted and the patient did not perform the activity before the current illness, exacerbation or injury. 10-Not Attempted due to Environmental Limitations-(lack of equipment, weather restraints, etc.). 88-Not Attempted due to Medical Conditions or Safety Concerns. On/Off Footwear: 3 (Assist to don pete wraps. Pt able to doff slip on shoes and don gripper socks.) Toileting Hygiene (QC): 4 (SBA, pt able to empty ostomy bag standing next to toilet. min VCs for sequencing.) Other Treatment Pt in ARU common area, c/o needing ostomy bag changed. OT looked at bag, and educated pt on emptying ostomy bag vs doing a full bag change. Pete wraps and footwear donned, then pt used FWW to transfer into her bathroom, SBA. Pt able to empty ostomy bag standing next to toilet with SBA, min VCs. Pt stood at sink for hand hygiene, SBA. Pt used FWW to perform functional mobility to therapy gym, some encouragement required as pt wanted to return to bed. Education provided on ARU expectations and process, then pt agreeable to OT Tx. Pt transferred to therapy gym using FWW, SBA. OT tx focused on increasing BUE strength and activity tolerance. Pt completed arm bike, x15 mins, 15-20 Watt resistance with frequent rest breaks. Pt returned to room, SBA using FWW, then transferred to bed, IND. Post tx, pt in bed, call light in reach and all needs met. Education OT Patient Education: Correct positioning, Energy conservation, Exercise program, Modified ADL techniques, Progress toward Goal/Update tx plan, Purpose of tx/functional activities, Rehab process Teaching Recipient: Patient Teaching Methods: Discussion Response to Teaching: Verbalize Understanding OT Short Term Goals Short Term Goals Time Frame: Apr 24, 2022 Toileting hygiene: 5 Shower/bathe self: 5 Lower body dressin Putting on/taking off footwear: 5 OT Government Documents Librarian Goals Mcc Goals Time Frame: May 10, 2022 Acute change in mental status: 0 Inattention: 0 Disorganized thinkin Altered level of consciousness: 0 Eating (QC): 6 Oral Hygiene (QC): 6 Toileting Hygiene (QC): 6 Shower/Bathe Self (QC): 6 Upper Body Dressing (QC): 6 Lower Body Dressing (QC): 6 On/Off Footwear (QC): 6 Additional Goals: 1-Demonstrate ADL Tasks, 2-Verbalize Understanding, 3-ImproveStrength/Vi 1=Demonstrate adherence to instructed precautions during ADL tasks. 2=Patient will verbalize/demonstrate understanding of assistive devices/modifications for ADL. 3=Patient will improve strength/tolerance for activity to enable patient to perform ADL's. OT Education/Plan Problem List/Assessment Assessment: Decreased Activ Tolerance, Decreased UE Strength, Impaired Funct Balance, Impaired I ADL's, Impaired Self-Care Skills Discharge Recommendations Plan/Recommendations: Continue POC Treatment Plan/Plan of Care Patient would benefit from OT for education, treatment and training to promote independence in ADL's, mobility, safety and/or upper extremity function for ADL's. Plan of Care: ADL Retraining, Functional Mobility, Group Exercise/Act as Ind, UE Funct Exercise/Act Treatment Duration: May 10, 2022 Frequency: At least 5 of 7 days/Wk (IRF) Estimated Hrs Per Day: 1.5 hours per day Agreement: Yes Rehab Potential: Fair Time Start Time: 09:00 Stop Time: 09:45 DATE: Apr 16, 2022 Total Time Billed (hr/min): 45 Billed Treatment Time 1, ADL 2 (30'), EX (15') EMERSON SPRAGUE OT Apr 16, 2022 09:35
[2022-04-16] MEDS: polyethylene glycoL POWDER 17 GM (MIRALAX) PACK PO SCH (09:59)
[2022-04-16] MEDS: SENNA W/DOCUSATE (SENOKOT S) TABLET PO SCH (10:01)
--- NOTE | 2022-04-16 10:14 | Physical Therapy Daily Note ---
PT Daily Note-Current Subjective Pt laying Supine in bed upon arrival. Pt is laying w/o O2 as Nurse arrives to give morning meds. O2 is 64% and given for pt to use. Pt asks to use BR. Pain Location: Lower Location Body Site: Back Pain Description: Ache Section J - Health Conditions 1. Rarely or not at all 2. Occasionally 3. Frequently 4. Almost constantly 8. Unable to answer Pain Effect on Sleep: 1 Pain Interference with Therapy: 1 Pain Interference w/Day-to-Day: 1 Mental Status Patient Orientation: Person, Place Attachments: Oxygen (4L), Other-See Comments (Wound Vac) Transfers SCALE: Activities may be completed with or without assistive devices. 4-Miebxypben-vvcyrax completes the activity by him/herself with no assistance from a helper. 5-Set-up or Clean-up Assistance-helper sets up or cleans up; patient completes activity. [place] assists only prior to or following the activity. 4-Supervision or Touching Assistance-helper provides verbal cues and/or touching/steadying and/or contact guard assistance as patient completes activity. Assistance may be provided throughout the activity or intermittently. 3-Partial/Moderate Assistance-helper does LESS THAN HALF the effort. [place] lifts, holds or supports trunk or limbs, but provides less than half the effort. 2-Substantial/Maximal Assistance-helper does MORE THAN HALF the effort. [place] lifts or holds trunk or limbs and provides more than half the effort. 4-Mbgallxum-ujmyps does ALL the effort. Patient does none of the effort to complete the activity. Or, the assistance of 2 or more helpers is required for the patient to complete the activity. If activity was not attempted, code reason: 7-Patient Refused. 9-Not Applicable-not attempted and the patient did not perform the activity before the current illness, exacerbation or injury. 10-Not Attempted due to Environmental Limitations-(lack of equipment, weather restraints, etc.). 88-Not Attempted due to Medical Conditions or Safety Concerns. Lying to Sitting/Side of Bed(Q: 5 Sit to Stand (QC): 5 Toilet Transfer (QC): 5 Weight Bearing Full Weight Bearing Full Weight Bearing Gait Training Does the Patient Walk?: Yes Distance: 10' x2, 30' Walk 10 feet (QC): 5 Gait Assistive Device: FWW Exercises Seated Therapy Exercises: Ankle pumps, Long arc quads, Hip flexion, Hip abd/add, Glut set Seated Reps: 15 Treatments TF to EOB then amb to BR. After toileting, pt dresses then rests at EOB. Pt completes Seated EX before amb in hallway. Pt takes RB before OT arrives for t x. All needs met. Assessment Current Status: Fair Progress Pt is self limiting and needs encouragement to participate. PT Short Term Goals Short Term Goals Time Frame: Apr 22, 2022 Sit to stand: 4 Chair/qjv-wf-dlrxk transfer: 4 Walk 10 feet: 4 Walk 50 feet with two turns: 4 Walk 150 feet: 4 PT Corporate Operations Compliance Manager Goals Corporate Operations Compliance Manager Goals PT Corporate Operations Compliance Manager Goals Time Frame: Apr 29, 2022 Roll Left & Right (QC): 6 Sit to Lying (QC): 6 Lying-Sitting on Side/Bed(QC): 6 Sit to Stand (QC): 6 Chair/Pwx-ri-Rkisl Xfer(QC): 6 Toilet Transfer (QC): 6 Car Transfer (QC): 6 Does the Patient Walk: Yes Walk 10 feet (QC): 6 Walk 50ft with 2 Turns (QC): 6 Walk 150 ft (QC): 6 Walking 10ft on Uneven Surface: 6 1 Step (curb) (QC): 4 (SBA) 4 Steps (QC): 4 (SBA) 12 Steps (QC): 88 Picking up an Object (QC): 6 Wheel 50 feet with 2 turns (QC: 9 Wheel 150 feet: 9 PT Plan Problem List Problem List: Activity Tolerance Treatment/Plan Treatment Plan: Continue Plan of Care Treatment Plan: Bed Mobility, Education, Functional Activity Vi, Functional Strength, Group Therapy, Gait, Safety, Therapeutic Exercise, Transfers Treatment Duration: Apr 29, 2022 Frequency: At least 5 of 7 days/Wk (IRF) Estimated Hrs Per Day: 1.5 hours per day Patient and/or Family Agrees t: Yes Safety Risks/Education Patient Education: Safety Issues Teaching Recipient: Patient Teaching Methods: Discussion Response to Teaching: Verbalize Understanding Time Time In: 800 Time Out: 900 DATE: Apr 16, 2022 Total Billed Treatment Time: 60 Total Billed Treatment 1, FA x2 (30m), EX (15m) & GT (15m) JULEE LITTLE MAINTENANCE DEPARTMENT MANAGER Apr 16, 2022 10:14
--- NOTE | 2022-04-16 11:31 | Occupational Ther Daily Note ---
OT Current Status-Daily Note Subjective Pt alert, lying in bed. Pt agrees to therapy. No c/o pain. Mental Status/Objective Patient Orientation: Person, Place, Time, Situation Attachments: Colostomy/Ileostomy, Drains (wound vac), IV ADL-Treatment Independent with bed mobility. Assist to manipulate tubing for O2 and wound vac while ambulating using FWW. Pt able to transfer to toilet with FWW, ind ependent. Pt able to void in toilet then complete hygiene and clothing manipulation by self. Therapy Code Descriptions/Definitions Functional [place] Measure: 0=Not Assessed/NA 4=Minimal Assistance 1=Total Assistance 5=Supervision or Setup 2=Maximal Assistance 6=Modified [place] 3=Moderate Assistance 7=Complete IndependenceSCALE: Activities may be completed with or without assistive devices. 2-Rrhjjhlbwi-ehflljx completes the activity by him/herself with no assistance from a helper. 5-Set-up or Clean-up Assistance-helper sets up or cleans up; patient completes activity. [place] assists only prior to or following the activity. 4-Supervision or Touching Assistance-helper provides verbal cues and/or touching/steadying and/or contact guard assistance as patient completes ac tivity. Assistance may be provided throughout the activity or intermittently. 3-Partial/Moderate Assistance-helper does LESS THAN HALF the effort. [place] lifts, holds or supports trunk or limbs, but provides less than half the effort. 2-Substantial/Maximal Assistance-helper does MORE THAN HALF the effort. [place] lifts or holds trunk or limbs and provides more than half the effort. 1-Fkbqkeqln-ggmmsf does ALL the effort. Patient does none of the effort to complete the activity. Or, the assistance of 2 or more helpers is required for the patient to complete the activity. If activity was not attempted, code reason: 7-Patient Refused. 9-Not Applicable-not attempted and the patient did not perform the activity before the current illness, exacerbation or injury. 10-Not Attempted due to Environmental Limitations-(lack of equipment, weather restraints, etc.). 88-Not Attempted due to Medical Conditions or Safety Concerns. Toileting Hygiene (QC): 4 Toilet Transfer (QC): 6 Other Treatment Pt given light/med resistance theraband and HEP to strengthen B UE for daily fun ctional tasks. Skilled instructions for correct technique and modifications when necessary. 2 sets 10 reps for 6 exercises. After session, pt lying in bed with call light/phone in reach. All needs met. OT Short Term Goals Short Term Goals Time Frame: Apr 24, 2022 Toileting hygiene: 5 Shower/bathe self: 5 Lower body dressin Putting on/taking off footwear: 5 OT Custodial Goals Custodial Goals Time Frame: May 10, 2022 Acute change in mental status: 0 Inattention: 0 Disorganized thinkin Altered level of consciousness: 0 Eating (QC): 6 Oral Hygiene (QC): 6 Toileting Hygiene (QC): 6 Shower/Bathe Self (QC): 6 Upper Body Dressing (QC): 6 Lower Body Dressing (QC): 6 On/Off Footwear (QC): 6 Additional Goals: 1-Demonstrate ADL Tasks, 2-Verbalize Understanding, 3- ImproveStrength/Vi 1=Demonstrate adherence to instructed precautions during ADL tasks. 2=Patient will verbalize/demonstrate understanding of assistive devices/modifications for ADL. 3=Patient will improve strength/tolerance for activity to enable patient to perform ADL's. OT Education/Plan Problem List/Assessment Assessment: Decreased Activ Tolerance, Decreased UE Strength, Impaired Self- Care Skills Discharge Recommendations Plan/Recommendations: Continue POC Treatment Plan/Plan of Care Patient would benefit from OT for education, treatment and training to promote independence in ADL's, mobility, safety and/or upper extremity function for ADL's. Plan of Care: ADL Retraining, Functional Mobility, Group Exercise/Act as Ind, UE Funct Exercise/Act Treatment Duration: May 10, 2022 Frequency: At least 5 of 7 days/Wk (IRF) Estimated Hrs Per Day: 1.5 hours per day Agreement: Yes Rehab Potential: Fair Time Start Time: 10:45 Stop Time: 11:30 DATE: Apr 16, 2022 Total Time Billed (hr/min): 45 Billed Treatment Time 1 visit-ADL 2 (25 min) EX 1 (20 min) KIMANI FREDERICK Apr 16, 2022 11:31
--- NOTE | 2022-04-16 14:41 | Physical Therapy Daily Note ---
PT Daily Note-Current Subjective Pt laying Supine in bed again in the afternoon tx. Pt agrees to PT. Pain Numeric Pain Scale: 4 Location: Lower Location Body Site: Back Pain Description: Ache Section J - Health Conditions 1. Rarely or not at all 2. Occasionally 3. Frequently 4. Almost constantly 8. Unable to answer Pain Effect on Sleep: 1 Pain Interference with Therapy: 1 Pain Interference w/Day-to-Day: 1 Mental Status Patient Orientation: Person, Place, Situation Attachments: Oxygen (4L), Other-See Comments (Wound Vac) Transfers SCALE: Activities may be completed with or without assistive devices. 4-Parnnfjhow-hgujubm completes the activity by him/herself with no assistance from a helper. 5-Set-up or Clean-up Assistance-helper sets up or cleans up; patient completes activity. [place] assists only prior to or following the activity. 4-Supervision or Touching Assistance-helper provides verbal cues and/or touching/steadying and/or contact guard assistance as patient completes activity. Assistance may be provided throughout the activity or intermittently. 3-Partial/Moderate Assistance-helper does LESS THAN HALF the effort. [place] lifts, holds or supports trunk or limbs, but provides less than half the effort. 2-Substantial/Maximal Assistance-helper does MORE THAN HALF the effort. [place] lifts or holds trunk or limbs and provides more than half the effort. 6-Agfzveboy-tdgwmv does ALL the effort. Patient does none of the effort to complete the activity. Or, the assistance of 2 or more helpers is required for the patient to complete the activity. If activity was not attempted, code reason: 7-Patient Refused. 9-Not Applicable-not attempted and the patient did not perform the activity before the current illness, exacerbation or injury. 10-Not Attempted due to Environmental Limitations-(lack of equipment, weather restraints, etc.). 88-Not Attempted due to Medical Conditions or Safety Concerns. Lying to Sitting/Side of Bed(Q: 5 Sit to Stand (QC): 5 Toilet Transfer (QC): 5 Weight Bearing Full Weight Bearing Full Weight Bearing Gait Training Does the Patient Walk?: Yes Distance: 15' x2 Walk 10 feet (QC): 5 Gait Assistive Device: FWW Treatments Pt discusses concerns of when she is d/c that it would work better to wait a day for family to be able to assist in d/c. Pt is also concerned w/HH and how WC would look. Pt TF to EOB and amb to BR then back to bed at end of tx. All needs met, call light in hand. Assessment Current Status: Fair Progress Pt continues to demonstrates anxiety and nervousness about d/c as well as self limiting behavior. PT Short Term Goals Short Term Goals Time Frame: Apr 22, 2022 Sit to stand: 4 Chair/vjt-yc-vndih transfer: 4 Walk 10 feet: 4 Walk 50 feet with two turns: 4 Walk 150 feet: 4 PT Senior Living Goals Senior Living Goals PT Senior Living Goals Time Frame: Apr 29, 2022 Roll Left & Right (QC): 6 Sit to Lying (QC): 6 Lying-Sitting on Side/Bed(QC): 6 Sit to Stand (QC): 6 Chair/Plu-aj-Rmytg Xfer(QC): 6 Toilet Transfer (QC): 6 Car Transfer (QC): 6 Does the Patient Walk: Yes Walk 10 feet (QC): 6 Walk 50ft with 2 Turns (QC): 6 Walk 150 ft (QC): 6 Walking 10ft on Uneven Surface: 6 1 Step (curb) (QC): 4 (SBA) 4 Steps (QC): 4 (SBA) 12 Steps (QC): 88 Picking up an Object (QC): 6 Wheel 50 feet with 2 turns (QC: 9 Wheel 150 feet: 9 PT Plan Problem List Problem List: Activity Tolerance Treatment/Plan Treatment Plan: Continue Plan of Care Treatment Plan: Bed Mobility, Education, Functional Activity Vi, Functional Strength, Group Therapy, Gait, Safety, Therapeutic Exercise, Transfers Treatment Duration: Apr 29, 2022 Frequency: At least 5 of 7 days/Wk (IRF) Estimated Hrs Per Day: 1.5 hours per day Patient and/or Family Agrees t: Yes Time Time In: 1330 Time Out: 1400 DATE: Apr 16, 2022 Total Billed Treatment Time: 30 Total Billed Treatment 1, FA x2 (30m) JULEE LITTLE RESOURCE SPECIALIST TEACHER Apr 16, 2022 14:41
--- NOTE | 2022-04-16 14:53 | Physical Therapy Progress Note ---
Therapy Progress Note Patient has mobility limitation that significantly impairs her ability to participate in one or more mobility-related activities of daily living (MRADL) in the home. Patient is able to safely use the walker and the functional mobility deficit can be sufficiently resolved with use of a walker. JULEE LITTLE [employer]ITAL[employer] HOUSEKEEPER Apr 16, 2022 14:53
[2022-04-16] MEDS ORDERED: PATIENT MAY USE OWN MED,SINGLE MED PO SCH (15:45)
[2022-04-16] MEDS ORDERED: NON-FORMULARY MEDICATION 1 EA EA IH SCH (15:45)
[2022-04-16] MEDS: ENOXAPARIN 40 MG/0.4 ML (LOVENOX) SYR SC SCH (16:09)
[2022-04-16] MEDS: DULERA IH SCH (19:30)
[2022-04-16 20:00] VITALS: BP 129/63
--- NOTE | 2022-04-16 20:04 | Progress Note ---
Subjective Date Seen by a Provider: Apr 16, 2022 Time Seen by a Provider: 13:00 Subjective/Events-last exam doing well. no complaints. functional loop ileostomy and tolerating diet. wound vac in place. having BM's per rectum however expected do to active colitis and associated increased secretions within colonic lumen. Objective Exam Vital Signs Date Time Temp Pulse Resp B/P (MAP) Pulse Ox O2 Delivery O2 Flow Rate FiO2 04/16/22 19:33 95 Nasal Cannula 4.00 04/16/22 09:53 Nasal Cannula 4.00 04/16/22 07:32 36.1 70 18 131/76 (94) 96 Nasal Cannula 4.00 04/16/22 07:27 94 Nasal Cannula 4.00 04/16/22 07:25 94 Nasal Cannula 4.00 04/15/22 20:58 94 Nasal Cannula 4.00 04/15/22 20:00 Nasal Cannula 4.00 I & O 04/16/22 07:00 Intake Total 1200 ml Output Total 550 ml Balance 650 ml Capillary Refill : General Appearance: No Apparent Distress HEENT: PERRL/EOMI Neck: Full Range of Motion Respiratory: Chest Non Tender, Decreased Breath Sounds, Wheezing Cardiovascular: Regular Rate, Rhythm Gastrointestinal: normal bowel sounds, non tender, soft, other (wound vac in place, no succus drainage) Extremity: Normal Capillary Refill Neurologic/Psychiatric: Alert, Oriented x3 Skin: Normal Color Lymphatic: No Adenopathy Assessment/Plan Assessment/Plan Assess & Plan/Chief Complaint collagenous colitis/crohns disease with active inflammation s/p colonoscopy, iatrogenic perforation, LAR and diverting loop colostomy, wound dehiscence. cont vac. cont rehab. will eventually need GI referral. if continued or copious rectal drainage will start PO steroids. ASHER BARDALES MD Apr 16, 2022 20:04
[2022-04-16] MEDS: ZOLPIDEM 5 MG (AMBIEN) TAB PO PRN (21:09)
[2022-04-17] MEDS: CATHETER FLUSH 10 ML SYR IVP SCH ×3 (05:46→20:37)
--- NOTE | 2022-04-17 06:45 | PM&R Progress Note ---
Subjective HPI/CC On Admission Date Seen by Provider: Apr 17, 2022 Time Seen by Provider: 09:00 Subjective/Events-last exam 04/17/2022: Doing well Labs stable No pain reported Participation is good in therapy Wound vac managed 04/16/2022: Doing very well. BM+ Using Purewick and she will obtain one to have at home so no need to wean Pain controlled Breathing well Dulera will be clarified with Dr Lucas. 04/15/2022: Doing very well No pain reported Output colostomy good Lungs clear Working with therapy Labs reviewed Review of Systems General: Fatigue, Malaise Objective Exam Vital Signs Vital Signs Date Time Temp Pulse Resp B/P (MAP) Pulse Ox O2 Delivery O2 Flow Rate FiO2 04/17/22 21:01 97 Nasal Cannula 4.00 04/17/22 20:00 36.7 79 20 128/77 (94) Capillary Refill : General Appearance: No Apparent Distress, WD/WN, Chronically ill HEENT: PERRL/EOMI, Normal ENT Inspection, Pharynx Normal Neck: Full Range of Motion, Normal Inspection, Non Tender, Supple, Carotid Bruit Respiratory: Chest Non Tender, Lungs Clear, Normal Breath Sounds, No Accessory Muscle Use, No Respiratory Distress, Decreased Breath Sounds Cardiovascular: Regular Rate, Rhythm, No Edema, No Gallop, No JVD, No Murmur, Normal Peripheral Pulses Gastrointestinal: Normal Bowel Sounds, No Organomegaly, No Pulsatile Mass, Non Tender, Soft, Other (Colostomy) Back: Normal Inspection, No CVA Tenderness, No Vertebral Tenderness Extremity: Normal Capillary Refill, Normal Inspection, Normal Range of Motion, Non Tender, No Calf Tenderness, No Pedal Edema Neurologic/Psychiatric: Alert, Oriented x3, Normal Mood/Affect, Motor Weakness (Generalized 3/5) Skin: Normal Color, Warm/Dry Lymphatic: No Adenopathy Results/Procedures Lab Laboratory Tests 04/17/22 07:05 04/17/22 07:38 Patient resulted labs reviewed. FIM Transfers Therapy Code Descriptions/Definitions Functional [place] Measure: 0=Not Assessed/NA 4=Minimal Assistance 1=Total Assistance 5=Supervision or Setup 2=Maximal Assistance 6=Modified Dolores 3=Moderate Assistance 7=Complete IndependenceSCALE: Activities may be completed with or without assistive devices. 0-Liechtuymu-wnmxuvq completes the activity by him/herself with no assistance from a helper. 5-Set-up or Clean-up Assistance-helper sets up or cleans up; patient completes activity. [place] assists only prior to or following the activity. 4-Supervision or Touching Assistance-helper provides verbal cues and/or touching/steadying and/or contact guard assistance as patient completes activity. Assistance may be provided throughout the activity or intermittently. 3-Partial/Moderate Assistance-helper does LESS THAN HALF the effort. [place] lifts, holds or supports trunk or limbs, but provides less than half the effort. 2-Substantial/Maximal Assistance-helper does MORE THAN HALF the effort. [place] lifts or holds trunk or limbs and provides more than half the effort. 8-Dcelmihna-grzyax does ALL the effort. Patient does none of the effort to complete the activity. Or, the assistance of 2 or more helpers is required for the patient to complete the activity. If activity was not attempted, code reason: 7-Patient Refused. 9-Not Applicable-not attempted and the patient did not perform the activity before the current illness, exacerbation or injury. 10-Not Attempted due to Environmental Limitations-(lack of equipment, weather restraints, etc.). 88-Not Attempted due to Medical Conditions or Safety Concerns. Roll Left to Right (QC): 6 Sit to Lying (QC): 6 Sit to Stand (QC): 5 Chair/Fym-cp-Kcyzt Xfer(QC): 4 Car Transfer (QC): 4 Gait Training Does the Patient Walk?: Yes Distance: 15' x2 Walk 10 feet (QC): 5 Walk 50 ft with 2 Turns(QC): 4 Walk 150 ft (QC): 88 Walking 10ft/uneven surface-QC: 4 Gait Assistive Device: FWW Wheelchair Training Wheel 50 ft with 2 turns (QC): 9 Wheel 150 ft (QC): 9 Stair Training #of Steps: 1 1 Step (curb) (QC): 4 4 Steps (QC): 88 12 Steps (QC): 88 Balance Picking up an Object (QC): 4 (CGA using a operations and maintenance technican) ADL-Treatment Eating (QC): 6 Oral Hygiene (QC): 4 (SBA) Shower/Bathe Self (QC): 4 (SBA sponge bath) Upper Body Dressing (QC): 5 Lower Body Dressing (QC): 4 (SBA) On/Off Footwear (QC): 3 (Assist to don judy wraps. Pt able to doff slip on shoes and don gripper socks.) Toileting Hygiene (QC): 4 Toilet Transfer (QC): 6 Assessment/Plan Assessment and Plan Assess & Plan/Chief Complaint Assessment: Debility following colon perforation during colonoscopy at [facility] received emergent diverting colostomy per Dr Hunt Recent hospital acquired PNA Abdominal wound requiring wound VAC Encephalopathy Volume overload Diastolic CHF Severe COPD oxygen dependent [place] Protein malnutrition Plan: Continue diuresis Wound VAC PT and OT Pain control 04/15/2022: Replace potassium Wound vac management 04/16/2022: Wound vac Monitor closely 04/17/2022: Monitor wound vac Dulera BID (1) Respiratory failure JERAMIE KENT DO Apr 17, 2022 06:45
[2022-04-17 07:25] VITALS: BP 122/75
[2022-04-17 07:36] LABS: ALBUMIN 2.6 GM/DL (3.2-4.5); POTASSIUM 3.7 MMOL/L (3.6-5.0)
[2022-04-17 07:37] LABS: CALCIUM 8.2 MG/DL (8.5-10.1)
[2022-04-17 07:38] LABS: TOTAL PROTEIN 5.4 GM/DL (6.4-8.2)
[2022-04-17 07:40] LABS: BILIRUBIN,TOTAL 0.4 MG/DL (0.1-1.0)
[2022-04-17 07:42] LABS: CREATININE SERUM 0.56 MG/DL (0.60-1.30)
[2022-04-17] MEDS: UMECLIDINIUM BROMIDE (INCRUSE ELLIPTA) 7'S IH SCH (07:46)
[2022-04-17 07:47] LABS: BASOPHILS % (AUTO) 1 % (0-10); EOSINOPHILS # (AUTO) 0.4 10^3/uL (0.0-0.3); EOSINOPHILS % (AUTO) 7 % (0-10); HEMATOCRIT 33 % (35-52); HEMOGLOBIN 10.5 g/dL (11.5-16.0); LYMPHOCYTES # (AUTO) 1.1 10^3/uL (1.0-4.0); LYMPHOCYTES % (AUTO) 20 % (12-44); MEAN CORPUSCULAR HEMOGLOBIN 31 pg (25-34); MEAN CORPUSCULAR HGB CONC 32 g/dL (32-36); MEAN CORPUSCULAR VOLUME 96 fL (80-99); MEAN PLATELET VOLUME 9.8 fL (9.0-12.2); MONOCYTES # (AUTO) 0.8 10^3/uL (0.0-1.0); MONOCYTES % (AUTO) 13 % (0-12); NEUTROPHILS # (AUTO) 3.4 10^3/uL (1.8-7.8); NEUTROPHILS % (AUTO) 59 % (42-75); PLATELET COUNT 449 10^3/uL (130-400); WHITE BLOOD COUNT 5.8 10^3/uL (4.3-11.0)
[2022-04-17] MEDS: DULERA IH SCH ×2 (07:47→21:01)
[2022-04-17] MEDS: BUMETANIDE 1 MG (BUMEX) TAB PO SCH (08:49)
[2022-04-17] MEDS: IBUPROFEN TABLET 200 MG TAB PO PRN ×2 (08:49→20:36)
[2022-04-17] MEDS: KCL 10 MEQ TAB (MICRO K) PO SCH ×2 (08:49→18:20)
--- NOTE | 2022-04-17 09:25 | Occupational Ther Daily Note ---
OT Current Status-Daily Note Subjective Pt in therapy gym agreeable to OT Tx. Mental Status/Objective Patient Orientation: Normal For Age Attachments: Oxygen (4L) ADL-Treatment Therapy Code Descriptions/Definitions Functional [place] Measure: 0=Not Assessed/NA 4=Minimal Assistance 1=Total Assistance 5=Supervision or Setup 2=Maximal Assistance 6=Modified [place] 3=Moderate Assistance 7=Complete IndependenceSCALE: Activities may be completed with or without assistive devices. 4-Fxheaufvpe-pofvttd completes the activity by him/herself with no assistance from a helper. 5-Set-up or Clean-up Assistance-helper sets up or cleans up; patient completes activity. [place] assists only prior to or following the activity. 4-Supervision or Touching Assistance-helper provides verbal cues and/or touching/steadying and/or contact guard assistance as patient completes activity. Assistance may be provided throughout the activity or intermittently. 3-Partial/Moderate Assistance-helper does LESS THAN HALF the effort. [place] lifts, holds or supports trunk or limbs, but provides less than half the effort. 2-Substantial/Maximal Assistance-helper does MORE THAN HALF the effort. [place] lifts or holds trunk or limbs and provides more than half the effort. 5-Ukmgnlbqf-guxwhf does ALL the effort. Patient does none of the effort to complete the activity. Or, the assistance of 2 or more helpers is required for the patient to complete the activity. If activity was not attempted, code reason: 7-Patient Refused. 9-Not Applicable-not attempted and the patient did not perform the activity before the current illness, exacerbation or injury. 10-Not Attempted due to Environmental Limitations-(lack of equipment, weather restraints, etc.). 88-Not Attempted due to Medical Conditions or Safety Concerns. Toileting Hygiene (QC): 6 (Urine only.) Toilet Transfer (QC): 6 Other Treatment Pt in therapy gym, used FWW to transfer into room and onto BSC over toilet. Pt completed toileting independently, then transferred to EOB and supine, assistance and cues required to manage O2 tubing. Wound care present to change pt's wound vac and ostomy. OT assisted with pt positioning as needed, pt independent with rolling at bed level. Education attempted on completing full ostomy bag change, but pt falling asleep during education. Post tx, pt in bed, all needs met, call light in reach, business management professor [place] present. Education OT Patient Education: Correct positioning, Energy conservation, Modified ADL techniques, Progress toward Goal/Update tx plan, Purpose of tx/functional activities Teaching Recipient: Patient Teaching Methods: Discussion Response to Teaching: Verbalize Understanding OT Short Term Goals Short Term Goals Time Frame: Apr 24, 2022 Toileting hygiene: 5 Shower/bathe self: 5 Lower body dressin Putting on/taking off footwear: 5 OT Skilled Nursing Goals Acute Care Occupational Therapist Goals Time Frame: May 10, 2022 Acute change in mental status: 0 Inattention: 0 Disorganized thinkin Altered level of consciousness: 0 Eating (QC): 6 Oral Hygiene (QC): 6 Toileting Hygiene (QC): 6 Shower/Bathe Self (QC): 6 Upper Body Dressing (QC): 6 Lower Body Dressing (QC): 6 On/Off Footwear (QC): 6 Additional Goals: 1-Demonstrate ADL Tasks, 2-Verbalize Understanding, 3-ImproveStrength/Vi 1=Demonstrate adherence to instructed precautions during ADL tasks. 2=Patient will verbalize/demonstrate understanding of assistive devices/modifications for ADL. 3=Patient will improve strength/tolerance for activity to enable patient to perform ADL's. OT Education/Plan Problem List/Assessment Assessment: Decreased Activ Tolerance, Decreased UE Strength, Impaired Funct Balance, Impaired I ADL's, Impaired Self-Care Skills Discharge Recommendations Plan/Recommendations: Continue POC Treatment Plan/Plan of Care Patient would benefit from OT for education, treatment and training to promote independence in ADL's, mobility, safety and/or upper extremity function for ADL's. Plan of Care: ADL Retraining, Functional Mobility, Group Exercise/Act as Ind, UE Funct Exercise/Act Treatment Duration: May 10, 2022 Frequency: At least 5 of 7 days/Wk (IRF) Estimated Hrs Per Day: 1.5 hours per day Agreement: Yes Rehab Potential: Fair Time Start Time: 09:00 Stop Time: 09:45 DATE: Apr 17, 2022 Total Time Billed (hr/min): 45 Billed Treatment Time 1, ADL 3 EMERSON SPRAGUE OT Apr 17, 2022 09:24
--- NOTE | 2022-04-17 09:52 | Physical Therapy Daily Note ---
PT Daily Note-Current Subjective Pt sitting in reclienr upon arrival. Pt agrees to PT but also reports feeling fatigued. Pain Numeric Pain Scale: 4 Location: Right, Left, Dorsal Pain Description: Tightness Section J - Health Conditions 1. Rarely or not at all 2. Occasionally 3. Frequently 4. Almost constantly 8. Unable to answer Pain Effect on Sleep: 1 Pain Interference with Therapy: 1 Pain Interference w/Day-to-Day: 1 Mental Status Patient Orientation: Person, Place, Situation Attachments: Oxygen (4L), Other-See Comments (Wound Vac) Transfers SCALE: Activities may be completed with or without assistive devices. 3-Qgxposwyux-nlotqpv completes the activity by him/herself with no assistance from a helper. 5-Set-up or Clean-up Assistance-helper sets up or cleans up; patient completes activity. [place] assists only prior to or following the activity. 4-Supervision or Touching Assistance-helper provides verbal cues and/or touching/steadying and/or contact guard assistance as patient completes activity. Assistance may be provided throughout the activity or intermittently. 3-Partial/Moderate Assistance-helper does LESS THAN HALF the effort. [place] lifts, holds or supports trunk or limbs, but provides less than half the effort. 2-Substantial/Maximal Assistance-helper does MORE THAN HALF the effort. [place] lifts or holds trunk or limbs and provides more than half the effort. 0-Xwbzkvkft-aaivnw does ALL the effort. Patient does none of the effort to complete the activity. Or, the assistance of 2 or more helpers is required for the patient to complete the activity. If activity was not attempted, code reason: 7-Patient Refused. 9-Not Applicable-not attempted and the patient did not perform the activity before the current illness, exacerbation or injury. 10-Not Attempted due to Environmental Limitations-(lack of equipment, weather restraints, etc.). 88-Not Attempted due to Medical Conditions or Safety Concerns. Sit to Stand (QC): 5 Toilet Transfer (QC): 5 Weight Bearing Full Weight Bearing Full Weight Bearing Gait Training Does the Patient Walk?: Yes Distance: 100' Walk 10 feet (QC): 5 Walk 50 ft with 2 Turns(QC): 5 Gait Assistive Device: FWW Exercises Supine Ex: Ankle pumps, Quad Set, Glut sets, Heel Slides, Hip abd/add Supine Reps: 15 Seated Therapy Exercises: Ankle pumps, Long arc quads, Hip flexion, Glut set Seated Reps: 15 NuStep Minutes: 8 NuStep Workload: 4 Treatments Pt is issued and reviews written HEP for Supine & Seated EX. TF to standing and amb to BR, after attempting pt also able to dispose of BM from ostomy bag w/VC from [employer]. Pt amb. in hallway then uses NuStep. OT arrives for tx at end of NuStep use. All needs met. Assessment Current Status: Good Progress Pt needs encouragement to participate at times. Pt takes extended time to complete tasks and fatigues easily. PT Short Term Goals Short Term Goals Time Frame: Apr 22, 2022 Sit to stand: 4 Chair/nyf-pr-awdlb transfer: 4 Walk 10 feet: 4 Walk 50 feet with two turns: 4 Walk 150 feet: 4 PT Shelter Goals Shelter Goals PT Shelter Goals Time Frame: Apr 29, 2022 Roll Left & Right (QC): 6 Sit to Lying (QC): 6 Lying-Sitting on Side/Bed(QC): 6 Sit to Stand (QC): 6 Chair/Npn-yr-Dpfbj Xfer(QC): 6 Toilet Transfer (QC): 6 Car Transfer (QC): 6 Does the Patient Walk: Yes Walk 10 feet (QC): 6 Walk 50ft with 2 Turns (QC): 6 Walk 150 ft (QC): 6 Walking 10ft on Uneven Surface: 6 1 Step (curb) (QC): 4 (SBA) 4 Steps (QC): 4 (SBA) 12 Steps (QC): 88 Picking up an Object (QC): 6 Wheel 50 feet with 2 turns (QC: 9 Wheel 150 feet: 9 PT Plan Problem List Problem List: Activity Tolerance Treatment/Plan Treatment Plan: Continue Plan of Care Treatment Plan: Bed Mobility, Education, Functional Activity Vi, Functional Strength, Group Therapy, Gait, Safety, Therapeutic Exercise, Transfers Treatment Duration: Apr 29, 2022 Frequency: At least 5 of 7 days/Wk (IRF) Estimated Hrs Per Day: 1.5 hours per day Patient and/or Family Agrees t: Yes Safety Risks/Education Patient Education: Issued Written HEP Teaching Recipient: Patient Teaching Methods: Discussion Response to Teaching: Verbalize Understanding Time Time In: 800 Time Out: 900 DATE: Apr 17, 2022 Total Billed Treatment Time: 60 Total Billed Treatment 1, EX x2 (30m), GT (15m) & FA (15m) JULEE LITTLE [employer]PER[employer] Apr 17, 2022 09:52
--- NOTE | 2022-04-17 09:52 | Wound Care Assessment ---
Wound Care Assessment Date Seen by Provider: Apr 17, 2022 Time Seen by Provider: 09:46 Chief Complaint Surgical dehiscence HPI This pleasant 76 year old patient presents to ARU following recent colonic perforation with diverting colostomy. She was transferred from [facility] with wound vac previously in place. She does have anemia (uncertain of chronicity or etiology) and PEM which will complicate her wound healing progress. She is tolerating her PT well and plans to d/c home upon leaving. If so, plan will be for home health and continuation of wound vac as outpatient. I did discuss her case with Dr. Hunt. Nicolasa has a long h/o collagenous colitis and ETOH overuse w hich has greatly affected her wound healing. Nicolasa has visible sutures in her wound bed with exposed fascia and muscle. We will cover the area with adaptic and white foam. She has undermining to the right lateral margin (ostomy side) with a tunnel at 9 o'clock initially measuring 5cm in depth (today this is improved to 4cm). She has no ostomy output in her wound vac (fistula unlikely with good progress today). She has only small granulation but I am please with this small progress. Will continue as current and plan to follow up as outpatient as needed. Smoking Status: Former Smoker Alcohol Use: Regular Use Review of Systems Neurological: Weakness Exam Vital Signs Date Time Temp Pulse Resp B/P (MAP) Pulse Ox O2 Delivery O2 Flow Rate FiO2 04/17/22 09:02 Nasal Cannula 4.00 04/17/22 07:47 96 04/17/22 07:25 36.4 72 18 122/75 (91) Capillary Refill : General Appearance: no apparent distress, obese HEENT: other (hearing wnl) Neck: full range of motion Cardiovascular: no edema Respiratory: no respiratory distress, no accessory muscle use Gastrointestinal: other (wound dehiscence. Ostomy status (good output)) Extremities: no pedal edema Neurologic/Psychiatric: alert, normal mood/affect, oriented x 3 Skin Problem Location: other (abdomen) Wound assessment: 9x2.5cm. The epithelialization is none. There is undermining from 7-10 with a tunnel at 9 o'clock measuring 4cm in depth. Granulation is small and pink. Necrotic is large and slough. Drainage is medium and serous. There is exposed suture, fascia and muscle. The margins show epibole. Results Laboratory Tests 04/17/22 07:05: Sodium Level 137, Potassium Level 3.7, Chloride Level 98, Carbon Dioxide Level 27, Anion Gap 12, Blood Urea Nitrogen 3L, Creatinine 0.56L, Estimat Glomerular Filtration Rate 93, BUN/Creatinine Ratio 5, Glucose Level 58*L, Calcium Level 8.2L, Corrected Calcium 9.3, Total Bilirubin 0.4, Aspartate Amino Transf (AST/SGOT) 21, Alanine Aminotransferase (ALT/SGPT) 19, Alkaline Phosphatase 89, Total Protein 5.4L, Albumin 2.6L 04/17/22 07:38: White Blood Count 5.8, Red Blood Count 3.39L, Hemoglobin 10.5L, Hematocrit 33L, Mean Corpuscular Volume 96, Mean Corpuscular Hemoglobin 31, Mean Corpuscular Hemoglobin Concent 32, Red Cell Distribution Width 13.2, Platelet Count 449H, Mean Platelet Volume 9.8, Immature Granulocyte % (Auto) 0, Neutrophils (%) (Auto) 59, Lymphocytes (%) (Auto) 20, Monocytes (%) (Auto) 13H, Eosinophils (%) (Auto) 7, Basophils (%) (Auto) 1, Neutrophils # (Auto) 3.4, Lymphocytes # (Auto) 1.1, Monocytes # (Auto) 0.8, Eosinophils # (Auto) 0.4H, Basophils # (Auto) 0.0, Immature Granulocyte # (Auto) 0.0 Assessment/Plan/Dx Assessment: 1. Surgical Dehiscence 2. PEM 3. Generalized weakness 4. Anemia of unknown etiology 5. Diverting colostomy status Plan: 1. Continue wound vac with white foam and adaptic. Suction at 125. Will currently plan to change MWF. Upon d/c home will plan for home wound vac therapy with home health and follow up in our office 2. Protein supplementation 3. Agree with rehab 4. defer to primary team 5. defer to surgical team JEFFREY ENGLISH MD Apr 17, 2022 09:52
--- NOTE | 2022-04-17 13:06 | Occupational Ther Daily Note ---
OT Current Status-Daily Note Subjective Pt in bed, agreeable to OT Tx with encouragement. Mental Status/Objective Patient Orientation: Person, Place, Time, Situation Attachments: Oxygen (4L) ADL-Treatment Therapy Code Descriptions/Definitions Functional [place] Measure: 0=Not Assessed/NA 4=Minimal Assistance 1=Total Assistance 5=Supervision or Setup 2=Maximal Assistance 6=Modified [place] 3=Moderate Assistance 7=Complete IndependenceSCALE: Activities may be completed with or without assistive devices. 4-Awjrqqurtg-joejfev completes the activity by him/herself with no assistance from a helper. 5-Set-up or Clean-up Assistance-helper sets up or cleans up; patient completes activity. [place] assists only prior to or following the activity. 4-Supervision or Touching Assistance-helper provides verbal cues and/or touching/steadying and/or contact guard assistance as patient completes activity. Assistance may be provided throughout the activity or intermittently. 3-Partial/Moderate Assistance-helper does LESS THAN HALF the effort. [place] lifts, holds or supports trunk or limbs, but provides less than half the effort. 2-Substantial/Maximal Assistance-helper does MORE THAN HALF the effort. [place] lifts or holds trunk or limbs and provides more than half the effort. 8-Udpneoaql-xiyylz does ALL the effort. Patient does none of the effort to complete the activity. Or, the assistance of 2 or more helpers is required for the patient to complete the activity. If activity was not attempted, code reason: 7-Patient Refused. 9-Not Applicable-not attempted and the patient did not perform the activity before the current illness, exacerbation or injury. 10-Not Attempted due to Environmental Limitations-(lack of equipment, weather restraints, etc.). 88-Not Attempted due to Medical Conditions or Safety Concerns. On/Off Footwear: 3 (Assistance with tedhose, pt able to don gripper socks with encouragement.) Other Treatment Pt in bed, transferred supine to sit EOB independently. Pt c/o increased swelling in BLEs, OT donned Pete Wraps to BLEs, pt able to don gripper socks with encouragement. Pt used FWW to perform functional mobility to therapy gym, OT managed O2 tubing. OT tx focused on increasing BUE Strength and activity tolerance. Pt completed UE reaching activity, placing/removing 1" pegs from foam pegboard, alternating hands. Pt able to complete x100 pegs total. Post tx, pt in therapy gym with PT, all needs met. VCs required with transfers/turns in order to manage O2 tubing. OT Short Term Goals Short Term Goals Time Frame: Apr 24, 2022 Toileting hygiene: 5 Shower/bathe self: 5 Lower body dressin Putting on/taking off footwear: 5 OT Light Truck Driver Goals Light Truck Driver Goals Time Frame: May 10, 2022 Acute change in mental status: 0 Inattention: 0 Disorganized thinkin Altered level of consciousness: 0 Eating (QC): 6 Oral Hygiene (QC): 6 Toileting Hygiene (QC): 6 Shower/Bathe Self (QC): 6 Upper Body Dressing (QC): 6 Lower Body Dressing (QC): 6 On/Off Footwear (QC): 6 Additional Goals: 1-Demonstrate ADL Tasks, 2-Verbalize Understanding, 3- ImproveStrength/Vi 1=Demonstrate adherence to instructed precautions during ADL tasks. 2=Patient will verbalize/demonstrate understanding of assistive devices/modifications for ADL. 3=Patient will improve strength/tolerance for activity to enable patient to perform ADL's. OT Education/Plan Problem List/Assessment Assessment: Decreased Activ Tolerance, Decreased UE Strength, Impaired Funct Ba teresa, Impaired I ADL's, Impaired Self-Care Skills Discharge Recommendations Plan/Recommendations: Continue POC Treatment Plan/Plan of Care Patient would benefit from OT for education, treatment and training to promote independence in ADL's, mobility, safety and/or upper extremity function for ADL's. Plan of Care: ADL Retraining, Functional Mobility, Group Exercise/Act as Ind, UE Funct Exercise/Act Treatment Duration: May 10, 2022 Frequency: At least 5 of 7 days/Wk (IRF) Estimated Hrs Per Day: 1.5 hours per day Agreement: Yes Rehab Potential: Fair Time Start Time: 12:45 Stop Time: 13:30 DATE: Apr 17, 2022 Total Time Billed (hr/min): 45 Billed Treatment Time 1, ADL (15'),FA 2 (30') EMERSON SPRAGUE OT Apr 17, 2022 13:06
--- NOTE | 2022-04-17 14:42 | Physical Therapy Daily Note ---
PT Daily Note-Current Subjective Pt sitting in Therapy Gym after finishing w/OT. Pt agrees to PT but Pt reports fatigue. Pain Location Body Site: Abdomen Pain Description: Ache Section J - Health Conditions 1. Rarely or not at all 2. Occasionally 3. Frequently 4. Almost constantly 8. Unable to answer Pain Effect on Sleep: 1 Pain Interference with Therapy: 1 Pain Interference w/Day-to-Day: 1 Mental Status Patient Orientation: Person, Place, Situation Attachments: Colostomy/Ileostomy, Oxygen (4L), Other-See Comments (Wound Vac) Transfers SCALE: Activities may be completed with or without assistive devices. 5-Rzzccslizn-eqgbbce completes the activity by him/herself with no assistance from a helper. 5-Set-up or Clean-up Assistance-helper sets up or cleans up; patient completes activity. [place] assists only prior to or following the activity. 4-Supervision or Touching Assistance-helper provides verbal cues and/or touching/steadying and/or contact guard assistance as patient completes activity. Assistance may be provided throughout the activity or intermittently. 3-Partial/Moderate Assistance-helper does LESS THAN HALF the effort. [place] lifts, holds or supports trunk or limbs, but provides less than half the effort. 2-Substantial/Maximal Assistance-helper does MORE THAN HALF the effort. [place] lifts or holds trunk or limbs and provides more than half the effort. 0-Akxpxuipv-xfnqgq does ALL the effort. Patient does none of the effort to complete the activity. Or, the assistance of 2 or more helpers is required for the patient to complete the activity. If activity was not attempted, code reason: 7-Patient Refused. 9-Not Applicable-not attempted and the patient did not perform the activity before the current illness, exacerbation or injury. 10-Not Attempted due to Environmental Limitations-(lack of equipment, weather restraints, etc.). 88-Not Attempted due to Medical Conditions or Safety Concerns. Sit to Stand (QC): 5 Toilet Transfer (QC): 5 Weight Bearing Full Weight Bearing Full Weight Bearing Gait Training Does the Patient Walk?: Yes Distance: 100' Walk 10 feet (QC): 5 Walk 50 ft with 2 Turns(QC): 5 Gait Assistive Device: FWW Wheelchair Training Does the Pt Use a Wheelchair?: No Exercises Seated Therapy Exercises: Ankle pumps, Long arc quads, Hip flexion, Hip abd/add, Glut set Seated Reps: 15 Treatments Pt completes Seated Ex in Gym then TF to standing for amb to room. Pt asks to use BR before laying down. Pt disposes of BM from ostomy bag. Pt TF to EOB then supine to rest in bed, repositioned to comfort. All needs met, call light in hand. Assessment Current Status: Fair Progress Pt fatigues easily and self limits. PT Short Term Goals Short Term Goals Time Frame: Apr 22, 2022 Sit to stand: 4 Chair/dwt-qk-awmse transfer: 4 Walk 10 feet: 4 Walk 50 feet with two turns: 4 Walk 150 feet: 4 PT Long-Term Goals Long-Term Goals PT Long-Term Goals Time Frame: Apr 29, 2022 Roll Left & Right (QC): 6 Sit to Lying (QC): 6 Lying-Sitting on Side/Bed(QC): 6 Sit to Stand (QC): 6 Chair/Icv-wl-Gijhr Xfer(QC): 6 Toilet Transfer (QC): 6 Car Transfer (QC): 6 Does the Patient Walk: Yes Walk 10 feet (QC): 6 Walk 50ft with 2 Turns (QC): 6 Walk 150 ft (QC): 6 Walking 10ft on Uneven Surface: 6 1 Step (curb) (QC): 4 (SBA) 4 Steps (QC): 4 (SBA) 12 Steps (QC): 88 Picking up an Object (QC): 6 Wheel 50 feet with 2 turns (QC: 9 Wheel 150 feet: 9 PT Plan Problem List Problem List: Activity Tolerance, Gait Treatment/Plan Treatment Plan: Continue Plan of Care Treatment Plan: Bed Mobility, Education, Functional Activity Vi, Functional Strength, Group Therapy, Gait, Safety, Therapeutic Exercise, Transfers Treatment Duration: Apr 29, 2022 Frequency: At least 5 of 7 days/Wk (IRF) Estimated Hrs Per Day: 1.5 hours per day Patient and/or Family Agrees t: Yes Safety Risks/Education Patient Education: Gait Training Teaching Recipient: Patient Teaching Methods: Discussion Response to Teaching: Verbalize Understanding Time Time In: 1330 Time Out: 1400 DATE: Apr 17, 2022 Total Billed Treatment Time: 30 Total Billed Treatment 1, EX (15m) & GT (15m) JULEE LITTLE COORDINATOR CARDIOPULMONARY SERVICES Apr 17, 2022 14:42
[2022-04-17] MEDS: ENOXAPARIN 40 MG/0.4 ML (LOVENOX) SYR SC SCH (15:46)
--- NOTE | 2022-04-17 16:20 | Progress Note ---
Subjective Date Seen by a Provider: Apr 17, 2022 Time Seen by a Provider: 16:00 Subjective/Events-last exam doing better today. did have 3 BM's last night. less abd distention. tolerating diet. Objective Exam Vital Signs Date Time Temp Pulse Resp B/P (MAP) Pulse Ox O2 Delivery O2 Flow Rate FiO2 04/17/22 09:02 Nasal Cannula 4.00 04/17/22 07:50 Nasal Cannula 04/17/22 07:47 96 Nasal Cannula 4.00 04/17/22 07:25 36.4 72 18 122/75 (91) 94 Nasal Cannula 4.00 04/16/22 20:00 36.4 78 18 129/63 (85) 95 Nasal Cannula 4.00 04/16/22 20:00 Nasal Cannula 4.00 04/16/22 19:33 95 Nasal Cannula 4.00 I & O 04/17/22 07:00 Intake Total 750 ml Output Total 650 ml Balance 100 ml Capillary Refill : General Appearance: No Apparent Distress HEENT: PERRL/EOMI Neck: Full Range of Motion Respiratory: Chest Non Tender Cardiovascular: Regular Rate, Rhythm Gastrointestinal: normal bowel sounds, non tender, soft Extremity: Normal Capillary Refill Neurologic/Psychiatric: Alert, Oriented x3 Skin: Normal Color Lymphatic: No Adenopathy Results Lab Laboratory Tests 04/17/22 07:05: Sodium Level 137, Potassium Level 3.7, Chloride Level 98, Carbon Dioxide Level 27, Anion Gap 12, Blood Urea Nitrogen 3L, Creatinine 0.56L, Estimat Glomerular Filtration Rate 93, BUN/Creatinine Ratio 5, Glucose Level 58*L, Calcium Level 8.2L, Corrected Calcium 9.3, Total Bilirubin 0.4, Aspartate Amino Transf (AST/SGOT) 21, Alanine Aminotransferase (ALT/SGPT) 19, Alkaline Phosphatase 89, Total Protein 5.4L, Albumin 2.6L 04/17/22 07:38: White Blood Count 5.8, Red Blood Count 3.39L, Hemoglobin 10.5L, Hematocrit 33L, Mean Corpuscular Volume 96, Mean Corpuscular Hemoglobin 31, Mean Corpuscular Hemoglobin Concent 32, Red Cell Distribution Width 13.2, Platelet Count 449H, Mean Platelet Volume 9.8, Immature Granulocyte % (Auto) 0, Neutrophils (%) (Auto) 59, Lymphocytes (%) (Auto) 20, Monocytes (%) (Auto) 13H, Eosinophils (%) (Auto) 7, Basophils (%) (Auto) 1, Neutrophils # (Auto) 3.4, Lymphocytes # (Auto) 1.1, Monocytes # (Auto) 0.8, Eosinophils # (Auto) 0.4H, Basophils # (Auto) 0.0, Immature Granulocyte # (Auto) 0.0 Assessment/Plan Assessment/Plan Assess & Plan/Chief Complaint collagenous colitis/crohns disease with active inflammation s/p colonoscopy, iatrogenic perforation, LAR and diverting loop colostomy, wound dehiscence. cont vac. cont rehab. will eventually need GI referral. if continued or copious rectal drainage will start PO steroids. ASHER BARDALES MD Apr 17, 2022 16:20
[2022-04-17 20:00] VITALS: BP 128/77
[2022-04-17] MEDS: ZOLPIDEM 5 MG (AMBIEN) TAB PO PRN (21:47)
--- NOTE | 2022-04-18 06:01 | PM&R Progress Note ---
Subjective HPI/CC On Admission Date Seen by Provider: Apr 18, 2022 Time Seen by Provider: 12:00 Subjective/Events-last exam 04/18/2022: Doing well No pain reported Lungs remain clear Trying to wean O2 04/17/2022: Doing well Labs stable No pain reported Participation is good in therapy Wound vac managed 04/16/2022: Doing very well. BM+ Using Purewick and she will obtain one to have at home so no need to wean Pain controlled Breathing well Dulera will be clarified with Dr Lucas. 04/15/2022: Doing very well No pain reported Output colostomy good Lungs clear Working with therapy Labs reviewed Review of Systems General: Fatigue, Malaise Objective Exam Vital Signs Vital Signs Date Time Temp Pulse Resp B/P (MAP) Pulse Ox O2 Delivery O2 Flow Rate FiO2 04/18/22 21:45 96 Nasal Cannula 4.00 04/18/22 19:45 37.2 65 18 113/53 (73) Capillary Refill : General Appearance: No Apparent Distress, WD/WN, Chronically ill HEENT: PERRL/EOMI, Normal ENT Inspection, Pharynx Normal Neck: Full Range of Motion, Normal Inspection, Non Tender, Supple, Carotid Bruit Respiratory: Chest Non Tender, Lungs Clear, Normal Breath Sounds, No Accessory Muscle Use, No Respiratory Distress, Decreased Breath Sounds Cardiovascular: Regular Rate, Rhythm, No Edema, No Gallop, No JVD, No Murmur, Normal Peripheral Pulses Gastrointestinal: Normal Bowel Sounds, No Organomegaly, No Pulsatile Mass, Non Tender, Soft, Other (Colostomy) Back: Normal Inspection, No CVA Tenderness, No Vertebral Tenderness Extremity: Normal Capillary Refill, Normal Inspection, Normal Range of Motion, Non Tender, No Calf Tenderness, No Pedal Edema Neurologic/Psychiatric: Alert, Oriented x3, Normal Mood/Affect, Motor Weakness (Generalized 3/5) Skin: Normal Color, Warm/Dry Lymphatic: No Adenopathy Results/Procedures Lab Patient resulted labs reviewed. FIM Transfers Therapy Code Descriptions/Definitions Functional [place] Measure: 0=Not Assessed/NA 4=Minimal Assistance 1=Total Assistance 5=Supervision or Setup 2=Maximal Assistance 6=Modified [place] 3=Moderate Assistance 7=Complete IndependenceSCALE: Activities may be completed with or without assistive devices. 4-Onrpxvcyxn-vnihjsa completes the activity by him/herself with no assistance from a helper. 5-Set-up or Clean-up Assistance-helper sets up or cleans up; patient completes activity. [place] assists only prior to or following the activity. 4-Supervision or Touching Assistance-helper provides verbal cues and/or touching/steadying and/or contact guard assistance as patient completes activity. Assistance may be provided throughout the activity or intermittently. 3-Partial/Moderate Assistance-helper does LESS THAN HALF the effort. [place] lifts, holds or supports trunk or limbs, but provides less than half the effort. 2-Substantial/Maximal Assistance-helper does MORE THAN HALF the effort. [place] lifts or holds trunk or limbs and provides more than half the effort. 8-Zafwxkoub-rxtwfv does ALL the effort. Patient does none of the effort to comp lete the activity. Or, the assistance of 2 or more helpers is required for the patient to complete the activity. If activity was not attempted, code reason: 7-Patient Refused. 9-Not Applicable-not attempted and the patient did not perform the activity before the current illness, exacerbation or injury. 10-Not Attempted due to Environmental Limitations-(lack of equipment, weather restraints, etc.). 88-Not Attempted due to Medical Conditions or Safety Concerns. Roll Left to Right (QC): 6 Sit to Lying (QC): 6 Sit to Stand (QC): 5 Chair/Bym-hc-Apjvw Xfer(QC): 4 Car Transfer (QC): 4 Gait Training Does the Patient Walk?: Yes Distance: 100' Walk 10 feet (QC): 5 Walk 50 ft with 2 Turns(QC): 5 Walk 150 ft (QC): 88 Walking 10ft/uneven surface-QC: 4 Gait Assistive Device: FWW Wheelchair Training Does the Pt Use a Wheelchair?: No Wheel 50 ft with 2 turns (QC): 9 Wheel 150 ft (QC): 9 Type of Wheelchair: N/A Stair Training #of Steps: 1 1 Step (curb) (QC): 4 4 Steps (QC): 88 12 Steps (QC): 88 Balance Picking up an Object (QC): 4 (CGA using a spark plug assembler) ADL-Treatment Eating (QC): 6 Oral Hygiene (QC): 4 (SBA) Shower/Bathe Self (QC): 4 (SBA sponge bath) Upper Body Dressing (QC): 5 Lower Body Dressing (QC): 4 (SBA) On/Off Footwear (QC): 3 (Assistance with tedhose, pt able to don gripper socks with encouragement.) Toileting Hygiene (QC): 6 (Urine only.) Toilet Transfer (QC): 6 Assessment/Plan Assessment and Plan Assess & Plan/Chief Complaint Assessment: Debility following colon perforation during colonoscopy at [facility] received emergent diverting colostomy per Dr Hunt Recent hospital acquired PNA Abdominal wound requiring wound VAC Encephalopathy Volume overload Diastolic CHF Severe COPD oxygen dependent An[place]arca Protein malnutrition Plan: Continue diuresis Wound VAC PT and OT Pain control 04/15/2022: Replace potassium Wound vac management 04/16/2022: Wound vac Monitor closely 04/17/2022: Monitor wound vac Dulera BID 04/18/2022: Monitor closely (1) Respiratory failure JERAMIE KENT DO Apr 18, 2022 06:01
[2022-04-18] MEDS: CATHETER FLUSH 10 ML SYR IVP SCH ×3 (06:21→21:53)
[2022-04-18] MEDS: DULERA IH SCH ×2 (06:44→20:31)
[2022-04-18] MEDS: UMECLIDINIUM BROMIDE (INCRUSE ELLIPTA) 7'S IH SCH (06:44)
[2022-04-18 07:44] VITALS: BP 127/76
[2022-04-18 07:51] VITALS: BP 127/76
[2022-04-18] MEDS: KCL 10 MEQ TAB (MICRO K) PO SCH ×2 (08:33→17:15)
[2022-04-18] MEDS: BUMETANIDE 1 MG (BUMEX) TAB PO SCH (08:33)
[2022-04-18] MEDS: IBUPROFEN TABLET 200 MG TAB PO PRN ×3 (08:33→21:53)
--- NOTE | 2022-04-18 09:15 | Physical Therapy Daily Note ---
PT Daily Note-Current Subjective Pt. in bed, c/o pain in bilat LEs at 7/10 and requests pain meds, pt. c/o this escalates to 8-9/10 while she is on her feet , dependent. Pt. c/o she has urge to urinate frequently and is confused by still having incont of BM from anus. Pt. agrees to Rx but in short bouts of gait and activity as she needs to rest with LEs elevated frequently. "Do you see how my feet and ankle swell instantly as soon as I get on my feet?" Pt. states she used O2 on off at home, taking it off to go do a task, and knew just how long she could tolerate being off to do a house hold chore before resting and putting it back on for a while. Pt. admits she will be resistive of having to wear it multimedia teacher with extended tubing. O2 sats with 4.5 L O2 steady > 95% during Rx Pain Numeric Pain Scale: 9 Location: Left (and right ) Location Body Site: Thigh Pain Description: Ache Section J - Health Conditions 1. Rarely or not at all 2. Occasionally 3. Frequently 4. Almost constantly 8. Unable to answer Pain Effect on Sleep: 1 Pain Interference with Therapy: 3 Pain Interference w/Day-to-Day: 3 Appearance pitting edema noted from ankle proximally up into trunk and thighs , pts. ankle do in fact swell visibly when up on feet within minutes Mental Status Patient Orientation: Normal For Age Attachments: Colostomy/Ileostomy, Oxygen (4.5L), Other-See Comments ([place]) Transfers SCALE: Activities may be completed with or without assistive devices. 9-Ageqnelfff-xsclfaw completes the activity by him/herself with no assistance from a helper. 5-Set-up or Clean-up Assistance-helper sets up or cleans up; patient completes activity. [place] assists only prior to or following the activity. 4-Supervision or Touching Assistance-helper provides verbal cues and/or touching/steadying and/or contact guard assistance as patient completes activity. Assistance may be provided throughout the activity or intermittently. 3-Partial/Moderate Assistance-helper does LESS THAN HALF the effort. [place] lifts, holds or supports trunk or limbs, but provides less than half the effort. 2-Substantial/Maximal Assistance-helper does MORE THAN HALF the effort. [place] lifts or holds trunk or limbs and provides more than half the effort. 6-Lyqhbiqey-kbjzbj does ALL the effort. Patient does none of the effort to complete the activity. Or, the assistance of 2 or more helpers is required for the patient to complete the activity. If activity was not attempted, code reason: 7-Patient Refused. 9-Not Applicable-not attempted and the patient did not perform the activity before the current illness, exacerbation or injury. 10-Not Attempted due to Environmental Limitations-(lack of equipment, weather restraints, etc.). 88-Not Attempted due to Medical Conditions or Safety Concerns. Roll Left & Right (QC): 6 Sit to Lying (QC): 6 Lying to Sitting/Side of Bed(Q: 6 Sit to Stand (QC): 6 Chair/Ewc-jo-Pgkdu Xfer(QC): 6 Toilet Transfer (QC): 6 Weight Bearing Full Weight Bearing Full Weight Bearing Gait Training Does the Patient Walk?: Yes Walk 10 feet (QC): 4 Walk 50 ft with 2 Turns(QC): 4 Walk 150 ft (QC): 4 Gait Persons Needed: 1 Gait Assistive Device: FWW pt. required assist to manage O2 extended tubing as well as affixing the wound vacc to walker and making sure it does not over weight the front of FWW during gait as it is attached to front. Exercises Supine Ex: Bridging, Ankle pumps, Quad Set, Rolling, Glut sets, Lower trunk rotation, Heel Slides, Short Arc Quads, Straight leg raise, Hip abd/add Supine Reps: 10 (x2) Treatments pt. with incont of BM and frequent sensation that she needed to urinate was up and down from bed inside her room many times to [facility]. Pt. declined out of room Rx secondary to incont of BM stating she did not want to wear a brief . "I had it on last night and it is so uncomfortable against my skin where I am so swollen" Pt. had 4 trips to [place] [facility] for incont BMs and a small amount of urine during Rx. Pt. ambulated with FWW 150 ftx1, 636ctc0, 50 ftx1 n room, sup ex as above and toileting , back in bed withLEs elevated on wedge and O2 and [place] [facility] after Rx , leon at hand Assessment Current Status: Fair Progress edema is concerning with dependent positioning. This and frequent stools limit pts participation level PT Short Term Goals Short Term Goals Time Frame: Apr 22, 2022 Sit to stand: 4 Chair/hzj-gc-drgwa transfer: 4 Walk 10 feet: 4 Walk 50 feet with two turns: 4 Walk 150 feet: 4 PT Fdc Goals Fdc Goals PT Fdc Goals Time Frame: Apr 29, 2022 Roll Left & Right (QC): 6 Sit to Lying (QC): 6 Lying-Sitting on Side/Bed(QC): 6 Sit to Stand (QC): 6 Chair/Zko-qd-Yrfro Xfer(QC): 6 Toilet Transfer (QC): 6 Car Transfer (QC): 6 Does the Patient Walk: Yes Walk 10 feet (QC): 6 Walk 50ft with 2 Turns (QC): 6 Walk 150 ft (QC): 6 Walking 10ft on Uneven Surface: 6 1 Step (curb) (QC): 4 (SBA) 4 Steps (QC): 4 (SBA) 12 Steps (QC): 88 Picking up an Object (QC): 6 Wheel 50 feet with 2 turns (QC: 9 Wheel 150 feet: 9 PT Plan Treatment/Plan Treatment Plan: Continue Plan of Care Treatment Plan: Bed Mobility, Education, Functional Activity Vi, Functional Strength, Group Therapy, Gait, Safety, Therapeutic Exercise, Transfers Treatment Duration: Apr 29, 2022 Frequency: At least 5 of 7 days/Wk (IRF) Estimated Hrs Per Day: 1.5 hours per day Patient and/or Family Agrees t: Yes Safety Risks/Education Patient Education: Gait Training, Transfer Techniques, Correct Positioning, Disease Process, Safety Issues Teaching Recipient: Patient Teaching Methods: Demonstration, Discussion Response to Teaching: Verbalize Understanding, Return Demonstration, Reinforcement Needed Time Time In: 745 Time Out: 915 DATE: Apr 18, 2022 Total Billed Treatment Time: 90 Total Billed Treatment 1,GT25m,FA35m,EX30m ELIJAH FUENTES TRUCK DRIVER Apr 18, 2022 09:15
--- NOTE | 2022-04-18 09:50 | Occupational Ther Daily Note ---
OT Current Status-Daily Note Subjective Pt in bed, agreeable to OT Tx. Mental Status/Objective Patient Orientation: Person, Place, Time, Situation ADL-Treatment Therapy Code Descriptions/Definitions Functional [place] Measure: 0=Not Assessed/NA 4=Minimal Assistance 1=Total Assistance 5=Supervision or Setup 2=Maximal Assistance 6=Modified [place] 3=Moderate Assistance 7=Complete IndependenceSCALE: Activities may be completed with or without assistive devices. 8-Vwtcbmyoqw-xzqvxnf completes the activity by him/herself with no assistance from a helper. 5-Set-up or Clean-up Assistance-helper sets up or cleans up; patient completes activity. [place] assists only prior to or following the activity. 4-Supervision or Touching Assistance-helper provides verbal cues and/or touching/steadying and/or contact guard assistance as patient completes activity. Assistance may be provided throughout the activity or intermittently. 3-Partial/Moderate Assistance-helper does LESS THAN HALF the effort. [place] lifts, holds or supports trunk or limbs, but provides less than half the effort. 2-Substantial/Maximal Assistance-helper does MORE THAN HALF the effort. [place] lifts or holds trunk or limbs and provides more than half the effort. 9-Dkcjqnfmf-dxammj does ALL the effort. Patient does none of the effort to complete the activity. Or, the assistance of 2 or more helpers is required for the patient to complete the activity. If activity was not attempted, code reason: 7-Patient Refused. 9-Not Applicable-not attempted and the patient did not perform the activity before the current illness, exacerbation or injury. 10-Not Attempted due to Environmental Limitations-(lack of equipment, weather restraints, etc.). 88-Not Attempted due to Medical Conditions or Safety Concerns. Lower Body Dressing (QC): 5 On/Off Footwear: 5 Toileting Hygiene (QC): 4 Other Treatment Pt transferred supine to sit EOB independently, donned LE clothing and footwear with set up assist. Pt used FWW to perform functional mobility to therapy gym, OT assisted only with O2 management. OT tx focused on increasing BUE strength and activity tolerance, and fine motor strength. Pt completed arm bike x12 mins, 20 Watt resistance. She then removed beads from moderate resistance theraputty, able to locate all beads without cues. Pt completed UE reaching task, placing/removing pegs from foam pegboard, alternating handss. Pt able to complete x100 pegs. Pt used FWW to return to her room, OT assisted with only managing O2 tank. Pt stood at toilet to empty ostomy bag, then completed toileting seated. SBA with ostomy due to min VCs. Pt used FWW to transfer to EOB, then supine. Post tx, pt in bed, call light in reach and all needs met. Education OT Patient Education: Correct positioning, Energy conservation, Modified ADL techniques, Progress toward Goal/Update tx plan, Purpose of tx/functional a ctivities, Rehab process Teaching Recipient: Patient Teaching Methods: Discussion Response to Teaching: Verbalize Understanding OT Short Term Goals Short Term Goals Time Frame: Apr 24, 2022 Toileting hygiene: 5 Shower/bathe self: 5 Lower body dressin Putting on/taking off footwear: 5 OT Health Care Sanitary Technician Goals [facility] Goals Time Frame: May 10, 2022 Acute change in mental status: 0 Inattention: 0 Disorganized thinkin Altered level of consciousness: 0 Eating (QC): 6 Oral Hygiene (QC): 6 Toileting Hygiene (QC): 6 Shower/Bathe Self (QC): 6 Upper Body Dressing (QC): 6 Lower Body Dressing (QC): 6 On/Off Footwear (QC): 6 Additional Goals: 1-Demonstrate ADL Tasks, 2-Verbalize Understanding, 3- ImproveStrength/Vi 1=Demonstrate adherence to instructed precautions during ADL tasks. 2=Patient will verbalize/demonstrate understanding of assistive devices/modifications for ADL. 3=Patient will improve strength/tolerance for activity to enable patient to perform ADL's. OT Education/Plan Problem List/Assessment Assessment: Decreased Activ Tolerance, Dependent Transfers, Impaired Funct Balance, Impaired I ADL's, Impaired Self-Care Skills Discharge Recommendations Plan/Recommendations: Continue POC Treatment Plan/Plan of Care Patient would benefit from OT for education, treatment and training to promote independence in ADL's, mobility, safety and/or upper extremity function for ADL's. Plan of Care: ADL Retraining, Functional Mobility, Group Exercise/Act as Ind, UE Funct Exercise/Act Treatment Duration: May 10, 2022 Frequency: At least 5 of 7 days/Wk (IRF) Estimated Hrs Per Day: 1.5 hours per day Agreement: Yes Rehab Potential: Fair Time Start Time: 09:15 Stop Time: 10:45 DATE: Apr 18, 2022 Total Time Billed (hr/min): 90 Billed Treatment Time 1, ADL 2 (30'), EX (15'), FA 3 (45') EMERSON SPRAGUE OT Apr 18, 2022 09:50
[2022-04-18] MEDS: ENOXAPARIN 40 MG/0.4 ML (LOVENOX) SYR SC SCH (15:52)
--- NOTE | 2022-04-18 18:27 | Progress Note ---
Subjective Date Seen by a Provider: Apr 18, 2022 Time Seen by a Provider: 18:00 Subjective/Events-last exam Patient seen with Dr. Hunt. Patient reports doing well. Denies any abdominal pain or N/V. Tolerating diet. Working with PT/OT. Objective Exam Vital Signs Date Time Temp Pulse Resp B/P (MAP) Pulse Ox O2 Delivery O2 Flow Rate FiO2 04/18/22 08:33 Nasal Cannula 4.00 04/18/22 07:51 36.0 75 18 127/76 (93) 96 Nasal Cannula 4.00 4.00 04/18/22 07:44 36.0 75 18 127/76 (93) 96 Nasal Cannula 4.00 04/18/22 06:45 Nasal Cannula 04/18/22 06:44 96 Nasal Cannula 4.00 04/17/22 21:01 97 Nasal Cannula 4.00 04/17/22 20:00 Nasal Cannula 4.00 04/17/22 20:00 36.7 79 20 128/77 (94) 96 Nasal Cannula 4.00 I & O 04/18/22 07:00 Intake Total 1100 ml Output Total 300 ml Balance 800 ml Capillary Refill : General Appearance: No Apparent Distress, WD/WN Neck: Normal Inspection, Supple Respiratory: No Accessory Muscle Use, No Respiratory Distress Gastrointestinal: normal bowel sounds, non tender, soft, other (Right ileostomy functioning. Interior midline incision C/D/I with wound vac applied) Extremity: Normal Inspection, Normal Range of Motion Neurologic/Psychiatric: Alert, Oriented x3 Skin: Normal Color, Warm/Dry Results Lab Laboratory Tests 04/18/22 05:45: Glucometer 73 Assessment/Plan Assessment/Plan Assess & Plan/Chief Complaint A 76 year old female with collagenous colitis/crohns disease with active inflammation s/p colonoscopy, iatrogenic perforation, LAR and diverting loop colostomy, wound dehiscence. cont vac. cont rehab. will eventually need GI referral. if continued or copious rectal drainage will start PO steroids. PASHA CHEEMA APRN Apr 18, 2022 18:27
[2022-04-18 19:45] VITALS: BP 113/53
[2022-04-18] MEDS: ZOLPIDEM 5 MG (AMBIEN) TAB PO PRN (21:54)
[2022-04-19] MEDS: IBUPROFEN TABLET 200 MG TAB PO PRN ×3 (04:20→22:53)
[2022-04-19] MEDS: CATHETER FLUSH 10 ML SYR IVP SCH ×3 (04:20→19:47)
--- NOTE | 2022-04-19 06:27 | PM&R Progress Note ---
Subjective HPI/CC On Admission Date Seen by Provider: Apr 19, 2022 Time Seen by Provider: 11:00 Subjective/Events-last exam 04/19/2022: Improved overall. Right leg is a bit red from edema will apply ice packs Breathing well No pain reported 04/18/2022: Doing well No pain reported Lungs remain clear Trying to wean O2 04/17/2022: Doing well Labs stable No pain reported Participation is good in therapy Wound vac managed 04/16/2022: Doing very well. BM+ Using Purewick and she will obtain one to have at home so no need to wean Pain controlled Breathing well Dulera will be clarified with Dr Lucas. 04/15/2022: Doing very well No pain reported Output colostomy good Lungs clear Working with therapy Labs reviewed Review of Systems General: Fatigue, Malaise Objective Exam Vital Signs Vital Signs Date Time Temp Pulse Resp B/P (MAP) Pulse Ox O2 Delivery O2 Flow Rate FiO2 04/19/22 20:20 97 Nasal Cannula 4.00 04/19/22 20:00 36.3 78 18 128/60 (82) Capillary Refill : General Appearance: No Apparent Distress, WD/WN, Chronically ill HEENT: PERRL/EOMI, Normal ENT Inspection, Pharynx Normal Neck: Full Range of Motion, Normal Inspection, Non Tender, Supple, Carotid Bruit Respiratory: Chest Non Tender, Lungs Clear, Normal Breath Sounds, No Accessory Muscle Use, No Respiratory Distress, Decreased Breath Sounds Cardiovascular: Regular Rate, Rhythm, No Edema, No Gallop, No JVD, No Murmur, Normal Peripheral Pulses Gastrointestinal: Normal Bowel Sounds, No Organomegaly, No Pulsatile Mass, Non Tender, Soft, Other (Colostomy) Back: Normal Inspection, No CVA Tenderness, No Vertebral Tenderness Extremity: Normal Capillary Refill, Normal Inspection, Normal Range of Motion, Non Tender, No Calf Tenderness, No Pedal Edema Neurologic/Psychiatric: Alert, Oriented x3, Normal Mood/Affect, Motor Weakness (Generalized 3/5) Skin: Normal Color, Warm/Dry Lymphatic: No Adenopathy Results/Procedures Lab Patient resulted labs reviewed. FIM Transfers Therapy Code Descriptions/Definitions Functional [place] Measure: 0=Not Assessed/NA 4=Minimal Assistance 1=Total Assistance 5=Supervision or Setup 2=Maximal Assistance 6=Modified [place] 3=Moderate Assistance 7=Complete IndependenceSCALE: Activities may be completed with or without assistive devices. 3-Wjoxydzfho-uqieqfz completes the activity by him/herself with no assistance from a helper. 5-Set-up or Clean-up Assistance-helper sets up or cleans up; patient completes activity. [place] assists only prior to or following the activity. 4-Supervision or Touching Assistance-helper provides verbal cues and/or touching/steadying and/or contact guard assistance as patient completes activity. Assistance may be provided throughout the activity or intermittently. 3-Partial/Moderate Assistance-helper does LESS THAN HALF the effort. [place] lifts, holds or supports trunk or limbs, but provides less than half the effort. 2-Substantial/Maximal Assistance-helper does MORE THAN HALF the effort. [place] lifts or holds trunk or limbs and provides more than half the effort. 3-Jnliipwfz-wgqsoo does ALL the effort. Patient does none of the effort to complete the activity. Or, the assistance of 2 or more helpers is required for the patient to complete the activity. If activity was not attempted, code reason: 7-Patient Refused. 9-Not Applicable-not attempted and the patient did not perform the activity before the current illness, exacerbation or injury. 10-Not Attempted due to Environmental Limitations-(lack of equipment, weather restraints, etc.). 88-Not Attempted due to Medical Conditions or Safety Concerns. Roll Left to Right (QC): 6 Sit to Lying (QC): 6 Sit to Stand (QC): 6 Chair/Vcw-ed-[place] Xfer(QC): 6 Car Transfer (QC): 4 Gait Training Does the Patient Walk?: Yes Distance: 100' Walk 10 feet (QC): 4 Walk 50 ft with 2 Turns(QC): 4 Walk 150 ft (QC): 4 Walking 10ft/uneven surface-QC: 4 Gait Persons Needed: 1 Gait Assistive Device: FWW Wheelchair Training Does the Pt Use a Wheelchair?: No Wheel 50 ft with 2 turns (QC): 9 Wheel 150 ft (QC): 9 Type of Wheelchair: N/A Stair Training #of Steps: 1 1 Step (curb) (QC): 4 4 Steps (QC): 88 12 Steps (QC): 88 Balance Picking up an Object (QC): 4 (CGA using a hose inspector and patcher) ADL-Treatment Eating (QC): 6 Oral Hygiene (QC): 4 (SBA) Shower/Bathe Self (QC): 4 (SBA sponge bath) Upper Body Dressing (QC): 5 Lower Body Dressing (QC): 5 On/Off Footwear (QC): 5 Toileting Hygiene (QC): 4 Toilet Transfer (QC): 6 Assessment/Plan Assessment and Plan Assess & Plan/Chief Complaint Assessment: Debility following colon perforation [place] [facility] [place] emergent diverting colostomy per Dr Hunt Recent hospital acquired PNA Abdominal wound requiring wound VAC Encephalopathy Volume overload Diastolic CHF Severe COPD oxygen dependent An[place]arc[place] Protein malnutrition Plan: Continue diuresis Wound VAC PT and OT Pain control 04/15/2022: Replace potassium Wound vac management 04/16/2022: Wound vac Monitor closely 04/17/2022: Monitor wound vac Dulera BID 04/18/2022: Monitor closely 04/19/2022: Monitor right upper lateral thigh (1) Respiratory failure JERAMIE KENT DO Apr 19, 2022 06:27
[2022-04-19] MEDS: DULERA IH SCH ×2 (07:19→18:54)
[2022-04-19] MEDS: UMECLIDINIUM BROMIDE (INCRUSE ELLIPTA) 7'S IH SCH ×2 (07:19→18:54)
[2022-04-19 07:34] VITALS: BP 122/59
[2022-04-19] MEDS: BUMETANIDE 1 MG (BUMEX) TAB PO SCH (08:19)
[2022-04-19] MEDS: KCL 10 MEQ TAB (MICRO K) PO SCH ×2 (08:19→17:22)
--- NOTE | 2022-04-19 08:51 | Occupational Ther Daily Note ---
OT Current Status-Daily Note Subjective Pt in bed, agreeable to OT Tx. Mental Status/Objective Patient Orientation: Person, Place, Time, Situation Attachments: Oxygen, Other-See Comments (wound vac) ADL-Treatment Therapy Code Descriptions/Definitions Functional [place] Measure: 0=Not Assessed/NA 4=Minimal Assistance 1=Total Assistance 5=Supervision or Setup 2=Maximal Assistance 6=Modified [place] 3=Moderate Assistance 7=Complete IndependenceSCALE: Activities may be completed with or without assistive devices. 0-Ikwnbkgwgz-mrlsqfh completes the activity by him/herself with no assistance from a helper. 5-Set-up or Clean-up Assistance-helper sets up or cleans up; patient completes activity. [place] assists only prior to or following the activity. 4-Supervision or Touching Assistance-helper provides verbal cues and/or touching/steadying and/or contact guard assistance as patient completes activity. Assistance may be provided throughout the activity or intermittently. 3-Partial/Moderate Assistance-helper does LESS THAN HALF the effort. [place] lif ts, holds or supports trunk or limbs, but provides less than half the effort. 2-Substantial/Maximal Assistance-helper does MORE THAN HALF the effort. [place] lifts or holds trunk or limbs and provides more than half the effort. 9-Codellqfp-ngahzw does ALL the effort. Patient does none of the effort to complete the activity. Or, the assistance of 2 or more helpers is required for the patient to complete the activity. If activity was not attempted, code reason: 7-Patient Refused. 9-Not Applicable-not attempted and the patient did not perform the activity before the current illness, exacerbation or injury. 10-Not Attempted due to Environmental Limitations-(lack of equipment, weather restraints, etc.). 88-Not Attempted due to Medical Conditions or Safety Concerns. Eating (QC): 6 Oral Hygiene (QC): 6 Shower/Bathe Self (QC): 5 Upper Body Dressing (QC): 5 Lower Body Dressing (QC): 5 On/Off Footwear: 3 (Pt completed slip on shoes with set up. Assist with compression socks.) Toileting Hygiene (QC): 6 (IND urination only.) Other Treatment Pt in bed, transferred supine to sit EOB. Pt used FWW to transfer into bathroom and onto toilet, SBA required for VCs with O2 tubing management. Pt completed toileting (urination only), then transferred to PA. OT covered pt's wound vac and ostomy bag prior to shower as instructed by camera prototyping engineer. Both remained dry post shower. Pt donned shirt, underwear and shoes with set up. Assistance required with compression socks/Tedhose. Pt initially wanted to don her compression socks from home, after ~20 mins felt these were too tight. Thigh high paul hose donned, pt again felt like they were uncomfortable but agreeable to trying them for a while. Pt sat EOB to complete UE reaching task, placin g/removing pegs from foam pegboard, alternating hands. Pt able to complete x100 pegs. Pt transferred supine independently, OT assisted with positioning pt to comfort. Post tx, camera prototyping engineer present, call light in reach and all needs met. Education OT Patient Education: Correct positioning, Energy conservation, Modified ADL techniques, Progress toward Goal/Update tx plan, Purpose of tx/functional activities, Rehab process Teaching Recipient: Patient Teaching Methods: Discussion Response to Teaching: Verbalize Understanding OT Short Term Goals Short Term Goals Time Frame: Apr 24, 2022 Toileting hygiene: 5 Shower/bathe self: 5 Lower body dressin Putting on/taking off footwear: 5 OT Assisted Goals Laborer [employer] Goals Time Frame: May 10, 2022 Acute change in mental status: 0 Inattention: 0 Disorganized thinkin Altered level of consciousness: 0 Eating (QC): 6 Oral Hygiene (QC): 6 Toileting Hygiene (QC): 6 Shower/Bathe Self (QC): 6 Upper Body Dressing (QC): 6 Lower Body Dressing (QC): 6 On/Off Footwear (QC): 6 Additional Goals: 1-Demonstrate ADL Tasks, 2-Verbalize Understanding, 3- ImproveStrength/Vi 1=Demonstrate adherence to instructed precautions during ADL tasks. 2=Patient will verbalize/demonstrate understanding of assistive devices/modifications for ADL. 3=Patient will improve strength/tolerance for activity to enable patient to perform ADL's. OT Education/Plan Problem List/Assessment Assessment: Decreased Activ Tolerance, Decreased UE Strength, Impaired Funct Balance, Impaired I ADL's, Impaired Self-Care Skills Discharge Recommendations Plan/Recommendations: Continue POC Treatment Plan/Plan of Care Patient would benefit from OT for education, treatment and training to promote independence in ADL's, mobility, safety and/or upper extremity function for ADL's. Plan of Care: ADL Retraining, Functional Mobility, Group Exercise/Act as Ind, UE Funct Exercise/Act Treatment Duration: May 10, 2022 Frequency: At least 5 of 7 days/Wk (IRF) Estimated Hrs Per Day: 1.5 hours per day Agreement: Yes Rehab Potential: Fair Time Start Time: 07:25 Stop Time: 08:55 DATE: Apr 19, 2022 Total Time Billed (hr/min): 90 Billed Treatment Time 1, ADL 4 (60'), FA 2 (30') EMERSON SPRAGUE OT Apr 19, 2022 08:51
--- NOTE | 2022-04-19 11:41 | Physical Therapy Daily Note ---
PT Daily Note-Current Subjective Pt. again states she really does not plan on using O2 at home unless she feels SOB, Pt. states she did not use FWW at home either . This CURATOR OF MANUSCRIPTS educated pt about energy conservation with FWW which is so helpful when SOB and using O2. Pt. also declines use of mask while out of room, nurse was made aware. Pain Location: No Pain Reported Section J - Health Conditions 1. Rarely or not at all 2. Occasionally 3. Frequently 4. Almost constantly 8. Unable to answer Pain Effect on Sleep: 1 Pain Interference with Therapy: 1 Pain Interference w/Day-to-Day: 1 Mental Status Patient Orientation: Normal For Age Attachments: Colostomy/Ileostomy, Oxygen (3-4 L see note), Other-See Comments (wound vacc) Transfers SCALE: Activities may be completed with or without assistive devices. 0-Zvkfgtrmfk-ypuhepd completes the activity by him/herself with no assistance from a helper. 5-Set-up or Clean-up Assistance-helper sets up or cleans up; patient completes activity. [place] assists only prior to or following the activity. 4-Supervision or Touching Assistance-helper provides verbal cues and/or touching/steadying and/or contact guard assistance as patient completes activity. Assistance may be provided throughout the activity or intermittently. 3-Partial/Moderate Assistance-helper does LESS THAN HALF the effort. [place] lifts, holds or supports trunk or limbs, but provides less than half the effort. 2-Substantial/Maximal Assistance-helper does MORE THAN HALF the effort. [place] lifts or holds trunk or limbs and provides more than half the effort. 7-Ylxdvqpfo-ovrnff does ALL the effort. Patient does none of the effort to complete the activity. Or, the assistance of 2 or more helpers is required for the patient to complete the activity. If activity was not attempted, code reason: 7-Patient Refused. 9-Not Applicable-not attempted and the patient did not perform the activity before the current illness, exacerbation or injury. 10-Not Attempted due to Environmental Limitations-(lack of equipment, weather restraints, etc.). 88-Not Attempted due to Medical Conditions or Safety Concerns. Roll Left & Right (QC): 6 Sit to Lying (QC): 6 Lying to Sitting/Side of Bed(Q: 6 Sit to Stand (QC): 6 Chair/Sss-nc-Miaiq Xfer(QC): 4 Toilet Transfer (QC): 6 pt. requires assist for ext O2 tubing while moving about for TRFs Weight Bearing Full Weight Bearing Full Weight Bearing Gait Training Does the Patient Walk?: Yes Walk 10 feet (QC): 4 Walk 50 ft with 2 Turns(QC): 4 Walk 150 ft (QC): 4 Gait Persons Needed: 1 Gait Assistive Device: FWW no LOB, CGA, assist for port O2 ad wound vacc Exercises Supine Ex: Quad Set, Heel Slides, Straight leg raise, Hip abd/add Supine Reps: 12 (fully reclined in recliner) Seated Therapy Exercises: Ankle pumps, Sit to stand, Long arc quads, Hip flexion, Hip abd/add Seated Reps: 12 NuStep Minutes: 11 NuStep Workload: 1 Treatments pt. found on 3 L O2 in room, at rest pts O2 90%, pt began LE ex in recliner seated and reclined with sats dropping to low to mid 89s but no c/o SOB from pt. for remainder of Rx O2 was increased to 4L for gait and Nustep. with sats 90% and> . pt. was instructed in use of ext O2 tubing while walking about the room in smaller tight areas making many turns. Pt. handled O2 tubing with min assist and shares she will likely not use O2 unless sitting at home. This CURATOR OF MANUSCRIPTS educating pt. on the importance of it s use. Pt. toileted indep managing donning net panties nd brief etc. pt. in bed with LEs elevated after, [place] and O2 insitu, leon at hand, pt. asks to have TEDs off, nurse thanh and this was done. Assessment Current Status: Good Progress more willing to be up and about , walking and mobile today, less issues with loose stools.etc, O2 sats did plummet with activity on 3 L but maintained at 4L. PT Short Term Goals Short Term Goals Time Frame: Apr 22, 2022 Sit to stand: 4 Chair/zzd-fg-tibxc transfer: 4 Walk 10 feet: 4 Walk 50 feet with two turns: 4 Walk 150 feet: 4 PT Cutting Machine Tender Goals Cutting Machine Tender Goals PT Half-Way Goals Time Frame: Apr 29, 2022 Roll Left & Right (QC): 6 Sit to Lying (QC): 6 Lying-Sitting on Side/Bed(QC): 6 Sit to Stand (QC): 6 Chair/Cfp-ah-Eemgh Xfer(QC): 6 Toilet Transfer (QC): 6 Car Transfer (QC): 6 Does the Patient Walk: Yes Walk 10 feet (QC): 6 Walk 50ft with 2 Turns (QC): 6 Walk 150 ft (QC): 6 Walking 10ft on Uneven Surface: 6 1 Step (curb) (QC): 4 (SBA) 4 Steps (QC): 4 (SBA) 12 Steps (QC): 88 Picking up an Object (QC): 6 Wheel 50 feet with 2 turns (QC: 9 Wheel 150 feet: 9 PT Plan Treatment/Plan Treatment Plan: Continue Plan of Care Treatment Plan: Bed Mobility, Education, Functional Activity Vi, Functional Strength, Group Therapy, Gait, Safety, Therapeutic Exercise, Transfers Treatment Duration: Apr 29, 2022 Frequency: At least 5 of 7 days/Wk (IRF) Estimated Hrs Per Day: 1.5 hours per day Patient and/or Family Agrees t: Yes Safety Risks/Education Patient Education: Gait Training, Transfer Techniques, Correct Positioning, Disease Process, Safety Issues Teaching Recipient: Patient Teaching Methods: Demonstration, Discussion Response to Teaching: Verbalize Understanding, Return Demonstration, Reinforcement Needed Time Time In: 1030 Time Out: 1130 DATE: Apr 19, 2022 Total Billed Treatment Time: 60 Total Billed Treatment 1,EX20m,GT25m,FA15m ELIJAH FUENTES CURATOR OF MANUSCRIPTS Apr 19, 2022 11:41
[2022-04-19] MEDS ORDERED: CHOL200074 PO (12:33)
[2022-04-19] MEDS ORDERED: ZOLP6.2538 PO (12:33)
[2022-04-19] MEDS ORDERED: MOME13HF11 INH (12:33)
[2022-04-19] MEDS ORDERED: IBUP-2473 PO (12:33)
[2022-04-19] MEDS ORDERED: MV M PO (12:33)
[2022-04-19] MEDS ORDERED: FLUT9.9S NSEACH (12:33)
[2022-04-19] MEDS ORDERED: ASCO-262 PO (12:33)
[2022-04-19] MEDS ORDERED: FISH12002 PO (12:33)
[2022-04-19] MEDS ORDERED: MOME13HF2 INH (12:33)
[2022-04-19] MEDS ORDERED: UMEC62.5 INH (12:33)
--- NOTE | 2022-04-19 13:38 | Physical Therapy Daily Note ---
PT Daily Note-Current Subjective Pt. in bed with LEs elevated. Pt. feels this has really helped her eliminate some fluid. Pt. c/o pain in right hip at 4/10 and states the ice pack the nurse gave her has really helped Pain Numeric Pain Scale: 4 Location: Right Location Body Site: Hip Pain Description: Ache Section J - Health Conditions 1. Rarely or not at all 2. Occasionally 3. Frequently 4. Almost constantly 8. Unable to answer Pain Effect on Sleep: 1 Pain Interference with Therapy: 2 Pain Interference w/Day-to-Day: 1 Mental Status Patient Orientation: Normal For Age Attachments: Colostomy/Ileostomy, Oxygen, Other-See Comments (wound vacc) Transfers SCALE: Activities may be completed with or without assistive devices. 9-Marxntfesz-opavdou completes the activity by him/herself with no assistance from a helper. 5-Set-up or Clean-up Assistance-helper sets up or cleans up; patient completes activity. [place] assists only prior to or following the activity. 4-Supervision or Touching Assistance-helper provides verbal cues and/or touching/steadying and/or contact guard assistance as patient completes activity. Assistance may be provided throughout the activity or intermittently. 3-Partial/Moderate Assistance-helper does LESS THAN HALF the effort. [place] lifts, holds or supports trunk or limbs, but provides less than half the effort. 2-Substantial/Maximal Assistance-helper does MORE THAN HALF the effort. [place] lifts or holds trunk or limbs and provides more than half the effort. 0-Vdejlperx-zfnosr does ALL the effort. Patient does none of the effort to complete the activity. Or, the assistance of 2 or more helpers is required for the patient to complete the activity. If activity was not attempted, code reason: 7-Patient Refused. 9-Not Applicable-not attempted and the patient did not perform the activity before the current illness, exacerbation or injury. 10-Not Attempted due to Environmental Limitations-(lack of equipment, weather restraints, etc.). 88-Not Attempted due to Medical Conditions or Safety Concerns. Roll Left & Right (QC): 6 Sit to Lying (QC): 6 Lying to Sitting/Side of Bed(Q: 6 Sit to Stand (QC): 6 Chair/Eiy-pc-Brtmf Xfer(QC): 4 Toilet Transfer (QC): 6 Weight Bearing Full Weight Bearing Full Weight Bearing Gait Training Does the Patient Walk?: Yes Gait Assistive Device: FWW gait about room 125 ft with many turns and required assist to manage O2 safely, but is improving. manages FWW well, no LOB, O2 insitu at 4 L and sats >90% throughout Rx Exercises Supine Ex: Ankle pumps, Quad Set, Glut sets, Heel Slides, Short Arc Quads, Scooting, Straight leg raise, Hip abd/add Supine Reps: 15 Treatments sup ex, gait, toileting, TRFs Assessment Current Status: Good Progress PT Short Term Goals Short Term Goals Time Frame: Apr 22, 2022 Sit to stand: 4 Chair/uin-av-axyvu transfer: 4 Walk 10 feet: 4 Walk 50 feet with two turns: 4 Walk 150 feet: 4 PT Sharepoint Developer Goals Sharepoint Developer Goals PT Sharepoint Developer Goals Time Frame: Apr 29, 2022 Roll Left & Right (QC): 6 Sit to Lying (QC): 6 Lying-Sitting on Side/Bed(QC): 6 Sit to Stand (QC): 6 Chair/Jly-vh-Pityx Xfer(QC): 6 Toilet Transfer (QC): 6 Car Transfer (QC): 6 Does the Patient Walk: Yes Walk 10 feet (QC): 6 Walk 50ft with 2 Turns (QC): 6 Walk 150 ft (QC): 6 Walking 10ft on Uneven Surface: 6 1 Step (curb) (QC): 4 (SBA) 4 Steps (QC): 4 (SBA) 12 Steps (QC): 88 Picking up an Object (QC): 6 Wheel 50 feet with 2 turns (QC: 9 Wheel 150 feet: 9 PT Plan Treatment/Plan Treatment Plan: Continue Plan of Care Treatment Plan: Bed Mobility, Education, Functional Activity Vi, Functional Strength, Group Therapy, Gait, Safety, Therapeutic Exercise, Transfers Treatment Duration: Apr 29, 2022 Frequency: At least 5 of 7 days/Wk (IRF) Estimated Hrs Per Day: 1.5 hours per day Patient and/or Family Agrees t: Yes Safety Risks/Education Patient Education: Gait Training, Transfer Techniques, Correct Positioning, Safety Issues Time Time In: 1300 Time Out: 1330 DATE: Apr 19, 2022 Total Billed Treatment Time: 30 Total Billed Treatment 1,GT12m,EX13m ELIJAH FUENTES PERSONAL PROTECTION SPECIALIST Apr 19, 2022 13:38
[2022-04-19] MEDS: ENOXAPARIN 40 MG/0.4 ML (LOVENOX) SYR SC SCH (16:16)
[2022-04-19] MEDS: ZOLPIDEM 5 MG (AMBIEN) TAB PO PRN (19:43)
[2022-04-19 20:00] VITALS: BP 128/60
[2022-04-20] MEDS: IBUPROFEN TABLET 200 MG TAB PO PRN ×2 (05:21→17:51)
[2022-04-20] MEDS: CATHETER FLUSH 10 ML SYR IVP SCH ×3 (06:41→20:18)
[2022-04-20 07:55] VITALS: BP 130/63
[2022-04-20] MEDS: KCL 10 MEQ TAB (MICRO K) PO SCH ×2 (08:42→17:50)
[2022-04-20] MEDS: BUMETANIDE 1 MG (BUMEX) TAB PO SCH (08:42)
--- NOTE | 2022-04-20 08:50 | Physical Therapy Daily Note ---
PT Daily Note-Current Subjective Patient in bed pre tx, agrees to PT, no complaints of pain at rest. Pain Section J - Health Conditions 1. Rarely or not at all 2. Occasionally 3. Frequently 4. Almost constantly 8. Unable to answer Pain Effect on Sleep: 1 Pain Interference with Therapy: 2 Pain Interference w/Day-to-Day: 1 Appearance Patient in bed post tx with nurse call, phone, tray, all needs met. Mental Status Patient Orientation: Person, Place, Situation Attachments: Oxygen wound vac Transfers SCALE: Activities may be completed with or without assistive devices. 4-Czjikkksem-jsdxznl completes the activity by him/herself with no assistance from a helper. 5-Set-up or Clean-up Assistance-helper sets up or cleans up; patient completes activity. [place] assists only prior to or following the activity. 4-Supervision or Touching Assistance-helper provides verbal cues and/or touching/steadying and/or contact guard assistance as patient completes activity. Assistance may be provided throughout the activity or intermittently. 3-Partial/Moderate Assistance-helper does LESS THAN HALF the effort. [place] lifts, holds or supports trunk or limbs, but provides less than half the effort. 2-Substantial/Maximal Assistance-helper does MORE THAN HALF the effort. [place] lifts or holds trunk or limbs and provides more than half the effort. 6-[place]-tbdmdv does ALL the effort. Patient does none of the effort to com plete the activity. Or, the assistance of 2 or more helpers is required for the patient to complete the activity. If activity was not attempted, code reason: 7-Patient Refused. 9-Not Applicable-not attempted and the patient did not perform the activity before the current illness, exacerbation or injury. 10-Not Attempted due to Environmental Limitations-(lack of equipment, weather restraints, etc.). 88-Not Attempted due to Medical Conditions or Safety Concerns. Roll Left & Right (QC): 6 Sit to Lying (QC): 6 Lying to Sitting/Side of Bed(Q: 6 Sit to Stand (QC): 4 Patient ambulates into the restroom to toilet, no assist needed. Weight Bearing Full Weight Bearing Full Weight Bearing Gait Training Distance: 10', 200' Walk 10 feet (QC): 4 Walk 50 ft with 2 Turns(QC): 4 Walk 150 ft (QC): 4 Gait Persons Needed: 1 Gait Assistive Device: FWW SBA, slow but steady ambulation Treatments toileting, bed mobility and transfers, ambulation Assessment Current Status: Fair Progress patient performed well PT Short Term Goals Short Term Goals Time Frame: Apr 22, 2022 Sit to stand: 4 Chair/yks-zp-qlgmc transfer: 4 Walk 10 feet: 4 Walk 50 feet with two turns: 4 Walk 150 feet: 4 PT Usp Goals Product Marketing Analyst Goals PT Product Marketing Analyst Goals Time Frame: Apr 29, 2022 Roll Left & Right (QC): 6 Sit to Lying (QC): 6 Lying-Sitting on Side/Bed(QC): 6 Sit to Stand (QC): 6 Chair/Byn-hd-Dqklf Xfer(QC): 6 Toilet Transfer (QC): 6 Car Transfer (QC): 6 Does the Patient Walk: Yes Walk 10 feet (QC): 6 Walk 50ft with 2 Turns (QC): 6 Walk 150 ft (QC): 6 Walking 10ft on Uneven Surface: 6 1 Step (curb) (QC): 4 (SBA) 4 Steps (QC): 4 (SBA) 12 Steps (QC): 88 Picking up an Object (QC): 6 Wheel 50 feet with 2 turns (QC: 9 Wheel 150 feet: 9 PT Plan Problem List Problem List: Activity Tolerance, Functional Strength, Safety, Balance, Gait, Transfer, Bed Mobility, ROM Treatment/Plan Treatment Plan: Continue Plan of Care Treatment Plan: Bed Mobility, Education, Functional Activity Vi, Functional Strength, Group Therapy, Gait, Safety, Therapeutic Exercise, Transfers Treatment Duration: Apr 29, 2022 Frequency: At least 5 of 7 days/Wk (IRF) Estimated Hrs Per Day: 1.5 hours per day Patient and/or Family Agrees t: Yes Safety Risks/Education Patient Education: Gait Training, Transfer Techniques, Correct Positioning, Safety Issues Teaching Recipient: Patient Teaching Methods: Demonstration, Discussion Response to Teaching: Reinforcement Needed Time Time In: 804 Time Out: 819 DATE: Apr 20, 2022 Total Billed Treatment Time: 15 Total Billed Treatment 1 visit FA 15' JEFF BRIDGES PT Apr 20, 2022 08:50
[2022-04-20] MEDS: UMECLIDINIUM BROMIDE (INCRUSE ELLIPTA) 7'S IH SCH (10:17)
[2022-04-20] MEDS: DULERA IH SCH ×2 (10:17→21:16)
[2022-04-20] MEDS ORDERED: OXYBUTYNIN (DITROPAN) 5 MG TAB PO NR (12:30)
--- NOTE | 2022-04-20 12:51 | PM&R Progress Note ---
Subjective HPI/CC On Admission Date Seen by Provider: Apr 20, 2022 Time Seen by Provider: 12:00 Subjective/Events-last exam 04/20/2022: Doing well Urinary incontinence is an issue Will hold Bumex since she is really done with that regimen Oxybutynin will be tried UA will be checked for UTI 04/19/2022: Improved overall. Right leg is a bit red from edema will apply ice packs Breathing well No pain reported 04/18/2022: Doing well No pain reported Lungs remain clear Trying to wean O2 04/17/2022: Doing well Labs stable No pain reported Participation is good in therapy Wound vac managed 04/16/2022: Doing very well. BM+ Using Purewick and she will obtain one to have at home so no need to wean Pain controlled Breathing well Dulera will be clarified with Dr Lucas. 04/15/2022: Doing very well No pain reported Output colostomy good Lungs clear Working with therapy Labs reviewed Review of Systems General: Fatigue, Malaise Genitourinary: Frequency Objective Exam Vital Signs Vital Signs Date Time Temp Pulse Resp B/P (MAP) Pulse Ox O2 Delivery O2 Flow Rate FiO2 04/21/22 07:08 36.9 85 18 103/64 (77) 91 Nasal Cannula 4.00 Capillary Refill : General Appearance: No Apparent Distress, WD/WN, Chronically ill HEENT: PERRL/EOMI, Normal ENT Inspection, Pharynx Normal Neck: Full Range of Motion, Normal Inspection, Non Tender, Supple, Carotid Bruit Respiratory: Chest Non Tender, Lungs Clear, Normal Breath Sounds, No Accessory Muscle Use, No Respiratory Distress, Decreased Breath Sounds Cardiovascular: Regular Rate, Rhythm, No Edema, No Gallop, No JVD, No Murmur, Normal Peripheral Pulses Gastrointestinal: Normal Bowel Sounds, No Organomegaly, No Pulsatile Mass, Non Tender, Soft, Other (Colostomy) Back: Normal Inspection, No CVA Tenderness, No Vertebral Tenderness Extremity: Normal Capillary Refill, Normal Inspection, Normal Range of Motion, Non Tender, No Calf Tenderness, No Pedal Edema Neurologic/Psychiatric: Alert, Oriented x3, Normal Mood/Affect, Motor Weakness (Generalized 3/5) Skin: Normal Color, Warm/Dry Lymphatic: No Adenopathy Results/Procedures Lab Patient resulted labs reviewed. FIM Transfers Therapy Code Descriptions/Definitions Functional [place] Measure: 0=Not Assessed/NA 4=Minimal Assistance 1=Total Assistance 5=Supervision or Setup 2=Maximal Assistance 6=Modified [place] 3=Moderate Assistance 7=Complete IndependenceSCALE: Activities may be completed with or without assistive devices. 6-Dfmbhxwxdt-jlnhdln completes the activity by him/herself with no assistance from a helper. 5-Set-up or Clean-up Assistance-helper sets up or cleans up; patient completes activity. [place] assists only prior to or following the activity. 4-Supervision or Touching Assistance-helper provides verbal cues and/or touching/steadying and/or contact guard assistance as patient completes activity. Assistance may be provided throughout the activity or intermittently. 3-Partial/Moderate Assistance-helper does LESS THAN HALF the effort. [place] lifts, holds or supports trunk or limbs, but provides less than half the effort. 2-Substantial/Maximal Assistance-helper does MORE THAN HALF the effort. [place] lifts or holds trunk or limbs and provides more than half the effort. 2-Xltrsmkxz-njykke does ALL the effort. Patient does none of the effort to complete the activity. Or, the assistance of 2 or more helpers is required for the patient to complete the activity. If activity was not attempted, code reason: 7-Patient Refused. 9-Not Applicable-not attempted and the patient did not perform the activity before the current illness, exacerbation or injury. 10-Not Attempted due to Environmental Limitations-(lack of equipment, weather restraints, etc.). 88-Not Attempted due to Medical Conditions or Safety Concerns. Roll Left to Right (QC): 6 Sit to Lying (QC): 6 Sit to Stand (QC): 4 Chair/Kuu-mt-Nzxzv Xfer(QC): 4 Car Transfer (QC): 4 Gait Training Does the Patient Walk?: Yes Distance: 10', 200' Walk 10 feet (QC): 4 Walk 50 ft with 2 Turns(QC): 4 Walk 150 ft (QC): 4 Walking 10ft/uneven surface-QC: 4 Gait Persons Needed: 1 Gait Assistive Device: FWW Wheelchair Training Does the Pt Use a Wheelchair?: No Wheel 50 ft with 2 turns (QC): 9 Wheel 150 ft (QC): 9 Type of Wheelchair: N/A Stair Training #of Steps: 1 1 Step (curb) (QC): 4 4 Steps (QC): 88 12 Steps (QC): 88 Balance Picking up an Object (QC): 4 (CGA using a sewing teacher) ADL-Treatment Eating (QC): 6 Oral Hygiene (QC): 6 Shower/Bathe Self (QC): 5 Upper Body Dressing (QC): 5 Lower Body Dressing (QC): 5 On/Off Footwear (QC): 3 (Pt completed slip on shoes with set up. Assist with compression socks.) Toileting Hygiene (QC): 6 (IND urination only.) Toilet Transfer (QC): 6 Assessment/Plan Assessment and Plan Assess & Plan/Chief Complaint Assessment: Debility following colon perforation during colonoscopy at [facility] [place] received emergent diverting colostomy per Dr Hunt Recent hospital acquired PNA Abdominal wound requiring wound VAC Encephalopathy Volume overload Diastolic CHF Severe COPD oxygen dependent Anasarca Protein malnutrition Urinary incontinence-DC Bumex and add Oxybutynin after checking UA Plan: Continue diuresis Wound VAC PT and OT Pain control 04/15/2022: Replace potassium Wound vac management 04/16/2022: Wound vac Monitor closely 04/17/2022: Monitor wound vac Dulera BID 04/18/2022: Monitor closely 04/19/2022: Monitor right upper lateral thigh 04/20/2022: DC Bumex Oxybutynin (1) Respiratory failure JERAMIE KENT DO Apr 20, 2022 12:51
[2022-04-20 14:51] LABS: BILIRUBIN,URINE NEGATIVE (NEGATIVE); CLARITY,URINE CLEAR; COLOR,URINE YELLOW; GLUCOSE, URINE (UA) NEGATIVE (NEGATIVE); KETONES,URINE NEGATIVE (NEGATIVE); LEUKOCYTE ESTERASE ,URINE NEGATIVE (NEGATIVE); NITRITE,URINE NEGATIVE (NEGATIVE); PH,URINE 6.5 (5-9); PROTEIN,URINE NEGATIVE (NEGATIVE)
[2022-04-20 15:04] LABS: BACTERIA,URINE NEGATIVE /HPF; SQUAMOUS EPITHELIAL CELL,UR 0-2 /HPF; WBC,URINE RARE /HPF
[2022-04-20] MEDS: ENOXAPARIN 40 MG/0.4 ML (LOVENOX) SYR SC SCH (15:15)
[2022-04-20 20:04] VITALS: BP 107/59
[2022-04-20] MEDS: ZOLPIDEM 5 MG (AMBIEN) TAB PO PRN (20:18)
[2022-04-20] MEDS: OXYBUTYNIN (DITROPAN) 5 MG TAB PO SCH (20:18)
[2022-04-21] MEDS: CATHETER FLUSH 10 ML SYR IVP SCH ×3 (05:25→21:01)
[2022-04-21] MEDS: IBUPROFEN TABLET 200 MG TAB PO PRN ×3 (05:37→21:01)
[2022-04-21 07:08] VITALS: BP 103/64
--- NOTE | 2022-04-21 07:33 | PM&R Progress Note ---
Subjective HPI/CC On Admission Date Seen by Provider: Apr 21, 2022 Time Seen by Provider: 11:00 Subjective/Events-last exam 04/21/2022: Doing well Less incontinence Bumex held No pain reported now after Tramadol 04/20/2022: Doing well Urinary incontinence is an issue Will hold Bumex since she is really done with that regimen Oxybutynin will be tried UA will be checked for UTI 04/19/2022: Improved overall. Right leg is a bit red from edema will apply ice packs Breathing well No pain reported 04/18/2022: Doing well No pain reported Lungs remain clear Trying to wean O2 04/17/2022: Doing well Labs stable No pain reported Participation is good in therapy Wound vac managed 04/16/2022: Doing very well. BM+ Using Purewick and she will obtain one to have at home so no need to wean Pain controlled Breathing well Dulera will be clarified with Dr Lucas. 04/15/2022: Doing very well No pain reported Output colostomy good Lungs clear Working with therapy Labs reviewed Review of Systems General: Fatigue, Malaise Objective Exam Vital Signs Vital Signs Date Time Temp Pulse Resp B/P (MAP) Pulse Ox O2 Delivery O2 Flow Rate FiO2 04/21/22 08:44 82 18 95 Nasal Cannula 4.00 04/21/22 07:08 36.9 103/64 (77) Capillary Refill : General Appearance: No Apparent Distress, WD/WN, Chronically ill HEENT: PERRL/EOMI, Normal ENT Inspection, Pharynx Normal Neck: Full Range of Motion, Normal Inspection, Non Tender, Supple, Carotid Bruit Respiratory: Chest Non Tender, Lungs Clear, Normal Breath Sounds, No Accessory Muscle Use, No Respiratory Distress, Decreased Breath Sounds Cardiovascular: Regular Rate, Rhythm, No Edema, No Gallop, No JVD, No Murmur, Normal Peripheral Pulses Gastrointestinal: Normal Bowel Sounds, No Organomegaly, No Pulsatile Mass, Non Tender, Soft, Other (Colostomy) Back: Normal Inspection, No CVA Tenderness, No Vertebral Tenderness Extremity: Normal Capillary Refill, Normal Inspection, Normal Range of Motion, Non Tender, No Calf Tenderness, No Pedal Edema Neurologic/Psychiatric: Alert, Oriented x3, Normal Mood/Affect, Motor Weakness (Generalized 3/5) Skin: Normal Color, Warm/Dry Lymphatic: No Adenopathy Results/Procedures Lab Patient resulted labs reviewed. FIM Transfers Therapy Code Descriptions/Definitions Functional [place] Measure: 0=Not Assessed/NA 4=Minimal Assistance 1=Total Assistance 5=Supervision or Setup 2=Maximal Assistance 6=Modified [place] 3=Moderate Assistance 7=Complete IndependenceSCALE: Activities may be completed with or without assistive devices. 2-Rshjrdlfgp-nlsgutz completes the activity by him/herself with no assistance from a helper. 5-Set-up or Clean-up Assistance-helper sets up or cleans up; patient completes activity. [place] assists only prior to or following the activity. 4-Supervision or Touching Assistance-helper provides verbal cues and/or touching/steadying and/or contact guard assistance as patient completes activity. Assistance may be provided throughout the activity or intermittently. 3-Partial/Moderate Assistance-helper does LESS THAN HALF the effort. [place] lifts, holds or supports trunk or limbs, but provides less than half the effort. 2-Substantial/Maximal Assistance-helper does MORE THAN HALF the effort. [place] lifts or holds trunk or limbs and provides more than half the effort. 6-Adxbodnzs-uoswfx does ALL the effort. Patient does none of the effort to complete the activity. Or, the assistance of 2 or more helpers is required for the patient to complete the activity. If activity was not attempted, code reason: 7-Patient Refused. 9-Not Applicable-not attempted and the patient did not perform the activity befo re the current illness, exacerbation or injury. 10-Not Attempted due to Environmental Limitations-(lack of equipment, weather re straints, etc.). 88-Not Attempted due to Medical Conditions or Safety Concerns. Roll Left to Right (QC): 6 Sit to Lying (QC): 6 Sit to Stand (QC): 4 Chair/Rop-qu-Msukx Xfer(QC): 4 Car Transfer (QC): 4 Gait Training Does the Patient Walk?: Yes Distance: 10', 200' Walk 10 feet (QC): 4 Walk 50 ft with 2 Turns(QC): 4 Walk 150 ft (QC): 4 Walking 10ft/uneven surface-QC: 4 Gait Persons Needed: 1 Gait Assistive Device: FWW Wheelchair Training Does the Pt Use a Wheelchair?: No Wheel 50 ft with 2 turns (QC): 9 Wheel 150 ft (QC): 9 Type of Wheelchair: N/A Stair Training #of Steps: 1 1 Step (curb) (QC): 4 4 Steps (QC): 88 12 Steps (QC): 88 Balance Picking up an Object (QC): 4 (CGA using a welder apprentice) ADL-Treatment Eating (QC): 6 Oral Hygiene (QC): 6 Shower/Bathe Self (QC): 5 Upper Body Dressing (QC): 5 Lower Body Dressing (QC): 5 On/Off Footwear (QC): 3 (Pt completed slip on shoes with set up. Assist with compression socks.) Toileting Hygiene (QC): 6 (IND urination only.) Toilet Transfer (QC): 6 Assessment/Plan Assessment and Plan Assess & Plan/Chief Complaint Assessment: Debility following colon perforation during colonoscopy at [facility] [place] received emergent diverting colostomy per Dr Hunt Recent hospital acquired PNA Abdominal wound requiring wound VAC Encephalopathy Volume overload Diastolic CHF Severe COPD oxygen dependent Anasarca Protein malnutrition Urinary incontinence-DC Bumex and add Oxybutynin after checking UA Plan: Continue diuresis Wound VAC PT and OT Pain control 04/15/2022: Replace potassium Wound vac management 04/16/2022: Wound vac Monitor closely 04/17/2022: Monitor wound vac Dulera BID 04/18/2022: Monitor closely 04/19/2022: Monitor right upper lateral thigh 04/20/2022: DC Bumex Oxybutynin 04/21/2022: UA normal Minimize Bumex (1) Respiratory failure JERAMIE KENT DO Apr 21, 2022 07:33
[2022-04-21] MEDS: UMECLIDINIUM BROMIDE (INCRUSE ELLIPTA) 7'S IH SCH (07:45)
[2022-04-21] MEDS: DULERA IH SCH ×2 (07:46→21:56)
[2022-04-21] MEDS: OXYBUTYNIN (DITROPAN) 5 MG TAB PO SCH ×2 (08:38→21:01)
[2022-04-21] MEDS: KCL 10 MEQ TAB (MICRO K) PO SCH ×2 (08:38→17:23)
[2022-04-21] MEDS: ENOXAPARIN 40 MG/0.4 ML (LOVENOX) SYR SC SCH (16:10)
[2022-04-21 20:00] VITALS: BP 110/56
[2022-04-21] MEDS: ZOLPIDEM 5 MG (AMBIEN) TAB PO PRN (21:01)
--- NOTE | 2022-04-22 05:07 | PM&R Progress Note ---
Subjective HPI/CC On Admission Date Seen by Provider: Apr 22, 2022 Time Seen by Provider: 08:30 Subjective/Events-last exam 04/22/2022: No major events Less urination Moving around better DC planned for tomorrow 04/21/2022: Doing well Less incontinence Bumex held No pain reported now after Tramadol 04/20/2022: Doing well Urinary incontinence is an issue Will hold Bumex since she is really done with that regimen Oxybutynin will be tried UA will be checked for UTI 04/19/2022: Improved overall. Right leg is a bit red from edema will apply ice packs Breathing well No pain reported 04/18/2022: Doing well No pain reported Lungs remain clear Trying to wean O2 04/17/2022: Doing well Labs stable No pain reported Participation is good in therapy Wound vac managed 04/16/2022: Doing very well. BM+ Using Purewick and she will obtain one to have at home so no need to wean Pain controlled Breathing well Dulera will be clarified with Dr Lucas. 04/15/2022: Doing very well No pain reported Output colostomy good Lungs clear Working with therapy Labs reviewed Review of Systems General: Fatigue, Malaise Objective Exam Vital Signs Vital Signs Date Time Temp Pulse Resp B/P (MAP) Pulse Ox O2 Delivery O2 Flow Rate FiO2 04/22/22 20:52 36.0 74 18 123/70 (87) 93 Nasal Cannula 4.00 Capillary Refill : General Appearance: No Apparent Distress, WD/WN, Chronically ill HEENT: PERRL/EOMI, Normal ENT Inspection, Pharynx Normal Neck: Full Range of Motion, Normal Inspection, Non Tender, Supple, Carotid Bruit Respiratory: Chest Non Tender, Lungs Clear, Normal Breath Sounds, No Accessory Muscle Use, No Respiratory Distress, Decreased Breath Sounds Cardiovascular: Regular Rate, Rhythm, No Edema, No Gallop, No JVD, No Murmur, Normal Peripheral Pulses Gastrointestinal: Normal Bowel Sounds, No Organomegaly, No Pulsatile Mass, Non Tender, Soft, Other (Colostomy) Back: Normal Inspection, No CVA Tenderness, No Vertebral Tenderness Extremity: Normal Capillary Refill, Normal Inspection, Normal Range of Motion, Non Tender, No Calf Tenderness, No Pedal Edema Neurologic/Psychiatric: Alert, Oriented x3, Normal Mood/Affect, Motor Weakness (Generalized 3/5) Skin: Normal Color, Warm/Dry Lymphatic: No Adenopathy Results/Procedures Lab Laboratory Tests 04/22/22 05:40 Patient resulted labs reviewed. FIM Transfers Therapy Code Descriptions/Definitions Functional [place] Measure: 0=Not Assessed/NA 4=Minimal Assistance 1=Total Assistance 5=Supervision or Setup 2=Maximal Assistance 6=Modified [place] 3=Moderate Assistance 7=Complete IndependenceSCALE: Activities may be completed with or without assistive devices. 6-Nouxzoukqz-vkhjcxa completes the activity by him/herself with no assistance from a helper. 5-Set-up or Clean-up Assistance-helper sets up or cleans up; patient completes activity. [place] assists only prior to or following the activity. 4-Supervision or Touching Assistance-helper provides verbal cues and/or touching/steadying and/or contact guard assistance as patient completes ac tivity. Assistance may be provided throughout the activity or intermittently. 3-Partial/Moderate Assistance-helper does LESS THAN HALF the effort. [place] lifts, holds or supports trunk or limbs, but provides less than half the effort. 2-Substantial/Maximal Assistance-helper does MORE THAN HALF the effort. [place] lifts or holds trunk or limbs and provides more than half the effort. 3-Qgrgazodu-vjrruu does ALL the effort. Patient does none of the effort to complete the activity. Or, the assistance of 2 or more helpers is required for the patient to complete the activity. If activity was not attempted, code reason: 7-Patient Refused. 9-Not Applicable-not attempted and the patient did not perform the activity before the current illness, exacerbation or injury. 10-Not Attempted due to Environmental Limitations-(lack of equipment, weather restraints, etc.). 88-Not Attempted due to Medical Conditions or Safety Concerns. Roll Left to Right (QC): 6 Sit to Lying (QC): 6 Sit to Stand (QC): 4 Chair/Yff-id-Abynu Xfer(QC): 4 Car Transfer (QC): 4 Gait Training Does the Patient Walk?: Yes Distance: 10', 200' Walk 10 feet (QC): 4 Walk 50 ft with 2 Turns(QC): 4 Walk 150 ft (QC): 4 Walking 10ft/uneven surface-QC: 4 Gait Persons Needed: 1 Gait Assistive Device: FWW Wheelchair Training Does the Pt Use a Wheelchair?: No Wheel 50 ft with 2 turns (QC): 9 Wheel 150 ft (QC): 9 Type of Wheelchair: N/A Stair Training #of Steps: 1 1 Step (curb) (QC): 4 4 Steps (QC): 88 12 Steps (QC): 88 Balance Picking up an Object (QC): 4 (CGA using a automated access systems technician) ADL-Treatment Eating (QC): 6 Oral Hygiene (QC): 6 Shower/Bathe Self (QC): 5 Upper Body Dressing (QC): 5 Lower Body Dressing (QC): 5 On/Off Footwear (QC): 3 (Pt completed slip on shoes with set up. Assist with compression socks.) Toileting Hygiene (QC): 6 (IND urination only.) Toilet Transfer (QC): 6 Assessment/Plan Assessment and Plan Assess & Plan/Chief Complaint Assessment: Debility following colon perforation during colonoscopy at [facility] received emergent diverting colostomy per Dr Hunt [facility] hospital acquired PNA Abdominal wound requiring wound VAC Encephalopathy Volume overload Diastolic CHF Severe COPD oxygen dependent [place] Protein malnutrition Urinary incontinence-DC Bumex and add Oxybutynin after checking UA Plan: Continue diuresis Wound VAC PT and OT Pain control 04/15/2022: Replace potassium Wound vac management 04/16/2022: Wound vac Monitor closely 04/17/2022: Monitor wound vac Dulera BID 04/18/2022: Monitor closely 04/19/2022: Monitor right upper lateral thigh 04/20/2022: DC Bumex Oxybutynin 04/21/2022: UA normal Minimize Bumex 04/22/2022: DC tomorrow (1) Respiratory failure JERAMIE KENT DO Apr 22, 2022 05:06
[2022-04-22] MEDS: CATHETER FLUSH 10 ML SYR IVP SCH ×3 (05:39→20:07)
[2022-04-22] MEDS: IBUPROFEN TABLET 200 MG TAB PO PRN ×2 (05:49→16:41)
[2022-04-22 06:24] LABS: BASOPHILS % (AUTO) 0 % (0-10); EOSINOPHILS # (AUTO) 0.6 10^3/uL (0.0-0.3); EOSINOPHILS % (AUTO) 9 % (0-10); HEMATOCRIT 31 % (35-52); HEMOGLOBIN 10.1 g/dL (11.5-16.0); LYMPHOCYTES # (AUTO) 1.3 10^3/uL (1.0-4.0); LYMPHOCYTES % (AUTO) 19 % (12-44); MEAN CORPUSCULAR HEMOGLOBIN 31 pg (25-34); MEAN CORPUSCULAR HGB CONC 33 g/dL (32-36); MEAN CORPUSCULAR VOLUME 96 fL (80-99); MEAN PLATELET VOLUME 10.2 fL (9.0-12.2); MONOCYTES # (AUTO) 0.9 10^3/uL (0.0-1.0); MONOCYTES % (AUTO) 12 % (0-12); NEUTROPHILS # (AUTO) 4.3 10^3/uL (1.8-7.8); NEUTROPHILS % (AUTO) 60 % (42-75); PLATELET COUNT 343 10^3/uL (130-400); WHITE BLOOD COUNT 7.2 10^3/uL (4.3-11.0)
[2022-04-22 06:35] LABS: ALBUMIN 2.6 GM/DL (3.2-4.5); POTASSIUM 3.6 MMOL/L (3.6-5.0)
[2022-04-22 06:36] LABS: CALCIUM 8.1 MG/DL (8.5-10.1)
[2022-04-22 06:38] LABS: TOTAL PROTEIN 5.5 GM/DL (6.4-8.2)
[2022-04-22 06:39] LABS: BILIRUBIN,TOTAL 0.4 MG/DL (0.1-1.0)
[2022-04-22 06:41] LABS: CREATININE SERUM 0.78 MG/DL (0.60-1.30)
[2022-04-22] MEDS: DULERA IH SCH ×2 (06:49→22:01)
[2022-04-22] MEDS: UMECLIDINIUM BROMIDE (INCRUSE ELLIPTA) 7'S IH SCH (06:49)
[2022-04-22 07:16] VITALS: BP 117/55
[2022-04-22] MEDS: OXYBUTYNIN (DITROPAN) 5 MG TAB PO SCH ×2 (07:44→20:06)
[2022-04-22] MEDS: KCL 10 MEQ TAB (MICRO K) PO SCH ×2 (07:44→17:55)
--- NOTE | 2022-04-22 08:35 | Occupational Ther Daily Note ---
OT Current Status-Daily Note Subjective Pt agreeable to OT Tx with some encouragement. C/O low back pain during tx, 12/17. Mental Status/Objective Patient Orientation: Normal For Age Attachments: Colostomy/Ileostomy, Oxygen (4L), Other-See Comments (wound vac) ADL-Treatment Therapy Code Descriptions/Definitions Functional [place] Measure: 0=Not Assessed/NA 4=Minimal Assistance 1=Total Assistance 5=Supervision or Setup 2=Maximal Assistance 6=Modified [place] 3=Moderate Assistance 7=Complete IndependenceSCALE: Activities may be completed with or without assistive devices. 0-Ximaatijto-mgsgjym completes the activity by him/herself with no assistance from a helper. 5-Set-up or Clean-up Assistance-helper sets up or cleans up; patient completes activity. [place] assists only prior to or following the activity. 4-Supervision or Touching Assistance-helper provides verbal cues and/or touching/steadying and/or contact guard assistance as patient completes activity. Assistance may be provided throughout the activity or intermittently. 3-Partial/Moderate Assistance-helper does LESS THAN HALF the effort. [place] lifts, holds or supports trunk or limbs, but provides less than half the effort. 2-Substantial/Maximal Assistance-helper does MORE THAN HALF the effort. [place] lifts or holds trunk or limbs and provides more than half the effort. 7-Qertmbwwu-njeivh does ALL the effort. Patient does none of the effort to complete the activity. Or, the assistance of 2 or more helpers is required for the patient to complete the activity. If activity was not attempted, code reason: 7-Patient Refused. 9-Not Applicable-not attempted and the patient did not perform the activity before the current illness, exacerbation or injury. 10-Not Attempted due to Environmental Limitations-(lack of equipment, weather restraints, etc.). 88-Not Attempted due to Medical Conditions or Safety Concerns. Eating (QC): 6 Oral Hygiene (QC): 6 Shower/Bathe Self (QC): 5 (set up to cover wound vac and midline) Upper Body Dressing (QC): 6 Lower Body Dressing (QC): 6 On/Off Footwear: 6 (IND with slip on shoes and gripper socks. Pt would require assistance with TEDhose or AceWraps) Toileting Hygiene (QC): 6 Toilet Transfer (QC): 6 Other Treatment Pt in bathroom with nursing staff, agreeable to OT tx. Pt completed toileting, transferred to SC where she completed showering and dressing. Pt transferred to EOB, then supine due to back pain. Pt's nurse present and provided pain medication. Pt then used FWW to perform functional mobility to therapy gym, OT assisted with O2 tubing management. OT Tx focused on increasing BUE strength and activity tolerance. Pt completed UE reaching task, placing/removing pegs from foam pegboard, alternating hands. Pt able to complete x100 pegs. Pt then co mpleted x15 mins on arm bike, minimal resistance, several rest breaks. Pt used FWW to return to her room, OT assisted only with O2 management. Pt transferred EOB and supine independently. Post tx, pt in bed, call light in reach and all needs met. Education OT Patient Education: Correct positioning, Energy conservation, Modified ADL techniques, Progress toward Goal/Update tx plan, Purpose of tx/functional activities, Rehab process Teaching Recipient: Patient Teaching Methods: Discussion Response to Teaching: Verbalize Understanding BIMS CAM BIMS Expression of Ideas and Wants: Without Difficulty Understanding Verbal Content: Understands Brief Interview/Mental Status: Yes IRF NATHAN BIMS: IRF NATHAN BIMS Response (Comments) Value Repitition of Three Words Three 3 Recalls Socks Yes, No Cue Required 2 Recalls Blue Yes, No Cue Required 2 Recalls Bed Yes, No Cue Required 2 Year Correct 3 Month Accurate Within 5 Days 2 Day Correct 1 Total 15 CAM Mental Status Change/Baseline: 0 Inattention: 0 Disorganized thinkin Altered level of consciousness: 0 OT Short Term Goals Short Term Goals Time Frame: Apr 24, 2022 Toileting hygiene: 5 Shower/bathe self: 5 Lower body dressin Putting on/taking off footwear: 5 OT Half-Way Goals Half-Way Goals Time Frame: May 10, 2022 Acute change in mental status: 0 Inattention: 0 Disorganized thinkin Altered level of consciousness: 0 Eating (QC): 6 (met) Oral Hygiene (QC): 6 (met) Toileting Hygiene (QC): 6 (met) Shower/Bathe Self (QC): 6 (not met) Upper Body Dressing (QC): 6 (met) Lower Body Dressing (QC): 6 (met) On/Off Footwear (QC): 6 (met) Additional Goals: 1-Demonstrate ADL Tasks, 2-Verbalize Understanding, 3- ImproveStrength/Vi 1=Demonstrate adherence to instructed precautions during ADL tasks. 2=Patient will verbalize/demonstrate understanding of assistive devices/modifications for ADL. 3=Patient will improve strength/tolerance for activity to enable patient to perform ADL's. OT Education/Plan Problem List/Assessment Assessment: Decreased Activ Tolerance, Decreased UE Strength, Impaired I ADL's Discharge Recommendations Plan/Recommendations: Continue POC Treatment Plan/Plan of Care Patient would benefit from OT for education, treatment and training to promote independence in ADL's, mobility, safety and/or upper extremity function for ADL's. Plan of Care: ADL Retraining, Functional Mobility, Group Exercise/Act as Ind, UE Funct Exercise/Act Treatment Duration: May 10, 2022 Frequency: At least 5 of 7 days/Wk (IRF) Estimated Hrs Per Day: 1.5 hours per day Agreement: Yes Rehab Potential: Fair Time Start Time: 07:45 Stop Time: 09:15 DATE: Apr 22, 2022 Total Time Billed (hr/min): 90 Billed Treatment Time 1, ADL 3 (45'), FA 2 (30'), EX (15') EMERSON SPRAGUE OT Apr 22, 2022 08:35
--- NOTE | 2022-04-22 11:29 | Physical Therapy Daily Note ---
PT Daily Note-Current Subjective Pt laying in bed asleep upon arrival. Pt agrees to PT. Pain Location: No Pain Reported Section J - Health Conditions 1. Rarely or not at all 2. Occasionally 3. Frequently 4. Almost constantly 8. Unable to answer Pain Effect on Sleep: 1 Pain Interference with Therapy: 2 Pain Interference w/Day-to-Day: 1 Mental Status Patient Orientation: Person, Place, Situation Attachments: Oxygen (4L at rest & 6L during activity per RT), Other-See Comments (Wound Vac) Transfers SCALE: Activities may be completed with or without assistive devices. 3-Nznqcxshlt-bapypel completes the activity by him/herself with no assistance from a helper. 5-Set-up or Clean-up Assistance-helper sets up or cleans up; patient completes activity. [place] assists only prior to or following the activity. 4-Supervision or Touching Assistance-helper provides verbal cues and/or touching/steadying and/or contact guard assistance as patient completes activity. Assistance may be provided throughout the activity or intermittently. 3-Partial/Moderate Assistance-helper does LESS THAN HALF the effort. [place] lifts, holds or supports trunk or limbs, but provides less than half the effort. 2-Substantial/Maximal Assistance-helper does MORE THAN HALF the effort. [place] lifts or holds trunk or limbs and provides more than half the effort. 9-Rtzcdneis-mznlys does ALL the effort. Patient does none of the effort to complete the activity. Or, the assistance of 2 or more helpers is required for the patient to complete the activity. If activity was not attempted, code reason: 7-Patient Refused. 9-Not Applicable-not attempted and the patient did not perform the activity before the current illness, exacerbation or injury. 10-Not Attempted due to Environmental Limitations-(lack of equipment, weather restraints, etc.). 88-Not Attempted due to Medical Conditions or Safety Concerns. Roll Left & Right (QC): 6 Sit to Lying (QC): 6 Lying to Sitting/Side of Bed(Q: 6 Sit to Stand (QC): 6 Chair/Yzy-ah-Turbs Xfer(QC): 6 Toilet Transfer (QC): 6 Car Transfer (QC): 6 Weight Bearing Full Weight Bearing Full Weight Bearing Gait Training Does the Patient Walk?: Yes Distance: 200' Walk 10 feet (QC): 6 Walk 50 ft with 2 Turns(QC): 5 Walk 150 ft (QC): 5 Walking 10ft/uneven surface-QC: 5 Gait Assistive Device: FWW Stair Training Stair Training: Handrails/: 2 handrails #of Steps: 4 1 Step (curb) (QC): 5 4 Steps (QC): 5 12 Steps (QC): 88 Balance Picking up an Object (QC): 5 Exercises NuStep Minutes: 10 NuStep Workload: 4 Treatments Pt completes QC scoring items listed above as well as uses NuStep. Pt returns to room at end of tx w/all needs met, call light in hand. Assessment Current Status: Good Progress Pt has improved w/mobility and transfers. PT Short Term Goals Short Term Goals Time Frame: Apr 22, 2022 Sit to stand: 4 Chair/fuk-el-ykuys transfer: 4 Walk 10 feet: 4 Walk 50 feet with two turns: 4 Walk 150 feet: 4 PT Reinforcing Rod Layer Goals Reinforcing Rod Layer Goals PT Reinforcing Rod Layer Goals Time Frame: Apr 29, 2022 Roll Left & Right (QC): 6 Sit to Lying (QC): 6 Lying-Sitting on Side/Bed(QC): 6 Sit to Stand (QC): 6 Chair/Ilz-ct-Tkzih Xfer(QC): 6 Toilet Transfer (QC): 6 Car Transfer (QC): 6 Does the Patient Walk: Yes Walk 10 feet (QC): 6 Walk 50ft with 2 Turns (QC): 6 Walk 150 ft (QC): 6 Walking 10ft on Uneven Surface: 6 1 Step (curb) (QC): 4 (SBA) 4 Steps (QC): 4 (SBA) 12 Steps (QC): 88 Picking up an Object (QC): 6 Wheel 50 feet with 2 turns (QC: 9 Wheel 150 feet: 9 PT Plan Problem List Problem List: Activity Tolerance Treatment/Plan Treatment Plan: Continue Plan of Care Treatment Plan: Bed Mobility, Education, Functional Activity Vi, Functional Strength, Group Therapy, Gait, Safety, Therapeutic Exercise, Transfers Treatment Duration: Apr 29, 2022 Frequency: At least 5 of 7 days/Wk (IRF) Estimated Hrs Per Day: 1.5 hours per day Patient and/or Family Agrees t: Yes Time Time In: 930 Time Out: 1100 DATE: Apr 22, 2022 Total Billed Treatment Time: 90 Total Billed Treatment 1, GT x2 (30m) & FA x4 (60m) JULEE LITTLE VACUUM TECHNICIAN Apr 22, 2022 11:29
[2022-04-22] MEDS: ENOXAPARIN 40 MG/0.4 ML (LOVENOX) SYR SC SCH (15:19)
[2022-04-22] MEDS: ZOLPIDEM 5 MG (AMBIEN) TAB PO PRN (20:06)
[2022-04-22 20:52] VITALS: BP 123/70
[2022-04-23] MEDS: CATHETER FLUSH 10 ML SYR IVP SCH (06:23)
[2022-04-23] MEDS ORDERED: DILT180C85 PO (07:10)
[2022-04-23] MEDS ORDERED: TRM50T PO (07:10)
[2022-04-23] MEDS ORDERED: BUME1TAB8 PO (07:10)
[2022-04-23] MEDS ORDERED: OXYB5TAB13 PO (07:10)
[2022-04-23] MEDS ORDERED: POTA-160 PO (07:10)
--- NOTE | 2022-04-23 07:12 | D/C HH Face to Face Order ---
D/C Face to Face Orders Reconcile Patient Problems Problems Reviewed?: Yes Instructions for Patient Via [facility], Patient Instructions/FollowUp: Cari 1 week Physician to follow Patient: Cari Discharge Diet for Home: No Restrictions Patient Problems: Debility COPD Patient Data-Allergies,Ht & Wt Patient Allergies: Coded Allergies: acetaminophen (Unverified Allergy, Severe, Anaphylaxis, 06/19/20) furosemide (Unverified Allergy, Severe, 06/19/20) LETHAERGY Penicillins (Unverified Allergy, Intermediate, Itching, 06/19/20) Home Health Need/Face to Face Date of Face to Face: Apr 23, 2022 Clinical Findings: Muscle weakness, Shortness of breath I have seen Pt keji-jl-onjv: Yes Discharged To: Home Diagnosis/Conditions: Debility Patient is Homebound due to: Muscle weakness, Shortness of breath/distress Homebound Status Due to the above stated illness, injury or surgical procedure (medical condition or diagnosis) and associated clinical findings, the patient is homebound because of his/her inability to leave home except with aid of a supportive device and/or person AND leaving the home requires a considerable and taxing effort or is medically contraindicated. Pt req the following assistanc: [facility] Nursing Orders Home Health Services Order: Nursing Services, Special Education Itinerant Teacher-Evaluate & Treat, Physical Therapy-Evaluate & Treat Certify Stmt I certify that this patient is under my care and that I, a nurse practitioner or a physician; a health center assistant working with me, had a face to face encounter that - meets the physician face to face encounter requirements with this patient as dated. JERAMIE KENT DO Apr 23, 2022 07:12
--- NOTE | 2022-04-23 07:13 | Discharge Summary ---
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 Volume overload Diastolic CHF Severe COPD oxygen dependent Anasarca Protein malnutrition Urinary incontinence-DC Bumex and add Oxybutynin after checking UA Plan: Continue diuresis Wound VAC PT and OT Pain control 04/15/2022: Replace potassium Wound vac management 04/16/2022: Wound vac Monitor closely 04/17/2022: Monitor wound vac Dulera BID 04/18/2022: Monitor closely 04/19/2022: Monitor right upper lateral thigh 04/20/2022: DC Bumex Oxybutynin 04/21/2022: UA normal Minimize Bumex 04/22/2022: DC tomorrow (1) Respiratory failure Discharge Summary Discharge Physical Examination Allergies: Coded Allergies: acetaminophen (Unverified Allergy, Severe, Anaphylaxis, 06/19/20) furosemide (Unverified Allergy, Severe, 06/19/20) LETHAERGY Penicillins (Unverified Allergy, Intermediate, Itching, 06/19/20) Vitals & I&Os Vital Signs Date Time Temp Pulse Resp B/P (MAP) Pulse Ox O2 Delivery O2 Flow Rate FiO2 04/23/22 12:29 36.6 73 18 129/71 90 Nasal Cannula 4.00 General Appearance: Alert, Oriented X3, Cooperative Respiratory: Clear to Auscultation Cardiovascular: Regular Rate Psych/Mental Status: Mental Status NL Hospital Course Was the Problem List Reviewed?: Yes Uneventful course after transferring from [place] after long course following respiratory failure and PNA following emergent colostomy after perforation d [place] [facility] [place]. Ostomy training completed but patient was still hesitant about taking care of her ostomy. Oxygen requirement remained stable and ultimately required 4L/6L at time of DC. Urinary frequency required Purewisk use and she obtained one for home. She ultimately regained independence but hopefully she will remain active at home and minimize alcohol use and continue to recover. Labs (last 24 hrs) Laboratory Tests 04/15/22 05:00: White Blood Count 7.7, Red Blood Count 3.09L, Hemoglobin 9.6L, Hematocrit 30L, Mean Corpuscular Volume 96, Mean Corpuscular Hemoglobin 31, Mean Corpuscular Hemoglobin Concent 32, Red Cell Distribution Width 13.3, Platelet Count 413H, Mean Platelet Volume 10.3, Immature Granulocyte % (Auto) 0, Neutrophils (%) (Auto) 63, Lymphocytes (%) (Auto) 16, Monocytes (%) (Auto) 16H, Eosinophils (%) (Auto) 5, Basophils (%) (Auto) 0, Neutrophils # (Auto) 4.8, Lymphocytes # (Auto) 1.2, Monocytes # (Auto) 1.2H, Eosinophils # (Auto) 0.4H, Basophils # (Auto) 0.0, Immature Granulocyte # (Auto) 0.0, Sodium Level 134L, Potassium Level 3.5L, Chloride Level 97L, Carbon Dioxide Level 28, Anion Gap 9, Blood Urea Nitrogen 8, Creatinine 0.55L, Estimat Glomerular Filtration Rate 94, BUN/Creatinine Ratio 15, Glucose Level 78, Calcium Level 8.2L, Corrected Calcium 9.6, Total Bilirubin 0.7, Aspartate Amino Transf (AST/SGOT) 19, Alanine Aminotransferase (ALT/SGPT) 16, Alkaline Phosphatase 101, Total Protein 5.3L, Albumin 2.3L 04/17/22 07:05: Sodium Level 137, Potassium Level 3.7, Chloride Level 98, Carbon Dioxide Level 27, Anion Gap 12, Blood Urea Nitrogen 3L, Creatinine 0.56L, Estimat Glomerular Filtration Rate 93, BUN/Creatinine Ratio 5, Glucose Level 58*L, Calcium Level 8.2L, Corrected Calcium 9.3, Total Bilirubin 0.4, Aspartate Amino Transf (AST/SGOT) 21, Alanine Aminotransferase (ALT/SGPT) 19, Alkaline Phosphatase 89, Total Protein 5.4L, Albumin 2.6L 04/17/22 07:38: White Blood Count 5.8, Red Blood Count 3.39L, Hemoglobin 10.5L, Hematocrit 33L, Mean Corpuscular Volume 96, Mean Corpuscular Hemoglobin 31, Mean Corpuscular Hemoglobin Concent 32, Red Cell Distribution Width 13.2, Platelet Count 449H, Mean Platelet Volume 9.8, Immature Granulocyte % (Auto) 0, Neutrophils (%) (Auto) 59, Lymphocytes (%) (Auto) 20, Monocytes (%) (Auto) 13H, Eosinophils (%) (Auto) 7, Basophils (%) (Auto) 1, Neutrophils # (Auto) 3.4, Lymphocytes # (Auto) 1.1, Monocytes # (Auto) 0.8, Eosinophils # (Auto) 0.4H, Basophils # (Auto) 0.0, Immature Granulocyte # (Auto) 0.0 04/18/22 05:45: Glucometer 73 04/19/22 05:39: Glucometer 71 04/20/22 06:39: Glucometer 68L 04/20/22 14:40: Urine Color YELLOW, Urine Clarity CLEAR, Urine pH 6.5, Urine Specific [place] 1.015L, Urine Protein NEGATIVE, Urine Glucose (UA) NEGATIVE, Urine Ketones NEGATIVE, Urine Nitrite NEGATIVE, Urine Bilirubin NEGATIVE, Urine Urobilinogen 0.2, Urine Leukocyte Esterase NEGATIVE, Urine RBC (Auto) NEGATIVE, Urine RBC NONE, Urine WBC RARE, Urine Squamous Epithelial Cells 0-2, Urine Crystals NONE, Urine Bacteria NEGATIVE, Urine Casts NONE, Urine Mucus NEGATIVE, Urine Culture Indicated NO 04/21/22 05:40: Glucometer 87 04/22/22 05:13: Glucometer 89 04/22/22 05:40: White Blood Count 7.2, Red Blood Count 3.23L, Hemoglobin 10.1L, Hematocrit 31L, Mean Corpuscular Volume 96, Mean Corpuscular Hemoglobin 31, Mean Corpuscular Hemoglobin Concent 33, Red Cell Distribution Width 13.2, Platelet Count 343, Mean Platelet Volume 10.2, Immature Granulocyte % (Auto) 0, Neutrophils (%) (Auto) 60, Lymphocytes (%) (Auto) 19, Monocytes (%) (Auto) 12, Eosinophils (%) (Auto) 9, Basophils (%) (Auto) 0, Neutrophils # (Auto) 4.3, Lymphocytes # (Auto) 1.3, Monocytes # (Auto) 0.9, Eosinophils # (Auto) 0.6H, Basophils # (Auto) 0.0, Immature Granulocyte # (Auto) 0.0, Sodium Level 137, Potassium Level 3.6, Chloride Level 101, Carbon Dioxide Level 26, Anion Gap 10, Blood Urea Nitrogen 4L, Creatinine 0.78, Estimat Glomerular Filtration Rate 78, BUN/Creatinine Ratio 5, Glucose Level 78, Calcium Level 8.1L, Corrected Calcium 9.2, Total Bilirubin 0.4, Aspartate Amino Transf (AST/SGOT) 17, Alanine Aminotransferase (ALT/SGPT) 13, Alkaline Phosphatase 79, Total Protein 5.5L, Albumin 2.6L 04/23/22 06:12: Glucometer 77 Microbiology 04/22/22 Gram Stain - Final, Resulted 04/22/22 Wound Culture - Preliminary, Resulted Probable Klebsiella/Enterobact Gram Pos Mixed Bacterial Karishma Pending Labs Microbiology Date/Time Source Procedure Growth Status 04/22/22 11:31 Traumatic Wound Abdominal Incision Gram Stain - Final Resulted 04/22/22 11:31 Wound Culture - Preliminary Probable Klebsiella/Enterobact Gram Pos Mixed Bacterial Karishma Resulted Laboratory Tests 04/15/22 05:00: White Blood Count 7.7, Red Blood Count 3.09, Hemoglobin 9.6, Hematocrit 30, Mean Corpuscular Volume 96, Mean Corpuscular Hemoglobin 31, Mean Corpuscular Hemoglobin Concent 32, Red Cell Distribution Width 13.3, Platelet Count 413, Mean Platelet Volume 10.3, Immature Granulocyte % (Auto) 0, Neutrophils (%) (Auto) 63, Lymphocytes (%) (Auto) 16, Monocytes (%) (Auto) 16, Eosinophils (%) (Auto) 5, Basophils (%) (Auto) 0, Neutrophils # (Auto) 4.8, Lymphocytes # (Auto) 1.2, Monocytes # (Auto) 1.2, Eosinophils # (Auto) 0.4, Basophils # (Auto) 0.0, Immature Granulocyte # (Auto) 0.0, Sodium Level 134, Potassium Level 3.5, Chloride Level 97, Carbon Dioxide Level 28, Anion Gap 9, Blood Urea Nitrogen 8, Creatinine 0.55, Estimat Glomerular Filtration Rate 94, BUN/Creatinine Ratio 15, Glucose Level 78, Calcium Level 8.2, Corrected Calcium 9.6, Total Bilirubin 0.7, Aspartate Amino Transf (AST/SGOT) 19, Alanine Aminotransferase (ALT/SGPT) 16, Alkaline Phosphatase 101, Total Protein 5.3, Albumin 2.3 04/17/22 07:05: Sodium Level 137, Potassium Level 3.7, Chloride Level 98, Carbon Dioxide Level 27, Anion Gap 12, Blood Urea Nitrogen 3, Creatinine 0.56, Estimat Glomerular Filtration Rate 93, BUN/Creatinine Ratio 5, Glucose Level 58, Calcium Level 8.2, Corrected Calcium 9.3, Total Bilirubin 0.4, Aspartate Amino Transf (AST/SGOT) 21, Alanine Aminotransferase (ALT/SGPT) 19, Alkaline Phosphatase 89, Total Protein 5.4, Albumin 2.6 04/17/22 07:38: White Blood Count 5.8, Red Blood Count 3.39, Hemoglobin 10.5, Hematocrit 33, Mean Corpuscular Volume 96, Mean Corpuscular Hemoglobin 31, Mean Corpuscular H emoglobin Concent 32, Red Cell Distribution Width 13.2, Platelet Count 449, Mean Platelet Volume 9.8, Immature Granulocyte % (Auto) 0, Neutrophils (%) (Auto) 59, Lymphocytes (%) (Auto) 20, Monocytes (%) (Auto) 13, Eosinophils (%) (Auto) 7, Basophils (%) (Auto) 1, Neutrophils # (Auto) 3.4, Lymphocytes # (Auto) 1.1, Monocytes # (Auto) 0.8, Eosinophils # (Auto) 0.4, Basophils # (Auto) 0.0, Immature Granulocyte # (Auto) 0.0 04/18/22 05:45: Glucometer 73 04/19/22 05:39: Glucometer 71 04/20/22 06:39: Glucometer 68 04/20/22 14:40: Urine Color YELLOW, Urine Clarity CLEAR, Urine pH 6.5, Urine Specific [place] 1.015, Urine Protein NEGATIVE, Urine Glucose (UA) NEGATIVE, Urine Ketones NEGATI VE, Urine Nitrite NEGATIVE, Urine Bilirubin NEGATIVE, Urine Urobilinogen 0.2, Urine Leukocyte Esterase NEGATIVE, Urine RBC (Auto) NEGATIVE, Urine RBC NONE, Urine WBC RARE, Urine Squamous Epithelial Cells 0-2, Urine Crystals NONE, Urine Bacteria NEGATIVE, Urine Casts NONE, Urine Mucus NEGATIVE, Urine Culture Indicated NO 04/21/22 05:40: Glucometer 87 04/22/22 05:13: Glucometer 89 04/22/22 05:40: White Blood Count 7.2, Red Blood Count 3.23, Hemoglobin 10.1, Hematocrit 31, Mean Corpuscular Volume 96, Mean Corpuscular Hemoglobin 31, Mean Corpuscular Hemoglobin Concent 33, Red Cell Distribution Width 13.2, Platelet Count 343, Mean Platelet Volume 10.2, Immature Granulocyte % (Auto) 0, Neutrophils (%) (A uto) 60, Lymphocytes (%) (Auto) 19, Monocytes (%) (Auto) 12, Eosinophils (%) (Auto) 9, Basophils (%) (Auto) 0, Neutrophils # (Auto) 4.3, Lymphocytes # (Auto) 1.3, Monocytes # (Auto) 0.9, Eosinophils # (Auto) 0.6, Basophils # (Auto) 0.0, Immature Granulocyte # (Auto) 0.0, Sodium Level 137, Potassium Level 3.6, Chloride Level 101, Carbon Dioxide Level 26, Anion Gap 10, Blood Urea Nitrogen 4, Creatinine 0.78, Estimat Glomerular Filtration Rate 78, BUN/Creatinine Ratio 5, Glucose Level 78, Calcium Level 8.1, Corrected Calcium 9.2, Total Bilirubin 0.4, Aspartate Amino Transf (AST/SGOT) 17, Alanine Aminotransferase (ALT/SGPT) 13, Alkaline Phosphatase 79, Total Protein 5.5, Albumin 2.6 04/23/22 06:12: Glucometer 77 Discharge Home Medications: Active Scripts Active Oxybutynin Chloride 5 Mg Tablet 5 Mg PO BID Bumetanide 1 Mg Tablet 0.5 Mg PO Q48H Klor-Con 10 (Potassium Chloride) 10 Meq Tablet.er 10 Meq PO DAILY Tramadol HCl 50 Mg Tablet 100 Mg PO Q6HR PRN Diltiazem 24Hr ER (Diltiazem HCl) 180 Mg Cap.er.24h 180 Mg PO DAILY Reported Ibuprofen 200 Mg Tablet 400 Mg PO Q8H PRN Flonase Allergy Relief (Fluticasone Propionate) 50 Mcg/Actuation [place].susp 1-2 [place] NSEACH BID PRN Vitamin D3 (Cholecalciferol (Vitamin D3)) 50 Mcg (2000 Unit) Capsule 50 Mcg PO DAILY Vitamin C (Ascorbate Calcium) 500 Mg Tablet 500 Mg PO DAILY [place] 3-6-9 1,200 mg Softgel (Fish Oil/Borage/Flax/Om3,6,9#1) 1,200 Mg Capsule 1,200 Mg PO DAILY Alive Women's 50 Plus Tablet (Mv-Min/Folic/Vit K/Lut/Cshq180) 240 Mcg-120 Mcg- 300 Mcg-100 Mg Tablet 1 Each PO DAILY Zolpidem Tartrate ER (Zolpidem Tartrate) 6.25 Mg Tab.mphase 6.25 Mg PO HS Dulera 200 Mcg/5 Mcg Inhaler (Mometasone/Formoterol) 200 Mcg-5 Mcg/Actuation Hfa.aer.ad 2 Puff INH BID Dulera 100 Mcg/5 Mcg Inhaler (Mometasone/Formoterol) 100 Mcg-5 Mcg/Actuation Hfa.aer.ad 1 Puff INH DAILY PRN Incruse Ellipta (Umeclidinium [place]) 62.5 Mcg/Actuation Blst.w.dev 1 Inh INH DAILY Instructions to patient/family Please see electronic discharge instructions given to patient. Diagnosis/Problems Diagnosis/Problems (1) Respiratory failure JERAMIE KENT DO Apr 23, 2022 07:13
[2022-04-23 07:16] VITALS: BP 129/71
[2022-04-23] MEDS: OXYBUTYNIN (DITROPAN) 5 MG TAB PO SCH (08:20)
[2022-04-23] MEDS: BUMETANIDE 1 MG (BUMEX) TAB PO SCH (08:20)
[2022-04-23] MEDS: KCL 10 MEQ TAB (MICRO K) PO SCH (08:20)
--- NOTE | 2022-04-23 09:39 | Therapy Team Discharge Summary ---
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 Upon evaluation patient performed rolling and supine <-> sit with independence, sit <-> stand min assist (from lower surfaces), transfers and car transfer CGA, ambulate 120' with a rolling walker with CGA (including 50' with at least 2 turns of 90 degrees and 10' over an uneven surface), up and down 1 step using a rolling walker with CGA, and picked up an object from the floor using a recruiting internship with CGA. Patient has been performing bed mobility and transfer training, balance and endurance training, functional strengthening, stair training, gait training, and education. 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 Now, patient performs rolling and supine <-> sit with independence, sit <-> stand and transfers with independence, car transfer independent, ambulates 200' with a rolling walker with setup (including 50' with at least 2 turns of 90 degrees and 10' over an uneven surface), can go up and down 4 steps using 2 handrails with SBA, and can greens picker an object from the floor with setup. Patient is being discharged from this facility today and will be discharged from PT at this time. Roll Left to Right (QC): 6 Sit to Lying (QC): 6 Lying to Sitting/Side of Bed(Q: 6 Sit to Stand (QC): 6 Chair/Dhe-wr-Twahm Xfer(QC): 6 Toilet Transfer (QC): 6 Car Transfer (QC): 6 Does the Patient Walk: Yes Mode of Locomotion: Walk Anticipated Mode of Locomotion: Walk Walk 10 feet (QC): 6 Walk 50 ft with 2 Turns(QC): 5 Walk 150 ft (QC): 5 Walking 10ft on uneven surface: 5 Distance: 200' Gait Assistive Device: FWW Does the Pt Use a Wheelchair: No Wheel 50 ft with 2 turns (QC): 9 Wheel 150 ft (QC): 9 Type of Wheelchair: N/A #of Steps: 4 1 Step (curb) (QC): 5 4 Steps (QC): 5 12 Steps (QC): 88 Walking Assistive Device: Walker Balance Sitting Static: Normal Balance Sitting Dynamic: Normal Balance-Standing Static: Good Picking up an Object (QC): 5 Occupational Therapy Decreased Activ Tolerance, Decreased UE Strength, Impaired I ADL's Eating (QC): 6 Oral Hygiene (QC): 6 Shower/Bathe Self (QC): 5 (set up to cover wound vac and midline) Upper Body Dressing (QC): 6 Lower Body Dressing (QC): 6 On/Off Footwear (QC): 6 (IND with slip on shoes and gripper socks. Pt would require assistance with TEDhose or AceWraps) Toileting Hygiene (QC): 6 PT [facility] Goals Punch Out Crew Member Goals PT Punch Out Crew Member Goals Time Frame: Apr 29, 2022 Roll Left to Right (QC): 6 Sit to Lying (QC): 6 Lying-Sitting on Side/Bed(QC): 6 Sit to Stand (QC): 6 Chair/Rzl-ga-Sgqhm Xfer(QC): 6 Toilet/Commode Transfer (QC): 6 Car Transfer (QC): 6 Does the Patient Walk: Yes Walk 10 feet (QC): 6 Walk 10ft-Uneven Surface(QC): 6 Walk 50ft with 2 Turns (QC): 6 Walk 150 ft (QC): 6 Wheel 50 feet with 2 turns (QC: 9 Wheel 150 feet: 9 1 Step (curb) (QC): 4 (SBA) 4 Steps (QC): 4 (SBA) 12 Steps (QC): 88 Picking up an Object (QC): 6 OT Punch Out Crew Member Goals [facility] Goals Time Frame: May 10, 2022 Acute change in mental status: 0 Inattention: 0 Disorganized thinkin Altered level of consciousness: 0 Eating (QC): 6 (met) Oral Hygiene (QC): 6 (met) Toileting Hygiene (QC): 6 (met) Shower/Bathe Self (QC): 6 (not met) Upper Body Dressing (QC): 6 (met) Lower Body Dressing (QC): 6 (met) On/Off Footwear (QC): 6 (met) Additional Goals: 1-Demonstrate ADL Tasks, 2-Verbalize Understanding, 3- ImproveStrength/Vi 1=Demonstrate adherence to instructed precautions during ADL tasks. 2=Patient will verbalize/demonstrate understanding of assistive devices/modifications for ADL. 3=Patient will improve strength/tolerance for activity to enable patient to perform ADL's. JEFF BRIDGES PT Apr 23, 2022 09:39
[2022-04-23] MEDS: UMECLIDINIUM BROMIDE (INCRUSE ELLIPTA) 7'S IH SCH (09:54)
[2022-04-23] MEDS: DULERA IH SCH (09:55)
--- NOTE | 2022-04-23 11:08 | Therapy Team Discharge Summary ---
Therapy Discharge Summary Discharge Recommendations Date of Discharge Physical Therapy Roll Left to Right (QC): 6 Sit to Lying (QC): 6 Lying to Sitting/Side of Bed(Q: 6 Sit to Stand (QC): 6 Chair/Mip-ud-Ywshx Xfer(QC): 6 Toilet Transfer (QC): 6 Car Transfer (QC): 6 Does the Patient Walk: Yes Mode of Locomotion: Walk Anticipated Mode of Locomotion: Walk Walk 10 feet (QC): 6 Walk 50 ft with 2 Turns(QC): 5 Walk 150 ft (QC): 5 Walking 10ft on uneven surface: 5 Distance: 200' Gait Assistive Device: FWW Does the Pt Use a Wheelchair: No Wheel 50 ft with 2 turns (QC): 9 Wheel 150 ft (QC): 9 Type of Wheelchair: N/A #of Steps: 4 1 Step (curb) (QC): 5 4 Steps (QC): 5 12 Steps (QC): 88 Walking Assistive Device: Walker Balance Sitting Static: Normal Balance Sitting Dynamic: Normal Balance-Standing Static: Good Picking up an Object (QC): 5 Occupational Therapy Pt admitted to ARU with COPD myopathy. [facility], pt was independent with ADLs and functional mobility, no AD. Upon initial evaluation, pt was independent with eating, required set up with UE dressing, min A toileting (assistance emptying ostomy bag), and SBA oral care, showering, LE dressing and footwear. OT tx focused on increasing BUE strength and activity tolerance, and increasing safety and independence with ADLs and functional mobility. Pt made good progress towar ds goals, attaining IND level with all ADLs except showering. Pt requires set up assistance with showering in order to cover wound vac prior to showering. Pt scheduled to discharge home on this date, d/c from OT. Decreased Activ Tolerance, Decreased UE Strength, Impaired I ADL's Eating (QC): 6 Oral Hygiene (QC): 6 Shower/Bathe Self (QC): 5 (set up to cover wound vac and midline) Upper Body Dressing (QC): 6 Lower Body Dressing (QC): 6 On/Off Footwear (QC): 6 (IND with slip on shoes and gripper socks. Pt would require assistance with TEDhose or AceWraps) Toileting Hygiene (QC): 6 PT Jewelry Sales Goals Jewelry Sales Goals PT Prison Goals Time Frame: Apr 29, 2022 Roll Left to Right (QC): 6 Sit to Lying (QC): 6 Lying-Sitting on Side/Bed(QC): 6 Sit to Stand (QC): 6 Chair/Msp-df-Tyysf Xfer(QC): 6 Toilet/Commode Transfer (QC): 6 Car Transfer (QC): 6 Does the Patient Walk: Yes Walk 10 feet (QC): 6 Walk 10ft-Uneven Surface(QC): 6 Walk 50ft with 2 Turns (QC): 6 Walk 150 ft (QC): 6 Wheel 50 feet with 2 turns (QC: 9 Wheel 150 feet: 9 1 Step (curb) (QC): 4 (SBA) 4 Steps (QC): 4 (SBA) 12 Steps (QC): 88 Picking up an Object (QC): 6 OT Jewelry Sales Goals Prison Goals Time Frame: May 10, 2022 Acute change in mental status: 0 Inattention: 0 Disorganized thinkin Altered level of consciousness: 0 Eating (QC): 6 (met) Oral Hygiene (QC): 6 (met) Toileting Hygiene (QC): 6 (met) Shower/Bathe Self (QC): 6 (not met) Upper Body Dressing (QC): 6 (met) Lower Body Dressing (QC): 6 (met) On/Off Footwear (QC): 6 (met) Additional Goals: 1-Demonstrate ADL Tasks, 2-Verbalize Understanding, 3- ImproveStrength/Vi 1=Demonstrate adherence to instructed precautions during ADL tasks. 2=Patient will verbalize/demonstrate understanding of assistive devices/modifications for ADL. 3=Patient will improve strength/tolerance for activity to enable patient to perform ADL's. EMERSON SPRAGUE OT Apr 23, 2022 11:08
[2022-04-23 12:29] VITALS: BP 129/71
== END 2022-04-23 12:00 | disposition home health service (06) | DRG 92 ==
PROVIDERS: ADMIT Internal Medicine; ATTEND Internal Medicine
DX: G72.89 Other specified myopathies (principal); E46 Unspecified protein-calorie malnutrition; G93.40 Encephalopathy, unspecified; I50.30 Unspecified diastolic (congestive) heart failure; I11.0 Hypertensive heart disease with heart failure; Z68.28 Body mass index [BMI] 28.0-28.9, adult; J44.9 Chronic obstructive pulmonary disease, unspecified; J84.10 Pulmonary fibrosis, unspecified; T81.31XD Disruption of external operation (surgical) wound, not elsewhere classified, subsequent encounter; D64.9 Anemia, unspecified; R32 Unspecified urinary incontinence; R35.0 Frequency of micturition; K21.9 Gastro-esophageal reflux disease without esophagitis; E78.00 Pure hypercholesterolemia, unspecified; M19.91 Primary osteoarthritis, unspecified site; F41.9 Anxiety disorder, unspecified; F32.A Depression, unspecified; K52.831 Collagenous colitis; F10.90 Alcohol use, unspecified, uncomplicated; E87.70 Fluid overload, unspecified; R60.1 Generalized edema; Z93.3 Colostomy status; Z99.81 Dependence on supplemental oxygen; Z87.891 Personal history of nicotine dependence; Z88.6 Allergy status to analgesic agent; Z88.0 Allergy status to penicillin; Z88.8 Allergy status to other drugs, medicaments and biological substances
CPT/HCPCS: 36415; 71045; 80053; 81000; 82947; 85025; 87070; 87205; 94640; 94664; 94760; 94761

== ENCOUNTER → 2022-05-01 | Outpatient (CLI) | payer MEDICARE, OTHER ==
[~2022-05-01] MED LIST changes: +ASCO-262 PO; +BUME1TAB8 PO; +CHOL200074 PO; +DILT180C85 PO; +FISH12002 PO; +FLUT9.9S NSEACH; +IBUP-2473 PO; +MOME13HF11 INH; +MOME13HF2 INH; +MV M PO; +OXYB5TAB13 PO; +POTA-160 PO; -RT-ALBUTEROL SULF 2.5 MG/3 ML PRE-MIX VIAL INH ONE; +TRM50T PO; +UMEC62.5 INH; +ZOLP6.2538 PO
== END ==
LOC: WOUNDCARE 13:17
PROVIDERS: ATTEND Family Medicine
DX: I96 Gangrene, not elsewhere classified (principal); T81.31XA Disruption of external operation (surgical) wound, not elsewhere classified, initial encounter; D46.4 Refractory anemia, unspecified; E43 Unspecified severe protein-calorie malnutrition; M62.81 Muscle weakness (generalized); Z93.3 Colostomy status; Z99.81 Dependence on supplemental oxygen; Z68.24 Body mass index [BMI] 24.0-24.9, adult
CPT/HCPCS: 11043; 11046; 36415; 82306; 82607; 82746; 83540; 83550; 84134; 87070; 87205; 97605

== ENCOUNTER → 2022-05-08 | Outpatient (CLI) | payer MEDICARE, OTHER | LOC: WOUNDCARE 14:20 | PROVIDERS: ATTEND Family Medicine | DX: T81.31XA Disruption of external operation (surgical) wound, not elsewhere classified, initial encounter (principal); E43 Unspecified severe protein-calorie malnutrition; D46.4 Refractory anemia, unspecified; Z99.81 Dependence on supplemental oxygen; M62.81 Muscle weakness (generalized); Z93.3 Colostomy status; B96.1 Klebsiella pneumoniae [K. pneumoniae] as the cause of diseases classified elsewhere; I96 Gangrene, not elsewhere classified | CPT/HCPCS: 11043; 97605; G0463 ==

== ENCOUNTER → 2022-05-15 | Outpatient (CLI) | payer MEDICARE, OTHER | LOC: WOUNDCARE 14:22 | PROVIDERS: ATTEND Family Medicine | DX: T81.31XA Disruption of external operation (surgical) wound, not elsewhere classified, initial encounter (principal); E43 Unspecified severe protein-calorie malnutrition; D46.4 Refractory anemia, unspecified; M62.81 Muscle weakness (generalized); Z93.3 Colostomy status; B96.1 Klebsiella pneumoniae [K. pneumoniae] as the cause of diseases classified elsewhere; I96 Gangrene, not elsewhere classified; Z99.81 Dependence on supplemental oxygen | CPT/HCPCS: 11043; 97605; G0463 ==

== ENCOUNTER → 2022-05-29 | Outpatient (CLI) | payer MEDICARE, OTHER | LOC: WOUNDCARE 14:21 | PROVIDERS: ATTEND Family Medicine | DX: T81.31XA Disruption of external operation (surgical) wound, not elsewhere classified, initial encounter (principal); E43 Unspecified severe protein-calorie malnutrition; D46.4 Refractory anemia, unspecified; M62.81 Muscle weakness (generalized); I96 Gangrene, not elsewhere classified; Z99.81 Dependence on supplemental oxygen; Z93.3 Colostomy status | CPT/HCPCS: 11042; 84134; 97605; G0463; 36415 ==

== ENCOUNTER → 2022-06-07 | Outpatient (CLI) | payer MEDICARE, OTHER | LOC: WOUNDCARE 10:27 | PROVIDERS: ATTEND Family Medicine | DX: I96 Gangrene, not elsewhere classified (principal); T81.31XA Disruption of external operation (surgical) wound, not elsewhere classified, initial encounter; D46.4 Refractory anemia, unspecified; E43 Unspecified severe protein-calorie malnutrition; M62.81 Muscle weakness (generalized); Z99.81 Dependence on supplemental oxygen; Z93.3 Colostomy status | CPT/HCPCS: 11042; 97605; A6021; G0463 ==

== ENCOUNTER → 2022-06-12 | Outpatient (CLI) | payer MEDICARE, OTHER ==
[~2022-06-12] MED LIST changes: +MOME13HF12 INH; -MOME13HF2 INH; +SULF1TAB38 PO
== END ==
LOC: WOUNDCARE 13:00
PROVIDERS: ATTEND Family Medicine
DX: T81.31XA Disruption of external operation (surgical) wound, not elsewhere classified, initial encounter (principal); I96 Gangrene, not elsewhere classified; E43 Unspecified severe protein-calorie malnutrition; D46.4 Refractory anemia, unspecified; M62.81 Muscle weakness (generalized); Z99.81 Dependence on supplemental oxygen; Z93.3 Colostomy status; Z68.24 Body mass index [BMI] 24.0-24.9, adult
CPT/HCPCS: 11042; 97605; A6021; G0463

== ENCOUNTER 2022-06-13 05:39 | Outpatient (CLI) | payer MEDICARE, OTHER ==
[~2022-06-13] VITALS: Ht 165.1 cm; Wt 60.0 kg
[~2022-06-13 05:39] MED LIST changes: -SULF1TAB38 PO
[2022-06-13] MEDS ORDERED: SULF1TAB38 PO (14:19)
== END 2022-06-13 14:50 | disposition home or self-care (01) ==
LOC: PREOP 05:39
PROVIDERS: ATTEND Surgery
DX: Z01.818 Encounter for other preprocedural examination (principal); S31.109A Unspecified open wound of abdominal wall, unspecified quadrant without penetration into peritoneal cavity, initial encounter

== ENCOUNTER 2022-06-20 10:08 | Day surgery (SDC) | payer MEDICARE, OTHER ==
--- NOTE | 2022-06-13 08:13 | HISTORY AND PHYSICAL ---
DATE OF SERVICE: 06/20/2022 HISTORY OF PRESENT ILLNESS: The patient is a 76-year-old female known to us. She was initially screened for screening colonoscopy. However, she did not mention she had a history of colonic strictures, as well as collagenous colitis and underwent a colonoscopy and was found to have active inflammation. However, upon withdrawal of the colonoscope, a perforation was identified and she underwent a low anterior colorectal resection and anastomosis. We also placed a diverting loop ileostomy. The patient also does have a number of other medical comorbidities including COPD, diastolic dysfunction. The patient is being seen for a persistent wound of the abdomen. There has been a wound VAC on this wound now for a number of weeks. The wound bed is red with granulation tissue; however, the skin edges failed to contract inward. We were consulted for split thickness skin graft. PAST MEDICAL HISTORY: COPD, hypertension, hypercholesterolemia, diastolic dysfunction, history of collagenous colitis and colon polyps. PAST SURGICAL HISTORY: Exploratory laparotomy, low anterior colorectal resection, diverting loop ileostomy. ALLERGIES: PENICILLIN, ACETAMINOPHEN, FUROSEMIDE. MEDICATIONS: Albuterol breathing treatments every 4 hours p.r.n., alprazolam 0.25 mg every 8 hours p.r.n., bumetanide 1 mg daily, diltiazem 180 mg daily, enoxaparin 40 mg daily, fluticasone/salmeterol 113/14 mcg b.i.d., loperamide daily, potassium 10 mEq daily, tramadol 50 mg q. 6 hours p.r.n., zolpidem 5 mg each day at bedtime. SOCIAL HISTORY: Negative smoke, intermittent drinking of alcohol. FAMILY HISTORY: Noncontributory. VITAL SIGNS: Blood pressure [ ]. Current weight 132.3 pounds at 5 feet 5 inches. REVIEW OF SYSTEMS: Well-nourished female in no acute distress. She is not experiencing any shortness of breath and difficulty breathing. No chest pain, palpitations or diaphoresis. No nausea or vomiting. She does report some loose stools approximately 2 times a week. She has been taking in 3-4 meals a day in including protein meals replacement shakes and has increased her nutritional status by recent laboratory work. No fever or chills. No recent inadvertent weight loss. All other review of systems negative. PHYSICAL EXAMINATION: CHEST: Scattered wheezes and rhonchi bilaterally. HEART: Regular. No murmurs. EXTREMITIES: No lower extremity edema. Negative Homans sign. HEENT: No scleral icterus. No cervical lymphadenopathy. ABDOMEN: Soft, nontender, nondistended. The loop ileostomy is functioning well. There is an area of persistent opening of the previous open abdominal wound approximately 6 x 4 cm in dimension with good granulation tissue underneath. SKIN: Warm, dry. ASSESSMENT AND PLAN: A 76-year-old female with persistent open abdominal wound. We discussed schedule her for split-thickness skin graft taken from the left lateral thigh. Job ID: [id number] DocumentID: [id number] Dictated Date: 06/11/2022 17:07:38 Bulk Coolers Installer Date: 06/11/2022 17:39:00 Dictated By: ASHER BARDALES MD
[~2022-06-20] VITALS: Ht 165 cm; Wt 60.0 kg
[2022-06-20] VITALS (10 sets, daily range): BP systolic 115–148; BP diastolic 65–85
[~2022-06-20 10:08] MED LIST changes: +SULF1TAB38 PO
[2022-06-20] MEDS ORDERED: CLINDAMYCIN 600 MG/50 ML IVPB 50 ML IV ONE (10:15)
--- NOTE | 2022-06-20 10:26 | Progress Note-Pre Operative ---
Pre-Operative Progress Note Date H&P Reviewed: Jun 20, 2022 Time H&P Reviewed: 10:25 History & Physical: H&P Reviewed, Patient Examed, No changes noted Pre-Operative Diagnosis: Persistent open abdominal wound PASHA CHEEMA APRN Jun 20, 2022 10:26
[2022-06-20] MEDS ORDERED: TRM50T PO (10:29)
[2022-06-20] MEDS ORDERED: LACTATED RINGERS 1,000 ML IV PRN (10:30)
[2022-06-20] MEDS ORDERED: LIDOCAINE PF 2% 5 ML (XYLOCAINE) VIAL ONE (10:30)
[2022-06-20] MEDS ORDERED: ONDANSETRON 4 MG/2 ML (SDV) Z0FRAN ONE (10:30)
[2022-06-20] MEDS ORDERED: ONDANSETRON 4 MG/2 ML (SDV) Z0FRAN IVP PRN ×2 (10:30→12:30)
[2022-06-20] MEDS ORDERED: proPOfol 200 MG/20 ML (DIPRIVAN) VIAL IV ONE (10:30)
[2022-06-20] MEDS ORDERED: morphine INJ 10 MG/ML 1ML (SYR OR VIAL) IVP PRN (10:30)
--- NOTE | 2022-06-20 10:30 | Discharge Inst-Surgical ---
D/C Lap Instructions-KIDO Reconcile Patient Problems Problems Reviewed?: Yes New, Converted, or Re-Newed RX: RX on Chart Follow Up Appt in 2 weeks Activity as tolerated No driving for 24 hours No driving while on pain medications Incentive Spirometry use every 2 hours while awake Regular Diet Symptoms to Report: Fever over 101 degree F, Nausea/Vomiting Infection Signs and Symptoms to report: Increased redness, Foul odor of wound, Increased drainage Bathing instructions: May shower Operative Area Clean/Dry; Keep incision clean/dry If any problems/questions: Contact your physician or go to Emergency Room PASHA CHEEMA APRN Jun 20, 2022 10:30
[2022-06-20] MEDS ORDERED: fentaNYL INJ 100 MCG/2 ML AMP ONE (10:31)
[2022-06-20] MEDS ORDERED: BUP/EPI 0.5% 1:200,000 (SENSORCAINE) 30 ML VIAL ONE (10:34)
[2022-06-20] MEDS ORDERED: MINERAL OIL 10 ML (MURI-LUBE) VIAL ONE (10:34)
[2022-06-20] MEDS ORDERED: BUP/EPI 0.5% 1:200,000 (SENSORCAINE) 30 ML VIAL INJ ONE (11:50)
--- NOTE | 2022-06-20 12:07 | Progress Note-Post Operative ---
Post-Operative Progess Note Surgeon (s)/Repairer Controller Tester (s) Surgeon ASHER BARDALES MD Repairer Controller Tester: cori valdez [employer] SUPERVISOR Pre-Operative Diagnosis Persistent open abdominal wound Post-Operative Diagnosis same, multiple suture granulomas Procedure & Operative Findings Date of Procedure 06/20/22 Procedure Performed/Findings debridement skin, subcutaneous, suture granulomas 10x6cm), complex flap delayed primary closure Anesthesia Type general LMA Estimated Blood Loss Estimated blood loss (mL): minimal Specimens/Packing Specimens Removed none ASHER BARDALES MD Jun 20, 2022 12:07
[2022-06-20] MEDS ORDERED: SEVOFLURANE (ULTANE) 15 ML INHAL SOLN ONE (12:22)
[2022-06-20] MEDS ORDERED: morphine INJ 10 MG/ML 1ML (SYR OR VIAL) IVP ONE (12:30)
--- NOTE | 2022-06-20 13:52 | Anesthesia-General Post-Op ---
General Patient Condition Mental Status/LOC: Same as Preop Cardiovascular: Satisfactory Nausea/Vomiting: Absent Respiratory: Satisfactory Pain: Controlled Complications: Absent Post Op Complications Complications None Follow Up Care/Instructions Patient Instructions None needed. Anesthesia/Patient Condition Patient Condition Patient was doing well after the procedure with no complaints, stable vital signs, no apparent adverse anesthesia problems. No complications reported per nursing. MONSE COLINDRES DO Jun 20, 2022 13:52
--- NOTE | 2022-06-20 14:05 | OPERATIVE REPORT ---
DATE OF SERVICE: 06/20/2022 ATTENDING PRIMARY CARE PHYSICIAN: Sunita Alcala MD PREOPERATIVE DIAGNOSIS: Persistent open abdominal wound, 10 x 6 cm. POSTOPERATIVE DIAGNOSES: Persistent open abdominal wound, 10 x 6 cm with multiple suture granulomas identified. PROCEDURE: Debridement of skin, subcutaneous tissue and suture granulomas, complex skin and subcutaneous delayed primary flap closure, 10 x 6 cm in size. SURGEON: Asher Bardales MD SURVEILLANCE INSPECTOR: Nickolas Alvarado APRN ANESTHESIA: General laryngeal mask airway. ESTIMATED BLOOD LOSS: Minimal. FINDINGS: Same as postoperative diagnoses. DISPOSITION: The patient tolerated the procedure well. INDICATIONS: The patient is a 76-year-old female known to us. She was initially seen for screening colonoscopy; however, she did not mention a history of colonic strictures, as well as collagenous colitis and underwent a colonoscopy and was found to have active inflammation and upon withdrawal of the scope, was found to have a perforation and underwent a low anterior colorectal resection with anastomosis and placement of a diverting loop ileostomy. She does have a number of other medical comorbidities including COPD and diastolic dysfunction. The patient was referred back to us from wound care due to a persistent open wound of the abdomen, approximately 10 x 6 cm in size. There was a good granulation bed and wound VAC placed; however, the wound persistently stayed open over the normal timeframe. We were consulted for evaluation of wound and placement of a split-thickness skin graft versus a delayed primary closure. DESCRIPTION OF PROCEDURE: The patient was brought to the operating room, laid supine on the table. After adequate IV pain and sedative medications and general laryngeal mask airway intubation, the abdomen was prepped and draped in standard surgical fashion. It was decided to proceed with debridement of the skin and subcutaneous tissue. There were also multiple suture granulomas identified, which were likely impeding the wound healing process. Using a #15 blade, the skin, subcutaneous tissue as well as the layer of the granulomatous tissue and suture granulomas were all excised using a #15 blade. Good hemostasis was achieved using direct pressure. We then proceeded with complex flap closure by creating bilateral flaps of skin and subcutaneous tissue using electrocautery. Once no tension was identified, we then proceeded with closure of the skin and subcutaneous tissue, very loosely with approximately a 5 mm gap of the skin using 0 Prolene sutures. We proceeded with widely spaced sutures until complete approximation of the skin and subcutaneous tissue. Wound was then cleaned with visualization of good hemostasis. This was then covered with gauze, ABD pad and tape. The patient tolerated the procedure well. We will recommend continued dry dressing on a daily basis and allow the small gaps in between the sutures to close by secondary intention for this is a clean contaminated wound that we do want to promote some drainage of any residual bacteria and allow the small spaces to close by secondary intention. Job ID: [id number] DocumentID: [id number] Dictated Date: 06/20/2022 12:13:07 Breakfast Cook Date: 06/20/2022 14:02:00 Dictated By: ASHER BARDALES MD
== END 2022-06-20 14:10 | disposition home or self-care (01) ==
LOC: SDC 10:08
PROVIDERS: ATTEND Surgery
DX: T81.89XA Other complications of procedures, not elsewhere classified, initial encounter (principal); S31.109A Unspecified open wound of abdominal wall, unspecified quadrant without penetration into peritoneal cavity, initial encounter; J44.9 Chronic obstructive pulmonary disease, unspecified; I50.9 Heart failure, unspecified; Z87.891 Personal history of nicotine dependence; Y83.8 Other surgical procedures as the cause of abnormal reaction of the patient, or of later complication, without mention of misadventure at the time of the procedure
CPT/HCPCS: 87081; 94664

== ENCOUNTER → 2022-08-27 | Outpatient (CLI) | payer MEDICARE, OTHER ==
[~2022-08-27] MED LIST changes: +ALBU18HF2 INH; +FLUT12AE4 INH; +FLUT16SP22 NSEACH; +MAGN400T39 PO; +MV-M-6 PO; +TRAM50TA3 PO
[2022-08-27 15:45] LABS: CREATININE SERUM 2.1 MG/DL (0.60-1.30)
--- NOTE | 2022-08-27 16:47 | Diagnostic Imaging Report ---
PROCEDURE: CT abdomen and pelvis without contrast. TECHNIQUE: Multiple contiguous axial images were obtained through the abdomen and pelvis without the use of intravenous contrast. Auto Exposure Controls were utilized during the CT exam to meet ALARA standards for radiation dose reduction. INDICATION: Nausea and vomiting and right lower quadrant pain. No prior studies are available for comparison. Imaging through lung bases do show an area of probable consolidation in the left lower lobe. There is a circumscribed low-attenuation lesion in the inferior right lobe liver suggestive of a cyst. The gallbladder is unremarkable. No biliary duct dilatation is seen. Pancreas and spleen are unremarkable. No adrenal mass is detected. Kidneys demonstrate some vascular calcifications but no nephrolithiasis or hydronephrosis is seen. Aorta is heavily calcified but nonaneurysmal. There is an IVC filter in place. There is a healed midline surgical wound. The patient does have a right lower quadrant ostomy with large parastomal hernia. The intra-abdominal bowel loops are normal caliber. There is no obstruction. No inflammatory changes are seen. No free fluid or fluid collection is identified. Bladder is decompressed. Uterus is surgically absent. Patient does have a right hip prosthesis producing large amount of artifact. IMPRESSION: 1. Minimal left lower lobe infiltrate or atelectasis. 2. Hepatic cysts. 3. Right lower quadrant ostomy with peristomal hernia. No bowel obstruction is identified. No other significant abnormality is detected. Dictated by: Dictated on workstation # [id number]
== END ==
LOC: RAD 14:57
PROVIDERS: ATTEND Surgery
DX: K76.89 Other specified diseases of liver (principal); K46.9 Unspecified abdominal hernia without obstruction or gangrene
CPT/HCPCS: 36415; 74176; 82565; 84520

== ENCOUNTER 2022-08-29 05:27 | Outpatient (CLI) | payer MEDICARE, OTHER ==
[~2022-08-29] VITALS: Ht 165.1 cm; Wt 58.4 kg
[~2022-08-29 05:27] MED LIST changes: -ALBU18HF2 INH; -FLUT12AE4 INH; -FLUT16SP22 NSEACH; -MAGN400T39 PO; -MV-M-6 PO; -TRAM50TA3 PO
[2022-08-29] MEDS ORDERED: MV-M-6 PO (14:48)
[2022-08-29] MEDS ORDERED: FLUT12AE4 INH (14:48)
[2022-08-29] MEDS ORDERED: MAGN400T39 PO (14:48)
[2022-08-29] MEDS ORDERED: TRAM50TA3 PO (14:48)
[2022-08-29] MEDS ORDERED: FLUT16SP22 NSEACH (14:48)
[2022-08-29] MEDS ORDERED: ALBU18HF2 INH (14:48)
== END 2022-08-29 17:18 | disposition home or self-care (01) ==
LOC: PREOP 05:27
PROVIDERS: ATTEND Surgery
DX: Z01.818 Encounter for other preprocedural examination (principal)

== ENCOUNTER 2022-08-29 09:18 | Inpatient (IN) | payer MEDICARE, OTHER ==
[~2022-08-29] VITALS: Ht 167.7 cm; Wt 70.3 kg
[2022-08-29 09:41] LABS: BASOPHILS % (AUTO) 0 % (0-10); EOSINOPHILS # (AUTO) 0.1 10^3/uL (0.0-0.3); EOSINOPHILS % (AUTO) 1 % (0-10); HEMATOCRIT 42 % (35-52); HEMOGLOBIN 14.1 g/dL (11.5-16.0); LYMPHOCYTES # (AUTO) 0.7 10^3/uL (1.0-4.0); LYMPHOCYTES % (AUTO) 6 % (12-44); MEAN CORPUSCULAR HEMOGLOBIN 29 pg (25-34); MEAN CORPUSCULAR HGB CONC 34 g/dL (32-36); MEAN CORPUSCULAR VOLUME 87 fL (80-99); MEAN PLATELET VOLUME 9.5 fL (9.0-12.2); MONOCYTES # (AUTO) 0.9 10^3/uL (0.0-1.0); MONOCYTES % (AUTO) 8 % (0-12); NEUTROPHILS # (AUTO) 9.3 10^3/uL (1.8-7.8); NEUTROPHILS % (AUTO) 85 % (42-75); PLATELET COUNT 380 10^3/uL (130-400)
--- NOTE | 2022-08-29 09:42 | ED General ---
General Chief Complaint: General Problems/Pain Stated Complaint: GENERALIZED WEAKNESS Nursing Triage Note: PT ARRIVES TO ER VIA EMS FROM HOME. PT C/O 'NOT FEELING WELL' SINCE FRIDAY, GENERALIZED WEAKNESS. PT C/O NAUSEA SINCE FRIDAY, VOMITED LAST NIGHT, DENIES FEVERS. PT HAS PRN O2 AT HOME, UPON EMS ARRIVAL, PT WAS 78% ON RA, EMS PLACED PT ON O2, SAT'S IMPROVED TO 90'S. PT ALSO RECEIVED SHASHANK 4 MG IV EN ROUTE Source of Information: Patient, EMS, Old Records Exam Limitations: No Limitations History of Present Illness Date Seen by Provider: Aug 29, 2022 Time Seen by Provider: 09:19 Initial Comments This 76-year-old woman presents to the emergency room via EMS with complaints of generally feeling ill for several days, probably starting about 5 days ago. She has had some nausea and vomiting. She has been fatigued and weak as well. She reports abdominal pain with eating. EMS noted hypoxia with a room air saturation of 78% on their assessment as well as mild tachycardia with a heart rate of 108. She was placed on nasal cannula by EMS and that resuscitated her oxygen saturation. EMS also administered Zofran 4 mg by IV route. Patient is not in any distress on arrival. 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 Dr. Hunt is her surgeon and plans to reverse her ileostomy at some point in the near future. She also has hernias associated with her ostomy site. She denies any change in the quality or quantity of stool output in the ostomy. She has not noted any significant urinary changes. She denies fever. She has not been particularly short of breath and denies cough. She had work-up performed 2 days ago on an outpatient basis by Dr. Hunt which included lab work and a CT scan. Labs demonstrated acute kidney injury, and she was instructed to increase her fluid intake. She has been unable to do so due to the nausea and vomiting. CT scan demonstrated no acute abnormalities in the abdomen or pelvis but did note a possible pulmonary infiltrate. Patient's social history includes living alone. Her sister lives next door and checks on her. She also has a home health worker, Day, who has been involved in her care. Patient does have COPD but does not normally need supplemental oxygen at home. She does have oxygen that she uses only on a as needed basis. Dr. Alcala is her primary care provider. Patient states she normally drinks some white wine in the evening but has not had any wine for a few days. Allergies and Home Medications Allergies Coded Allergies: acetaminophen (Unverified Allergy, Severe, Anaphylaxis, 06/13/22) furosemide (Unverified Allergy, Severe, 06/13/22) LETHAERGY Penicillins (Unverified Allergy, Intermediate, Itching, 06/13/22) Patient Home Medication List Home Medication List Reviewed: Yes Ascorbate Calcium (Vitamin C) 500 Mg Tablet, 500 MG PO DAILY, (Reported) Entered as Reported by: ROSLYN PAYTON on 04/19/22 1233 Cholecalciferol (Vitamin D3) (Vitamin D3) 50 Mcg (2000 Unit) Capsule, 50 MCG PO DAILY, (Reported) Entered as Reported by: ROSLYN PAYTON on 04/19/22 1233 Fish Oil/Borage/Flax/Om3,6,9#1 ([place] 3-6-9 1,200 mg Softgel) 1,200 Mg Capsule, 1,200 MG PO DAILY, (Reported) Entered as Reported by: ROSLYN PAYTON on 04/19/22 1233 Fluticasone Propionate (Flonase Allergy Relief) 50 Mcg/Actuation [place].susp, 1-2 SPRAY NSEACH BID PRN for CONGESTION, (Reported) Entered as Reported by: ROSLYN PAYTON on 04/19/22 1233 Ibuprofen (Ibuprofen) 200 Mg Tablet, 400 MG PO Q8H PRN for PAIN-MILD (1-4), (Reported) Entered as Reported by: ROSLYN PAYTON on 04/19/22 1233 Mometasone/Formoterol (Dulera 100 Mcg/5 Mcg Inhaler) 100 Mcg-5 Mcg/Actuation Hfa.aer.ad, 1 PUFF INH DAILY PRN for SHORTNESS OF BREATH, (Reported) Entered as Reported by: ROSLYN PAYTON on 04/19/22 1233 Mv-Min/Folic/Vit K/Lut/[id number] (Alive Women's 50 Plus Tablet) 240 Mcg-120 Mcg- 300 Mcg-100 Mg Tablet, 1 EACH PO DAILY, (Reported) Entered as Reported by: ROSLYN PAYTON on 04/19/22 1233 Tramadol HCl (Tramadol HCl) 50 Mg Tablet, 50-100 MG PO Q4H PRN for PAIN BREAKTROUGH Prescribed by: PASHA CHEEMA on 06/20/22 1029 Umeclidinium Avant (Incruse Ellipta) 62.5 Mcg/Actuation Blst.w.dev, 1 INH INH DAILY, (Reported) Entered as Reported by: ROSLYN PAYTON on 04/19/22 1233 Zolpidem Tartrate (Zolpidem Tartrate ER) 6.25 Mg Tab.mphase, 6.25 MG PO HS, (Reported) Entered as Reported by: ROSLYN PAYTON on 04/19/22 1233 Review of Systems Review of Systems Constitutional: see HPI, weakness EENTM: other (Dry mucous membranes) Respiratory: see HPI Cardiovascular: no symptoms reported Gastrointestinal: see HPI Genitourinary: no symptoms reported : No Skin: no symptoms reported Psychiatric/Neurological: No Symptoms Reported Hematologic/Lymphatic: No Symptoms Reported Immunological/Allergic: no symptoms reported Past Japdqtf-Icaobl-Nqpqvu Hx Patient Social History Tobacco Use?: No Alcohol Use?: Yes Alcohol type: Wine Alcohol Frequency: Daily Pt feels they are or have been: No Immunizations Up To Date Tetanus Booster (TDap): Less than 5yrs First/Initial COVID19 Vaccinat: RECEIVED, UNK WHEN Second COVID19 Vaccination [place]: RECEIVED, UNK WHEN Third COVID19 Vaccination Date: RECEIVED, UNK WHEN COVID19 Vaccine Change Coordinator: UNK Seasonal Allergies Seasonal Allergies: No Past Medical History Surgeries: Yes (COLON RESECTION with ileostomy) Hysterectomy, Orthopedic Respiratory: Yes COPD Currently Using CPAP: No Currently Using BIPAP: No Cardiac: No Chronic Edema/Swelling, High Cholesterol, Hypertension Neurological: No Genitourinary: No Gastrointestinal: Yes (COLON RESECTION WITH COLOSTOMY) Colitis, Bergman's Esophagus, Irritable Bowel Musculoskeletal: Yes (OSTEOPENIA) Arthritis Endocrine: No Cataract Loss of Vision: Denies Hearing Impairment: Denies Cancer: No Psychosocial: No Integumentary: No Blood Disorders: No Adverse Reaction/Blood Tranf: No Physical Exam Vital Signs Vital Signs - First Documented 08/29/22 08/29/22 09:20 09:54 Temp 35.6 Pulse 96 Resp 18 B/P (MAP) 109/74 (86) Pulse Ox 95 O2 Delivery Nasal Cannula O2 Flow Rate 4.00 Capillary Refill : Height, Weight, BMI Height: '" Weight: lbs. oz. kg; 20.00 BMI Method: General Appearance: No Apparent Distress, WD/WN, Thin HEENT: PERRL/EOMI, Normal ENT Inspection, Other (Dry oropharynx) Neck: Normal Inspection; No JVD Respiratory: Lungs Clear, Normal Breath Sounds, No Accessory Muscle Use Cardiovascular: No Edema, No Murmur, Tachycardia (Mild, regular) Gastrointestinal: Normal Bowel Sounds, Soft, Distended, Tenderness (Lower abdomen around the ostomy) Extremity: Normal Inspection, No Pedal Edema Neurologic/Psychiatric: Alert, Oriented x3, No Motor/Sensory Deficits, Normal Mood/Affect Skin: Normal Color, Warm/Dry Focused Exam Sepsis Stage: Sepsis Possible Source: Genitouriary Lactate Level 08/29/22 10:25: Lactic Acid Level 1.71 Time of Focused Exam: 11:15 Respiratory: Lungs Clear, No Respiratory Distress Cardiovascular: Regular Rate, Rhythm, No Edema, No Murmur Capillary Refill: Less Than 3 Seconds Skin: normal color, warm/dry Lactic Acid Level Laboratory Tests Test 08/29/22 10:25 Lactic Acid Level 1.71 MMOL/L (0.50-2.00) Within 3hrs of presentation: Admin fluids, Admin ABX, Blood cultures prior to ABX's, Focus exam, Lactate level Progress/Results/Core Measures Suspected Sepsis SIRS Temperature: Pulse: 96 Respiratory Rate: 18 Laboratory Tests 08/29/22 09:24: White Blood Count 11.0 Blood Pressure 109 /74 Mean: 86 08/29/22 10:25: Lactic Acid Level 1.71 Laboratory Tests 08/29/22 09:24: Creatinine 2.39H, INR Comment 0.9, Platelet Count 380, Total Bilirubin 0.4 Results/Orders Lab Results Laboratory Tests Test 08/29/22 09:24 08/29/22 09:35 08/29/22 10:25 Range/Units White Blood Count 11.0 4.3-11.0 10^3/uL Red Blood Count 4.80 3.80-5.11 10^6/uL Hemoglobin 14.1 11.5-16.0 g/dL Hematocrit 42 35-52 % Mean Corpuscular Volume 87 80-99 fL Mean Corpuscular Hemoglobin 29 25-34 pg Mean Corpuscular Hemoglobin Concent 34 32-36 g/dL Red Cell Distribution Width 13.9 10.0-14.5 % Platelet Count 380 130-400 10^3/uL Mean Platelet Volume 9.5 9.0-12.2 fL Immature Granulocyte % (Auto) 1 % Neutrophils (%) (Auto) 85 H 42-75 % Lymphocytes (%) (Auto) 6 L 12-44 % Monocytes (%) (Auto) 8 0-12 % Eosinophils (%) (Auto) 1 0-10 % Basophils (%) (Auto) 0 0-10 % Neutrophils # (Auto) 9.3 H 1.8-7.8 10^3/uL Lymphocytes # (Auto) 0.7 L 1.0-4.0 10^3/uL Monocytes # (Auto) 0.9 0.0-1.0 10^3/uL Eosinophils # (Auto) 0.1 0.0-0.3 10^3/uL Basophils # (Auto) 0.0 0.0-0.1 10^3/uL Immature Granulocyte # (Auto) 0.1 0.0-0.1 10^3/uL Neutrophils % (Manual) 86 % Lymphocytes % (Manual) 7 % Monocytes % (Manual) 6 % Eosinophils % (Manual) 0 % Basophils % (Manual) 1 % Band Neutrophils 0 % Blood Morphology Comment NORMAL Prothrombin Time 12.5 12.2-14.7 SEC INR Comment 0.9 0.8-1.4 Activated Partial Thromboplast Time 36 H 24-35 SEC Sodium Level 123 *L 135-145 MMOL/L Potassium Level 4.0 3.6-5.0 MMOL/L Chloride Level 81 L 98-107 MMOL/L Carbon Dioxide Level 27 21-32 MMOL/L Anion Gap 15 H 5-14 MMOL/L Blood Urea Nitrogen 65 H 7-18 MG/DL Creatinine 2.39 H 0.60-1.30 MG/DL Estimat Glomerular Filtration Rate 20 BUN/Creatinine Ratio 27 Glucose Level 118 H 70-105 MG/DL Calcium Level 8.8 8.5-10.1 MG/DL Corrected Calcium 8.9 8.5-10.1 MG/DL Magnesium Level 3.6 H 1.6-2.4 MG/DL Total Bilirubin 0.4 0.1-1.0 MG/DL Aspartate Amino Transf (AST/SGOT) 16 5-34 U/L Alanine Aminotransferase (ALT/SGPT) 10 0-55 U/L Alkaline Phosphatase 104 40-136 U/L C-Reactive Protein High Sensitivity 3.83 H 0.00-0.50 MG/DL Total Protein 7.3 6.4-8.2 GM/DL Albumin 3.9 3.2-4.5 GM/DL Lipase 38 8-78 U/L Urine Color YELLOW Urine Clarity TURBID Urine pH 6.0 5-9 Urine Specific [place] 1.025 H 1.016-1.022 Urine Protein TRACE H NEGATIVE Urine Glucose (UA) NEGATIVE NEGATIVE Urine Ketones NEGATIVE NEGATIVE Urine Nitrite NEGATIVE NEGATIVE Urine Bilirubin NEGATIVE NEGATIVE Urine Urobilinogen 0.2 < = 1.0 MG/DL Urine Leukocyte Esterase 3+ H NEGATIVE Urine RBC (Auto) 1+ H NEGATIVE Urine RBC 0-2 /HPF Urine WBC >100 H /HPF Urine Squamous Epithelial Cells 0-2 /HPF Urine Crystals NONE /LPF Urine Bacteria LARGE H /HPF Urine Casts NONE /LPF Urine Mucus NEGATIVE /LPF Urine Culture Indicated YES SARS-CoV-2 RNA (RT-PCR) Not Detected Not Detecte Lactic Acid Level 1.71 0.50-2.00 MMOL/L My Orders Orders - JOAQUÍN FRANCISCO MD Covid 19 Inhouse Test (08/29/22 09:29) Cbc With Automated Diff (08/29/22 09:32) Comprehensive Metabolic Panel (08/29/22 09:32) Hs C Reactive Protein (08/29/22 09:32) Lipase (08/29/22 09:32) Magnesium (08/29/22 09:32) Ua Culture If Indicated (08/29/22 09:32) Ed Iv/Invasive Line Start (08/29/22 09:32) Lactated Ringers (Lr 1000 Ml Iv Solution (08/29/22 09:45) Manual Differential (08/29/22 09:24) Urine Culture (08/29/22 09:35) Ns Iv 1000 Ml (Sodium Chloride 0.9%) (08/29/22 10:15) Blood Culture (08/29/22 10:16) Sputum Culture (08/29/22 10:16) Protime With Inr (08/29/22 10:16) Partial Thromboplastin Time (08/29/22 10:16) Chest 1 View, Ap/Pa Only (08/29/22 10:16) Vital Signs Adult Sepsis Patie Q15M (08/29/22 10:16) Remove Rings In Anticipation O (08/29/22 10:16) Lactic Acid Analyzer (08/29/22 10:16) Ceftriaxone Iv/Im (Rocephin Iv/Im) (08/29/22 10:18) Arterial Blood Gas (08/29/22 11:14) Cefepime Injection (Maxipime Injection) (08/29/22 11:30) Code/Resuscitation (08/29/22 11:20) Ed Admission (Communication) (08/29/22 11:20) Medications Given in ED Current Medications Medications Dose Ordered Sig/Arnoldo Route Start Time Stop Time Status Last Admin Dose Admin Cefepime HCl 2000 mg/Sodium Chloride 50 ml @ 100 mls/hr ONCE ONCE IV 08/29/22 11:30 08/29/22 11:59 08/29/22 11:22 100 MLS/HR Lactated Ringer's 1,000 ml @ 0 mls/hr Q0M ONCE IV 08/29/22 09:45 08/29/22 09:46 DC 08/29/22 09:40 0 MLS/HR Vital Signs/I&O 08/29/22 08/29/22 09:20 09:54 Temp 35.6 Pulse 96 90 Resp 18 B/P (MAP) 109/74 (86) 108/72 (84) Pulse Ox 95 93 O2 Delivery Nasal Cannula Nasal Cannula O2 Flow Rate 4.00 Capillary Refill : Blood Pressure Mean: 86 Progress Note : Time: 11:32 Progress Note Patient was interviewed and examined upon arrival. She demonstrated hypoxia and need for 3 to 4 L of oxygen by nasal cannula. She was not in any respiratory distress. She exhibited mild tachycardia. Septic work-up was pursued. Labs were obtained, reviewed, and interpreted by me in their entirety. She had no significant abnormalities on her CBC. Chemistry studies demonstrated h yponatremia with a sodium of 123. She has had progressive acute kidney injury with creatinine of 2.39 which was increased from her creatinine a few days ago and significantly increased from baseline when compared with priors. CRP was mildly elevated at 3.83. Lactic acid was normal at 1.71. COVID-19 swab was negative. Chest x-ray was viewed by me. By my interpretation there is hyperinflation consistent with COPD. No other acute abnormalities were appreciated. Radiologist report was reviewed and noted infiltrates in the right lower lung. I also reviewed the CT scan from a few days ago that was ordered by Dr. Hunt. Hernias were noted with no acute abnormalities in the abdomen or pelvis. There were findings suspicious for infiltrate versus atelectasis in the lower lungs on that prior CT scan. Patient was initially given a liter of LR. This was followed by a liter of normal saline after the hyponatremia was noted. Patient's blood pressures have been soft at times with systolic blood pressures in the 90s. Systolic blood pressure is now greater than 100. Patient remains on nasal cannula for oxygen support. Antibiotic therapy was initiated after blood cultures were drawn. Initially she was given Rocephin after review of her urinalysis demonstrating marked leukocytosis and bacteriuria. I had reviewed prior urine cultures which demonstrated repeated Klebsiella bacterial strains sensitive to cephalosporins. After pneumonia was noted and case was discussed with Dr. Rizzo, cefepime was added. Patient is being admitted for treatment of multiple diagnoses. Dr. Rizzo, hospitalist, was agreeable to admission and requested an ICU bed due to risk of potential rapid decompensation. Dr. Hunt was consulted as her primary general surgeon because of the abdominal pain. ABG was requested by Dr. Rizzo and is pending. I discussed CODE STATUS with the patient, and she requests a full code order. Patient states she would like Beba Stuart, her sister, to be a surrogate decision maker for her if she is incapacitated. Diagnostic Imaging Diagonstic Imaging: Xray Plain Films/CT/US/NM/MRI: chest Comments NAME: ROBERT OCONNOR [facility] REC#: [id number] PT STATUS: REG ER : 1945 PHYSICIAN: JOAQUÍN FRANCISCO MD ADMIT DATE: 08/29/22/ER Draft Date of Exam:08/29/22 CHEST 1 VIEW, AP/PA ONLY CLINICAL INDICATION: Patient not feeling well since Friday and generalized weakness. Patient has nausea and lower oxygen saturations. EXAM: Portable chest x-ray upright view. COMPARISON: Chest x-ray dated 04/15/2022. FINDINGS: Lungs/pleura: There is interval progression of lung infiltrates involving the right lung base. There is improved aeration of left lung base and minimal left basilar atelectasis. The remainder of the lungs are clear. There is no pneumothorax. There is no pleural effusion. Mediastinum: Unremarkable. Pulmonary vasculature: Unremarkable. Heart: Unremarkable. Bones/extrathoracic soft tissue: There are degenerative spurs involving the thoracic spine. IMPRESSION: 1: There is interval development of right lung base infiltrates. 2: There is mild left basilar atelectasis. Dictated on workstation # [id number] Dict: 08/29/22 1034 Trans: 08/29/22 1041 [id number] Interpreted by: RIGO OSORIO MD Departure Communication (Admissions) Time/Spoke to Admitting Phy: 11:10 Dr. Rizzo Time/Spoke to Consulting Phy: 11:19 Dr. Hunt Impression Primary Impression: Sepsis Qualified Codes: A41.9 - Sepsis, unspecified organism Additional Impressions: Urinary tract infection Qualified Codes: N39.0 - Urinary tract infection, site not specified Right lower lobe pneumonia Qualified Codes: J18.9 - Pneumonia, unspecified organism Acute kidney injury Hyponatremia Hypoxia Generalized weakness Lower abdominal pain Disposition: ADMITTED INPATIENT Condition: Improved Admissions Decision to Admit Reason: Admit from ER (General) Decision to Admit/Date: Aug 29, 2022 Time/Decision to Admit Time: 11:18 Departure-Patient Inst. Referrals: SHARLA ALCALA MD (PCP/Family) Primary Care Physician JOAQUÍN FRANCISCO MD Aug 29, 2022 09:41
[2022-08-29 09:45] LABS: ALBUMIN 3.9 GM/DL (3.2-4.5)
[2022-08-29 09:45] LABS: BILIRUBIN,URINE NEGATIVE (NEGATIVE); CLARITY,URINE TURBID; COLOR,URINE YELLOW; GLUCOSE, URINE (UA) NEGATIVE (NEGATIVE); KETONES,URINE NEGATIVE (NEGATIVE); LEUKOCYTE ESTERASE ,URINE 3+ (NEGATIVE); NITRITE,URINE NEGATIVE (NEGATIVE); PROTEIN,URINE TRACE (NEGATIVE)
[2022-08-29] MEDS ORDERED: LACTATED RINGERS 1,000 ML IV ONE (09:45)
[2022-08-29 09:46] LABS: CALCIUM 8.8 MG/DL (8.5-10.1)
[2022-08-29 09:47] LABS: TOTAL PROTEIN 7.3 GM/DL (6.4-8.2)
[2022-08-29 09:49] LABS: BILIRUBIN,TOTAL 0.4 MG/DL (0.1-1.0)
[2022-08-29 09:51] LABS: CREATININE SERUM 2.39 MG/DL (0.60-1.30)
[2022-08-29 09:54] LABS: MAGNESIUM 3.6 MG/DL (1.6-2.4)
[2022-08-29 09:59] LABS: BACTERIA,URINE LARGE /HPF; RBC,URINE 0-2 /HPF; SQUAMOUS EPITHELIAL CELL,UR 0-2 /HPF; WBC,URINE >100 /HPF
[2022-08-29] MEDS ORDERED: NS IV 1000 ML 1,000 ML IV SCH (10:15)
[2022-08-29] MEDS ORDERED: cefTRIAXone IV/IM 1,000 MG in NS (IVPB) 50 ML IV STA (10:18)
[2022-08-29 10:25] LABS: BAND NEUTROPHILS 0 %; BASOPHILS % (MANUAL) 1 %; EOSINOPHILS % (MANUAL) 0 %; LYMPHOCYTES % (MANUAL) 7 %; MONOCYTES % (MANUAL) 6 %; NEUTROPHILS % (MANUAL) 86 %; RBC MORPH NORMAL
[2022-08-29 10:26] LABS: INR 0.9 (0.8-1.4); PROTHROMBIN TIME PATIENT 12.5 SEC (12.2-14.7)
--- NOTE | 2022-08-29 10:42 | Diagnostic Imaging Report ---
CLINICAL INDICATION: Patient not feeling well since Friday and generalized weakness. Patient has nausea and lower oxygen saturations. EXAM: Portable chest x-ray upright view. COMPARISON: Chest x-ray dated 04/15/2022. FINDINGS: Lungs/pleura: There is interval progression of lung infiltrates involving the right lung base. There is improved aeration of left lung base and minimal left basilar atelectasis. The remainder of the lungs are clear. There is no pneumothorax. There is no pleural effusion. Mediastinum: Unremarkable. Pulmonary vasculature: Unremarkable. Heart: Unremarkable. Bones/extrathoracic soft tissue: There are degenerative spurs involving the thoracic spine. IMPRESSION: 1: There is interval development of right lung base infiltrates. 2: There is mild left basilar atelectasis. Dictated by: Dictated on workstation # [id number]
--- NOTE | 2022-08-29 11:21 | History & Physical ---
History of Present Illness HPI/Chief Complaint Chief complaint: Acute hypoxic respiratory failure HPI: This is a 76-year-old female clinic patient of Dr. Alcala who is known to me from 4 months ago when she was at [facility] following a complication from colonoscopy requiring emergent diverting ileostomy due to perforation. She ultimately required transfer to [place] for pulmonology due to declining pulmonary function along with abdominal wound. She reports that she only uses oxygen as needed. She reports that she became short of breath and be came worse so she presented to the ER found to have significant hypoxia. Patient had a sign of pneumonia on chest x-ray and acute UTI requiring broad- spectrum antibiotics. She reports she has been doing pretty well since hospital stay in [place] and in inpatient rehab. Source: patient Exam Limitations: clinical condition Date Seen 08/29/22 Time Seen by a Provider: 11:45 Attending Physician Sunita Alcala MD PCP Admitting Physician: Attending Physician: Referring Physician Date of Admission Home Medications & Allergies Home Medications Reviewed patient Home Medication Reconciliation performed by pharmacy medication reconciliations groundwater monitoring technician and/or nursing. Patients Allergies have been reviewed. Allergies Allergies Coded Allergies acetaminophen (Unverified Allergy, Severe, Anaphylaxis, 08/29/22) furosemide (Unverified Allergy, Severe, 06/13/22) LETHAERGY Penicillins (Unverified Allergy, Intermediate, Itching, 08/29/22) Past [id number]-Vekham Hx Past Med/Social Hx: Reviewed Nursing Past Med/Soc Hx, Reviewed and Corrections made Patient Social History Marrital Status: single Employed/Student: retired Alcohol Use: Regular Use Alcohol Beverage of Choice: Wine Smoking Status: Former Smoker Former Smoker, Quit: Mar 10, 2007 Type Used: Cigarettes 2nd Hand Smoke Exposure: No Recent Hopitalizations: Yes (03/25/22 - 04/23/22 COLORECTAL SURGERY) Immunizations Up To Date Tetanus Booster (TDap): Less than 5yrs Date of Pneumonia Vaccine: Dec 31, 2021 Date of Influenza Vaccine: Dec 31, 2021 Seasonal Allergies Seasonal Allergies: No Past Medical History Surgeries: Hysterectomy, Orthopedic Respiratory: COPD, Pneumonia, Pulmonary Fibrosis Currently Using CPAP: No Currently Using BIPAP: No Cardiac: Chronic Edema/Swelling, High Cholesterol, Hypertension Gastrointestinal: Colitis, Bergman's Esophagus, Irritable Bowel Musculoskeletal: Arthritis HEENT: Cataract Loss of Vision: Denies Hearing Impairment: Denies History of Blood Disorders: No Adverse Reaction to Blood Davis: No Review of Systems Constitutional: see HPI EENTM: no symptoms reported Respiratory: cough, dyspnea on exertion Cardiovascular: no symptoms reported Gastrointestinal: no symptoms reported Genitourinary: no symptoms reported Musculoskeletal: no symptoms reported Skin: no symptoms reported Psychiatric/Neurological: No Symptoms Reported All Other Systems Reviewed Negative Unless Noted: Yes Physical Exam Physical Exam Vital Signs Vital Signs - First Documented 08/29/22 08/29/22 08/29/22 09:20 09:54 12:58 Temp 35.6 Pulse 96 Resp 18 B/P (MAP) 109/74 (86) Pulse Ox 95 O2 Delivery Nasal Cannula O2 Flow Rate 4.00 FiO2 36 Capillary Refill : Height, Weight, BMI Height: '" Weight: lbs. oz. kg; 20.00 BMI Method: General Appearance: No Apparent Distress, WD/WN, Chronically ill, Thin Eyes: Bilateral Eye Normal Inspection, Bilateral Eye PERRL HEENT: PERRL/EOMI, Normal ENT Inspection, Pharynx Normal Neck: Full Range of Motion, Normal Inspection, Non Tender, Supple, Carotid Bruit Respiratory: Chest Non Tender, Lungs Clear, No Accessory Muscle Use, No Respiratory Distress Cardiovascular: Regular Rate, Rhythm, No Edema, No Gallop, No JVD, No Murmur, Normal Peripheral Pulses Gastrointestinal: Normal Bowel Sounds, No Organomegaly, No Pulsatile Mass, Non Tender, Soft Back: Normal Inspection, No CVA Tenderness, No Vertebral Tenderness Extremity: Normal Capillary Refill, Normal Inspection, Normal Range of Motion, Non Tender, No Calf Tenderness, No Pedal Edema Neurologic/Psychiatric: Alert, Oriented x3, No Motor/Sensory Deficits, Normal Mood/Affect, Motor Weakness ( generalized) Skin: Normal Color, Warm/Dry Lymphatic: No Adenopathy Results Results/Procedures Labs Laboratory Tests 08/29/22 09:24 08/29/22 15:42 Patient resulted labs reviewed. Assessment/Plan Admission Diagnosis Assessment: Acute on chronic hypoxic respiratory failure Acute exacerbation of COPD Acute kidney injury Profound dehydration from ileostomy output Previous alcohol use- covering for possible withdrawal Advanced age Debility following colon perforation 04/2022 during colonoscopy at [facility] received emergent diverting colostomy per Dr Hunt h/o hospital acquired PNA 04/2022 requiring transfer to [facility] for higher level of care Abdominal wound requiring wound care History of Encephalopathy Diastolic CHF Urinary incontinence plan: IV fluids IV antibiotics Nebulizers IV steroids Pulmicort nebs Home meds Lovenox for DVT prophylaxis Dr. Hunt consult Advanced age if okay with Dr. Hunt Admission Status: Inpatient Order (span 2 midnights) Reason for Inpatient Admission: Respiratory failure JERAMIE KENT DO Aug 29, 2022 11:21
[2022-08-29] MEDS ORDERED: CEFEPIME INJECTION 2,000 MG in NS (IVPB) 50 ML IV ONE (11:30)
[2022-08-29] MEDS ORDERED: LORazepam INJ 2 MG/ML (ATIVAN) VIAL IM/IV PRN (12:30)
[2022-08-29] MEDS ORDERED: LORazepam INJ 2 MG/ML (ATIVAN) VIAL IVP PRN (12:30)
[2022-08-29] MEDS ORDERED: HYDROmorphone 2 MG/ML VIAL (DILAUDID) IV PRN (12:30)
[2022-08-29] MEDS ORDERED: VANCOMYCIN INJECTION 0.1 MG in NS (IVPB) 250 ML IV SCH (12:30)
[2022-08-29] MEDS ORDERED: ONDANSETRON 4 MG (ZOFRAN) ORAL DISSOLVE TAB PO PRN (12:30)
[2022-08-29] MEDS ORDERED: SENNA W/DOCUSATE (SENOKOT S) TABLET PO PRN (12:30)
[2022-08-29] MEDS ORDERED: ANTACID SUSP 30 ML UDC (MYLANTA) PO PRN ×2 (12:30)
[2022-08-29] MEDS ORDERED: D5 1/2 NS 1000 ML IV SOLUTION 1,000 ML IV PRN (12:30)
[2022-08-29] MEDS ORDERED: LORazepam INJ 2 MG/ML (ATIVAN) VIAL IV PRN (12:30)
[2022-08-29] MEDS ORDERED: MILK OF MAGNESIA 400 MG/5 ML 30 ML UDC PO PRN (12:30)
[2022-08-29] MEDS ORDERED: LACTULOSE SYRUP 10GM/15ML (ENULOSE) 30ML UDC PO PRN (12:30)
[2022-08-29] MEDS ORDERED: diphenhydrAMINE 50 MG/ML INJ (BENADRYL) IVP PRN (12:30)
[2022-08-29] MEDS ORDERED: NS IV 500 ML 500 ML IV PRN (12:30)
[2022-08-29] MEDS ORDERED: BISACODYL 10 MG SUPP (DULCOLAX) PR PRN (12:30)
[2022-08-29] MEDS ORDERED: polyethylene glycoL POWDER 17 GM (MIRALAX) PACK PO PRN (12:30)
[2022-08-29] MEDS ORDERED: ONDANSETRON 4 MG/2 ML (SDV) Z0FRAN IV PRN ×2 (12:30)
[2022-08-29] MEDS ORDERED: LORazepam 1 MG (ATIVAN) TAB PO PRN (12:30)
[2022-08-29] MEDS ORDERED: CALCIUM CARBONATE 500 MG (TUMS) TAB.CHEW PO PRN (12:30)
[2022-08-29] MEDS ORDERED: 1/2 NS IV SOLUTION 1,000 ML IV PRN (12:30)
[2022-08-29] MEDS ORDERED: ONDANSETRON 4 MG (ZOFRAN) ORAL DISSOLVE TAB SL PRN (12:30)
[2022-08-29] MEDS ORDERED: ENOXAPARIN 40 MG/0.4 ML (LOVENOX) SYR SC SCH (12:30)
[2022-08-29 12:58] VITALS: BP 91/62
[2022-08-29] MEDS ORDERED: RT-ALBUTEROL/IPRATROPIUM 3 ML (DUONEB) VIAL INH PRN (13:00)
[2022-08-29] MEDS: ENOXAPARIN INJECTION 30 MG/0.3 ML SYR SC SCH (13:15)
[2022-08-29] MEDS: NS IV 1000 ML 1,000 ML IV SCH ×3 (13:15→21:44)
[2022-08-29 13:40] LABS: ABG OXYGEN SATURATION 95 % (94-100); ABG PCO2 45 MMHG (35-45); ABG PO2 72 MMHG (79-93); ABG TCO2 25.8 MMOL/L (21.0-31.0)
[2022-08-29 13:41] LABS: ALLENS TEST POSITIVE; INSPIRED O2 4L; PATIENT TEMP 35.6; VENTILATOR NO
[2022-08-29 13:44] LABS: ABG PH 7.34 (7.37-7.43)
[2022-08-29] MEDS ORDERED: VANCOMYCIN 1 GM/NS 250 ML IVPB IV SCH ×2 (14:00)
[2022-08-29] MEDS: RT-ALBUTEROL/IPRATROPIUM 3 ML (DUONEB) VIAL INH SCH ×3 (14:23→21:58)
--- NOTE | 2022-08-29 14:43 | Tele-ICU Progress Note ---
Subjective Date Seen by a Provider: Aug 29, 2022 Time Seen by a Provider: 14:32 Subjective/Events-last exam (Tele-ICU Physician, consultation as per request of PCP Service provided via interactive audio and video telecommunications E-CARE system to a patient admitted to ICU bed in [facility]. Available chart/ vitals / labs / Images reviewed H&P is from ER notes Patient's information available about PMHx, SHx, FHx allergy reviewed in EMR. ROS as per chart and RN report HPI: 76 y/o F with PMHx significant for COPD, on RA and colon perforation s/p colectomy who presented to ED with c/o fatigue, n/v X 5 days and was found to have severe hyponatremia admitted to MICU for closer monitoring. Labs in ED also notable for IVANNA with elevated BUN and creatinine. She underwent a CT c/a/p and was found to have a possible infiltrate but otherwise no other obvious source of infection. In MICU she has been on 3L which is her home prn. She was started on IVF @ 125cc/hr with normal saline. She has AXOX3 and is currently tolerating oxygen. Surgery has been consulted A/P Moderate hyponatremia: Sodium today 123, likely hypovolemic hyponatremia. Will send urine lytes, osmolality -Would cont IVF hydratation. -Avoid correcting sodium > 9meq in next 24 hours. Will check BMP Q3H Pneumonia: Possible infiltrate seen on CXR, mild hypoxia noted on admission -no significant leukocytosis. Received 1 dose of Vanc/Cefepime. -Will await sputum culture Lines : periph, (Central Line Necessity Reviewed) Naranjo: Nutrition: CLD VTE Prophylaxis: bell 1`30 bid Stress Ulcer Prophylaxis: Plans in collaboration with bedside consultants and IM MDs. Discussed with RN to reach out if any questions or concerns A total of 20 minutes of critical care time was devoted to this patient today, required to treat and/or prevent further deterioration of critical care condition ( as above ) Sepsis Event Evaluation Height, Weight, BMI Height: '" Weight: lbs. oz. kg; 21.97 BMI Method: Focused Exam Lactate Level 08/29/22 10:25: Lactic Acid Level 1.71 Time of Focused Exam: 11:15 Exam Exam Patient acknowledged, consented, and participated in this virtual visit which was conducted using real time audio/video Vital Signs Date Time Temp Pulse Resp B/P (MAP) Pulse Ox O2 Delivery O2 Flow Rate FiO2 08/29/22 14:24 Nasal Cannula 4.00 08/29/22 13:15 75 8 105/60 (75) 98 Nasal Cannula 4.00 08/29/22 13:00 75 9 101/61 (74) 96 Nasal Cannula 4.00 08/29/22 12:58 35.6 91 92 36 08/29/22 12:45 76 16 93/64 (74) 97 Nasal Cannula 4.00 08/29/22 12:30 82 14 108/69 (82) 96 Nasal Cannula 4.00 08/29/22 12:26 82 08/29/22 12:15 86 106/65 (79) 94 Nasal Cannula 4.00 08/29/22 12:06 91 18 91/62 92 Nasal Cannula 4.00 08/29/22 12:00 91 91/62 (72) 97 Nasal Cannula 4.00 08/29/22 09:54 90 108/72 (84) 93 Nasal Cannula 4.00 08/29/22 09:20 35.6 96 18 109/74 (86) 95 Nasal Cannula Height & Weight Height: '" Weight: lbs. oz. kg; 21.97 BMI Method: General Appearance: No Apparent Distress, WD/WN, Thin HEENT: PERRL/EOMI, Normal ENT Inspection, Other (Dry oropharynx) Neck: Normal Inspection; No JVD Respiratory: Lungs Clear, No Respiratory Distress Cardiovascular: Regular Rate, Rhythm, No Edema, No Murmur Capillary Refill: Less Than 3 Seconds Extremity: Normal Inspection, No Pedal Edema Neurologic/Psychiatric: Alert, Oriented x3, No Motor/Sensory Deficits, Normal Mood/Affect Skin: Normal Color, Warm/Dry Results Lab Laboratory Tests 08/29/22 09:24 Assessment/Plan Assessment/Plan . HARI SELBY MD Aug 29, 2022 14:43
[2022-08-29] MEDS ORDERED: ALBU18HF2 INH (14:48)
[2022-08-29] MEDS ORDERED: FLUT16SP22 NSEACH (14:48)
[2022-08-29] MEDS ORDERED: TRAM50TA3 PO (14:48)
[2022-08-29] MEDS ORDERED: FLUT12AE4 INH (14:48)
[2022-08-29] MEDS ORDERED: MAGN400T39 PO (14:48)
[2022-08-29] MEDS ORDERED: MV-M-6 PO (14:48)
[2022-08-29] MEDS: THIAMINE INJECTION 100 MG, FOLIC ACID INJECTION 1 MG, MAGNESIUM SULFATE 2 GM, VITAMIN M... IV SCH ×5 (15:21)
[2022-08-29] MEDS ORDERED: PROMETHAZINE INJ 25 MG/ML (PHENERGAN) AMP IVP PRN (16:00)
[2022-08-29 16:02] LABS: POTASSIUM 3.4 MMOL/L (3.6-5.0)
[2022-08-29 16:03] LABS: CALCIUM 7.7 MG/DL (8.5-10.1)
[2022-08-29 16:08] LABS: CREATININE SERUM 1.8 MG/DL (0.60-1.30)
--- NOTE | 2022-08-29 16:59 | CONSULTATION REPORT ---
ATTENDING PRIMARY CARE PHYSICIAN: Sunita Alcala MD. ADMITTING PHYSICIAN: Dr. Rizzo. HISTORY OF PRESENT ILLNESS: The patient is a 76-year-old female, well known to us. She was initially seen for screening colonoscopy; however, she did not mention that she had a history of colonic strictures, as well as collagenous colitis and underwent a colonoscopy and was found to have active inflammation and during the withdrawal of the colonoscope, perforation was identified and she underwent a low anterior colorectal resection including the stricture as well as anastomosis. We did also place a diverting loop ileostomy due to the inflammatory changes. The patient also does have a number of other medical comorbidities including chronic obstructive pulmonary disease, diastolic dysfunction as well as alcohol abuse. The patient did have a persistent abdominal wound and a wound VAC was placed and the wound did granulating; however , there was an area where the skin edges failed to contract inward and we decided to proceed with delayed primary closure, which was done on 06/12/2022. She was scheduled to have the loop ileostomy repaired as well as parastomal hernia repair, but she did develop some abdominal pain. A CT scan was performed, which did not show any intraabdominal inflammatory changes as well as no obstruction. The parastomal hernia was apparent. The patient presented to the emergency department with weakness and fatigue and was found to be hyponatremic. She again has issues with alcohol and states that she did drink alcohol last weekend and since that time, she has felt much worse. She was found to be hyponatremic and have urinary tract infection, likely consistent with a root cause being dehydration. She was also found to have pneumonia. She was admitted and placed on IV fluids, as well as IV antibiotics. Upon examination of her abdomen, there is minimal pain and functional loop ileostomy. PAST MEDICAL HISTORY: Chronic obstructive pulmonary disease, hypertension, hypercholesterolemia, diastolic dysfunction, history of collagenous colitis, colon polyps as well as colonic strictures. PAST SURGICAL HISTORY: Exploratory laparotomy, low anterior colorectal resection, diverting loop ileostomy. ALLERGIES: PENICILLIN, ACETAMINOPHEN, FUROSEMIDE. MEDICATIONS: Albuterol breathing treatments q.4 hours p.r.n., alprazolam 0.25 mg q.8 hours p.r.n., bumetanide 1 mg daily, diltiazem 180 mg daily, fluticasone/salmeterol 113/14 mcg b.i.d., loperamide daily, potassium 10 mEq daily, tramadol 50 mg q.6 hours p.r.n., zolpidem 5 mg each day at bedtime. SOCIAL HISTORY: Negative smoke. Intermittent drinking of alcohol. FAMILY HISTORY: Noncontributory. VITAL SIGNS: Temperature 36.5, blood pressure 180/55, pulse 85, respirations 18, pulse ox 92% on 4 liters nasal cannula. REVIEW OF SYSTEMS: This is a slightly thin-appearing female, currently in no acute distress. She is not experiencing any shortness of breath or difficulty breathing. No chest pain, palpitations, diaphoresis. She does get intermittent episodes of nausea; however, none in recent days; however, her friend states that she has not been eating much as well as not drinking much fluids. She does have a functional ileostomy with a reducible parastomal hernia. No fever or chills; however, states that she has felt weak in the past week with some weight loss in the past several months. All other review of systems negative. PHYSICAL EXAMINATION: CHEST: Few scattered rales and rhonchi bilaterally. HEART: Regular. No murmurs. EXTREMITIES: No lower extremity edema. Negative Homans sign. HEENT: No scleral icterus. No cervical lymphadenopathy. ABDOMEN: Soft. There is mild discomfort in the previous midline laparotomy incision site. There is a functional loop ileostomy with a parastomal hernia, which is reducible. SKIN: Warm, dry. LABORATORY DATA: WBC 11, hemoglobin 14.1, hematocrit 42, platelets 380. Sodium 123, potassium 3.4, chloride 81, BUN 55, creatinine 1.80. Liver function enzymes normal. Urinalysis, 3+ leukocyte esterase, a large amount of bacteria. ASSESSMENT AND PLAN: A 76-year-old female with hyponatremia, dehydration, alcohol abuse, urinary tract infection and pneumonia. She will be admitted and placed on IV fluids as well as IV antibiotics. At this time, her abdomen is benign and she has a functional loop ileostomy and we will start her on a regular diet. It was also explained to her that she needs to stop drinking completely because of the effects of alcohol on suppression of antidiuretic hormone and increase of free water loss and dehydration. She also needs to continue to focus on eating foods regularly, especially high in protein as well as at least 64 fluid ounces of water daily. Once she is medically stable and she does improve her overall medical status as well as her nutritional status, we will then hopefully reevaluate and schedule her for reversal of the loop ileostomy. Job ID: [id number] DocumentID: [id number] Dictated Date: 08/29/2022 16:16:01 Rf Design Engineer Date: 08/29/2022 16:57:00 Dictated By: ASHER BARDALES MD MTDD
[2022-08-29] MEDS: methylPREDNISolone 40 MG/ML (Solu-MEDROL) VIAL IV SCH ×2 (18:35→23:26)
[2022-08-29] MEDS: PANTOPRAZOLE 40 MG (PROTONIX) VIAL IV SCH (20:14)
[2022-08-29] MEDS: DOCUSATE SODIUM 100 MG (COLACE) CAP PO SCH (20:15)
[2022-08-29] MEDS: SENNOSIDES 8.6 MG (SENOKOT) TAB PO SCH (20:15)
[2022-08-29] MEDS: oxyCODONE 5 MG/5 ML ORAL SOLN (roxiCODONE) 5 ML UDC PO PRN (20:15)
[2022-08-29] MEDS: LORazepam 0.5 MG (ATIVAN) TABLET PO PRN (21:44)
[2022-08-29] MEDS: RT-BUDESONIDE NEBS 0.5 MG/2ML (PULMICORT) AMP INH SCH (21:58)
[2022-08-29] MEDS ORDERED: CEFEPIME INJECTION 1,000 MG in NS (IVPB) 50 ML IV SCH (23:00)
[2022-08-30] MEDS: oxyCODONE 5 MG/5 ML ORAL SOLN (roxiCODONE) 5 ML UDC PO PRN ×3 (00:04→11:13)
[2022-08-30] MEDS: MELATONIN 3 MG TABLET PO PRN (01:20)
[2022-08-30] MEDS: LORazepam 0.5 MG (ATIVAN) TABLET PO PRN ×2 (01:20→23:18)
[2022-08-30] MEDS: RT-ALBUTEROL/IPRATROPIUM 3 ML (DUONEB) VIAL INH SCH ×6 (02:26→21:57)
[2022-08-30 05:05] LABS: BASOPHILS % (AUTO) 0 % (0-10); EOSINOPHILS % (AUTO) 0 % (0-10); HEMATOCRIT 35 % (35-52); HEMOGLOBIN 11.2 g/dL (11.5-16.0); LYMPHOCYTES # (AUTO) 0.2 10^3/uL (1.0-4.0); LYMPHOCYTES % (AUTO) 2 % (12-44); MEAN CORPUSCULAR HEMOGLOBIN 29 pg (25-34); MEAN CORPUSCULAR HGB CONC 32 g/dL (32-36); MEAN CORPUSCULAR VOLUME 89 fL (80-99); MEAN PLATELET VOLUME 9.6 fL (9.0-12.2); MONOCYTES % (AUTO) 0 % (0-12); NEUTROPHILS # (AUTO) 6.1 10^3/uL (1.8-7.8); NEUTROPHILS % (AUTO) 97 % (42-75); PLATELET COUNT 271 10^3/uL (130-400); WHITE BLOOD COUNT 6.3 10^3/uL (4.3-11.0)
[2022-08-30 05:26] LABS: ALBUMIN 3.4 GM/DL (3.2-4.5); BILIRUBIN,TOTAL 0.3 MG/DL (0.1-1.0); CALCIUM 7.6 MG/DL (8.5-10.1); CREATININE SERUM 1.28 MG/DL (0.60-1.30); MAGNESIUM 3.3 MG/DL (1.6-2.4); PHOSPHORUS 4.2 MG/DL (2.3-4.7); POTASSIUM 3.4 MMOL/L (3.6-5.0)
[2022-08-30] MEDS ORDERED: MAGNESIUM 1 GM/100 ML IVPB 100 ML IV SCH (06:00)
[2022-08-30] MEDS ORDERED: KCL 20 MEQ TAB (K-DUR) PO ONE (06:00)
[2022-08-30] MEDS ORDERED: POTASSIUM CL 10MEQ/50ML IVPB 50 ML IV SCH (06:00)
[2022-08-30] MEDS ORDERED: KCL 20 MEQ TAB (K-DUR) PO SCH (06:00)
[2022-08-30] MEDS: methylPREDNISolone 40 MG/ML (Solu-MEDROL) VIAL IV SCH ×2 (06:10→12:28)
[2022-08-30] MEDS: NS IV 1000 ML 1,000 ML IV SCH ×2 (06:10→20:30)
[2022-08-30] MEDS: RT-BUDESONIDE NEBS 0.5 MG/2ML (PULMICORT) AMP INH SCH ×2 (06:22→18:24)
[2022-08-30] MEDS ORDERED: CEFEPIME INJECTION 1,000 MG in NS (IVPB) 50 ML IV SCH (09:00)
[2022-08-30] MEDS: PANTOPRAZOLE 40 MG (PROTONIX) VIAL IV SCH ×2 (09:27→19:41)
[2022-08-30] MEDS: THIAMINE INJECTION 100 MG, FOLIC ACID INJECTION 1 MG, MAGNESIUM SULFATE 2 GM, VITAMIN M... IV SCH ×5 (09:27)
[2022-08-30] MEDS: SENNOSIDES 8.6 MG (SENOKOT) TAB PO SCH ×2 (09:28→19:41)
[2022-08-30] MEDS: DOCUSATE SODIUM 100 MG (COLACE) CAP PO SCH ×2 (09:28→19:41)
--- NOTE | 2022-08-30 11:03 | Progress Note ---
Subjective Date Seen by a Provider: Aug 30, 2022 Time Seen by a Provider: 11:00 Subjective/Events-last exam doing better. improvement after IV hydration clinically and by lab. tolerating diet. functional ileostomy. Focused Exam Lactate Level 08/29/22 10:25: Lactic Acid Level 1.71 Time of Focused Exam: 11:15 Objective Exam Vital Signs Date Time Temp Pulse Resp B/P (MAP) Pulse Ox O2 Delivery O2 Flow Rate FiO2 08/30/22 10:13 94 Nasal Cannula 3.00 08/30/22 10:00 82 101/57 (71) 93 Nasal Cannula 3.00 08/30/22 09:00 88 16 107/71 (90) 90 Nasal Cannula 3.00 08/30/22 08:00 94 14 114/72 (81) 95 Nasal Cannula 3.00 08/30/22 07:59 36.7 08/30/22 07:00 89 08/30/22 07:00 90 115/57 (84) 94 Nasal Cannula 3.00 08/30/22 06:42 Nasal Cannula 3.00 08/30/22 06:22 97 Nasal Cannula 4.00 08/30/22 06:00 66 11 106/60 (75) 96 Nasal Cannula 4.00 08/30/22 05:00 70 12 119/76 (90) 98 Nasal Cannula 4.00 08/30/22 04:00 71 14 108/64 (79) 95 Nasal Cannula 4.00 08/30/22 03:53 36.4 08/30/22 03:18 98 Nasal Cannula 4.00 08/30/22 03:00 80 18 118/61 (80) 95 Nasal Cannula 4.00 08/30/22 02:00 73 14 108/57 (74) 95 Nasal Cannula 4.00 08/30/22 01:00 80 12 120/63 (82) 96 Nasal Cannula 4.00 08/30/22 01:00 81 08/30/22 00:00 83 26 108/60 (76) 94 Nasal Cannula 4.00 08/29/22 23:31 98 Nasal Cannula 4.00 08/29/22 23:00 82 15 110/56 (74) 95 Nasal Cannula 4.00 08/29/22 22:00 78 15 101/64 (76) 98 Nasal Cannula 4.00 08/29/22 21:59 96 Nasal Cannula 4.00 08/29/22 21:00 78 11 113/57 (75) 93 Nasal Cannula 4.00 08/29/22 20:00 95 Nasal Cannula 4.00 08/29/22 20:00 80 13 105/55 (72) 95 Nasal Cannula 4.00 08/29/22 19:58 36.6 08/29/22 19:00 74 19 96 Nasal Cannula 4.00 08/29/22 19:00 80 08/29/22 18:41 95 Nasal Cannula 4.00 08/29/22 17:00 75 16 94/63 (73) 91 Nasal Cannula 4.00 08/29/22 16:00 85 18 80/55 (63) 92 Nasal Cannula 4.00 08/29/22 16:00 96 Nasal Cannula 4.00 08/29/22 15:29 36.5 08/29/22 15:00 77 13 107/61 (76) Nasal Cannula 4.00 08/29/22 14:24 Nasal Cannula 4.00 08/29/22 14:00 77 9 113/67 (82) 97 Nasal Cannula 4.00 08/29/22 13:45 76 9 104/71 (82) 97 Nasal Cannula 4.00 08/29/22 13:15 75 8 105/60 (75) 98 Nasal Cannula 4.00 08/29/22 13:00 75 9 101/61 (74) 96 Nasal Cannula 4.00 08/29/22 12:58 35.6 91 92 36 08/29/22 12:45 76 16 93/64 (74) 97 Nasal Cannula 4.00 08/29/22 12:30 98 Nasal Cannula 4.00 08/29/22 12:30 82 14 108/69 (82) 96 Nasal Cannula 4.00 08/29/22 12:26 82 08/29/22 12:15 86 106/65 (79) 94 Nasal Cannula 4.00 08/29/22 12:06 91 18 91/62 92 Nasal Cannula 4.00 08/29/22 12:00 91 91/62 (72) 97 Nasal Cannula 4.00 I & O 08/30/22 07:00 Intake Total 3865.2 ml Output Total 2200 ml Balance 1665.2 ml Capillary Refill : Less Than 3 Seconds General Appearance: No Apparent Distress HEENT: PERRL/EOMI Neck: Full Range of Motion Respiratory: Chest Non Tender, Decreased Breath Sounds Cardiovascular: Regular Rate, Rhythm Gastrointestinal: normal bowel sounds, soft, tenderness Extremity: Normal Capillary Refill Neurologic/Psychiatric: Alert, Oriented x3 Skin: Normal Color Lymphatic: No Adenopathy Results Lab Laboratory Tests 08/29/22 13:30: Blood Gas Puncture Site L RAD, Blood Gas Patient Temperature 35.6, Arterial Blood pH 7.34*L, Arterial Blood Partial Pressure CO2 45, Arterial Blood Partial Pressure O2 72L, Arterial Blood HCO3 24, Arterial Blood Total CO2 25.8, Arterial Blood Oxygen Saturation 95, Arterial Blood Base Excess -1.0, Donavon Test POSI TIVE, Blood Gas Ventilator Setting NO, Blood Gas Inspired Oxygen 4L 08/29/22 15:42: Sodium Level 123*L, Potassium Level 3.4L, Chloride Level 88L, Carbon Dioxide Level 22, Anion Gap 13, Blood Urea Nitrogen 55H, Creatinine 1.80H, Estimat Glomerular Filtration Rate 28, BUN/Creatinine Ratio 31, Glucose Level 95, Calcium Level 7.7L 08/29/22 17:44: Glucometer 109 08/30/22 00:06: Glucometer 162H 08/30/22 04:44: White Blood Count 6.3, Red Blood Count 3.90, Hemoglobin 11.2#L, Hematocrit 35, Mean Corpuscular Volume 89, Mean Corpuscular Hemoglobin 29, Mean Corpuscular Hemoglobin Concent 32, Red Cell Distribution Width 14.0, Platelet Count 271, Mean Platelet Volume 9.6, Immature Granulocyte % (Auto) 1, Neutrophils (%) (Au to) 97H, Lymphocytes (%) (Auto) 2L, Monocytes (%) (Auto) 0, Eosinophils (%) (Auto) 0, Basophils (%) (Auto) 0, Neutrophils # (Auto) 6.1, Lymphocytes # (Auto) 0.2L, Monocytes # (Auto) 0.0, Eosinophils # (Auto) 0.0, Basophils # (Auto) 0.0, Immature Granulocyte # (Auto) 0.0, Sodium Level 131L, Potassium Level 3.4L, Chloride Level 99, Carbon Dioxide Level 22, Anion Gap 10, Blood Urea Nitrogen 36H, Creatinine 1.28, Estimat Glomerular Filtration Rate 43, BUN/Creatinine Ratio 28, Glucose Level 167H, Calcium Level 7.6L, Corrected Calcium 8.1L, Phosphorus Level 4.2, Magnesium Level 3.3H, Total Bilirubin 0.3, Aspartate Amino Transf (AST/SGOT) 14, Alanine Aminotransferase (ALT/SGPT) 10, Alkaline Phos phatase 83, Total Protein 6.0L, Albumin 3.4 Microbiology 08/29/22 MRSA Screen - Final, Complete MRSA not isolated Assessment/Plan Assessment/Plan Assess & Plan/Chief Complaint hyponatremia due to excess free water loss and dehydration. improved with IV hydration. patient must cease alcohol use or will continue to become dehydrated because of ileostomy. will continue to monitor and one medically optimized and improved nutritional status will schedule reversal ileostomy. ASHER BARDALES MD Aug 30, 2022 11:03
--- NOTE | 2022-08-30 11:23 | Tele-ICU Progress Note ---
Subjective Date Seen by a Provider: Aug 30, 2022 Time Seen by a Provider: 11:23 Subjective/Events-last exam (Tele-ICU Physician , Progress Note ) Service provided via interactive audio and video telecommunications E-CARE system to a patient admitted to ICU bed in [facility]. Patient is seen today due to persistent need of ICU care Available chart/ vitals / labs / Images reviewed Video assessment done using teleICU camera, rest of exam as per RN Discussed with RN Events overnight : Afebrile hemodynamically stable Respiratory - I/O = Drips: ns 150 + banan bag Pressors- no Hospital course: (08/29) 76 y/o F - UTI/Pneumonia - Hyponatremia (Na 123). 08/30- Na 131 , 3 l NC A/P Moderate hyponatremia: Sodium today 131 0- from 123, -likely hypovolemic hyponatremia -Would stop IVF hydratation., good po intake Pneumonia -Possible infiltrate seen on CXR, mild hypoxia noted on admission - Vanc/Cefepime. AECOPD - steroids IV ? - per pcp - cont nebs Hypoxia - on 3 l O2 , has O2 at home prnn WIne drinker - - vitamins Lines : periph, (Central Line Necessity Reviewed) [place]: Nutrition: po VTE Prophylaxis: bell 30 Stress Ulcer Prophylaxis: Plans in collaboration with bedside consultants and IM MDs. Discussed with RN to reach out if any questions or concerns Case and care daily discussed on multidisciplinary rounds ( RN, PharmD, Secretary , Respiratory Therapy, transit survey worker ) A total of 20 minutes of critical care time was devoted to this patient today, required to treat and/or prevent further deterioration of critical care condition ( as above ) . I am remotely monitoring this patient from another state. I am unable to do the bedside exam, and history/physical and pertinent information is taken from other notes in the computer and bedside staff. Sepsis Event Evaluation Height, Weight, BMI Height: '" Weight: lbs. oz. kg; 21.97 BMI Method: Focused Exam Lactate Level 08/29/22 10:25: Lactic Acid Level 1.71 Time of Focused Exam: 11:15 Exam Exam Patient acknowledged, consented, and participated in this virtual visit which was conducted using real time audio/video Vital Signs Date Time Temp Pulse Resp B/P (MAP) Pulse Ox O2 Delivery O2 Flow Rate FiO2 08/30/22 11:00 93 13 118/62 (86) 94 Nasal Cannula 3.00 08/30/22 10:13 94 Nasal Cannula 3.00 08/30/22 10:00 82 101/57 (71) 93 Nasal Cannula 3.00 08/30/22 09:00 88 16 107/71 (90) 90 Nasal Cannula 3.00 08/30/22 08:00 94 14 114/72 (81) 95 Nasal Cannula 3.00 08/30/22 07:59 36.7 08/30/22 07:00 89 08/30/22 07:00 90 115/57 (84) 94 Nasal Cannula 3.00 08/30/22 06:42 Nasal Cannula 3.00 08/30/22 06:22 97 Nasal Cannula 4.00 08/30/22 06:00 66 11 106/60 (75) 96 Nasal Cannula 4.00 08/30/22 05:00 70 12 119/76 (90) 98 Nasal Cannula 4.00 08/30/22 04:00 71 14 108/64 (79) 95 Nasal Cannula 4.00 08/30/22 03:53 36.4 08/30/22 03:18 98 Nasal Cannula 4.00 08/30/22 03:00 80 18 118/61 (80) 95 Nasal Cannula 4.00 08/30/22 02:00 73 14 108/57 (74) 95 Nasal Cannula 4.00 08/30/22 01:00 80 12 120/63 (82) 96 Nasal Cannula 4.00 08/30/22 01:00 81 08/30/22 00:00 83 26 108/60 (76) 94 Nasal Cannula 4.00 08/29/22 23:31 98 Nasal Cannula 4.00 08/29/22 23:00 82 15 110/56 (74) 95 Nasal Cannula 4.00 08/29/22 22:00 78 15 101/64 (76) 98 Nasal Cannula 4.00 08/29/22 21:59 96 Nasal Cannula 4.00 08/29/22 21:00 78 11 113/57 (75) 93 Nasal Cannula 4.00 08/29/22 20:00 95 Nasal Cannula 4.00 08/29/22 20:00 80 13 105/55 (72) 95 Nasal Cannula 4.00 08/29/22 19:58 36.6 6/22/23 19:00 74 19 96 Nasal Cannula 4.00 08/29/22 19:00 80 08/29/22 18:41 95 Nasal Cannula 4.00 08/29/22 17:00 75 16 94/63 (73) 91 Nasal Cannula 4.00 08/29/22 16:00 85 18 80/55 (63) 92 Nasal Cannula 4.00 08/29/22 16:00 96 Nasal Cannula 4.00 08/29/22 15:29 36.5 08/29/22 15:00 77 13 107/61 (76) Nasal Cannula 4.00 08/29/22 14:24 Nasal Cannula 4.00 08/29/22 14:00 77 9 113/67 (82) 97 Nasal Cannula 4.00 08/29/22 13:45 76 9 104/71 (82) 97 Nasal Cannula 4.00 08/29/22 13:15 75 8 105/60 (75) 98 Nasal Cannula 4.00 08/29/22 13:00 75 9 101/61 (74) 96 Nasal Cannula 4.00 08/29/22 12:58 35.6 91 92 36 08/29/22 12:45 76 16 93/64 (74) 97 Nasal Cannula 4.00 08/29/22 12:30 98 Nasal Cannula 4.00 08/29/22 12:30 82 14 108/69 (82) 96 Nasal Cannula 4.00 08/29/22 12:26 82 08/29/22 12:15 86 106/65 (79) 94 Nasal Cannula 4.00 08/29/22 12:06 91 18 91/62 92 Nasal Cannula 4.00 08/29/22 12:00 91 91/62 (72) 97 Nasal Cannula 4.00 I & O 08/30/22 07:00 Intake Total 3865.2 ml Output Total 2200 ml Balance 1665.2 ml Height & Weight Height: '" Weight: lbs. oz. kg; 21.97 BMI Method: General Appearance: No Apparent Distress HEENT: PERRL/EOMI Neck: Full Range of Motion Respiratory: Chest Non Tender, Decreased Breath Sounds Cardiovascular: Regular Rate, Rhythm Capillary Refill: Less Than 3 Seconds Gastrointestinal: normal bowel sounds, soft, tenderness Extremity: Normal Capillary Refill Neurologic/Psychiatric: Alert, Oriented x3 Skin: Normal Color Lymphatic: No Adenopathy Results Lab Laboratory Tests 08/29/22 09:24 6/22/23 15:42 08/30/22 04:44 Assessment/Plan Assessment/Plan 1 MARQUISE CARMICHAEL MD Aug 30, 2022 11:23
--- NOTE | 2022-08-30 11:59 | Progress Note ---
Subjective Date Seen by a Provider: Aug 30, 2022 Time Seen by a Provider: 11:30 Subjective/Events-last exam Patient doing a lot better No longer septic Tolerating IV fluids Creatinine much improved Dr. Lopez has advanced her diet Moving to fourth floor with therapy Review of Systems General: Fatigue, Malaise Focused Exam Lactate Level 08/29/22 10:25: Lactic Acid Level 1.71 Time of Focused Exam: 11:15 Objective Exam Last Set of Vital Signs Vital Signs Date Time Temp Pulse Resp B/P (MAP) Pulse Ox O2 Delivery O2 Flow Rate FiO2 08/30/22 11:00 93 13 118/62 (86) 94 Nasal Cannula 3.00 08/30/22 07:59 36.7 08/29/22 12:58 36 Capillary Refill : Less Than 3 Seconds I&O Intake and Output 08/30/22 00:00 Intake Total 3015.2 ml Output Total 1025 ml Balance 1990.2 ml Intake Oral 700 ml IV Total 2315.2 ml Output Urine Total 725 ml Stool Total 300 ml Daily Weight Change No General: Alert, Oriented X3, Cooperative, No Acute Distress Lungs: Clear to Auscultation, Normal Air Movement Heart: Regular Rate, Normal S1, Normal S2, No Murmurs Psych/Mental Status: Mental Status NL, Mood NL Results Lab Laboratory Tests 08/29/22 13:30: Blood Gas Puncture Site L RAD, Blood Gas Patient Temperature 35.6, Arterial Blood pH 7.34*L, Arterial Blood Partial Pressure CO2 45, Arterial Blood Partial Pressure O2 72L, Arterial Blood HCO3 24, Arterial Blood Total CO2 25.8, Arterial Blood Oxygen Saturation 95, Arterial Blood Base Excess -1.0, Donavon Test P OSITIVE, Blood Gas Ventilator Setting NO, Blood Gas Inspired Oxygen 4L 08/29/22 15:42: Sodium Level 123*L, Potassium Level 3.4L, Chloride Level 88L, Carbon Dioxide Level 22, Anion Gap 13, Blood Urea Nitrogen 55H, Creatinine 1.80H, Estimat Glomerular Filtration Rate 28, BUN/Creatinine Ratio 31, Glucose Level 95, Calcium Level 7.7L 08/29/22 17:44: Glucometer 109 08/30/22 00:06: Glucometer 162H 08/30/22 04:44: White Blood Count 6.3, Red Blood Count 3.90, Hemoglobin 11.2#L, Hematocrit 35, Mean Corpuscular Volume 89, Mean Corpuscular Hemoglobin 29, Mean Corpuscular Hemoglobin Concent 32, Red Cell Distribution Width 14.0, Platelet Count 271, Mean Platelet Volume 9.6, Immature Granulocyte % (Auto) 1, Neutrophils (%) (Auto) 97H, Lymphocytes (%) (Auto) 2L, Monocytes (%) (Auto) 0, Eosinophils (%) (Auto) 0, Basophils (%) (Auto) 0, Neutrophils # (Auto) 6.1, Lymphocytes # (Auto) 0.2L, Monocytes # (Auto) 0.0, Eosinophils # (Auto) 0.0, Basophils # (Auto) 0.0, Immature Granulocyte # (Auto) 0.0, Sodium Level 131L, Potassium Level 3.4L, Chloride Level 99, Carbon Dioxide Level 22, Anion Gap 10, Blood Urea Nitrogen 36H, Creatinine 1.28, Estimat Glomerular Filtration Rate 43, BUN/Creatinine Ratio 28, Glucose Level 167H, Calcium Level 7.6L, Corrected Calcium 8.1L, Phosphorus Level 4.2, Magnesium Level 3.3H, Total Bilirubin 0.3, Aspartate Amino Transf (AST/SGOT) 14, Alanine Aminotransferase (ALT/SGPT) 10, Alkaline P hosphatase 83, Total Protein 6.0L, Albumin 3.4 08/30/22 11:37: Glucometer 239H Microbiology 08/29/22 MRSA Screen - Final, Complete MRSA not isolated Assessment/Plan Assessment/Plan Assess & Plan/Chief Complaint Assessment: Acute on chronic hypoxic respiratory failure Sepsis Early pneumonia Acute exacerbation of COPD Acute kidney injury Profound dehydration from ileostomy output Previous alcohol use- covering for possible withdrawal Advanced age Debility following colon perforation 04/2022 during colonoscopy at [facility] [place] emergent diverting colostomy per Dr Hunt h/o hospital acquired PNA 04/2022 requiring transfer to [facility] for higher level of care Abdominal wound requiring wound care History of Encephalopathy Diastolic CHF Urinary incontinence plan: IV fluids IV antibiotics Nebulizers IV steroids Pulmicort nebs Home meds Lovenox for DVT prophylaxis Dr. Hunt consult Advanced diet if okay with JERAMIE Church DO Aug 30, 2022 11:59
[2022-08-30] MEDS ORDERED: NON-FORMULARY MEDICATION 1 EA EA (Magnesium Oxide (Magnesium) 400 MG) PO PRN (12:00)
[2022-08-30] MEDS ORDERED: FLUTICASONE NASAL SPRAY (FLONASE) 16 GM BTL NS PRN (12:00)
[2022-08-30] MEDS ORDERED: inSUlin ASPART (NovoLOG) 1 UNIT/0.01 ML (CHARGE PER UNIT) SC NR (12:15)
[2022-08-30] MEDS ORDERED: MAGNESIUM OXIDE (MAG-OX)400 MG TAB PO PRN (12:15)
--- NOTE | 2022-08-30 12:22 | Diagnostic Imaging Report ---
CHEST 1 VIEW, AP/PA ONLY Indication: Pneumonia Comparison: 08/29/2022 Findings: Bibasilar heterogeneous opacities have mildly worsened. No pneumothorax. Normal heart size. Impression: 1. Increasing basilar opacities which could be due to multifocal pneumonia or atelectasis. Dictated by: Dictated on workstation # [id number]
[2022-08-30] MEDS: ENOXAPARIN INJECTION 30 MG/0.3 ML SYR SC SCH (12:28)
[2022-08-30] MEDS ORDERED: TROUGH ORDER-PHARMACY XX ONE (13:00)
--- NOTE | 2022-08-30 13:32 | Physical Therapy Evaluation ---
PT Evaluation-General Medical Diagnosis Admission Date Aug 29, 2022 at 12:09 Medical Diagnosis: sepsis Onset Date: Aug 29, 2022 Therapy Diagnosis Therapy Diagnosis: debility/weakness Precautions Precautions/Isolations: Fall Prevention, Standard Precautions Referral Physician: Matthias Reason for Referral: Evaluation/Treatment Medical History Pertinent Medical History: COPD Current History EMS secondary to "not feeling well", found hypoxic Reviewed History: Yes Social History Home: Single Level Current Living Status: Alone PT Steps Into Home: 3 PT Steps Inside Home: 1 Prior Prior Level of Function SCALE: Activities may be completed with or without assistive devices. 7-Gujqhzoslg-ziiqhiw completes the activity by him/herself with no assistance from a helper. 5-Set-up or Clean-up Assistance-helper sets up or cleans up; patient completes a ctivity. Hollis assists only prior to or following the activity. 4-Supervision or Touching Assistance-helper provides verbal cues and/or touching/steadying and/or contact guard assistance as patient completes activity. Assistance may be provided throughout the activity or intermittently. 3-Partial/Moderate Assistance-helper does LESS THAN HALF the effort. Hollis lifts, holds or supports trunk or limbs, but provides less than half the effort. 2-Substantial/Maximal Assistance-helper does MORE THAN HALF the effort. Hollis lifts or holds trunk or limbs and provides more than half the effort. 6-Umpdqtsyt-etjmlu does ALL the effort. Patient does none of the effort to complete the activity. Or, the assistance of 2 or more helpers is required for the patient to complete the activity. If activity was not attempted, code reason: 7-Patient Refused. 9-Not Applicable-not attempted and the patient did not perform the activity before the current illness, exacerbation or injury. 10-Not Attempted due to Environmental Limitations-(lack of equipment, weather restraints, etc.). 88-Not Attempted due to Medical Conditions or Safety Concerns. Bed Mobility: 6 Transfers (B,C,W/C): 6 Gait: 6 Stairs: 6 Indoor Mobility (Ambulation): Independent Stairs: Independent Prior Devices Use: None PT Evaluation-Current Subjective Patient agrees to therapy. Objective Patient Orientation: Normal For Age Attachments: Oxygen, IV ROM/Strength ROM Lower Extremities bilateral LE WFL Strength Lower Extremities 3+/5 grossly bilateral LE all planes Integumentary/Posture Bladder Incontinence: Yes Posture WFL Neuromuscular (Tone, Coordination, Reflexes) grossly intact Sensory Vision: Functional Hearing: Functional Transfers Lying to Sitting/Side of Bed(Q: 6 Sit to Stand (QC): 5 Chair/Ylx-fa-Mllia Xfer(QC): 5 Toilet Transfer (QC): 5 Gait Mode of Locomotion: Walk Anticipated Mode of Locomotion: Walk Walk 10 feet (QC): 5 Walk 50 ft with 2 Turns(QC): 5 Walk 150 ft (QC): 5 Distance: 400' Gait Assistive Device: FWW Comments/Gait Description slow, steady magali Balance Sitting Static: Normal Sitting Dynamic: Normal Standing Static: Normal Standing Dynamic: Normal Assessment/Needs Patient will be seen short term by skilled PT to address functional strength and mobility to improve current LOF to safely return to home at maximum LOF. Rehab Potential: Fair PT Assembler Radio And Electrical Goals Assembler Radio And Electrical Goals PT Assembler [employer] And [employer] Goals Time Frame: Sep 07, 2022 Roll Left & Right (QC): 6 Sit to Lying (QC): 6 Lying-Sitting on Side/Bed(QC): 6 Sit to Stand (QC): 6 Chair/Bwr-he-Ppyvb Xfer(QC): 6 Toilet Transfer (QC): 6 Walk 10 feet (QC): 6 Walk 50ft with 2 Turns (QC): 6 Walk 150 ft (QC): 6 PT Plan Problem List Problem List: Activity Tolerance, Functional Strength, Safety, Balance, Gait, Transfer Treatment/Plan Treatment Plan: Continue Plan of Care Treatment Plan: Education, Functional Activity Vi, Functional Strength, Gait, Safety, Therapeutic Exercise, Transfers Treatment Duration: Sep 07, 2022 Frequency: 6 times per week Estimated Hrs Per Day: .25 hour per day Patient and/or Family Agrees t: Yes Time Time In: 1255 Time Out: 1315 DATE: Aug 30, 2022 Total Billed Treatment Time: 20 Total Billed Treatment 1 visit [facility] 20 min UZMA FLOR PT Aug 30, 2022 13:32
--- NOTE | 2022-08-30 13:35 | Occupational Therapy Eval ---
OT Evaluation-General/PLF Medical Diagnosis Admission Date Aug 29, 2022 at 12:09 Medical Diagnosis: Acute hypoxic respiratory failure Onset Date: Aug 29, 2022 Therapy Diagnosis Therapy Diagnosis: SOA Precautions Precautions/Isolations: Fall Prevention, Standard Precautions Weight Bear Status Weight Bearing Restriction: Full Weight Bearing Referral Referral Reason: Self Care, Evaluation/Treatment Medical History Additional Medical History This is a 76-year-old female 4 months ago hospitalized following a complication from colonoscopy requiring emergent diverting ileostomy due to perforation. She ultimately required transfer to [place] for pulmonology due to declining pulmonary function along with abdominal wound. She reports that she only uses oxygen as needed. She reports that she became short of breath and became worse so she presented to the ER found to have significant hypoxia. Patient had a sign of pneumonia on chest x-ray and acute UTI requiring broad- spectrum antibiotics. She reports she has been doing pretty well since hospital stay in [place] and in inpatient rehab. Social History Home: Single Level Current Living Status: Alone Entry Into Home: Stairs With Railing Steps Into Home: 5 (3 garage. 5 front door rail both entrances) Steps Inside Home: 13 (basement does not use, also has step up/down sunroom w/ office desk) ADL-Prior Level of Function SCALE: Activities may be completed with or without assistive devices. 3-Icmhqjbnjc-mudikwb completes the activity by him/herself with no assistance from a helper. 5-Set-up or Clean-up Assistance-helper sets up or cleans up; patient completes activity. Dixon assists only prior to or following the activity. 4-Supervision or Touching Assistance-helper provides verbal cues and/or touching/steadying and/or contact guard assistance as patient completes activity. Assistance may be provided throughout the activity or intermittently. 3-Partial/Moderate Assistance-helper does LESS THAN HALF the effort. Dixon lifts, holds or supports trunk or limbs, but provides less than half the effort. 2-Substantial/Maximal Assistance-helper does MORE THAN HALF the effort. Dixon lifts or holds trunk or limbs and provides more than half the effort. 7-Rrslwwfck-ogvflm does ALL the effort. Patient does none of the effort to complete the activity. Or, the assistance of 2 or more helpers is required for the patient to complete the activity. If activity was not attempted, code reason: 7-Patient Refused. 9-Not Applicable-not attempted and the patient did not perform the activity before the current illness, exacerbation or injury. 10-Not Attempted due to Environmental Limitations-(lack of equipment, weather restraints, etc.). 88-Not Attempted due to Medical Conditions or Safety Concerns. Self Care: Independent Functional Cognition: Independent DME/Equipment: Bath Bench, Grab Bars, Shower Hose Parts Counterperson, Toilet/Riser Has executive housekeeper assist for deep cleaning Drive Self: Yes OT Current Status Subjective Resting in bed, agreeable to OT Pain Numeric Pain Scale: 0-No Pain Mental Status/Objective Patient Orientation: Person, Place, Time, Situation Attachments: IV, Other-See Comments (PUR WIK) Current Upper Extremity ROM BUE ROM Upper Extremity Coordination WFLs, impulsive at times. Upper Extremity Strength -4/5 grossly ADL-Treatment Eating (QC): 6 Oral Hygiene (QC): 6 Shower/Bathe Self (QC): 7 Upper Body Dressing (QC): 6 (hospital gown over own gown) Lower Body Dressing (QC): 6 On/Off Footwear (QC): 6 (slip on crocs) Toileting Hygiene (QC): 6 (ICU toilet and use of toilet paper w/o intervention) Other Treatments Dynamic standing tasks, decreased safety awareness of IV lines, IV to be DC when settled n room Education OT Patient Education: Energy conservation, Modified ADL techniques, Progress toward Goal/Update tx plan, Purpose of tx/functional activities, Reviewed precautions, Rehab process, Safety issues, Transfer techniques Teaching Recipient: Patient Teaching Methods: Demonstration, Discussion Response to Teaching: Return Demonstration OT Home Economics Extension Worker Goals Home Economics Extension Worker Goals 1=Demonstrate adherence to instructed precautions during ADL tasks. 2=Patient will verbalize/demonstrate understanding of assistive devices/modifications for ADL. 3=Patient will improve strength/tolerance for activity to enable patient to perform ADL's. OT Education/Plan Problem List/Assessment Assessment: No Skilled OT Needs ID'd Discharge Recommendations Plan/Recommendations: Discontinue OT Treatment Plan/Plan of Care Patient would benefit from OT for education, treatment and training to promote independence in ADL's, mobility, safety and/or upper extremity function for ADL's. Plan of Care: OTHER (EVAL ONLY) Comment Assisted patient to new room from ICU to fourth floor Treatment Duration: Aug 30, 2022 Frequency: 1 time per week Time Start Time: 12:55 Stop Time: 13:10 DATE: Aug 30, 2022 Total Time Billed (hr/min): 15 Billed Treatment Time EVM 15 SARAH ROMERO OT Aug 30, 2022 13:35
[2022-08-30 16:11] VITALS: BP 105/66
[2022-08-30] MEDS: inSUlin ASPART (NovoLOG) 1 UNIT/0.01 ML (CHARGE PER UNIT) SC SCH ×2 (16:49→20:30)
--- NOTE | 2022-08-30 17:35 | Physician Query-Final Dx ---
PRERNA HURT 08/30/22 1735: Final Diagnosis Give Final Diagnosis Please give Final Diagnosis The medical record reflects the following clinical scenario: The patient, in the setting of History/Risk factors, Debility, possible excessive alcohol use admitted with "short of breath and became worse so she presented to the ER found to have significant hypoxia." Clinical Findings Chest Xray: "development of right lung base infiltrates" and "Increasing basilar opacities which could be due to multifocal pneumonia or atelectasis.", Temp 35.6, No Cough, RR 18 to max of 26, requiring supplemental 02 up to 4 for greater than 24 hours Treatment Supplemental 02, Chest xray's respiratory monitoring R: Lactated Ringer's 1 L, normal saline 1 L, ceftriaxone IV, cefepime IV, Question: Do you agree with the impression of Pneumonia per Dr. Lund, Dr. Kim Gallego and Dr. Jany Hunt? Yes; will Pneumonia, present on admission in the Progress Notes No; will continue current documentation in the Progress Notes Other; will document explanation of clinical findings Clinically undetermined; no explanation for clinical findings Please clarify and document your clinical opinion in the Progress Notes and Discharge Summary including the definitive and/or presumptive diagnosis, (suspected or probable), related to the above clinical findings. Please include clinical findings supporting your diagnosis. In responding to this query, please exercise your independent professional judgment. The purpose of this communication is to more accurately reflect the complexity of your patients condition. The fact that a question is asked does not imply that any particular answer is desired or expected. Thank you for timely response to this clarification. Prerna Hurt, MSN, NR Clinical Rn Medication [phone] [email or web address] JERAMIE KENT DO 08/30/222003: Final Diagnosis Give Final Diagnosis PRERNA Gonzalez Aug 30, 2022 17:35 JERAMIE KENT DO Aug 30, 2022 20:04
--- NOTE | 2022-08-30 17:37 | Physician Query-Final Dx ---
PRERNA SANCHEZ 08/30/22 1737: Final Diagnosis Give Final Diagnosis Please give Final Diagnosis The medical record reflects the following clinical scenario: The patient, in the setting of History/Risk factors, Possible Pneumonia, ongoing debilitated status, possible excessive alcohol consumption Clinical Findings HR 96, RR 18, BP 109/74, SpO2 88% sat on room air, T 35.6, WBC 11.0, lactic acid 1.71 Treatment ER: Lactated Ringer's 1 L, normal saline 1 L, ceftriaxone IV, cefepime IV, Question: Do you agree with the impression of Sespis per Dr. Mojgan Lund? Yes; will document Sepsis, present on admission in the Progress Notes No; will continue current documentation in the Progress Notes Other; will document explanation of clinical findings Clinically undetermined; no explanation for clinical findings Please clarify and document your clinical opinion in the Progress Notes and Discharge Summary including the definitive and/or presumptive diagnosis, (suspected or probable), related to the above clinical findings. Please include clinical findings supporting your diagnosis. In responding to this query, please exercise your independent professional judgment. The purpose of this communication is to more accurately reflect the complexity of your patients condition. The fact that a question is asked does not imply that any particular answer is desired or expected. Thank you for timely response to this clarification. Prerna Sanchez, MSN, RN Clinical Microbiology Quality Control Technician [phone] [email or web address] JERAMIE KENT DO 08/30/222004: Final Diagnosis Give Final Diagnosis sepsis PRERNA SANCHEZ Aug 30, 2022 17:37 JERAMIE KENT DO Aug 30, 2022 20:05
[2022-08-30 19:41] VITALS: BP 100/70
[2022-08-30] MEDS: ZOLPIDEM 5 MG (AMBIEN) TAB PO PRN (19:47)
[2022-08-30] MEDS ORDERED: NON-FORMULARY MEDICATION 1 EA EA (Zolpidem Tartrate (Zolpidem Tartrate ER) 6.25 MG) PO SCH (21:00)
[2022-08-30] MEDS ORDERED: ADVAIR HFA 115/21 MCG INHALER 8 GM IH SCH (21:00)
[2022-08-30] MEDS: diphenhydrAMINE 25 MG TAB (BENADRYL) PO PRN (21:42)
[2022-08-30 23:09] VITALS: BP 119/68
[2022-08-31] MEDS: MELATONIN 3 MG TABLET PO PRN ×2 (01:30→19:46)
[2022-08-31] MEDS: RT-ALBUTEROL/IPRATROPIUM 3 ML (DUONEB) VIAL INH SCH ×6 (02:07→22:07)
[2022-08-31] MEDS: LORazepam 0.5 MG (ATIVAN) TABLET PO PRN (02:55)
[2022-08-31 03:08] VITALS: BP 115/61
[2022-08-31] MEDS: NS IV 1000 ML 1,000 ML IV SCH (04:29)
[2022-08-31 05:52] LABS: BASOPHILS % (AUTO) 0 % (0-10); EOSINOPHILS % (AUTO) 0 % (0-10); HEMATOCRIT 31 % (35-52); HEMOGLOBIN 10.2 g/dL (11.5-16.0); LYMPHOCYTES # (AUTO) 0.6 10^3/uL (1.0-4.0); LYMPHOCYTES % (AUTO) 5 % (12-44); MEAN CORPUSCULAR HEMOGLOBIN 29 pg (25-34); MEAN CORPUSCULAR HGB CONC 33 g/dL (32-36); MEAN CORPUSCULAR VOLUME 90 fL (80-99); MEAN PLATELET VOLUME 9.4 fL (9.0-12.2); MONOCYTES # (AUTO) 1.4 10^3/uL (0.0-1.0); MONOCYTES % (AUTO) 10 % (0-12); NEUTROPHILS # (AUTO) 11.6 10^3/uL (1.8-7.8); NEUTROPHILS % (AUTO) 85 % (42-75); PLATELET COUNT 277 10^3/uL (130-400); WHITE BLOOD COUNT 13.8 10^3/uL (4.3-11.0)
[2022-08-31] MEDS: RT-BUDESONIDE NEBS 0.5 MG/2ML (PULMICORT) AMP INH SCH ×2 (06:06→22:07)
[2022-08-31] MEDS: FLUTICASONE/VILANTEROL 100 MCG 14'S (BREO) IH SCH (06:07)
[2022-08-31] MEDS: TIOTROPIUM INH 4 GM (SPIRIVA Respimat) IH SCH (06:07)
[2022-08-31 06:18] LABS: ALBUMIN 3.1 GM/DL (3.2-4.5); BILIRUBIN,TOTAL 0.2 MG/DL (0.1-1.0); CALCIUM 7.4 MG/DL (8.5-10.1); CREATININE SERUM 0.82 MG/DL (0.60-1.30); POTASSIUM 4.1 MMOL/L (3.6-5.0); TOTAL PROTEIN 5.4 GM/DL (6.4-8.2)
[2022-08-31] MEDS: inSUlin ASPART (NovoLOG) 1 UNIT/0.01 ML (CHARGE PER UNIT) SC SCH ×4 (06:27→20:40)
[2022-08-31] MEDS ORDERED: predniSONE 20 MG TAB PO SCH (07:00)
[2022-08-31 07:44] VITALS: BP 129/88
[2022-08-31] MEDS: PANTOPRAZOLE 40 MG (PROTONIX) VIAL IV SCH ×2 (08:21→19:46)
[2022-08-31] MEDS: SENNOSIDES 8.6 MG (SENOKOT) TAB PO SCH ×2 (08:22→19:47)
[2022-08-31] MEDS: THIAMINE INJECTION 100 MG, FOLIC ACID INJECTION 1 MG, MAGNESIUM SULFATE 2 GM, VITAMIN M... IV SCH ×5 (08:22)
[2022-08-31] MEDS: DOCUSATE SODIUM 100 MG (COLACE) CAP PO SCH ×2 (08:22→19:46)
[2022-08-31] MEDS ORDERED: UMECLIDINIUM BROMIDE (INCRUSE ELLIPTA) 7'S IH SCH (09:00)
--- NOTE | 2022-08-31 10:17 | Physical Therapy Daily Note ---
PT Daily Note-Current Pain Section J - Health Conditions 1. Rarely or not at all 2. Occasionally 3. Frequently 4. Almost constantly 8. Unable to answer Pain Effect on Sleep: 2 Pain Interference with Therapy: 2 Pain Interference w/Day-to-Day: 2 Mental Status Patient Orientation: Normal For Age Attachments: Oxygen, IV Transfers SCALE: Activities may be completed with or without assistive devices. 1-Doupsxykjp-jjwcogc completes the activity by him/herself with no assistance from a helper. 5-Set-up or Clean-up Assistance-helper sets up or cleans up; patient completes activity. [place] assists only prior to or following the activity. 4-Supervision or Touching Assistance-helper provides verbal cues and/or touching/steadying and/or contact guard assistance as patient completes activity. Assistance may be provided throughout the activity or intermittently. 3-Partial/Moderate Assistance-helper does LESS THAN HALF the effort. [place] lifts, holds or supports trunk or limbs, but provides less than half the effort. 2-Substantial/Maximal Assistance-helper does MORE THAN HALF the effort. [place] lifts or holds trunk or limbs and provides more than half the effort. 1-Dblgngwzt-msafmm does ALL the effort. Patient does none of the effort to complete the activity. Or, the assistance of 2 or more helpers is required for the patient to complete the activity. If activity was not attempted, code reason: 7-Patient Refused. 9-Not Applicable-not attempted and the patient did not perform the activity before the current illness, exacerbation or injury. 10-Not Attempted due to Environmental Limitations-(lack of equipment, weather restraints, etc.). 88-Not Attempted due to Medical Conditions or Safety Concerns. Roll Left & Right (QC): 6 Sit to Lying (QC): 6 Lying to Sitting/Side of Bed(Q: 6 Sit to Stand (QC): 6 Chair/Lsy-db-Jhuea Xfer(QC): 4 Gait Training Gait Assistive Device: FWW Ambulate 400ft with FWW and Oxygen at 2L. CGA for steadying during toilet transfers. SBA during ambulation. PT Neonatal Intensive Care Nurse Goals Neonatal Intensive Care Nurse Goals PT Correction Goals Time Frame: Sep 07, 2022 Roll Left & Right (QC): 6 Sit to Lying (QC): 6 Lying-Sitting on Side/Bed(QC): 6 Sit to Stand (QC): 6 Chair/Tfo-ra-Fmvlb Xfer(QC): 6 Toilet Transfer (QC): 6 Walk 10 feet (QC): 6 Walk 50ft with 2 Turns (QC): 6 Walk 150 ft (QC): 6 PT Plan Treatment/Plan Treatment Plan: Continue Plan of Care Treatment Plan: Education, Functional Activity Vi, Functional Strength, Gait, Safety, Therapeutic Exercise, Transfers Treatment Duration: Sep 07, 2022 Frequency: 6 times per week Estimated Hrs Per Day: .25 hour per day Patient and/or Family Agrees t: Yes Time Time In: 915 Time Out: 925 DATE: Aug 31, 2022 Total Billed Treatment Time: 10 Total Billed Treatment visit, ambulation 10 min TASNEEM KINCAID PT Aug 31, 2022 10:17
--- NOTE | 2022-08-31 11:09 | Progress Note ---
Subjective Date Seen by a Provider: Aug 31, 2022 Time Seen by a Provider: 11:15 Subjective/Events-last exam Doing well Improved overall No falls Breathing well No pain except right shoulder Review of Systems General: Fatigue, Malaise Focused Exam Lactate Level 08/29/22 10:25: Lactic Acid Level 1.71 Time of Focused Exam: 11:15 Objective Exam Last Set of Vital Signs Vital Signs Date Time Temp Pulse Resp B/P (MAP) Pulse Ox O2 Delivery O2 Flow Rate FiO2 08/31/22 09:55 95 Nasal Cannula 2.00 08/31/22 07:44 36.4 101 18 129/88 (102) 08/29/22 12:58 36 Capillary Refill : Less Than 3 Seconds I&O Intake and Output 08/31/22 00:00 Intake Total 3200 ml Output Total 1400 ml Balance 1800 ml Intake Oral 1500 ml IV Total 1700 ml Output Urine Total 1375 ml Stool Total 25 ml # Voids 3 General: Alert, Oriented X3, Cooperative, No Acute Distress Lungs: Clear to Auscultation, Normal Air Movement Heart: Regular Rate, Normal S1, Normal S2, No Murmurs Psych/Mental Status: Mental Status NL, Mood NL Results Lab Laboratory Tests 08/30/22 11:37: Glucometer 239H 08/30/22 16:34: Glucometer 158H 08/30/22 20:18: Glucometer 170H 08/31/22 05:25: White Blood Count 13.8H, Red Blood Count 3.47L, Hemoglobin 10.2L, Hematocrit 31L , Mean Corpuscular Volume 90, Mean Corpuscular Hemoglobin 29, Mean Corpuscular H emoglobin Concent 33, Red Cell Distribution Width 14.4, Platelet Count 277, Mean Platelet Volume 9.4, Immature Granulocyte % (Auto) 1, Neutrophils (%) (Auto) 85H , Lymphocytes (%) (Auto) 5L, Monocytes (%) (Auto) 10, Eosinophils (%) (Auto) 0, Basophils (%) (Auto) 0, Neutrophils # (Auto) 11.6H, Lymphocytes # (Auto) 0.6L, Monocytes # (Auto) 1.4H, Eosinophils # (Auto) 0.0, Basophils # (Auto) 0.0, Immature Granulocyte # (Auto) 0.1, Sodium Level 134L, Potassium Level 4.1, Chloride Level 109H, Carbon Dioxide Level 19L, Anion Gap 6, Blood Urea Nitrogen 18, Creatinine 0.82, Estimat Glomerular Filtration Rate 73, BUN/Creatinine Ratio 22, Glucose Level 111H, Calcium Level 7.4L, Corrected Calcium 8.1L, Magnesium Level 3.0H, Total Bilirubin 0.2, Aspartate Amino Transf (AST/SGOT) 12, Alanine Aminotransferase (ALT/SGPT) 11, Alkaline Phosphatase 66, Total Protein 5.4L, Alb umin 3.1L 08/31/22 11:06: Glucometer 165H Microbiology 08/29/22 MRSA Screen - Final, Complete MRSA not isolated 08/29/22 Blood Culture - Preliminary, Resulted No growth 08/29/22 Urine Culture - Preliminary, Resulted Gram Negative Ramin Assessment/Plan Assessment/Plan Assess & Plan/Chief Complaint Assessment: Acute on chronic hypoxic respiratory failure Sepsis Early pneumonia Acute exacerbation of COPD Acute kidney injury Profound dehydration from ileostomy output Previous alcohol use- covering for possible withdrawal Advanced age Debility following colon perforation 04/2022 during colonoscopy at [facility] [place] received emergent diverting colostomy per Dr Hunt h/o hospital acquired PNA 04/2022 requiring transfer to [facility] for higher level of care Abdominal wound requiring wound care History of Encephalopathy Diastolic CHF Urinary incontinence plan: IV fluids IV antibiotics Nebulizers IV steroids Pulmicort nebs Home meds Lovenox for DVT prophylaxis Dr. Hunt consult Advanced diet JERAMIE KENT DO Aug 31, 2022 11:09
[2022-08-31] MEDS ORDERED: CEFDINIR 300 MG (OMNICEF) CAP PO ONE (11:15)
--- NOTE | 2022-08-31 11:31 | Diagnostic Imaging Report ---
EXAMINATION: Right shoulder, 2 or more views. HISTORY: Shoulder pain. COMPARISON: None available. FINDINGS: There is mild glenohumeral osteoarthritis. No fracture. No dislocation. IMPRESSION: Mild glenohumeral osteoarthritis. Dictated by: Dictated on workstation # [id number]
--- NOTE | 2022-08-31 11:31 | Progress Note ---
Subjective Date Seen by a Provider: Aug 31, 2022 Time Seen by a Provider: 11:30 Subjective/Events-last exam doing ok. no cough or sputum production. tolerating diet with functional loop ileostomy. no fever/chills. Focused Exam Lactate Level 08/29/22 10:25: Lactic Acid Level 1.71 Time of Focused Exam: 11:15 Objective Exam Vital Signs Date Time Temp Pulse Resp B/P (MAP) Pulse Ox O2 Delivery O2 Flow Rate FiO2 08/31/22 09:55 95 Nasal Cannula 2.00 08/31/22 08:40 Nasal Cannula 2.00 08/31/22 07:44 36.4 101 18 129/88 (102) 95 Nasal Cannula 2.00 08/31/22 06:09 92 Nasal Cannula 2.00 08/31/22 06:08 92 Nasal Cannula 2.00 08/31/22 03:08 36.5 82 20 115/61 (79) 92 Nasal Cannula 2.00 08/30/22 23:09 36.8 93 20 119/68 (85) 93 Nasal Cannula 2.00 08/30/22 19:41 35.7 55 16 100/70 (80) 93 Nasal Cannula 2.00 2.00 08/30/22 19:40 Nasal Cannula 2.00 08/30/22 18:19 94 Nasal Cannula 2.00 08/30/22 16:11 36.4 85 18 105/66 (79) 90 Nasal Cannula 3.00 3.00 08/30/22 13:42 97 Nasal Cannula 3.00 08/30/22 12:00 95 Nasal Cannula 3.00 08/30/22 12:00 89 14 95 Nasal Cannula 3.00 I & O 08/31/22 07:00 Intake Total 3865.2 ml Output Total 675 ml Balance 3190.2 ml Capillary Refill : Less Than 3 Seconds General Appearance: No Apparent Distress HEENT: PERRL/EOMI Neck: Full Range of Motion Respiratory: Chest Non Tender, Rhonci Cardiovascular: Regular Rate, Rhythm Gastrointestinal: soft, tenderness Extremity: Normal Capillary Refill Neurologic/Psychiatric: Alert, Oriented x3 Skin: Normal Color Lymphatic: No Adenopathy Results Lab Laboratory Tests 08/30/22 11:37: Glucometer 239H 08/30/22 16:34: Glucometer 158H 08/30/22 20:18: Glucometer 170H 08/31/22 05:25: White Blood Count 13.8H, Red Blood Count 3.47L, Hemoglobin 10.2L, Hematocrit 31L , Mean Corpuscular Volume 90, Mean Corpuscular Hemoglobin 29, Mean Corpuscular Hemoglobin Concent 33, Red Cell Distribution Width 14.4, Platelet Count 277, Mean Platelet Volume 9.4, Immature Granulocyte % (Auto) 1, Neutrophils (%) (Auto) 85H, Lymphocytes (%) (Auto) 5L, Monocytes (%) (Auto) 10, Eosinophils (%) (Auto) 0, Basophils (%) (Auto) 0, Neutrophils # (Auto) 11.6H, Lymphocytes # (Auto) 0.6L, Monocytes # (Auto) 1.4H, Eosinophils # (Auto) 0.0, Basophils # (Auto) 0.0, Immature Granulocyte # (Auto) 0.1, Sodium Level 134L, Potassium Level 4.1, Chloride Level 109H, Carbon Dioxide Level 19L, Anion Gap 6, Blood Urea Nitrogen 18, Creatinine 0.82, Estimat Glomerular Filtration Rate 73, BUN/Creatinine Ratio 22, Glucose Level 111H, Calcium Level 7.4L, Corrected Calcium 8.1L, Magnesium Level 3.0H, Total Bilirubin 0.2, Aspartate Amino Transf (AST/SGOT) 12, Alanine Aminotransferase (ALT/SGPT) 11, Alkaline Phosphatase 66, Total Protein 5.4L, Albumin 3.1L 08/31/22 11:06: Glucometer 165H Microbiology 08/29/22 MRSA Screen - Final, Complete MRSA not isolated 08/29/22 Blood Culture - Preliminary, Resulted No growth 08/29/22 Urine Culture - Preliminary, Resulted Gram Negative Ramin Assessment/Plan Assessment/Plan Assess & Plan/Chief Complaint hyponatremia due to excess free water loss and dehydration. improved with IV hydration. patient must cease alcohol use or will continue to become dehydrated because of ileostomy. will continue to monitor and one medically optimized and improved nutritional status will schedule reversal ileostomy. ASHER BARDALES MD Aug 31, 2022 11:31
[2022-08-31 11:33] VITALS: BP 130/79
[2022-08-31] MEDS: ENOXAPARIN INJECTION 30 MG/0.3 ML SYR SC SCH (13:38)
[2022-08-31 16:40] VITALS: BP 150/79
[2022-08-31 19:45] VITALS: BP 161/89
[2022-08-31] MEDS: ZOLPIDEM 5 MG (AMBIEN) TAB PO PRN (19:46)
[2022-08-31] MEDS: CEFDINIR 300 MG (OMNICEF) CAP PO SCH (19:46)
[2022-08-31] MEDS: diphenhydrAMINE 25 MG TAB (BENADRYL) PO PRN (20:59)
[2022-09-01] VITALS: BP 164/92
[2022-09-01] MEDS: RT-ALBUTEROL/IPRATROPIUM 3 ML (DUONEB) VIAL INH SCH ×6 (02:32→22:19)
[2022-09-01 05:03] LABS: BASOPHILS % (AUTO) 0 % (0-10); EOSINOPHILS % (AUTO) 0 % (0-10); HEMATOCRIT 34 % (35-52); HEMOGLOBIN 11.3 g/dL (11.5-16.0); LYMPHOCYTES # (AUTO) 1.4 10^3/uL (1.0-4.0); LYMPHOCYTES % (AUTO) 9 % (12-44); MEAN CORPUSCULAR HEMOGLOBIN 30 pg (25-34); MEAN CORPUSCULAR HGB CONC 33 g/dL (32-36); MEAN CORPUSCULAR VOLUME 91 fL (80-99); MEAN PLATELET VOLUME 9.2 fL (9.0-12.2); MONOCYTES # (AUTO) 1.3 10^3/uL (0.0-1.0); MONOCYTES % (AUTO) 9 % (0-12); NEUTROPHILS % (AUTO) 80 % (42-75); PLATELET COUNT 308 10^3/uL (130-400); WHITE BLOOD COUNT 14.9 10^3/uL (4.3-11.0)
[2022-09-01] MEDS: predniSONE 20 MG TAB PO SCH (05:20)
[2022-09-01] MEDS: THIAMINE 100 MG (VITAMIN B-1) TAB PO SCH (05:20)
[2022-09-01] MEDS: MULTIVIT W/MINERALS TAB (THERAGRAN M) PO SCH (05:20)
[2022-09-01 05:23] LABS: ALBUMIN 3.4 GM/DL (3.2-4.5); BILIRUBIN,TOTAL 0.3 MG/DL (0.1-1.0); CALCIUM 7.7 MG/DL (8.5-10.1); CREATININE SERUM 0.78 MG/DL (0.60-1.30); MAGNESIUM 2.9 MG/DL (1.6-2.4); POTASSIUM 4.3 MMOL/L (3.6-5.0); TOTAL PROTEIN 5.9 GM/DL (6.4-8.2)
[2022-09-01] MEDS: inSUlin ASPART (NovoLOG) 1 UNIT/0.01 ML (CHARGE PER UNIT) SC SCH ×4 (05:24→23:19)
--- NOTE | 2022-09-01 06:49 | Progress Note ---
Subjective Date Seen by a Provider: Sep 01, 2022 Time Seen by a Provider: 11:00 Focused Exam Lactate Level 08/29/22 10:25: Lactic Acid Level 1.71 Time of Focused Exam: 11:15 Objective Exam Last Set of Vital Signs Vital Signs Date Time Temp Pulse Resp B/P (MAP) Pulse Ox O2 Delivery O2 Flow Rate FiO2 09/01/22 00:00 36.4 88 16 164/92 (116) 93 Nasal Cannula 2.00 08/29/22 12:58 36 Capillary Refill : Less Than 3 Seconds I&O Intake and Output 09/01/22 00:00 Intake Total 4615.2 ml Output Total 2050 ml Balance 2565.2 ml Intake Oral 2100 ml IV Total 2515.2 ml Output Urine Total 1600 ml Stool Total 450 ml # Voids 1 Results Lab Laboratory Tests 08/31/22 11:06: Glucometer 165H 08/31/22 16:11: Glucometer 116H 08/31/22 20:38: Glucometer 109 09/01/22 04:21: White Blood Count 14.9H, Red Blood Count 3.78L, Hemoglobin 11.3L, Hematocrit 34L , Mean Corpuscular Volume 91, Mean Corpuscular Hemoglobin 30, Mean Corpuscular Hemoglobin Concent 33, Red Cell Distribution Width 14.6H, Platelet Count 308, Mean Platelet Volume 9.2, Immature Granulocyte % (Auto) 1, Neutrophils (%) (Auto) 80H, Lymphocytes (%) (Auto) 9L, Monocytes (%) (Auto) 9, Eosinophils (%) (Auto) 0, Basophils (%) (Auto) 0, Neutrophils # (Auto) 12.0H, Lymphocytes # (Auto) 1.4, Monocytes # (Auto) 1.3H, Eosinophils # (Auto) 0.0, Basophils # (Auto) 0.0, Immature Granulocyte # (Auto) 0.2H, Sodium Level 127L, Potassium Level 4.3, Chloride Level 103, Carbon Dioxide Level 18L, Anion Gap 6, Blood Urea Nitrogen 12, Creatinine 0.78, Estimat Glomerular Filtration Rate 78, BUN/Creatinine Ratio 15, Glucose Level 83, Calcium Level 7.7L, Corrected Calcium 8.2L, Magnesium Level 2.9H, Total Bilirubin 0.3, Aspartate Amino Transf (AST/SGOT) 13, Alanine Aminotransferase (ALT/SGPT) 12, Alkaline Phosphatase 67, Total Protein 5.9L, Albumin 3.4 Microbiology 08/29/22 MRSA Screen - Final, Complete MRSA not isolated 08/29/22 Blood Culture - Preliminary, Resulted No growth 08/29/22 Urine Culture - Preliminary, Resulted Gram Negative Ramin Assessment/Plan Assessment/Plan Assess & Plan/Chief Complaint Assessment: Acute on chronic hypoxic respiratory failure Sepsis Early pneumonia Acute exacerbation of COPD Acute kidney injury Profound dehydration from ileostomy output Previous alcohol use- covering for possible withdrawal Advanced age Debility following colon perforation 04/2022 during colonoscopy at [facility] [place] received emergent diverting colostomy per Dr Hunt h/o hospital acquired PNA 04/2022 requiring transfer to [facility] for high er level of care Abdominal wound requiring wound care History of Encephalopathy Diastolic CHF Urinary incontinence plan: IV fluids IV antibiotics Nebulizers IV steroids Pulmicort nebs Home meds Lovenox for DVT prophylaxis Dr. Hunt consult Advanced diet JERAMIE KENT DO Sep 01, 2022 06:49
[2022-09-01] MEDS: RT-BUDESONIDE NEBS 0.5 MG/2ML (PULMICORT) AMP INH SCH ×2 (06:56→18:36)
[2022-09-01] MEDS: TIOTROPIUM INH 4 GM (SPIRIVA Respimat) IH SCH (06:57)
[2022-09-01] MEDS: FLUTICASONE/VILANTEROL 100 MCG 14'S (BREO) IH SCH (06:57)
[2022-09-01 07:39] VITALS: BP 148/77
[2022-09-01] MEDS: DOCUSATE SODIUM 100 MG (COLACE) CAP PO SCH ×2 (08:18→19:59)
[2022-09-01] MEDS: SENNOSIDES 8.6 MG (SENOKOT) TAB PO SCH ×2 (08:18→19:59)
[2022-09-01] MEDS: CEFDINIR 300 MG (OMNICEF) CAP PO SCH ×2 (08:18→19:57)
[2022-09-01] MEDS: amLODIPine 5 MG (NORVASC) TAB PO SCH (08:18)
[2022-09-01] MEDS: SODIUM CHLORIDE 1 GM TABLET PO SCH ×2 (08:18→19:57)
[2022-09-01] MEDS: PANTOPRAZOLE 40 MG (PROTONIX) VIAL IV SCH ×2 (08:18→19:58)
[2022-09-01] MEDS: FOLIC ACID 1 MG TAB PO SCH (08:18)
[2022-09-01] MEDS ORDERED: MAGNESIUM OXIDE (MAG-OX)400 MG TAB PO SCH (09:00)
--- NOTE | 2022-09-01 09:25 | Progress Note ---
Subjective Date Seen by a Provider: Sep 01, 2022 Time Seen by a Provider: 09:10 Subjective/Events-last exam Patient seen with Dr. Hunt. Patient reports doing ok. Reports right shoulder pain. No abdominal pain or N/V. Tolerating diet. Ileostomy functioning. Focused Exam Lactate Level 08/29/22 10:25: Lactic Acid Level 1.71 Time of Focused Exam: 11:15 Objective Exam Vital Signs Date Time Temp Pulse Resp B/P (MAP) Pulse Ox O2 Delivery O2 Flow Rate FiO2 09/01/22 07:39 36.6 88 18 148/77 (100) 92 Nasal Cannula 2.00 09/01/22 07:00 88 Nasal Cannula 2.00 09/01/22 06:59 88 Nasal Cannula 2.00 09/01/22 00:00 36.4 88 16 164/92 (116) 93 Nasal Cannula 2.00 08/31/22 19:45 Nasal Cannula 2.00 08/31/22 19:45 36.7 88 18 161/89 (113) 94 Nasal Cannula 2.00 08/31/22 16:40 36.4 88 16 150/79 (102) 94 Nasal Cannula 2.00 08/31/22 14:57 93 Nasal Cannula 2.00 08/31/22 11:33 36.6 99 18 130/79 (96) 96 Nasal Cannula 2.00 08/31/22 09:55 95 Nasal Cannula 2.00 I & O 09/01/22 07:00 Intake Total 3315.2 ml Output Total 1850 ml Balance 1465.2 ml Capillary Refill : Less Than 3 Seconds General Appearance: No Apparent Distress, WD/WN Neck: Normal Inspection, Supple Respiratory: No Accessory Muscle Use, No Respiratory Distress Gastrointestinal: normal bowel sounds, non tender, soft, other (Right side abdo men ileostomy functioning with stool in bag) Extremity: Normal Inspection, Normal Range of Motion Neurologic/Psychiatric: Alert, Oriented x3 Skin: Normal Color, Warm/Dry Results Lab Laboratory Tests 08/31/22 11:06: Glucometer 165H 08/31/22 16:11: Glucometer 116H 08/31/22 20:38: Glucometer 109 09/01/22 04:21: White Blood Count 14.9H, Red Blood Count 3.78L, Hemoglobin 11.3L, Hematocrit 34L , Mean Corpuscular Volume 91, Mean Corpuscular Hemoglobin 30, Mean Corpuscular Hemoglobin Concent 33, Red Cell Distribution Width 14.6H, Platelet Count 308, Mean Platelet Volume 9.2, Immature Granulocyte % (Auto) 1, Neutrophils (%) (Auto) 80H, Lymphocytes (%) (Auto) 9L, Monocytes (%) (Auto) 9, Eosinophils (%) (Auto) 0, Basophils (%) (Auto) 0, Neutrophils # (Auto) 12.0H, Lymphocytes # (Auto) 1.4, Monocytes # (Auto) 1.3H, Eosinophils # (Auto) 0.0, Basophils # (Auto) 0.0, Immature Granulocyte # (Auto) 0.2H, Sodium Level 127L, Potassium Level 4.3, Chloride Level 103, Carbon Dioxide Level 18L, Anion Gap 6, Blood Urea Nitrogen 12, Creatinine 0.78, Estimat Glomerular Filtration Rate 78, BUN/Creatinine Ratio 15, Glucose Level 83, Calcium Level 7.7L, Corrected Calcium 8.2L, Magnesium Level 2.9H, Total Bilirubin 0.3, Aspartate Amino Transf (AST/SGOT) 13, Alanine Aminotransferase (ALT/SGPT) 12, Alkaline Phosphatase 67, Total Protein 5.9L, Albumin 3.4 Microbiology 08/29/22 MRSA Screen - Final, Complete MRSA not isolated 08/29/22 Blood Culture - Preliminary, Resulted No growth 08/29/22 Urine Culture - Preliminary, Resulted Gram Negative Ramin Assessment/Plan Assessment/Plan Assess & Plan/Chief Complaint A 76 year old female with hyponatremia due to excess free water loss and dehydration. VSS WBC 14.9 on abx NA 127 on sodium tabs Continue with medical management patient must cease alcohol use or will continue to become dehydrated because of ileostomy. will continue to monitor and one medically optimized and improved nutritional status will schedule reversal ileostomy. PASHA CHEEMA AGRICULTURAL EDUCATION PROFESSOR Sep 01, 2022 09:25
[2022-09-01] MEDS: oxyCODONE 5 MG/5 ML ORAL SOLN (roxiCODONE) 5 ML UDC PO PRN (10:48)
[2022-09-01] MEDS ORDERED: TRAM50TA3 PO (11:31)
[2022-09-01] MEDS ORDERED: AMLO-250 PO (11:31)
[2022-09-01] MEDS ORDERED: NF-NACL1GT PO (11:31)
[2022-09-01] MEDS ORDERED: CEFD300C3 PO ×2 (11:31→21:50)
[2022-09-01] MEDS ORDERED: PRED10TA22 PO (11:31)
--- NOTE | 2022-09-01 11:34 | D/C HH Face to Face Order ---
D/C Face to Face Orders Reconcile Patient Problems Problems Reviewed?: Yes Instructions for Patient [facility] [place] Patient Instructions/FollowUp: PCP 1 week Physician to follow Patient: Cari Haile Diet for Home: No Restrictions Patient Problems: Dehydration UTI PNA COPD Patient Data-Allergies,Ht & Wt Patient Allergies: Coded Allergies: acetaminophen (Unverified Allergy, Severe, Anaphylaxis, 08/29/22) furosemide (Unverified Allergy, Severe, 06/13/22) LETHAERGY Penicillins (Unverified Allergy, Intermediate, Itching, 08/29/22) Home Health Need/Face to Face Date of Face to Face: Sep 01, 2022 Clinical Findings: Generalized weakness and fatigue, Instability, Muscle weakness I have seen Pt [id number]: Yes Discharged To: Home Diagnosis/Conditions: Debility Patient is Homebound due to: Chris fall risk due to instabilty, Muscle weakness Homebound Status Due to the above stated illness, injury or surgical procedure (medical condition or diagnosis) and associated clinical findings, the patient is homebo und because of his/her inability to leave home except with aid of a supportive device and/or person AND leaving the home requires a considerable and taxing effort or is medically contraindicated. Pt req the following assistanc: Walker Home Health Nursing Orders Home Health Services Order: Nursing Services, [employer] Consultant-Evaluate & Treat, Physical Therapy-Evaluate & Treat Home Health Infusion Therapy Line Start Date: Aug 29, 2022 Certify Stmt I certify that this patient is under my care and that I, a nurse practitioner or a physician; a assistant professor of geography working with me, had a face to face encounter that - meets the physician face to face encounter requirements with this patient as dated. JERAMIE KENT DO Sep 01, 2022 11:34
--- NOTE | 2022-09-01 11:35 | Discharge Summary ---
Diagnosis/Chief Complaint Date of Admission Aug 29, 2022 at 12:09 Date of Discharge Discharge Date: Sep 01, 2022 Discharge Summary Discharge Physical Examination Allergies: Coded Allergies: acetaminophen (Unverified Allergy, Severe, Anaphylaxis, 08/29/22) furosemide (Unverified Allergy, Severe, 06/13/22) LETHAERGY Penicillins (Unverified Allergy, Intermediate, Itching, 08/29/22) Vitals & I&Os Vital Signs Date Time Temp Pulse Resp B/P (MAP) Pulse Ox O2 Delivery O2 Flow Rate FiO2 09/01/22 14:40 Nasal Cannula 2.00 09/01/22 07:39 36.6 88 18 148/77 (100) 92 08/29/22 12:58 36 Hospital Course Labs (last 24 hrs) Laboratory Tests 08/29/22 09:24: White Blood Count 11.0, Red Blood Count 4.80, Hemoglobin 14.1, Hematocrit 42, Mean Corpuscular Volume 87, Mean Corpuscular Hemoglobin 29, Mean Corpuscular He moglobin Concent 34, Red Cell Distribution Width 13.9, Platelet Count 380, Mean Platelet Volume 9.5, Immature Granulocyte % (Auto) 1, Neutrophils (%) (Auto) 85H , Lymphocytes (%) (Auto) 6L, Monocytes (%) (Auto) 8, Eosinophils (%) (Auto) 1, Basophils (%) (Auto) 0, Neutrophils # (Auto) 9.3H, Lymphocytes # (Auto) 0.7L, Monocytes # (Auto) 0.9, Eosinophils # (Auto) 0.1, Basophils # (Auto) 0.0, Immature Granulocyte # (Auto) 0.1, Neutrophils % (Manual) 86, Lymphocytes % (Manual) 7, Monocytes % (Manual) 6, Eosinophils % (Manual) 0, Basophils % (Manual) 1, Band Neutrophils 0, Blood Morphology Comment NORMAL, Prothrombin Time 12.5, INR Comment 0.9, Activated Partial Thromboplast Time 36H, Sodium Level 123*L, Potassium Level 4.0, Chloride Level 81L, Carbon Dioxide Level 27, Anion Gap 15H, Blood Urea Nitrogen 65H, Creatinine 2.39H, Estimat Glomerular Filtration Rate 20, BUN/Creatinine Ratio 27, Glucose Level 118H, Calcium Level 8.8, Corrected Calcium 8.9, Magnesium Level 3.6H, Total Bilirubin 0.4, Aspartate Amino Transf (AST/SGOT) 16, Alanine Aminotransferase (ALT/SGPT) 10, Alkaline Phosphatase 104, C-Reactive Protein High Sensitivity 3.83H, Total Protein 7.3, Albumin 3.9, Lipase 38, Serum Alcohol < 10 08/29/22 09:35: Urine Color YELLOW, Urine Clarity TURBID, Urine pH 6.0, Urine Specific [place] 1.025H, Urine Protein TRACEH, Urine Glucose (UA) NEGATIVE, Urine Ketones NEGATIVE, Urine Nitrite NEGATIVE, Urine Bilirubin NEGATIVE, Urine Urobilinogen 0.2, Urine Leukocyte Esterase 3+H, Urine RBC (Auto) 1+H, Urine RBC 0-2, Urine WBC >100H, Urine Squamous Epithelial Cells 0-2, Urine Crystals NONE, Urine Bacteria LARGEH, Urine Casts NONE, Urine Mucus NEGATIVE, Urine Culture Indicated YES, SARS-CoV-2 RNA (RT-PCR) Not Detected 08/29/22 10:25: Lactic Acid Level 1.71 08/29/22 13:30: Blood Gas Puncture Site L RAD, Blood Gas Patient Temperature 35.6, Arterial Blood pH 7.34*L, Arterial Blood Partial Pressure CO2 45, Arterial Blood Partial Pressure O2 72L, Arterial Blood HCO3 24, Arterial Blood Total CO2 25.8, Arterial Blood Oxygen Saturation 95, Arterial Blood Base Excess -1.0, [place] Test POSITIVE, Blood Gas Ventilator Setting NO, Blood Gas Inspired Oxygen 4L 08/29/22 15:42: Sodium Level 123*L, Potassium Level 3.4L, Chloride Level 88L, Carbon Dioxide Level 22, Anion Gap 13, Blood Urea Nitrogen 55H, Creatinine 1.80H, Estimat Glomerular Filtration Rate 28, BUN/Creatinine Ratio 31, Glucose Level 95, Calcium Level 7.7L 08/29/22 17:44: Glucometer 109 08/30/22 00:06: Glucometer 162H 08/30/22 04:44: Sodium Level 131L, Potassium Level 3.4L, Chloride Level 99, Carbon Dioxide Level 22, Anion Gap 10, Blood Urea Nitrogen 36H, Creatinine 1.28, Estimat Glomerular Filtration Rate 43, BUN/Creatinine Ratio 28, Glucose Level 167H, Calcium Level 7.6L, White Blood Count 6.3, Red Blood Count 3.90, Hemoglobin 11.2#L, Hematocrit 35, Mean Corpuscular Volume 89, Mean Corpuscular Hemoglobin 29, Mean Corpuscular Hemoglobin Concent 32, Red Cell Distribution Width 14.0, Platelet Count 271, Mean Platelet Volume 9.6, Immature Granulocyte % (Auto) 1, Neutrophils (%) (Auto) 97H, Lymphocytes (%) (Auto) 2L, Monocytes (%) (Auto) 0, Eosinophils (%) (Auto) 0, Basophils (%) (Auto) 0, Neutrophils # (Auto) 6.1, Lymphocytes # (Auto) 0.2L, Monocytes # (Auto) 0.0, Eosinophils # (Auto) 0.0, Basophils # (Auto) 0.0, Immature Granulocyte # (Auto) 0.0, Corrected Calcium 8.1L, Phosphorus Level 4.2, Magnesium Level 3.3H, Total Bilirubin 0.3, Aspartate Amino Transf (AST/SGOT) 14, Alanine Aminotransferase (ALT/SGPT) 10, Alkaline Phosphatase 83, Total Protein 6.0L, Albumin 3.4 08/30/22 11:37: Glucometer 239H 08/30/22 16:34: Glucometer 158H 08/30/22 20:18: Glucometer 170H 08/31/22 05:25: White Blood Count 13.8H, Red Blood Count 3.47L, Hemoglobin 10.2L, Hematocrit 31L , Mean Corpuscular Volume 90, Mean Corpuscular Hemoglobin 29, Mean Corpuscular Hemoglobin Concent 33, Red Cell Distribution Width 14.4, Platelet Count 277, Mean Platelet Volume 9.4, Immature Granulocyte % (Auto) 1, Neutrophils (%) (Auto) 85H, Lymphocytes (%) (Auto) 5L, Monocytes (%) (Auto) 10, Eosinophils (%) (Auto) 0, Basophils (%) (Auto) 0, Neutrophils # (Auto) 11.6H, Lymphocytes # (Auto) 0.6L, Monocytes # (Auto) 1.4H, Eosinophils # (Auto) 0.0, Basophils # (Auto) 0.0, Immature Granulocyte # (Auto) 0.1, Sodium Level 134L, Potassium Level 4.1, Chloride Level 109H, Carbon Dioxide Level 19L, Anion Gap 6, Blood Urea Nitrogen 18, Creatinine 0.82, Estimat Glomerular Filtration Rate 73, BUN/Creatinine Ratio 22, Glucose Level 111H, Calcium Level 7.4L, Corrected Calcium 8.1L, Magnesium Level 3.0H, Total Bilirubin 0.2, Aspartate Amino Transf (AST/SGOT) 12, Alanine Aminotransferase (ALT/SGPT) 11, Alkaline Phosphatase 66, Total Protein 5.4L, Albumin 3.1L 08/31/22 11:06: Glucometer 165H 08/31/22 16:11: Glucometer 116H 08/31/22 20:38: Glucometer 109 09/01/22 04:21: White Blood Count 14.9H, Red Blood Count 3.78L, Hemoglobin 11.3L, Hematocrit 34L , Mean Corpuscular Volume 91, Mean Corpuscular Hemoglobin 30, Mean Corpuscular Hemoglobin Concent 33, Red Cell Distribution Width 14.6H, Platelet Count 308, Mean Platelet Volume 9.2, Immature Granulocyte % (Auto) 1, Neutrophils (%) (Auto) 80H, Lymphocytes (%) (Auto) 9L, Monocytes (%) (Auto) 9, Eosinophils (%) (Auto) 0, Basophils (%) (Auto) 0, Neutrophils # (Auto) 12.0H, Lymphocytes # (Auto) 1.4, Monocytes # (Auto) 1.3H, Eosinophils # (Auto) 0.0, Basophils # (Auto) 0.0, Immature Granulocyte # (Auto) 0.2H, Sodium Level 127L, Potassium Level 4.3, Chloride Level 103, Carbon Dioxide Level 18L, Anion Gap 6, Blood Urea Nitrogen 12, Creatinine 0.78, Estimat Glomerular Filtration Rate 78, BUN/Creatinine Ratio 15, Glucose Level 83, Calcium Level 7.7L, Corrected Calcium 8.2L, Magnesium Level 2.9H, Total Bilirubin 0.3, Aspartate Amino Transf (AST/SGOT) 13, Alanine Aminotransferase (ALT/SGPT) 12, Alkaline Phosphatase 67, Total Protein 5.9L, Albumin 3.4 09/01/22 10:56: Glucometer 107 Microbiology 08/29/22 MRSA Screen - Final, Complete MRSA not isolated 08/29/22 Blood Culture - Preliminary, Resulted No growth 08/29/22 Urine Culture - Final, Complete Escherichia coli Escherichia coli#2 Pending Labs Microbiology Date/Time Source Procedure Growth Status 08/29/22 12:25 Nasal MRSA Screen - Final MRSA not isolated Complete 08/29/22 10:30 Peripheral Lt Ac Blood Culture - Preliminary No growth Resulted 08/29/22 10:25 Peripheral Lt Ac Blood Culture - Preliminary No growth Resulted 08/29/22 09:35 Urine Clean Catch Urine Culture - Final Escherichia coli Escherichia coli#2 Complete Laboratory Tests 08/29/22 09:24: White Blood Count 11.0, Red Blood Count 4.80, Hemoglobin 14.1, Hematocrit 42, Mean Corpuscular Volume 87, Mean Corpuscular Hemoglobin 29, Mean Corpuscular Hemoglobin Concent 34, Red Cell Distribution Width 13.9, Platelet Count 380, Mean Platelet Volume 9.5, Immature Granulocyte % (Auto) 1, Neutrophils (%) (Auto) 85, Lymphocytes (%) (Auto) 6, Monocytes (%) (Auto) 8, Eosinophils (%) (Auto) 1, Basophils (%) (Auto) 0, Neutrophils # (Auto) 9.3, Lymphocytes # (Auto) 0.7, Monocytes # (Auto) 0.9, Eosinophils # (Auto) 0.1, Basophils # (Auto) 0.0, Immature Granulocyte # (Auto) 0.1, Neutrophils % (Manual) 86, Lymphocytes % (Manual) 7, Monocytes % (Manual) 6, Eosinophils % (Manual) 0, Basophils % (Manua l) 1, Band Neutrophils 0, Blood Morphology Comment NORMAL, Prothrombin Time 12.5, INR Comment 0.9, Activated Partial Thromboplast Time 36, Sodium Level 123, Potassium Level 4.0, Chloride Level 81, Carbon Dioxide Level 27, Anion Gap 15, Blood Urea Nitrogen 65, Creatinine 2.39, Estimat Glomerular Filtration Rate 20, BUN/Creatinine Ratio 27, Glucose Level 118, Calcium Level 8.8, Corrected Calcium 8.9, Magnesium Level 3.6, Total Bilirubin 0.4, Aspartate Amino Transf (AST/SGOT) 16, Alanine Aminotransferase (ALT/SGPT) 10, Alkaline Phosphatase 104, C-Reactive Protein High Sensitivity 3.83, Total Protein 7.3, Albumin 3.9, Lipase 38, Serum Alcohol < 10 08/29/22 09:35: Urine Color YELLOW, Urine Clarity TURBID, Urine pH 6.0, Urine Specific [place] 1.025, Urine Protein TRACE, Urine Glucose (UA) NEGATIVE, Urine Ketones NEGATIVE, Urine Nitrite NEGATIVE, Urine Bilirubin NEGATIVE, Urine Urobilinogen 0.2, Urine Leukocyte Esterase 3+, Urine RBC (Auto) 1+, Urine RBC 0-2, Urine WBC >100, Urine Squamous Epithelial Cells 0-2, Urine Crystals NONE, Urine Bacteria LARGE, Urine Casts NONE, Urine Mucus NEGATIVE, Urine Culture Indicated YES, SARS-CoV-2 RNA (RT-PCR) Not Detected 08/29/22 10:25: Lactic Acid Level 1.71 08/29/22 13:30: Blood Gas Puncture Site L RAD, Blood Gas Patient Temperature 35.6, Arterial Blood pH 7.34, Arterial Blood Partial Pressure CO2 45, Arterial Blood Partial Pressure O2 72, Arterial Blood HCO3 24, Arterial Blood Total CO2 25.8, Arterial Blood Oxygen Saturation 95, Arterial Blood Base Excess -1.0, [place] Test POSITIVE, Blood Gas Ventilator Setting NO, Blood Gas Inspired Oxygen 4L 08/29/22 15:42: Sodium Level 123, Potassium Level 3.4, Chloride Level 88, Carbon Dioxide Level 22, Anion Gap 13, Blood Urea Nitrogen 55, Creatinine 1.80, Estimat Glomerular Filtration Rate 28, BUN/Creatinine Ratio 31, Glucose Level 95, Calcium Level 7.7 08/29/22 17:44: Glucometer 109 08/30/22 00:06: Glucometer 162 08/30/22 04:44: Sodium Level 131, Potassium Level 3.4, Chloride Level 99, Carbon Dioxide Level 22, Anion Gap 10, Blood Urea Nitrogen 36, Creatinine 1.28, Estimat Glomerular Filtration Rate 43, BUN/Creatinine Ratio 28, Glucose Level 167, Calcium Level 7.6, White Blood Count 6.3, Red Blood Count 3.90, Hemoglobin 11.2, Hematocrit 35, Mean Corpuscular Volume 89, Mean Corpuscular Hemoglobin 29, Mean Corpuscular Hemoglobin Concent 32, Red Cell Distribution Width 14.0, Platelet Count 271, Mean Platelet Volume 9.6, Immature Granulocyte % (Auto) 1, Neutrophils (%) (Auto) 97, Lymphocytes (%) (Auto) 2, Monocytes (%) (Auto) 0, Eosinophils (%) (Auto) 0, Basophils (%) (Auto) 0, Neutrophils # (Auto) 6.1, Lymphocytes # (Auto) 0.2, Monocytes # (Auto) 0.0, Eosinophils # (Auto) 0.0, Basophils # (Auto) 0.0, Immature Granulocyte # (Auto) 0.0, Corrected Calcium 8.1, Phosphorus Level 4.2, Magnesium Level 3.3, Total Bilirubin 0.3, Aspartate Amino Transf (AST/SGOT) 14, Alanine Aminotransferase (ALT/SGPT) 10, Alkaline Phosphatase 83, Total Protein 6.0, Albumin 3.4 08/30/22 11:37: Glucometer 239 08/30/22 16:34: Glucometer 158 08/30/22 20:18: Glucometer 170 08/31/22 05:25: White Blood Count 13.8, Red Blood Count 3.47, Hemoglobin 10.2, Hematocrit 31, Mean Corpuscular Volume 90, Mean Corpuscular Hemoglobin 29, Mean Corpuscular Hemoglobin Concent 33, Red Cell Distribution Width 14.4, Platelet Count 277, Mean Platelet Volume 9.4, Immature Granulocyte % (Auto) 1, Neutrophils (%) (Auto) 85, Lymphocytes (%) (Auto) 5, Monocytes (%) (Auto) 10, Eosinophils (%) (Auto) 0, Basophils (%) (Auto) 0, Neutrophils # (Auto) 11.6, Lymphocytes # (Auto) 0.6, Monocytes # (Auto) 1.4, Eosinophils # (Auto) 0.0, Basophils # (Auto) 0.0, Immature Granulocyte # (Auto) 0.1, Sodium Level 134, Potassium Level 4.1, Chloride Level 109, Carbon Dioxide Level 19, Anion Gap 6, Blood Urea Nitrogen 18, Creatinine 0.82, Estimat Glomerular Filtration Rate 73, BUN/Creatinine Ratio 22, Glucose Level 111, Calcium Level 7.4, Corrected Calcium 8.1, Magnesium Level 3.0, Total Bilirubin 0.2, Aspartate Amino Transf (AST/SGOT) 12, Alanine Aminotransferase (ALT/SGPT) 11, Alkaline Phosphatase 66, Total Protein 5.4, Albumin 3.1 08/31/22 11:06: Glucometer 165 08/31/22 16:11: Glucometer 116 08/31/22 20:38: Glucometer 109 09/01/22 04:21: White Blood Count 14.9, Red Blood Count 3.78, Hemoglobin 11.3, Hematocrit 34, Mean Corpuscular Volume 91, Mean Corpuscular Hemoglobin 30, Mean Corpuscular Hemoglobin Concent 33, Red Cell Distribution Width 14.6, Platelet Count 308, Mean Platelet Volume 9.2, Immature Granulocyte % (Auto) 1, Neutrophils (%) (Auto) 80, Lymphocytes (%) (Auto) 9, Monocytes (%) (Auto) 9, Eosinophils (%) (Auto) 0, Basophils (%) (Auto) 0, Neutrophils # (Auto) 12.0, Lymphocytes # (Auto) 1.4, Monocytes # (Auto) 1.3, Eosinophils # (Auto) 0.0, Basophils # (Auto) 0.0, Immature Granulocyte # (Auto) 0.2, Sodium Level 127, Potassium Level 4.3, Chloride Level 103, Carbon Dioxide Level 18, Anion Gap 6, Blood Urea Nitrogen 12, Creatinine 0.78, Estimat Glomerular Filtration Rate 78, BUN/Creatinine Ratio 15, Glucose Level 83, Calcium Level 7.7, Corrected Calcium 8.2, Magnesium Level 2.9, Total Bilirubin 0.3, Aspartate Amino Transf (AST/SGOT) 13, Alanine Aminotransferase (ALT/SGPT) 12, Alkaline Phosphatase 67, Total Protein 5.9, Albumin 3.4 09/01/22 10:56: Glucometer 107 Discharge Home Medications: Active Scripts Active Prednisone 10 Mg Tab.ds.pk 10 Mg PO DAILY Take 2 tabs(20mg)daily for 3 days then 1 tab daily for 3 days Sodium Chloride 1,000 Mg Tablet.babs 1 Gm PO DAILY Amlodipine Besylate 5 Mg Tablet 5 Mg PO DAILY Cefdinir 300 Mg Capsule 300 Mg PO BID Tramadol HCl 50 Mg Tablet 50-100 Mg PO Q6H PRN Reported Magnesium (Magnesium Oxide) 400 Mg Magnesium Tablet 400 Mg PO HS PRN Ventolin Hfa (Albuterol Sulfate) 90 Mcg Hfa.aer.ad 2 Puff INH Q6H PRN Advair Hfa 115-21 Mcg Inhaler (Fluticasone/Salmeterol) 115 Mcg-21 Mcg/Actuation Hfa.aer.ad 2 Puff INH BID Fluticasone Propionate 50 Mcg/Actuation [place].susp 1 [place] NSEACH DAILY PRN Alive Premium Women's 50 Plus (Mv-Mn/Folic/Lutein/Herbal 293) 80 Mcg-166.7 Mcg- 66.7 Mg Tab.chew 2 Each PO DAILY Zolpidem Tartrate ER (Zolpidem Tartrate) 6.25 Mg Tab.mphase 6.25 Mg PO HS Incruse Ellipta (Umeclidinium [place]) 62.5 Mcg/Actuation Blst.w.dev 1 Inh INH DAILY Instructions to patient/family Please see electronic discharge instructions given to patient. JERAMIE KENT DO Sep 01, 2022 11:35
--- NOTE | 2022-09-01 13:42 | Progress Note ---
Subjective Date Seen by a Provider: Sep 01, 2022 Time Seen by a Provider: 11:00 Subjective/Events-last exam Patient doing really well Thought she wanted to go home today but son is not prepared for her today Moving around really well A little bit groggy taking oxycodone for right shoulder pain Shoulder x-ray looks to be just degeneration We will hold discharge until tomorrow Low sodium 127 starting sodium tablets and limiting fluid to 2000 a day Delicate balance of preventing recurrent dehydration from the ileostomy output but not too much to decrease sodium level Review of Systems General: Fatigue, Malaise Musculoskeletal: arm pain Focused Exam Time of Focused Exam: 11:15 Objective Exam Last Set of Vital Signs Vital Signs Date Time Temp Pulse Resp B/P (MAP) Pulse Ox O2 Delivery O2 Flow Rate FiO2 09/01/22 08:00 Nasal Cannula 2.00 09/01/22 07:39 36.6 88 18 148/77 (100) 92 08/29/22 12:58 36 Capillary Refill : Less Than 3 Seconds I&O Intake and Output 09/01/22 00:00 Intake Total 4615.2 ml Output Total 2050 ml Balance 2565.2 ml Intake Oral 2100 ml IV Total 2515.2 ml Output Urine Total 1600 ml Stool Total 450 ml # Voids 1 General: Alert, Oriented X3, Cooperative, No Acute Distress Lungs: Clear to Auscultation, Normal Air Movement Heart: Regular Rate, Normal S1, Normal S2, No Murmurs Psych/Mental Status: Mental Status NL, Mood NL Results Lab Laboratory Tests 08/31/22 16:11: Glucometer 116H 08/31/22 20:38: Glucometer 109 09/01/22 04:21: White Blood Count 14.9H, Red Blood Count 3.78L, Hemoglobin 11.3L, Hematocrit 34L , Mean Corpuscular Volume 91, Mean Corpuscular Hemoglobin 30, Mean Corpuscular Hemoglobin Concent 33, Red Cell Distribution Width 14.6H, Platelet Count 308, Mean Platelet Volume 9.2, Immature Granulocyte % (Auto) 1, Neutrophils (%) (Auto) 80H, Lymphocytes (%) (Auto) 9L, Monocytes (%) (Auto) 9, Eosinophils (%) (Auto) 0, Basophils (%) (Auto) 0, Neutrophils # (Auto) 12.0H, Lymphocytes # (Auto) 1.4, Monocytes # (Auto) 1.3H, Eosinophils # (Auto) 0.0, Basophils # (Auto) 0.0, Immature Granulocyte # (Auto) 0.2H, Sodium Level 127L, Potassium Level 4.3, Chloride Level 103, Carbon Dioxide Level 18L, Anion Gap 6, Blood Urea Nitrogen 12, Creatinine 0.78, Estimat Glomerular Filtration Rate 78, BUN/Creatinine Ratio 15, Glucose Level 83, Calcium Level 7.7L, Corrected Calcium 8.2L, Magnesium Level 2.9H, Total Bilirubin 0.3, Aspartate Amino Transf (AST/SGOT) 13, Alanine Aminotransferase (ALT/SGPT) 12, Alkaline Phosphatase 67, Total Protein 5.9L, Albumin 3.4 09/01/22 10:56: Glucometer 107 Microbiology 08/29/22 MRSA Screen - Final, Complete MRSA not isolated 08/29/22 Blood Culture - Preliminary, Resulted No growth 08/29/22 Urine Culture - Final, Complete Escherichia coli Escherichia coli#2 Assessment/Plan Assessment/Plan Assess & Plan/Chief Complaint Assessment: Acute on chronic hypoxic respiratory failure Sepsis Early pneumonia Acute exacerbation of COPD Acute kidney injury Profound dehydration from ileostomy output Previous alcohol use- covering for possible withdrawal Advanced age Debility following colon perforation [place] [facility] [place] per Dr Hunt h/o hospital acquired PNA 04/2022 requiring transfer to [facility] for higher level of care Abdominal wound requiring wound care History of Encephalopathy Diastolic CHF Urinary incontinence Hyponatremia likely due to polydipsia Plan: PO antibiotics Nebulizers PO steroids Pulmicort nebs Home meds Lovenox for DVT prophylaxis Dr. Hunt consult Fluid restriction to 2000 cc a day JERAMIE KENT DO Sep 01, 2022 13:42
[2022-09-01] MEDS: ENOXAPARIN INJECTION 30 MG/0.3 ML SYR SC SCH (14:48)
[2022-09-01 15:58] VITALS: BP 134/75
[2022-09-01] MEDS ORDERED: RT-ALBUTEROL HFA 8.5 GM INHALER IH PRN (17:00)
[2022-09-01] MEDS: ZOLPIDEM 5 MG (AMBIEN) TAB PO PRN (19:57)
[2022-09-01] MEDS: MELATONIN 3 MG TABLET PO PRN (19:57)
[2022-09-02] MEDS: LORazepam 0.5 MG (ATIVAN) TABLET PO PRN (00:12)
[2022-09-02 00:13] VITALS: BP 128/60
[2022-09-02] MEDS: RT-ALBUTEROL/IPRATROPIUM 3 ML (DUONEB) VIAL INH SCH ×3 (01:50→10:01)
[2022-09-02] MEDS: inSUlin ASPART (NovoLOG) 1 UNIT/0.01 ML (CHARGE PER UNIT) SC SCH (05:46)
[2022-09-02] MEDS: THIAMINE 100 MG (VITAMIN B-1) TAB PO SCH (05:47)
[2022-09-02] MEDS: predniSONE 20 MG TAB PO SCH (05:47)
[2022-09-02] MEDS: MULTIVIT W/MINERALS TAB (THERAGRAN M) PO SCH (05:47)
[2022-09-02 05:52] LABS: BASOPHILS % (AUTO) 0 % (0-10); EOSINOPHILS # (AUTO) 0.1 10^3/uL (0.0-0.3); EOSINOPHILS % (AUTO) 1 % (0-10); HEMATOCRIT 34 % (35-52); HEMOGLOBIN 11.3 g/dL (11.5-16.0); LYMPHOCYTES # (AUTO) 1.7 10^3/uL (1.0-4.0); LYMPHOCYTES % (AUTO) 14 % (12-44); MEAN CORPUSCULAR HEMOGLOBIN 29 pg (25-34); MEAN CORPUSCULAR HGB CONC 33 g/dL (32-36); MEAN CORPUSCULAR VOLUME 89 fL (80-99); MEAN PLATELET VOLUME 9.5 fL (9.0-12.2); MONOCYTES # (AUTO) 1.4 10^3/uL (0.0-1.0); MONOCYTES % (AUTO) 11 % (0-12); NEUTROPHILS # (AUTO) 8.9 10^3/uL (1.8-7.8); NEUTROPHILS % (AUTO) 73 % (42-75); PLATELET COUNT 344 10^3/uL (130-400); WHITE BLOOD COUNT 12.2 10^3/uL (4.3-11.0)
[2022-09-02 06:18] LABS: ALBUMIN 3.2 GM/DL (3.2-4.5); BILIRUBIN,TOTAL 0.7 MG/DL (0.1-1.0); CALCIUM 8.2 MG/DL (8.5-10.1); CREATININE SERUM 0.71 MG/DL (0.60-1.30); MAGNESIUM 2.2 MG/DL (1.6-2.4); POTASSIUM 3.9 MMOL/L (3.6-5.0); TOTAL PROTEIN 5.4 GM/DL (6.4-8.2)
[2022-09-02 07:56] VITALS: BP 111/78
[2022-09-02] MEDS: FLUTICASONE/VILANTEROL 100 MCG 14'S (BREO) IH SCH (09:49)
[2022-09-02] MEDS: TIOTROPIUM INH 4 GM (SPIRIVA Respimat) IH SCH (09:49)
[2022-09-02] MEDS: RT-BUDESONIDE NEBS 0.5 MG/2ML (PULMICORT) AMP INH SCH (09:50)
--- NOTE | 2022-09-02 09:54 | Discharge Summary ---
Diagnosis/Chief Complaint Date of Admission Aug 29, 2022 at 12:09 Date of Discharge Discharge Date: Sep 02, 2022 Discharge Diagnosis Assessment: Acute on chronic hypoxic respiratory failure Sepsis Early pneumonia Acute exacerbation of COPD Acute kidney injury Profound dehydration from ileostomy output Previous alcohol use- covering for possible withdrawal Advanced age Debility following colon perforation 04/2022 during colonoscopy at [facility] [place] received emergent diverting colostomy per Dr Hunt h/o hospital acquired PNA 04/2022 requiring transfer to [facility] for higher level of care Abdominal wound requiring wound care History of Encephalopathy Diastolic CHF Urinary incontinence Hyponatremia likely due to polydipsia Plan: PO antibiotics Nebulizers PO steroids Pulmicort nebs Home meds Lovenox for DVT prophylaxis Dr. Hunt consult Fluid restriction to 2000 cc a day Discharge Summary Discharge Physical Examination Allergies: Coded Allergies: acetaminophen (Unverified Allergy, Severe, Anaphylaxis, 08/29/22) furosemide (Unverified Allergy, Severe, 06/13/22) LETHAERGY Penicillins (Unverified Allergy, Intermediate, Itching, 08/29/22) Vitals & I&Os Vital Signs Date Time Temp Pulse Resp B/P (MAP) Pulse Ox O2 Delivery O2 Flow Rate FiO2 09/02/22 10:55 09/02/22 09:50 92 Nasal Cannula 2.00 09/02/22 07:56 36.4 83 18 09/01/22 22:20 93 General Appearance: Alert, Oriented X3, Cooperative Respiratory: Clear to Auscultation Cardiovascular: Regular Rate Psych/Mental Status: Mental Status NL Hospital Course Was the Problem List Reviewed?: Yes Hospital course: Patient had an uneventful hospital course which started in the ICU due to history of respiratory failure when she was diagnosed with UTI profound dehydration acute kidney injury and early pneumonia. Acute exacerbation of COPD was also present so given IV steroids. Aggressive IV fluids improved kidney function back to normal. PT and OT ordered and she was back to her baseline function. Overall she did very well but she began drinking an excessive amount of free water causing sodium level to go down which are restricted to 2000 cc a day and started sodium tablets. Overall she was doing very well and she will go home with her son. Labs (last 24 hrs) Laboratory Tests 08/29/22 09:24: White Blood Count 11.0, Red Blood Count 4.80, Hemoglobin 14.1, Hematocrit 42, Mean Corpuscular Volume 87, Mean Corpuscular Hemoglobin 29, Mean Corpuscular Hemoglobin Concent 34, Red Cell Distribution Width 13.9, Platelet Count 380, Mean Platelet Volume 9.5, Immature Granulocyte % (Auto) 1, Neutrophils (%) (Auto) 85H, Lymphocytes (%) (Auto) 6L, Monocytes (%) (Auto) 8, Eosinophils (%) (Auto) 1, Basophils (%) (Auto) 0, Neutrophils # (Auto) 9.3H, Lymphocytes # (Auto) 0.7L, Monocytes # (Auto) 0.9, Eosinophils # (Auto) 0.1, Basophils # (Auto) 0.0, Immature Granulocyte # (Auto) 0.1, Neutrophils % (Manual) 86, Lym phocytes % (Manual) 7, Monocytes % (Manual) 6, Eosinophils % (Manual) 0, Basophils % (Manual) 1, Band Neutrophils 0, Blood Morphology Comment NORMAL, Prothrombin Time 12.5, INR Comment 0.9, Activated Partial Thromboplast Time 36H, Sodium Level 123*L, Potassium Level 4.0, Chloride Level 81L, Carbon Dioxide Level 27, Anion Gap 15H, Blood Urea Nitrogen 65H, Creatinine 2.39H, Estimat Latoya merular Filtration Rate 20, BUN/Creatinine Ratio 27, Glucose Level 118H, Calcium Level 8.8, Corrected Calcium 8.9, Magnesium Level 3.6H, Total Bilirubin 0.4, Aspartate Amino Transf (AST/SGOT) 16, Alanine Aminotransferase (ALT/SGPT) 10, Alkaline Phosphatase 104, C-Reactive Protein High Sensitivity 3.83H, Total Protein 7.3, Albumin 3.9, Lipase 38, Serum Alcohol < 10 08/29/22 09:35: Urine Color YELLOW, Urine Clarity TURBID, Urine pH 6.0, Urine Specific [place] 1.025H, Urine Protein TRACEH, Urine Glucose (UA) NEGATIVE, Urine Ketones NEGATIVE, Urine Nitrite NEGATIVE, Urine Bilirubin NEGATIVE, Urine Urobilinogen 0.2, Urine Leukocyte Esterase 3+H, Urine RBC (Auto) 1+H, Urine RBC 0-2, Urine WBC >100H, Urine Squamous Epithelial Cells 0-2, Urine Crystals NONE, Urine Bacteria LARGEH, Urine Casts NONE, Urine Mucus NEGATIVE, Urine Culture Indicated YES, SARS-CoV-2 RNA (RT-PCR) Not Detected 08/29/22 10:25: Lactic Acid Level 1.71 08/29/22 13:30: Blood Gas Puncture Site L RAD, Blood Gas Patient Temperature 35.6, Arterial Blood pH 7.34*L, Arterial Blood Partial Pressure CO2 45, Arterial Blood Partial Pressure O2 72L, Arterial Blood HCO3 24, Arterial Blood Total CO2 25.8, Arterial Blood Oxygen Saturation 95, Arterial Blood Base Excess -1.0, Don[place]on Test POSITIVE, Blood Gas Ventilator Setting NO, Blood Gas Inspired Oxygen 4L 08/29/22 15:42: Sodium Level 123*L, Potassium Level 3.4L, Chloride Level 88L, Carbon Dioxide Level 22, Anion Gap 13, Blood Urea Nitrogen 55H, Creatinine 1.80H, Estimat Glomerular Filtration Rate 28, BUN/Creatinine Ratio 31, Glucose Level 95, Calcium Level 7.7L 08/29/22 17:44: Glucometer 109 08/30/22 00:06: Glucometer 162H 08/30/22 04:44: Sodium Level 131L, Potassium Level 3.4L, Chloride Level 99, Carbon Dioxide Level 22, Anion Gap 10, Blood Urea Nitrogen 36H, Creatinine 1.28, Estimat Glomerular Filtration Rate 43, BUN/Creatinine Ratio 28, Glucose Level 167H, Calcium Level 7.6L, White Blood Count 6.3, Red Blood Count 3.90, Hemoglobin 11.2#L, Hematocrit 35, Mean Corpuscular Volume 89, Mean Corpuscular Hemoglobin 29, Mean Corpuscular Hemoglobin Concent 32, Red Cell Distribution Width 14.0, Platelet Count 271, M andrew Platelet Volume 9.6, Immature Granulocyte % (Auto) 1, Neutrophils (%) (Auto) 97H, Lymphocytes (%) (Auto) 2L, Monocytes (%) (Auto) 0, Eosinophils (%) (Auto) 0, Basophils (%) (Auto) 0, Neutrophils # (Auto) 6.1, Lymphocytes # (Auto) 0.2L, Monocytes # (Auto) 0.0, Eosinophils # (Auto) 0.0, Basophils # (Auto) 0.0, Immature Granulocyte # (Auto) 0.0, Corrected Calcium 8.1L, Phosphorus Level 4.2, Magnesium Level 3.3H, Total Bilirubin 0.3, Aspartate Amino Transf (AST/SGOT) 14, Alanine Aminotransferase (ALT/SGPT) 10, Alkaline Phosphatase 83, Total Protein 6.0L, Albumin 3.4 08/30/22 11:37: Glucometer 239H 08/30/22 16:34: Glucometer 158H 08/30/22 20:18: Glucometer 170H 08/31/22 05:25: White Blood Count 13.8H, Red Blood Count 3.47L, Hemoglobin 10.2L, Hematocrit 31L , Mean Corpuscular Volume 90, Mean Corpuscular Hemoglobin 29, Mean Corpuscular Hemoglobin Concent 33, Red Cell Distribution Width 14.4, Platelet Count 277, Mean Platelet Volume 9.4, Immature Granulocyte % (Auto) 1, Neutrophils (%) (Auto) 85H, Lymphocytes (%) (Auto) 5L, Monocytes (%) (Auto) 10, Eosinophils (%) (Auto) 0, Basophils (%) (Auto) 0, Neutrophils # (Auto) 11.6H, Lymphocytes # (Auto) 0.6L, Monocytes # (Auto) 1.4H, Eosinophils # (Auto) 0.0, Basophils # (Auto) 0.0, Immature Granulocyte # (Auto) 0.1, Sodium Level 134L, Potassium Level 4.1, Chloride Level 109H, Carbon Dioxide Level 19L, Anion Gap 6, Blood Urea Nitrogen 18, Creatinine 0.82, Estimat Glomerular Filtration Rate 73, BUN/Creatinine Ratio 22, Glucose Level 111H, Calcium Level 7.4L, Corrected Calcium 8.1L, Magnesium Level 3.0H, Total Bilirubin 0.2, Aspartate Amino Transf (AST/SGOT) 12, Alanine Aminotransferase (ALT/SGPT) 11, Alkaline Phosphatase 66, Total Protein 5.4L, Albumin 3.1L 08/31/22 11:06: Glucometer 165H 08/31/22 16:11: Glucometer 116H 08/31/22 20:38: Glucometer 109 09/01/22 04:21: White Blood Count 14.9H, Red Blood Count 3.78L, Hemoglobin 11.3L, Hematocrit 34L , Mean Corpuscular Volume 91, Mean Corpuscular Hemoglobin 30, Mean Corpuscular Hemoglobin Concent 33, Red Cell Distribution Width 14.6H, Platelet Count 308, Mean Platelet Volume 9.2, Immature Granulocyte % (Auto) 1, Neutrophils (%) (Auto) 80H, Lymphocytes (%) (Auto) 9L, Monocytes (%) (Auto) 9, Eosinophils (%) (Auto) 0, Basophils (%) (Auto) 0, Neutrophils # (Auto) 12.0H, Lymphocytes # (Auto) 1.4, Monocytes # (Auto) 1.3H, Eosinophils # (Auto) 0.0, Basophils # (Auto) 0.0, Immature Granulocyte # (Auto) 0.2H, Sodium Level 127L, Potassium Level 4.3, Chloride Level 103, Carbon Dioxide Level 18L, Anion Gap 6, Blood Urea Nitrogen 12, Creatinine 0.78, Estimat Glomerular Filtration Rate 78, BUN/Creatinine Ratio 15, Glucose Level 83, Calcium Level 7.7L, Corrected Calcium 8.2L, Magnesium Level 2.9H, Total Bilirubin 0.3, Aspartate Amino Transf (AST/SGOT) 13, Alanine Aminotransferase (ALT/SGPT) 12, Alkaline Phosphatase 67, Total Protein 5.9L, Albumin 3.4 09/01/22 10:56: Glucometer 107 09/01/22 16:04: Glucometer 99 09/01/22 20:07: Glucometer 87 09/02/22 05:26: White Blood Count 12.2H, Red Blood Count 3.84, Hemoglobin 11.3L, Hematocrit 34L, Mean Corpuscular Volume 89, Mean Corpuscular Hemoglobin 29, Mean Corpuscular Hemoglobin Concent 33, Red Cell Distribution Width 14.6H, Platelet Count 344, Mean Platelet Volume 9.5, Immature Granulocyte % (Auto) 1, Neutrophils (%) (Auto) 73, Lymphocytes (%) (Auto) 14, Monocytes (%) (Auto) 11, Eosinophils (%) (Auto) 1, Basophils (%) (Auto) 0, Neutrophils # (Auto) 8.9H, Lymphocytes # (Auto) 1.7, Monocytes # (Auto) 1.4H, Eosinophils # (Auto) 0.1, Basophils # (Auto) 0.0, Immature Granulocyte # (Auto) 0.1, Sodium Level 129L, Potassium Level 3.9, Chloride Level 103, Carbon Dioxide Level 18L, Anion Gap 8, Blood Urea Nitrogen 11, Creatinine 0.71, Estimat Glomerular Filtration Rate 87, BUN/Creatinine Ratio 15, Glucose Level 71, Calcium Level 8.2L, Corrected Calcium 8.8, Magnesium Level 2.2, Total Bilirubin 0.7, Aspartate Amino Transf (AST/SGOT) 15, Alanine Aminotransferase (ALT/SGPT) 13, Alkaline Phosphatase 65, Total Protein 5.4L, Albumin 3.2 09/02/22 05:39: Glucometer 73 Microbiology 08/29/22 MRSA Screen - Final, Complete MRSA not isolated 08/29/22 Blood Culture - Preliminary, Resulted No growth 08/29/22 Urine Culture - Final, Complete Escherichia coli Escherichia coli#2 Pending Labs Microbiology Date/Time Source Procedure Growth Status 08/29/22 12:25 Nasal MRSA Screen - Final MRSA not isolated Complete 08/29/22 10:30 Peripheral Lt Ac Blood Culture - Preliminary No growth Resulted 08/29/22 10:25 Peripheral Lt Ac Blood Culture - Preliminary No growth Resulted 08/29/22 09:35 Urine Clean Catch Urine Culture - Final Escherichia coli Escherichia coli#2 Complete Laboratory Tests 08/29/22 09:24: White Blood Count 11.0, Red Blood Count 4.80, Hemoglobin 14.1, Hematocrit 42, Mean Corpuscular Volume 87, Mean Corpuscular Hemoglobin 29, Mean Corpuscular Hemoglobin Concent 34, Red Cell Distribution Width 13.9, Platelet Count 380, Mean Platelet Volume 9.5, Immature Granulocyte % (Auto) 1, Neutrophils (%) (Auto) 85, Lymphocytes (%) (Auto) 6, Monocytes (%) (Auto) 8, Eosinophils (%) (Auto) 1, Basophils (%) (Auto) 0, Neutrophils # (Auto) 9.3, Lymphocytes # (Auto) 0.7, Monocytes # (Auto) 0.9, Eosinophils # (Auto) 0.1, Basophils # (Auto) 0.0, Immature Granulocyte # (Auto) 0.1, Neutrophils % (Manual) 86, Lymphocytes % (Manual) 7, Monocytes % (Manual) 6, Eosinophils % (Manual) 0, Basophils % (Manual) 1, Band Neutrophils 0, Blood Morphology Comment NORMAL, Prothrombin Time 12.5, INR Comment 0.9, Activated Partial Thromboplast Time 36, Sodium Level 123, Potassium Level 4.0, Chloride Level 81, Carbon Dioxide Level 27, Anion Gap 15, Blood Urea Nitrogen 65, Creatinine 2.39, Estimat Glomerular Filtration Rate 20, BUN/Creatinine Ratio 27, Glucose Level 118, Calcium Level 8.8, Corrected Calcium 8.9, Magnesium Level 3.6, Total Bilirubin 0.4, Aspartate Amino Transf (AST/SGOT) 16, Alanine Aminotransferase (ALT/SGPT) 10, Alkaline Phosphatase 104, C-Reactive Protein High Sensitivity 3.83, Total Protein 7.3, Albumin 3.9, Lipase 38, Serum Alcohol < 10 08/29/22 09:35: Urine Color YELLOW, Urine Clarity TURBID, Urine pH 6.0, Urine Specific [place] 1.025, Urine Protein TRACE, Urine Glucose (UA) NEGATIVE, Urine Ketones NEGATIVE, Urine Nitrite NEGATIVE, Urine Bilirubin NEGATIVE, Urine Urobilinogen 0.2, Urine Leukocyte Esterase 3+, Urine RBC (Auto) 1+, Urine RBC 0-2, Urine WBC >100, Urine Squamous Epithelial Cells 0-2, Urine Crystals NONE, Urine Bacteria LARGE, Urine Casts NONE, Urine Mucus NEGATIVE, Urine Culture Indicated YES, SARS-CoV-2 RNA (RT-PCR) Not Detected 08/29/22 10:25: Lactic Acid Level 1.71 08/29/22 13:30: Blood Gas Puncture Site L RAD, Blood Gas Patient Temperature 35.6, Arterial Blood pH 7.34, Arterial Blood Partial Pressure CO2 45, Arterial Blood Partial Pressure O2 72, Arterial Blood HCO3 24, Arterial Blood Total CO2 25.8, Arterial Blood Oxygen Saturation 95, Arterial Blood Base Excess -1.0, Donavon Test POSITIVE, Blood Gas Ventilator Setting NO, Blood Gas Inspired Oxygen 4L 08/29/22 15:42: Sodium Level 123, Potassium Level 3.4, Chloride Level 88, Carbon Dioxide Level 22, Anion Gap 13, Blood Urea Nitrogen 55, Creatinine 1.80, Estimat Glomerular Filtration Rate 28, BUN/Creatinine Ratio 31, Glucose Level 95, Calcium Level 7.7 08/29/22 17:44: Glucometer 109 08/30/22 00:06: Glucometer 162 08/30/22 04:44: Sodium Level 131, Potassium Level 3.4, Chloride Level 99, Carbon Dioxide Level 22, Anion Gap 10, Blood Urea Nitrogen 36, Creatinine 1.28, Estimat Glomerular Filtration Rate 43, BUN/Creatinine Ratio 28, Glucose Level 167, Calcium Level 7.6, White Blood Count 6.3, Red Blood Count 3.90, Hemoglobin 11.2, Hematocrit 35, Mean Corpuscular Volume 89, Mean Corpuscular Hemoglobin 29, Mean Corpuscular Hemoglobin Concent 32, Red Cell Distribution Width 14.0, Platelet Count 271, Mean Platelet Volume 9.6, Immature Granulocyte % (Auto) 1, Neutrophils (%) (Auto) 97, Lymphocytes (%) (Auto) 2, Monocytes (%) (Auto) 0, Eosinophils (%) (Auto) 0, Basophils (%) (Auto) 0, Neutrophils # (Auto) 6.1, Lymphocytes # (Auto) 0.2, Monocytes # (Auto) 0.0, Eosinophils # (Auto) 0.0, Basophils # (Auto) 0.0, Immature Granulocyte # (Auto) 0.0, Corrected Calcium 8.1, Phosphorus Level 4.2, Magnesium Level 3.3, Total Bilirubin 0.3, Aspartate Amino Transf (AST/SGOT) 14, Alanine Aminotransferase (ALT/SGPT) 10, Alkaline Phosphatase 83, Total Protein 6.0, Albumin 3.4 08/30/22 11:37: Glucometer 239 08/30/22 16:34: Glucometer 158 08/30/22 20:18: Glucometer 170 08/31/22 05:25: White Blood Count 13.8, Red Blood Count 3.47, Hemoglobin 10.2, Hematocrit 31, Mean Corpuscular Volume 90, Mean Corpuscular Hemoglobin 29, Mean Corpuscular Hemoglobin Concent 33, Red Cell Distribution Width 14.4, Platelet Count 277, Mean Platelet Volume 9.4, Immature Granulocyte % (Auto) 1, Neutrophils (%) ( Auto) 85, Lymphocytes (%) (Auto) 5, Monocytes (%) (Auto) 10, Eosinophils (%) (Auto) 0, Basophils (%) (Auto) 0, Neutrophils # (Auto) 11.6, Lymphocytes # (Auto) 0.6, Monocytes # (Auto) 1.4, Eosinophils # (Auto) 0.0, Basophils # (Auto) 0.0, Immature Granulocyte # (Auto) 0.1, Sodium Level 134, Potassium Level 4.1, Chloride Level 109, Carbon Dioxide Level 19, Anion Gap 6, Blood Urea Nitrogen 18, Creatinine 0.82, Estimat Glomerular Filtration Rate 73, BUN/Creatinine Ratio 22, Glucose Level 111, Calcium Level 7.4, Corrected Calcium 8.1, Magnesium Level 3.0, Total Bilirubin 0.2, Aspartate Amino Transf (AST/SGOT) 12, Alanine Aminotransferase (ALT/SGPT) 11, Alkaline Phosphatase 66, Total Protein 5.4, Albumin 3.1 08/31/22 11:06: Glucometer 165 08/31/22 16:11: Glucometer 116 08/31/22 20:38: Glucometer 109 09/01/22 04:21: White Blood Count 14.9, Red Blood Count 3.78, Hemoglobin 11.3, Hematocrit 34, Mean Corpuscular Volume 91, Mean Corpuscular Hemoglobin 30, Mean Corpuscular Hemoglobin Concent 33, Red Cell Distribution Width 14.6, Platelet Count 308, Mean Platelet Volume 9.2, Immature Granulocyte % (Auto) 1, Neutrophils (%) (Auto) 80, Lymphocytes (%) (Auto) 9, Monocytes (%) (Auto) 9, Eosinophils (%) (Auto) 0, Basophils (%) (Auto) 0, Neutrophils # (Auto) 12.0, Lymphocytes # (Auto) 1.4, Monocytes # (Auto) 1.3, Eosinophils # (Auto) 0.0, Basophils # (Auto) 0.0, Immature Granulocyte # (Auto) 0.2, Sodium Level 127, Potassium Level 4.3, Chloride Level 103, Carbon Dioxide Level 18, Anion Gap 6, Blood Urea Nitrogen 12, Creatinine 0.78, Estimat Glomerular Filtration Rate 78, BUN/Creatinine Ratio 15, Glucose Level 83, Calcium Level 7.7, Corrected Calcium 8.2, Magnesium Level 2.9, Total Bilirubin 0.3, Aspartate Amino Transf (AST/SGOT) 13, Alanine Aminotransferase (ALT/SGPT) 12, Alkaline Phosphatase 67, Total Protein 5.9, Albumin 3.4 09/01/22 10:56: Glucometer 107 09/01/22 16:04: Glucometer 99 09/01/22 20:07: Glucometer 87 09/02/22 05:26: White Blood Count 12.2, Red Blood Count 3.84, Hemoglobin 11.3, Hematocrit 34, Mean Corpuscular Volume 89, Mean Corpuscular Hemoglobin 29, Mean Corpuscular Hemoglobin Concent 33, Red Cell Distribution Width 14.6, Platelet Count 344, Mean Platelet Volume 9.5, Immature Granulocyte % (Auto) 1, Neutrophils (%) (Auto) 73, Lymphocytes (%) (Auto) 14, Monocytes (%) (Auto) 11, Eosinophils (%) (Auto) 1, Basophils (%) (Auto) 0, Neutrophils # (Auto) 8.9, Lymphocytes # (Auto) 1.7, Monocytes # (Auto) 1.4, Eosinophils # (Auto) 0.1, Basophils # (Auto) 0.0, Immature Granulocyte # (Auto) 0.1, Sodium Level 129, Potassium Level 3.9, Chloride Level 103, Carbon Dioxide Level 18, Anion Gap 8, Blood Urea Nitrogen 11, Creatinine 0.71, Estimat Glomerular Filtration Rate 87, BUN/Creatinine Ratio 15, Glucose Level 71, Calcium Level 8.2, Corrected Calcium 8.8, Magnesium Level 2.2, Total Bilirubin 0.7, Aspartate Amino Transf (AST/SGOT) 15, Alanine Aminotransferase (ALT/SGPT) 13, Alkaline Phosphatase 65, Total Protein 5.4, Albumin 3.2 09/02/22 05:39: Glucometer 73 Discharge Home Medications: Active Scripts Active Cefdinir 300 Mg Capsule 300 Mg PO BID Prednisone 10 Mg Tab.ds.pk 10 Mg PO DAILY Take 2 tabs(20mg)daily for 3 days then 1 tab daily for 3 days Sodium Chloride 1,000 Mg Tablet.babs 1 Gm PO DAILY Amlodipine Besylate 5 Mg Tablet 5 Mg PO DAILY Tramadol HCl 50 Mg Tablet 50-100 Mg PO Q6H PRN Reported Magnesium (Magnesium Oxide) 400 Mg Magnesium Tablet 400 Mg PO HS PRN Ventolin Hfa (Albuterol Sulfate) 90 Mcg Hfa.aer.ad 2 Puff INH Q6H PRN Advair Hfa 115-21 Mcg Inhaler (Fluticasone/Salmeterol) 115 Mcg-21 Mcg/Actuation Hfa.aer.ad 2 Puff INH BID Fluticasone Propionate 50 Mcg/Actuation [place]anning.susp 1 [place]anning NSEACH DAILY PRN Alive Premium Women's 50 Plus (Mv-Mn/Folic/Lutein/Herbal 293) 80 Mcg-166.7 Mcg- 66.7 Mg Tab.chew 2 Each PO DAILY Zolpidem Tartrate ER (Zolpidem Tartrate) 6.25 Mg Tab.mphase 6.25 Mg PO HS Incruse Ellipta (Umeclidinium [place]) 62.5 Mcg/Actuation Blst.w.dev 1 Inh INH DAILY Instructions to patient/family Please see electronic discharge instructions given to patient. JERAMIE KENT DO Sep 02, 2022 09:54
[2022-09-02] MEDS: PANTOPRAZOLE 40 MG (PROTONIX) VIAL IV SCH (10:02)
[2022-09-02] MEDS: SODIUM CHLORIDE 1 GM TABLET PO SCH (10:03)
[2022-09-02] MEDS: FOLIC ACID 1 MG TAB PO SCH (10:04)
[2022-09-02] MEDS: CEFDINIR 300 MG (OMNICEF) CAP PO SCH (10:04)
[2022-09-02] MEDS: SENNOSIDES 8.6 MG (SENOKOT) TAB PO SCH (10:04)
[2022-09-02] MEDS: DOCUSATE SODIUM 100 MG (COLACE) CAP PO SCH (10:04)
[2022-09-02] MEDS: amLODIPine 5 MG (NORVASC) TAB PO SCH (10:04)
== END 2022-09-02 10:20 | disposition home health service (06) | DRG 871 ==
LOC: EDUNIT# 09:18 → ER 09:19 → ICU 12:09 → 4TH 08-30 13:13
PROVIDERS: ADMIT Internal Medicine; ATTEND Internal Medicine
DX: A41.9 Sepsis, unspecified organism (principal); J18.9 Pneumonia, unspecified organism; J96.21 Acute and chronic respiratory failure with hypoxia; N39.0 Urinary tract infection, site not specified; N17.9 Acute kidney failure, unspecified; J44.0 Chronic obstructive pulmonary disease with (acute) lower respiratory infection; J44.1 Chronic obstructive pulmonary disease with (acute) exacerbation; E87.1 Hypo-osmolality and hyponatremia; I50.32 Chronic diastolic (congestive) heart failure; Z20.822 Contact with and (suspected) exposure to COVID-19; E86.0 Dehydration; I11.0 Hypertensive heart disease with heart failure; R32 Unspecified urinary incontinence; Z93.2 Ileostomy status; E78.00 Pure hypercholesterolemia, unspecified; F10.10 Alcohol abuse, uncomplicated; K43.5 Parastomal hernia without obstruction or gangrene; J84.10 Pulmonary fibrosis, unspecified; M19.011 Primary osteoarthritis, right shoulder; Z87.891 Personal history of nicotine dependence; Z99.81 Dependence on supplemental oxygen; Z79.899 Other long term (current) drug therapy; Z79.1 Long term (current) use of non-steroidal anti-inflammatories (NSAID); Z79.891 Long term (current) use of opiate analgesic
CPT/HCPCS: 36415; 36600; 71045; 73030; 80048; 80053; 80320; 81000; 82805; 82947; 83605; 83690; 83735; 84100; 85007; 85025; 85027; 85610; 85730; 86141; 87040; 87077; 87081; 87088; 87186; 87636; 94640; 94664; 94760

== ENCOUNTER → 2022-09-11 | Outpatient (CLI) | payer MEDICARE, OTHER ==
[~2022-09-11] MED LIST changes: +ALBU18HF2 INH; +AMLO-250 PO; +CEFD300C3 PO; +FLUT12AE4 INH; +FLUT16SP22 NSEACH; +MAGN400T39 PO; +MV-M-6 PO; +NF-NACL1GT PO; +PRED10TA22 PO; +TRAM50TA3 PO
--- NOTE | 2022-09-11 11:53 | Diagnostic Imaging Report ---
CHEST PA/LAT (2 VIEW) INDICATION: Pneumonia follow-up. COMPARISON: CT of the chest on 06/20/2021, chest radiograph 06/11/2021, chest radiograph 08/30/2022.. FINDINGS: Lungs: Normal lung volume. Decreased bibasilar airspace opacities. Stable pulmonary vasculature. Pleura: Decreased small left pleural effusion. Heart and Mediastinum: Cardiomediastinal silhouette and great vessels of the thorax are stable. Osseous Structures and Soft Tissues: No acute osseous abnormality. Normal soft tissues. IMPRESSION: Decreased bibasilar airspace opacities and small left pleural effusion. Dictated by: Dictated on workstation # [id number]
== END ==
LOC: RAD 11:23
PROVIDERS: ATTEND Physician Assistant
DX: J18.9 Pneumonia, unspecified organism (principal); J90 Pleural effusion, not elsewhere classified
CPT/HCPCS: 71046

== ENCOUNTER 2022-09-18 12:33 | Outpatient (CLI) | payer MEDICARE, OTHER ==
[~2022-09-18] VITALS: Ht 165.1 cm; Wt 58.4 kg
== END 2022-09-18 13:11 ==
LOC: PREOP 12:33
PROVIDERS: ATTEND Surgery
DX: Z01.818 Encounter for other preprocedural examination (principal)